=== PATIENT | female | born 1950 | race Caucasian/White ===

== ENCOUNTER 2017-08-16 21:35 | Observation (INO) | payer OTHER ==
[~2017-08-16] VITALS: Ht 167.6 cm; Wt 76.7 kg
[~2017-08-16 21:35] MED LIST: ACET-1311 PO; ASPI81TA28 PO; DIPH2CRE16 EXT; FERR1TAB23 PO; FLUT1INH INH; LEVO50TA6 PO; MAGNTAB4 PO; METO-157 PO; MORP1TAB12 PO; MORP60TA6 PO; OMEP20CA9 PO; OXYC1TAB3 PO; PROB1TAB16 PO; SDMC1 PO; SENN-61 PO; SENN8.6C PO; SIME1CAP PO; SIMV-150 PO; TPRSR/50 PO; TRMCR115 EXT; VANCOMYCIN IV; [UNRECOGNIZED DRUG - CODE] PO; [UNRECOGNIZED DRUG - SUPPLY] TOP
[2017-08-16 22:13] LABS: BASO % 0.4 %; BASO ABS # 0.05 K/uL (0-0.2); COMPLETE YES; EOS % 1.8 %; HEMATOCRIT 34.5 % (37-47); IG% 0.4 %; LYMPH % 16.1 %; LYMPH ABS # 2.02 K/uL (1.2-3.4); MEAN CELL VOLUME 87.8 fL (80-100); MEAN CORPUSCULAR HEMOGLOBIN 29.8 pg (25-34); MEAN CORPUSCULAR HGB CONC 33.9 g/dl (32-36); MEAN PLATELET VOLUME 9.5 fL (7.4-10.4); MONO % 7.7 %; NEUT % 73.6 %; PLATELET COUNT 333 K/uL (130-400); RED BLOOD COUNT 3.93 M/uL (4.2-5.4); WHITE BLOOD COUNT 12.53 K/uL (4.8-10.8)
[2017-08-16 22:38] LABS: ALT/SGPT 12 U/L (12-78); BLOOD UREA NITROGEN 3 mg/dl (7-18); CALCIUM 8.9 mg/dl (8.5-10.1); CARBON DIOXIDE 28 mmol/L (21-32); CHLORIDE 97 mmol/L (98-107); GLUCOSE 124 mg/dl (70-99); POTASSIUM 3.6 mmol/L (3.5-5.1); SODIUM 132 mmol/L (136-145)
--- NOTE | 2017-08-16 22:39 | DIAGNOSTIC IMAGING REPORT ---
CHEST ONE VIEW PORTABLE HISTORY: Atypical CHEST PAIN COMPARISON: Chest 08/22/2016. FINDINGS: The lungs are clear. Cardiac silhouette is normal in size. No pleural effusions. No pneumothorax. IMPRESSION: No acute process. Electronically signed by: Sundar Bowens M.D. 08/16/2017 10:37 PM Dictated Date/Time: 08/16/2017 10:36 PM
[2017-08-16] MEDS ORDERED: CLIN150C PO (22:40)
[2017-08-16] MEDS ORDERED: TPRSR/100 PO (22:40)
[2017-08-16] MEDS ORDERED: MORP1TAB13 PO (22:40)
[2017-08-16] MEDS ORDERED: METO10TA3 PO (22:40)
[2017-08-16] MEDS ORDERED: OXYC-609 PO (22:40)
[2017-08-16] MEDS ORDERED: DFL100 PO (22:40)
[2017-08-16] MEDS ORDERED: LEVO75TA5 PO (22:40)
[2017-08-16] MEDS ORDERED: CYM20 PO (22:40)
[2017-08-16] MEDS ORDERED: SENN-56 PO (22:43)
[2017-08-16 22:44] LABS: ALKALINE PHOSPHATASE 127 U/L (45-117); AST/SGOT 14 U/L (15-37); CKMB/CK RATIO 3.5 (0-3.0)
[2017-08-16] MEDS ORDERED: NITROGLYCERIN OINT 2% 1GM PACKET EXT ONE (23:15)
[2017-08-17] VITALS (8 sets, daily range): BP systolic 130–164; BP diastolic 76–107; PULSE 71–96; TEMP 36.4–37.1; O2SAT 92–96; Ht 167.6 cm; Wt 76.7 kg
[2017-08-17] MEDS ORDERED: MoRPHine SULFATE 2 MG/ML CARP IV PRN (01:30)
[2017-08-17] MEDS ORDERED: ONDANSETRON INJ 2 MG/ML 2 ML VIAL IV PRN (01:30)
[2017-08-17] MEDS ORDERED: NITROGLYCERIN 0.4 MG SL PER TAB CHARGE SL PRN (01:30)
[2017-08-17] MEDS ORDERED: POLYETHYLENE (MIRALAX) 17 GM PACK PO PRN (01:30)
[2017-08-17] MEDS ORDERED: MoRPHine SULFATE CR 60 MG TAB (MS CONTIN) PO ONE (01:32)
[2017-08-17] MEDS ORDERED: OXYC1CAP5 PO (01:41)
[2017-08-17] MEDS ORDERED: HOME MED ADMINISTRATION ONE (01:45)
[2017-08-17] MEDS ORDERED: METOCLOPRAMIDE HCL 10 MG TAB PO PRN (01:45)
[2017-08-17 01:53] LABS: PROTHROMBIN TIME (PATIENT) 10.6 SECONDS (9.0-12.0)
[2017-08-17] MEDS: NICOTINE 21 MG/24 HR TDSY TD SCH (02:30)
--- NOTE | 2017-08-17 02:46 | EMERGENCY ROOM VISIT NOTE ---
History Report prepared by [employer]: Chelly Gordon Under the Supervision of: Dr. Zhou Rivers M.D. First contact with patient: 21:54 Chief Complaint: CHEST PAIN Stated Complaint: cp Nursing Triage Summary: pt arrived als from home reported pt chest pain one time x five minutes radiating into left arm pt states it only lasted for five minutes then went away, "it was time to take my morphine 60mg so i took it" pt provided with 324 asa History of Present Illness The patient is a 66 year old female who presents to the Emergency Room with complaints of left sided chest pain. She was brought to the ED via EMS. She reports the pain started just prior to arrival and lasted for approximately 5 minutes, then resolved. She rates her discomfort as a 7/10 in severity and states it radiated into her left arm. She took her regular evening dose of Morphine 60 mg "because it was time" and was given 324 mg of Aspirin in the field. The patient admits to a history of hypertension and states she has not missed any recent medication doses. She was also found to be hypertensive and diaphoretic in the field. She has been on antibiotics recently for an abscess above her lip and notes she has been nauseous while taking the antibiotics. The patient denies LOC, headache, fevers, chills, visual changes, neck pain, breathing difficulties, vomiting, abdominal pain, back pain, melena, hematochezia, urinary symptoms, numbness, weakness, lymphadenopathy, rash, or other complaints. Source of History: patient Onset: [employer] Position: chest Symptom Intensity: 7/10 Timing: resolved Modifying Factors (Relieving): ibuprofen (Aspirin), narcotics (Morphine) Associated Symptoms: + diaphoresis, + nausea Review of Systems See HPI for pertinent positives and negatives. A total of ten systems were reviewed and were otherwise negative. Past Medical & Surgical Medical Problems: (1) Anemia (2) Anxiety (3) Avascular necrosis of bone of left hip (4) Chest pain (5) Chronic back pain (6) COPD (chronic obstructive pulmonary disease) (7) Depression (8) DJD (degenerative joint disease) (9) Fluid collection at surgical site (10) Hypertension (11) Hypothyroidism (12) Osteoporosis (13) Post-operative complication (14) SIADH (syndrome of inappropriate ADH production) Surgical Problems: (1) History of hysterectomy (2) History of total left hip arthroplasty (3) Post-operative state Family History Patient reports no known family medical history. Social History Smoking Status: Current Every Day Smoker Alcohol Use: occasionally Drug Use: none Marital Status: Housing Status: other Occupation Status: retired Current/Historical Medications Scheduled Clindamycin Hcl (Cleocin), 150 MG PO BID Duloxetine HCl (Duloxetine HCl), 20 MG PO DAILY Fluconazole (Fluconazole), 100 MG PO BID Levothyroxine Sodium (Levothyroxine Sodium), 75 MCG PO QAM Metoprolol Succinate (Metoprolol Succinate ER), 100 MG PO HS Morphine Sulfate (Morphine Sulfate Er), 60 MG PO TID Omeprazole (Prilosec), 20 MG PO QAM Simvastatin (Simvastatin), 10 MG PO HS Sodium Chloride (Sodium Chloride), 1 GM PO DAILY Scheduled PRN Fluticasone Furoate-Vilanterol (Breo Ellipta), 1 PUFF INH DAILY PRN for Shortness of Breath Metoclopramide HCl (Metoclopramide HCl), 10 MG PO ACHS PRN for nausea Oxycodone Hcl (Oxycodone Hcl), 1 CAP PO TID PRN for severe breakthrough pain Sennosides (Senna-Lax), 8.6 MG PO DAILY PRN for Constipation Allergies Coded Allergies: Bupropion (Verified Allergy, Unknown, 07/08/16) Latex1 -Allergic Contact Dermititis (Verified Allergy, Unknown, 07/08/16) Penicillins (Verified Allergy, Unknown, 07/08/16) Physical Exam Vital Signs Date Time Temp Pulse Resp B/P (MAP) Pulse Ox O2 Delivery O2 Flow Rate FiO2 08/16/17 22:04 85 08/16/17 22:01 93 Room Air 08/16/17 22:00 95 Room Air 08/16/17 22:00 93 Room Air 08/16/17 21:52 36.8 88 18 196/96 97 Room Air Physical Exam GENERAL: Awake, alert, well-appearing, in no distress HENT: Normocephalic, atraumatic. Oropharynx unremarkable. EYES: Normal conjunctiva. Sclera non-icteric. NECK: Supple. No nuchal rigidity. FROM. No JVD. RESPIRATORY: Clear to auscultation. CARDIAC: Regular rate, normal rhythm. Extremities warm and well perfused. Pulses equal. ABDOMEN: Soft, non-distended. No tenderness to palpation. No rebound or guarding. No masses. RECTAL: Deferred. MUSCULOSKELETAL: Chest examination reveals no tenderness. The back is symmetrical on inspection without obvious abnormality. There is no CVA tenderness to palpation. No joint edema. LOWER EXTREMITIES: Calves are equal size bilaterally and non-tender. No edema. No discoloration. NEURO: Normal sensorium. No sensory or motor deficits noted. SKIN: No rash or jaundice noted. Medical Decision & Procedures ER Provider Diagnostic Interpretation: Radiology results as stated below per my review and radiologist interpretation: CHEST ONE VIEW PORTABLE HISTORY: Atypical CHEST PAIN COMPARISON: Chest 08/22/2016. FINDINGS: The lungs are clear. Cardiac silhouette is normal in size. No pleural effusions. No pneumothorax. IMPRESSION: No acute process. Electronically signed by: Sundar Bowens M.D. 08/16/2017 10:37 PM Laboratory Results 08/16/17 21:59 Red Blood Count 3.93, Mean Corpuscular Volume 87.8, Mean Corpuscular Hemoglobin 29.8, Mean Corpuscular Hemoglobin Concent 33.9, Mean Platelet Volume 9.5, Neutrophils (%) (Auto) 73.6, Lymphocytes (%) (Auto) 16.1, Monocytes (%) (Auto) 7.7, Eosinophils (%) (Auto) 1.8, Basophils (%) (Auto) 0.4, Neutrophils # (Auto) 9.22, Lymphocytes # (Auto) 2.02, Monocytes # (Auto) 0.97, Eosinophils # (Auto) 0.22, Basophils # (Auto) 0.05 08/16/17 21:59 Test 08/16/17 21:59 08/16/17 22:00 White Blood Count 12.53 K/uL (4.8-10.8) Red Blood Count 3.93 M/uL (4.2-5.4) Hemoglobin 11.7 g/dL (12.0-16.0) Hematocrit 34.5 % (37-47) Mean Corpuscular Volume 87.8 fL (80-100) Mean Corpuscular Hemoglobin 29.8 pg (25-34) Mean Corpuscular Hemoglobin Concent 33.9 g/dl (32-36) Platelet Count 333 K/uL (130-400) Mean Platelet Volume 9.5 fL (7.4-10.4) Neutrophils (%) (Auto) 73.6 % Lymphocytes (%) (Auto) 16.1 % Monocytes (%) (Auto) 7.7 % Eosinophils (%) (Auto) 1.8 % Basophils (%) (Auto) 0.4 % Neutrophils # (Auto) 9.22 K/uL (1.4-6.5) Lymphocytes # (Auto) 2.02 K/uL (1.2-3.4) Monocytes # (Auto) 0.97 K/uL (0.11-0.59) Eosinophils # (Auto) 0.22 K/uL (0-0.5) Basophils # (Auto) 0.05 K/uL (0-0.2) RDW Standard Deviation 44.0 fL (36.4-46.3) RDW Coefficient of Variation 13.7 % (11.5-14.5) Immature Granulocyte % (Auto) 0.4 % Immature Granulocyte # (Auto) 0.05 K/uL (0.00-0.02) Anion Gap 7.0 mmol/L (3-11) Est Creatinine Clear Calc Drug Dose 64.4 ml/min Estimated GFR () 76.7 Estimated GFR (Non- 66.2 BUN/Creatinine Ratio 3.0 (10-20) Calcium Level 8.9 mg/dl (8.5-10.1) Total Bilirubin 0.2 mg/dl (0.2-1) Direct Bilirubin < 0.1 mg/dl (0-0.2) Aspartate Amino Transf (AST/SGOT) 14 U/L (15-37) Alanine Aminotransferase (ALT/SGPT) 12 U/L (12-78) Alkaline Phosphatase 127 U/L (45-117) Total Creatine Kinase 31 U/L (26-192) Creatine Kinase MB 1.1 ng/ml (0.5-3.6) Creatine Kinase MB Ratio 3.5 (0-3.0) Troponin I 0.018 ng/ml (0-0.045) Total Protein 7.5 gm/dl (6.4-8.2) Albumin 2.9 gm/dl (3.4-5.0) Lipase 101 U/L (73-393) Prothrombin Time 10.6 SECONDS (9.0-12.0) Prothromb Time International Ratio 1.0 (0.9-1.1) Laboratory results reviewed by me Medications Administered Medications (Trade) Dose Ordered Sig/Briana Route Start Time Stop Time Status Last Admin Dose Admin Nitroglycerin (Nitroglycerin 2% Oint) 0.5 inch NOW ONCE EXT 08/16/17 23:15 08/16/17 23:16 DC 08/16/17 23:44 0.5 INCH ED Course 2205: The patient was evaluated in room B5. A complete history and physical exam was performed. 2299: I reevaluated the patient. She is resting comfortably. I discussed my recommendation she remain in the hospital for further evaluation and management and she verbalized complete understanding and agreement. 5: Nitroglycerin 2% 0.5 inch EXT. 2323: I discussed the patients case with Nicholas Bertrand. The patient will be further evaluated. Medical Decision Triage Nursing notes reviewed. The patient's presentation and history were concerning for chest pain. Etiologies such as cardiac ischemia, aortic dissection, pulmonary embolism, pneumonia, pneumothorax, musculoskeletal, infections, gastrointestinal, as well as others were entertained. The patient was evaluated. She was currently pain-free. She had received aspirin prehospital. She had a slight leukocytosis on CBC. Her chemistry panel is unremarkable. Cardiac markers negative. Chest x-ray was unremarkable. The patient had Nitropaste applied. She was doing well on reassessment. Given her history she will need further evaluation and management in the hospital. The patient does note that she's been going to rehabilitation recently and states that with exertion and rehabilitation she has been getting shortness of breath and diaphoresis. This raises concerns for possible cardiac etiology and therefore warrants further management. Medication Reconcilliation Current Medication List: was personally reviewed by me Blood Pressure Screening Patient's blood pressure: Elevated blood pressure The patient's elevated blood pressure will be further addressed by the inpatient hospital medicine team. Consults Time Called: [phone] Consulting Physician: Nicholas Bertrand Returned Call: [phone] I discussed the patients case with Nicholas Bertrand. The patient will be further evaluated. Impression Primary Impression: Left sided chest pain Additional Impression: Hypertension Scribe Attestation The scribe's documentation has been prepared under my direction and personally reviewed by me in its entirety. I confirm that the note above accurately reflects all work, treatment, procedures, and medical decision making performed by me. Departure Information Dispostion Being Evaluated By Hospitalist Referrals Myrna Munguia M.D. (PCP) Patient Instructions [facility] Problem Qualifiers
--- NOTE | 2017-08-17 04:04 | History and Physical ---
History & Physical Date & Time of Service: Aug 17, 2017 at 01:42 Chief Complaint: Chest Pain Primary Care Physician: Myrna Munguia M.D. History of Present Illness Source: patient, clinic records, hospital records 66 yo F who reports 5 minutes of chest pain that occurred after dinner while she was sitting and watching TV. She reports that it was a 7/10 over her L anterior chest and radiated to her L arm. She has noted some nausea and sweating that was associated with the pain. She states that her BP was high this evening. She denies a history of chest pain. She was started on treatment last week for a facial abscess and is currently taking Cleocin for this. She was also started on Fluconazole for a rash under her breasts. She reports significant diaphoresis and appears diaphoretic during this examination. She otherwise denies any SOB, headaches, fevers, chills, vomiting, GI bleedings, numbness, weakness, rash or other complaints at this time. Risk factors for CAD include smoking, HTN, and age. Past Medical/Surgical History Medical Problems: (1) Anemia Status: Chronic (2) Anxiety Status: Chronic (3) Avascular necrosis of bone of left hip Status: Chronic (4) Chronic back pain Status: Chronic (5) COPD (chronic obstructive pulmonary disease) Status: Chronic (6) Depression Status: Chronic (7) DJD (degenerative joint disease) Status: Chronic (8) Fluid collection at surgical site Status: Chronic (9) Hypertension Status: Chronic (10) Hypothyroidism Status: Chronic (11) Osteoporosis Status: Chronic (12) Post-operative complication Status: Chronic (13) SIADH (syndrome of inappropriate ADH production) Status: Chronic Surgical Problems: (1) History of hysterectomy Status: Chronic (2) History of total left hip arthroplasty Status: Chronic Family History Patient reports no known family medical history. Social History Smoking Status: Current Every Day Smoker Smokeless Tobacco Use: No Alcohol Use: none Drug Use: none Marital Status: single Housing status: lives alone Occupational Status: retired Multi-Drug Resistant Organisms History of MDRO: No Allergies Coded Allergies: Bupropion (Verified Allergy, Unknown, 07/08/16) Latex1 -Allergic Contact Dermititis (Verified Allergy, Unknown, 07/08/16) Penicillins (Verified Allergy, Unknown, 07/08/16) Gabapentin (Verified Adverse Reaction, Unknown, unknown, 08/17/17) Latex (Verified Adverse Reaction, Unknown, unknown, 08/17/17) Sulfa Antibiotics (Verified Adverse Reaction, Unknown, unknown, 08/17/17) Uncoded Allergies: nicotine gum (Adverse Reaction, Unknown, unknown, 08/17/17) Home Medications Scheduled Clindamycin Hcl (Cleocin), 150 MG PO BID Duloxetine HCl (Duloxetine HCl), 20 MG PO DAILY Fluconazole (Fluconazole), 100 MG PO BID Levothyroxine Sodium (Levothyroxine Sodium), 75 MCG PO QAM Metoprolol Succinate (Metoprolol Succinate ER), 100 MG PO HS Morphine Sulfate (Morphine Sulfate Er), 60 MG PO TID Omeprazole (Prilosec), 20 MG PO QAM Simvastatin (Simvastatin), 10 MG PO HS Sodium Chloride (Sodium Chloride), 1 GM PO DAILY Scheduled PRN Fluticasone Furoate-Vilanterol (Breo Ellipta), 1 PUFF INH DAILY PRN for Shortness of Breath Metoclopramide HCl (Metoclopramide HCl), 10 MG PO ACHS PRN for nausea Oxycodone Hcl (Oxycodone Hcl), 1 CAP PO TID PRN for severe breakthrough pain Sennosides (Senna-Lax), 8.6 MG PO DAILY PRN for Constipation Review of Systems At least ten systems were reviewed and negative except as indicated in HPI. Physical Exam Vital Signs Date Time Temp Pulse Resp B/P (MAP) Pulse Ox O2 Delivery O2 Flow Rate FiO2 08/16/17 23:48 62 18 177/91 95 Room Air 08/16/17 22:04 85 08/16/17 22:01 93 Room Air 08/16/17 22:00 95 Room Air 08/16/17 22:00 93 Room Air 08/16/17 21:52 36.8 88 18 196/96 97 Room Air General Appearance: WD/WN, no apparent distress Head: normocephalic, atraumatic Eyes: normal inspection, PERRL, sclerae normal ENT: hearing grossly normal, pharynx normal Neck: supple, no JVD, trachea midline Respiratory/Chest: lungs clear, normal breath sounds, no respiratory distress, no accessory muscle use, + pertinent finding (TTP of anterior chest) Cardiovascular: regular rate, rhythm, no edema, no gallop, no JVD, no murmur, normal peripheral pulses Abdomen/GI: normal bowel sounds, non tender, soft Back: normal inspection Extremities/Musculoskelatal: normal inspection, no calf tenderness, no pedal edema, normal range of motion Neurologic/Psych: no motor/sensory deficits, alert, normal mood/affect, oriented x 3 Skin: normal color, warm/dry, no rash Diagnostics Laboratory Results Test 08/16/17 21:59 08/16/17 22:00 08/17/17 04:00 RDW Standard Deviation 44.0 fL (36.4-46.3) RDW Coefficient of Variation 13.7 % (11.5-14.5) White Blood Count 12.53 K/uL (4.8-10.8) Red Blood Count 3.93 M/uL (4.2-5.4) Hemoglobin 11.7 g/dL (12.0-16.0) Hematocrit 34.5 % (37-47) Mean Corpuscular Volume 87.8 fL (80-100) Mean Corpuscular Hemoglobin 29.8 pg (25-34) Mean Corpuscular Hemoglobin Concent 33.9 g/dl (32-36) Platelet Count 333 K/uL (130-400) Mean Platelet Volume 9.5 fL (7.4-10.4) Neutrophils (%) (Auto) 73.6 % Lymphocytes (%) (Auto) 16.1 % Monocytes (%) (Auto) 7.7 % Eosinophils (%) (Auto) 1.8 % Basophils (%) (Auto) 0.4 % Neutrophils # (Auto) 9.22 K/uL (1.4-6.5) Lymphocytes # (Auto) 2.02 K/uL (1.2-3.4) Monocytes # (Auto) 0.97 K/uL (0.11-0.59) Eosinophils # (Auto) 0.22 K/uL (0-0.5) Basophils # (Auto) 0.05 K/uL (0-0.2) Immature Granulocyte % (Auto) 0.4 % Immature Granulocyte # (Auto) 0.05 K/uL (0.00-0.02) Est Creatinine Clear Calc Drug Dose 64.4 ml/min Total Bilirubin 0.2 mg/dl (0.2-1) Direct Bilirubin < 0.1 mg/dl (0-0.2) Aspartate Amino Transf (AST/SGOT) 14 U/L (15-37) Alanine Aminotransferase (ALT/SGPT) 12 U/L (12-78) Alkaline Phosphatase 127 U/L (45-117) Total Protein 7.5 gm/dl (6.4-8.2) Albumin 2.9 gm/dl (3.4-5.0) Lipase 101 U/L (73-393) Prothrombin Time 10.6 SECONDS (9.0-12.0) Prothromb Time International Ratio 1.0 (0.9-1.1) Results Past 24 Hours Test 08/16/17 21:59 08/16/17 22:00 Range/Units White Blood Count 12.53 4.8-10.8 K/uL Red Blood Count 3.93 4.2-5.4 M/uL Hemoglobin 11.7 12.0-16.0 g/dL Hematocrit 34.5 37-47 % Mean Corpuscular Volume 87.8 80-100 fL Mean Corpuscular Hemoglobin 29.8 25-34 pg Mean Corpuscular Hemoglobin Concent 33.9 32-36 g/dl Platelet Count 333 130-400 K/uL Mean Platelet Volume 9.5 7.4-10.4 fL Neutrophils (%) (Auto) 73.6 % Lymphocytes (%) (Auto) 16.1 % Monocytes (%) (Auto) 7.7 % Eosinophils (%) (Auto) 1.8 % Basophils (%) (Auto) 0.4 % Neutrophils # (Auto) 9.22 1.4-6.5 K/uL Lymphocytes # (Auto) 2.02 1.2-3.4 K/uL Monocytes # (Auto) 0.97 0.11-0.59 K/uL Eosinophils # (Auto) 0.22 0-0.5 K/uL Basophils # (Auto) 0.05 0-0.2 K/uL RDW Standard Deviation 44.0 36.4-46.3 fL RDW Coefficient of Variation 13.7 11.5-14.5 % Immature Granulocyte % (Auto) 0.4 % Immature Granulocyte # (Auto) 0.05 0.00-0.02 K/uL Sodium Level 132 136-145 mmol/L Potassium Level 3.6 3.5-5.1 mmol/L Chloride Level 97 98-107 mmol/L Carbon Dioxide Level 28 21-32 mmol/L Anion Gap 7.0 3-11 mmol/L Blood Urea Nitrogen 3 7-18 mg/dl Creatinine 0.90 0.60-1.20 mg/dl Est Creatinine Clear Calc Drug Dose 64.4 ml/min Estimated GFR () 76.7 Estimated GFR (Non- 66.2 BUN/Creatinine Ratio 3.0 10-20 Random Glucose 124 70-99 mg/dl Calcium Level 8.9 8.5-10.1 mg/dl Total Bilirubin 0.2 0.2-1 mg/dl Direct Bilirubin < 0.1 0-0.2 mg/dl Aspartate Amino Transf (AST/SGOT) 14 15-37 U/L Alanine Aminotransferase (ALT/SGPT) 12 12-78 U/L Alkaline Phosphatase 127 45-117 U/L Total Creatine Kinase 31 26-192 U/L Creatine Kinase MB 1.1 0.5-3.6 ng/ml Creatine Kinase MB Ratio 3.5 0-3.0 Troponin I 0.018 0-0.045 ng/ml Total Protein 7.5 6.4-8.2 gm/dl Albumin 2.9 3.4-5.0 gm/dl Lipase 101 73-393 U/L Diagnostic Radiology CHEST ONE VIEW PORTABLE HISTORY: Atypical CHEST PAIN COMPARISON: Chest 08/22/2016. FINDINGS: The lungs are clear. Cardiac silhouette is normal in size. No pleural effusions. No pneumothorax. IMPRESSION: No acute process. Normal EKG Impression Assessment and Plan 66 yo F with RFs for CAD including active smoking and age presents with an episode of chest pain at home 1. Atypical chest pain-no h/o CAD. Trend serial cardiac enzymes. Given ASA 324 in the field. 2. Smoking-Nicotine patch 3. Facial abscess-cont Cleocin 4. Hypothyroidism-cont Synthroid DVT proph-Maribel 40 Full Code Dispo-telemetry DO Nicholas Ahumada [facility]ist VTE Prophylaxis VTE Risk Assessment Done? Y/N: Yes Risk Level: Moderate Given or contraindicated: Enoxaparin (Lovenox)SQ
[2017-08-17 04:20] LABS: HEMATOCRIT 34.5 % (37-47); MEAN CELL VOLUME 87.8 fL (80-100); MEAN CORPUSCULAR HEMOGLOBIN 29.5 pg (25-34); MEAN CORPUSCULAR HGB CONC 33.6 g/dl (32-36); PLATELET COUNT 341 K/uL (130-400); RED BLOOD COUNT 3.93 M/uL (4.2-5.4); WHITE BLOOD COUNT 13.28 K/uL (4.8-10.8)
[2017-08-17 04:34] LABS: BUN/CREATININE RATIO 3.6 (10-20); CALCIUM 8.7 mg/dl (8.5-10.1); CREATININE 0.81 mg/dl (0.60-1.20); MAGNESIUM 1.4 mg/dl (1.8-2.4); POTASSIUM 3.8 mmol/L (3.5-5.1)
[2017-08-17 04:41] LABS: CHOLESTEROL/HDL RATIO 3.1; CKMB/CK RATIO 2.1 (0-3.0)
[2017-08-17] MEDS ORDERED: PNEUMOCOCCAL ADMINISTRATION CHARGE ONE (05:30)
[2017-08-17] MEDS ORDERED: INFLUENZA ADMINISTRATION CHARGE ONE (05:30)
[2017-08-17] MEDS ORDERED: PNEUMOCOCCAL POLYSACCHARIDES 25 MCG/0.5 ML VIAL/SYR IM. ONE (05:30)
[2017-08-17] MEDS ORDERED: IV FLUIDS COMPLETED PRN (05:30)
[2017-08-17] MEDS ORDERED: INFLUENZA VACCINE HIGH DOSE 65+ 0.5 ML SYR IM. ONE (05:30)
[2017-08-17] MEDS: LEVOTHYROXINE 75 MCG TAB PO SCH (05:49)
[2017-08-17] MEDS: ACETAMINOPHEN 325 MG TAB PO PRN ×3 (07:09→23:38)
[2017-08-17] MEDS: MoRPHine SULFATE CR 60 MG TAB (MS CONTIN) PO SCH ×3 (08:16→21:28)
[2017-08-17] MEDS: SODIUM CHLORIDE 1 GM TAB PO SCH (08:16)
[2017-08-17] MEDS: PANTOprazole SOD 40 MG TAB PO SCH (08:16)
[2017-08-17] MEDS: FLUCONAZOLE 100 MG TAB PO SCH ×2 (08:16→21:28)
[2017-08-17] MEDS: CLINDAMYCIN HCL 150 MG CAP PO SCH ×2 (08:16→21:29)
[2017-08-17] MEDS: DULOXETINE HCL 20 MG CAP PO SCH (08:17)
[2017-08-17] MEDS: ENOXAPARIN 40 MG/0.4 ML SYR SC SCH (08:20)
[2017-08-17] MEDS ORDERED: BREO ELLIPTA INH PRN (09:00)
[2017-08-17] MEDS: MAGNESIUM SULFATE 1GM / D5W 1 GM in PREMIXED IN D5W 100 ML IV SCH ×4 (09:05→18:49)
[2017-08-17 11:28] LABS: CKMB/CK RATIO 2.1 (0-3.0); PHOSPHORUS 3.7 mg/dl (2.5-4.9)
--- NOTE | 2017-08-17 13:00 | Progress Note ---
Internal Med Progress Note Date of Service: Aug 17, 2017. Provider Documentation: SUBJECTIVE: The patient was seen and examined Admitted with typical Angina Denies any symptoms today OBJECTIVE: Vital Signs-as noted below Exam: General-NO distress at rest Eyes-normal ENT-normal Neck-supple Lungs-Clear to auscultate bilaterally Heart-Regular,no murmur appreciated Abdomen-Benign,no masses,bowel sound present Extremities-NO edema Neuro-AAOx3 Lab data as noted below. ASSESSMENT & PLAN: 66 yo F with RFs for CAD including active smoking and age presents with an episode of chest pain at home Atypical chest pain-no h/o CAD. Trend serial cardiac enzymes-Negative for any ACS . Given ASA 324 in the field. Denies any pain today Cardiology consulted Smoking-Nicotine patch Facial abscess-cont Cleocin No acute issue Hypothyroidism-cont Synthroid DVT proph-Maribel 40 Full Code Dispo-telemetry Vital Signs: Date Time Temp Pulse Resp B/P (MAP) Pulse Ox O2 Delivery O2 Flow Rate FiO2 08/17/17 12:00 Room Air 08/17/17 11:36 36.8 71 20 130/76 (94) 95 Room Air 08/17/17 08:00 Room Air 08/17/17 07:23 36.8 77 18 152/79 (103) 93 Room Air 08/17/17 04:00 Room Air 08/17/17 03:00 37.1 75 16 149/78 (101) 95 Room Air 08/17/17 00:30 36.9 96 18 164/107 93 Room Air 08/16/17 23:48 62 18 177/91 95 Room Air 08/16/17 22:04 85 08/16/17 22:01 93 Room Air 08/16/17 22:00 95 Room Air 08/16/17 22:00 93 Room Air 08/16/17 21:52 36.8 88 18 196/96 97 Room Air Lab Results: Results Past 24 Hours Test 08/16/17 21:59 08/16/17 22:00 08/17/17 04:00 08/17/17 10:14 Range/Units White Blood Count 12.53 13.28 4.8-10.8 K/uL Red Blood Count 3.93 3.93 4.2-5.4 M/uL Hemoglobin 11.7 11.6 12.0-16.0 g/dL Hematocrit 34.5 34.5 37-47 % Mean Corpuscular Volume 87.8 87.8 80-100 fL Mean Corpuscular Hemoglobin 29.8 29.5 25-34 pg Mean Corpuscular Hemoglobin Concent 33.9 33.6 32-36 g/dl Platelet Count 333 341 130-400 K/uL Mean Platelet Volume 9.5 10.0 7.4-10.4 fL Neutrophils (%) (Auto) 73.6 % Lymphocytes (%) (Auto) 16.1 % Monocytes (%) (Auto) 7.7 % Eosinophils (%) (Auto) 1.8 % Basophils (%) (Auto) 0.4 % Neutrophils # (Auto) 9.22 1.4-6.5 K/uL Lymphocytes # (Auto) 2.02 1.2-3.4 K/uL Monocytes # (Auto) 0.97 0.11-0.59 K/uL Eosinophils # (Auto) 0.22 0-0.5 K/uL Basophils # (Auto) 0.05 0-0.2 K/uL RDW Standard Deviation 44.0 43.7 36.4-46.3 fL RDW Coefficient of Variation 13.7 13.5 11.5-14.5 % Immature Granulocyte % (Auto) 0.4 % Immature Granulocyte # (Auto) 0.05 0.00-0.02 K/uL Sodium Level 132 134 136-145 mmol/L Potassium Level 3.6 3.8 3.5-5.1 mmol/L Chloride Level 97 98 98-107 mmol/L Carbon Dioxide Level 28 28 21-32 mmol/L Anion Gap 7.0 8.0 3-11 mmol/L Blood Urea Nitrogen 3 3 7-18 mg/dl Creatinine 0.90 0.81 0.60-1.20 mg/dl Est Creatinine Clear Calc Drug Dose 64.4 71.0 ml/min Estimated GFR () 76.7 87.1 Estimated GFR (Non- 66.2 75.2 BUN/Creatinine Ratio 3.0 3.6 10-20 Random Glucose 124 111 70-99 mg/dl Calcium Level 8.9 8.7 8.5-10.1 mg/dl Total Bilirubin 0.2 0.2-1 mg/dl Direct Bilirubin < 0.1 0-0.2 mg/dl Aspartate Amino Transf (AST/SGOT) 14 15-37 U/L Alanine Aminotransferase (ALT/SGPT) 12 12-78 U/L Alkaline Phosphatase 127 45-117 U/L Total Creatine Kinase 31 34 29 26-192 U/L Creatine Kinase MB 1.1 0.7 0.6 0.5-3.6 ng/ml Creatine Kinase MB Ratio 3.5 2.1 2.1 0-3.0 Troponin I 0.018 0.018 0.019 0-0.045 ng/ml Total Protein 7.5 6.4-8.2 gm/dl Albumin 2.9 3.4-5.0 gm/dl Lipase 101 73-393 U/L Prothrombin Time 10.6 9.0-12.0 SECONDS Prothromb Time International Ratio 1.0 0.9-1.1 Magnesium Level 1.4 1.8-2.4 mg/dl Triglycerides Level 114 0-150 mg/dl Cholesterol Level 116 0-200 mg/dl HDL Cholesterol 38 mg/dl LDL Cholesterol, Calculated 55 mg/dl VLDL Cholesterol, Calculated 23 mg/dl Cholesterol/HDL Ratio 3.1 Hepatitis C Antibody Screen NEG NEG Phosphorus Level 3.7 2.5-4.9 mg/dl
[2017-08-17] MEDS ORDERED: AMLODIPINE BESYLATE 5 MG TAB PO ONE (13:30)
[2017-08-17] MEDS ORDERED: PERFLUTREN LIPID MICROSPHERE (DEFINITY) IV ONE (15:09)
--- NOTE | 2017-08-17 15:40 | ECHOCARDIOGRAM REPORT ---
*NOTICE TO RECEIVING REPUBLICAN AGENCY This information is strictly Confidential and protected under [place] law. [place] law prohibits you from making any further disclosure of this information unless further disclosure is expressly permitted by the written consent of the person to whom it pertains or is authorized by law. A general authorization for the release of medical or other information is not sufficient for this purpose. Hospital accepts no responsibility if the information is made available to any other person, INCLUDING THE PATIENT. Interpretation Summary * Name: GAVIN TINSLEY Study Date: 08/17/2017 01:44 PM BP: 143/86 mmHg * Patient Location: [facility]\S\N282\S\1 HR: 79 * : 1950 (M/d/yyyy) Gender: Female Height: 66 in * Age: 66 yrs Ethnicity: [place] Weight: 171 lb * Ordering Physician: Mateusz Venegas * Referring Physician: Self, Referred * Performed By: Seema Grey RDCS * * Reason For Study: CHEST PAIN * BSA: 1.9 m2 * -- Conclusions -- * Normal LV chamber size with mild concentric LVH. * Normal LV systolic funciton, EF 60-65%. * No segmental left ventricular wall motion abnormalities are noted. * Grade II diastolic dysfunction. * No significant valvular pathology. * Small, loculated anterior pericardial effusion without hemodynamic significance. Procedure Details * A contrast injection of Definity was performed to improve assessment of LV function. * Contrast was injected into an intravenous site in the right arm. * One vial of Definity ultrasound contrast was diluted in normal saline to a total volume of 10 ml. A total of '2' ml of solution was administered during imaging. * Lot # [id number] of Definity utilized for procedure. * Expiration date AUG 25. * The attending nurse who injected the contrast agent was BUDDY GUTIERREZ RN. Left Ventricle * The left ventricle is normal in size. * There is mild concentric left ventricular hypertrophy. * Ejection Fraction = 60-65%. * Left ventricular systolic function is normal. * No segmental left ventricular wall motion abnormalities are noted. * The left ventricular wall motion is normal. Right Ventricle * The right ventricular cavity size is normal (basal dimension <4.2 cm in right ventricular apical 4-chamber view). * The right ventricular systolic function is normal as assessed by tricuspid annular plane systolic excursion (TAPSE) (normal >1.5 cm). Atria * The left atrial size is normal. * Right atrial size is normal. * No ASD detected; PFO is not assessed. Mitral Valve * The mitral valve is normal in structure and function. Tricuspid Valve * The tricuspid valve is normal in structure and function. Aortic Valve * The aortic valve is not well visualized. * No hemodynamically significant valvular aortic stenosis. * There is no significant aortic regurgitation. Pulmonic Valve * The pulmonary valve is not well seen, but the Doppler examination is normal without significant regurgitation or stenosis. Great Vessels * The aortic root is normal size. Pericardium/Pleural * Small pericardial effusion. * A loculated pericardial effusion is noted. Left Ventricular Diastolic Function * Diastolic dysfunction, Grade II (pseudonormalization pattern). MMode 2D Measurements and Calculations IVSd 1.3 cm IVSs 1.8 cm LVIDd 4.4 cm LVIDs 3.1 cm LVPWd 1.5 cm LVPWs 2.1 cm IVS/LVPW 0.83 FS 29.9 % EDV(Teich) 89.7 ml ESV(Teich) 38.4 ml EF(Teich) 57.2 % EDV(cubed) 87.7 ml ESV(cubed) 30.3 ml EF(cubed) 65.5 % % IVS thick 41.6 % % LVPW thick 35.2 % LV mass(C)d 244.5 grams LV mass(C)dI 130.6 grams/m\S\2 LV mass(C)s 259.5 grams LV mass(C)sI 138.7 grams/m\S\2 SV(Teich) 51.3 ml SI(Teich) 27.4 ml/m\S\2 SV(cubed) 57.5 ml SI(cubed) 30.7 ml/m\S\2 LVAd ap4 24.7 cm\S\2 LVLd ap4 8.0 cm EDV(MOD-sp4) 64.7 ml EDV(sp4-el) 65.0 ml LVAs ap4 14.0 cm\S\2 LVLs ap4 6.4 cm ESV(MOD-sp4) 25.3 ml ESV(sp4-el) 26.1 ml EF(MOD-sp4) 60.9 % EF(sp4-el) 59.9 % LVAd ap2 24.3 cm\S\2 LVLd ap2 8.0 cm EDV(MOD-sp2) 62.5 ml EDV(sp2-el) 62.6 ml LVAs ap2 14.9 cm\S\2 LVLs ap2 6.8 cm ESV(MOD-sp2) 29.1 ml ESV(sp2-el) 27.6 ml EF(MOD-sp2) 53.5 % EF(sp2-el) 55.9 % LVLd %diff 0.41 % EDV(MOD-bp) 63.8 ml LVLs %diff 6.0 % ESV(MOD-bp) 27.7 ml EF(MOD-bp) 56.7 % SV(MOD-sp4) 39.4 ml SI(MOD-sp4) 21.0 ml/m\S\2 SV(MOD-sp2) 33.4 ml SI(MOD-sp2) 17.9 ml/m\S\2 SV(MOD-bp) 36.2 ml SI(MOD-bp) 19.3 ml/m\S\2 SV(sp4-el) 38.9 ml SI(sp4-el) 20.8 ml/m\S\2 SV(sp2-el) 35.0 ml SI(sp2-el) 18.7 ml/m\S\2 Doppler Measurements and Calculations MV E max anthony 112.1 cm/sec MV A max anthony 99.0 cm/sec MV E/A 1.1 MV dec time 0.23 sec Ao V2 max 167.4 cm/sec Ao max PG 11.2 mmHg Ao max PG (full) -0.13 mmHg LV V1 max PG 11.3 mmHg LV V1 max 168.4 cm/sec TR max anthony 227.7 cm/sec
[2017-08-17] MEDS: SIMVASTATIN 10 MG TAB PO SCH (21:30)
[2017-08-17] MEDS: METOPROLOL SUCC 50MG EXT REL TAB PO SCH (21:30)
[2017-08-18] VITALS (10 sets, daily range): BP systolic 113–154; BP diastolic 70–87; PULSE 65–88; TEMP 36.5–37; O2SAT 92–95
[2017-08-18] MEDS: OXYCODONE HCL IR 5 MG TAB (IMMEDIATE RELEASE) PO PRN ×2 (01:47→09:46)
[2017-08-18] MEDS: ACETAMINOPHEN 325 MG TAB PO PRN (05:36)
[2017-08-18] MEDS: LEVOTHYROXINE 75 MCG TAB PO SCH (05:37)
[2017-08-18] MEDS: NICOTINE 21 MG/24 HR TDSY TD SCH ×2 (07:58→11:09)
[2017-08-18] MEDS: ENOXAPARIN 40 MG/0.4 ML SYR SC SCH (07:58)
[2017-08-18] MEDS: DULOXETINE HCL 20 MG CAP PO SCH (07:59)
[2017-08-18] MEDS: FLUCONAZOLE 100 MG TAB PO SCH ×2 (08:02→21:57)
[2017-08-18] MEDS: PANTOprazole SOD 40 MG TAB PO SCH (08:02)
[2017-08-18] MEDS: SODIUM CHLORIDE 1 GM TAB PO SCH (08:02)
[2017-08-18] MEDS: AMLODIPINE BESYLATE 5 MG TAB PO SCH (08:02)
[2017-08-18] MEDS: CLINDAMYCIN HCL 150 MG CAP PO SCH (08:03)
[2017-08-18] MEDS: MoRPHine SULFATE CR 60 MG TAB (MS CONTIN) PO SCH ×3 (08:05→22:05)
[2017-08-18] MEDS: SENNA 8.6 MG TAB PO PRN (11:08)
--- NOTE | 2017-08-18 12:52 | CARDIOLOGY CONSULTATION ---
DATE OF CONSULTATION: 08/18/2017 REFERRING PHYSICIAN: Nicholas garner. REASON FOR CONSULTATION: Chest pain. HISTORY OF PRESENT ILLNESS: This is a 66-year-old female who has no prior history of heart disease. Wednesday evening after finishing dinner, she was watching TV and had sudden onset of severe chest pain, radiating into her left arm. She was admitted to the telemetry unit and after admission, she has been chest pain free. Cardiac markers have been negative and her EKGs are within normal limits. It should be noted that she had a tooth abscess and was started on Cleocin and recently also started on fluconazole due to rash under her breasts. These medications may have caused some GI upset. The patient in the Emergency Department was noted to be markedly hypertensive, which has improved after the addition of medications. ALLERGIES: BUPROPION, LATEX, PENICILLIN, GABAPENTIN, AND SULFA ANTIBIOTICS. PAST MEDICAL HISTORY: She is treated for hypertension and hypothyroidism. She has a diagnosis of chronic SIADH and COPD. No history of diabetes, strokes or kidney disease. SOCIAL HISTORY: She is a current smoker. She is single and lives alone. FAMILY MEDICAL HISTORY: Noncontributory. REVIEW OF SYSTEMS: A 10-point review of systems is negative except for the history of chief complaint. PHYSICAL EXAMINATION: GENERAL: She is alert and oriented. VITAL SIGNS: Blood pressure is 150/80. Pulse is regular at 70. She is afebrile. HEENT: She is normocephalic. Pupils are equal and reactive to light. Extraocular muscles are intact bilaterally. NECK: The neck veins are flat. Carotids have good upstrokes bilaterally without bruits. Thyroid is nonpalpable. RESPIRATORY: Breath sounds equal bilaterally and clear to auscultation. CARDIOVASCULAR: Heart has a regular rhythm. Normal S1 and S2. No S3 or S4. No cardiac rubs or murmurs. GASTROINTESTINAL: Abdomen is soft and nontender without organomegaly. EXTREMITIES: Free of edema, digit clubbing, or cyanosis. NEUROLOGIC: Grossly intact. SKIN: Warm to touch. LYMPH NODES: Negative to palpation. IMPRESSION: 1. Atypical chest pain. 2. Hypertension. 3. Cigarette smoking. RECOMMENDATIONS: The patient's blood pressure is better controlled today. Her cardiac markers were negative and she has a normal EKG. I believe that she may be discharged home per the hospitalist service. Due to her history of cigarette smoking, I believe as an outpatient, we should plan for a stress test.
--- NOTE | 2017-08-18 14:26 | Progress Note ---
Internal Med Progress Note Date of Service: Aug 18, 2017. Provider Documentation: SUBJECTIVE: The patient was seen and examined Admitted with typical Angina Denies any symptoms today Does nit feel any good today Has cough Worried about having C Diff infection OBJECTIVE: Vital Signs-as noted below Exam: General-NO distress at rest Eyes-normal ENT-normal Neck-supple Lungs-Clear to auscultate bilaterally Heart-Regular,no murmur appreciated Abdomen-Benign,no masses,bowel sound present Extremities-NO edema Neuro-AAOx3 Lab data as noted below. ASSESSMENT & PLAN: 66 yo F with RFs for CAD including active smoking and age presents with an episode of chest pain at home Atypical chest pain-no h/o CAD. Trend serial cardiac enzymes-Negative for any ACS . Given ASA 324 in the field. Denies any pain today Cardiology consulted -appreciate input Stress test as an OP Smoking-Nicotine patch Advised to quit smoking Cough with yellowish sputum WCC borderline high Will start Doxycycline Stop Clindamycin Facial abscess-cont Cleocin No acute issue Hypothyroidism-cont Synthroid DVT proph-Lovenox 40 Full Code Dispo-telemetry Likely to discharge tomorrow Vital Signs: Date Time Temp Pulse Resp B/P (MAP) Pulse Ox O2 Delivery O2 Flow Rate FiO2 08/18/17 12:00 92 Room Air 08/18/17 11:40 36.5 71 20 154/86 (108) 95 Room Air 08/18/17 08:00 92 Room Air 08/18/17 07:52 36.8 65 20 150/86 (107) 92 08/18/17 04:00 Room Air 08/18/17 03:35 37.0 67 16 150/87 (108) 94 Room Air 08/18/17 00:22 36.6 88 20 152/76 (101) 94 Room Air 08/18/17 00:00 Room Air 08/17/17 20:00 92 Room Air 08/17/17 19:27 36.6 86 20 151/83 (105) 96 Room Air 08/17/17 16:00 92 Room Air
[2017-08-18] MEDS: DOXYCYCLINE HYCLATE 100 MG CAP PO SCH ×2 (17:43→21:57)
[2017-08-18] MEDS: METOPROLOL SUCC 50MG EXT REL TAB PO SCH (21:56)
[2017-08-18] MEDS: SIMVASTATIN 10 MG TAB PO SCH (21:58)
[2017-08-19] VITALS (8 sets, daily range): BP systolic 122–135; BP diastolic 78–80; PULSE 69–71; TEMP 36.6–36.9; O2SAT 92–95
[2017-08-19] MEDS: OXYCODONE HCL IR 5 MG TAB (IMMEDIATE RELEASE) PO PRN (03:27)
[2017-08-19] MEDS: LEVOTHYROXINE 75 MCG TAB PO SCH (05:59)
[2017-08-19] MEDS: ENOXAPARIN 40 MG/0.4 ML SYR SC SCH (07:36)
[2017-08-19] MEDS: SENNA 8.6 MG TAB PO PRN (07:36)
[2017-08-19] MEDS: PANTOprazole SOD 40 MG TAB PO SCH (07:36)
[2017-08-19] MEDS: DULOXETINE HCL 20 MG CAP PO SCH (07:37)
[2017-08-19] MEDS: AMLODIPINE BESYLATE 5 MG TAB PO SCH (07:37)
[2017-08-19] MEDS: SODIUM CHLORIDE 1 GM TAB PO SCH (07:37)
[2017-08-19] MEDS: FLUCONAZOLE 100 MG TAB PO SCH (07:38)
[2017-08-19] MEDS: NICOTINE 21 MG/24 HR TDSY TD SCH (07:38)
[2017-08-19] MEDS: MoRPHine SULFATE CR 60 MG TAB (MS CONTIN) PO SCH ×2 (07:39→13:44)
--- NOTE | 2017-08-19 13:14 | Progress Note ---
Internal Med Progress Note Date of Service: Aug 19, 2017. Provider Documentation: SUBJECTIVE: The patient was seen and examined Admitted with typical Angina Denies any symptoms today much better today Ambulating without any difficulty OBJECTIVE: Vital Signs-as noted below Exam: General-NO distress at rest Eyes-normal ENT-normal Neck-supple Lungs-Clear to auscultate bilaterally No wheezing and or crackles Heart-Regular,no murmur appreciated Abdomen-Benign,no masses,bowel sound present Extremities-NO edema Neuro-AAOx3 Lab data as noted below. ASSESSMENT & PLAN: 66 yo F with RFs for CAD including active smoking and age presents with an episode of chest pain at home Atypical chest pain-no h/o CAD. Trend serial cardiac enzymes-Negative for any ACS . Given ASA 324 in the field. Denies any pain today Cardiology consulted -appreciate input .no further tests needed Stress test can be arranged as an OP Smoking-Nicotine patch Advised to quit smoking Cough with yellowish sputum WCC borderline high Will start Doxycycline Stop Clindamycin Clinically a lot better Facial abscess-cont Cleocin No acute issue Hypothyroidism-cont Synthroid DVT proph-Lovenox 40 Full Code Dispo-telemetry Discharge today Vital Signs: Date Time Temp Pulse Resp B/P (MAP) Pulse Ox O2 Delivery O2 Flow Rate FiO2 08/19/17 12:00 95 Room Air 08/19/17 11:46 36.6 71 16 122/78 (93) 95 Room Air 08/19/17 08:00 95 Room Air 08/19/17 07:27 36.9 70 18 135/79 (97) 95 Room Air 08/19/17 05:06 36.7 69 18 135/80 (98) 95 Room Air 08/19/17 04:05 92 Room Air 08/19/17 00:05 92 Room Air 08/18/17 20:05 92 Room Air 08/18/17 19:33 37.0 77 18 113/70 (84) 94 Room Air 08/18/17 15:53 92 Room Air 08/18/17 15:22 36.7 79 18 131/71 (91) 92 Room Air
[2017-08-19] MEDS ORDERED: NRV5 PO (13:17)
[2017-08-19] MEDS ORDERED: NICO21DI4 TD (13:17)
[2017-08-19] MEDS ORDERED: LCTX PO (13:17)
[2017-08-19] MEDS ORDERED: DXY100 PO (13:17)
--- NOTE | 2017-08-19 13:19 | Discharge Instructions ---
Discharge Instructions Date of Service Aug 19, 2017. Admission Reason for Admission: Chest Pain Discharge Discharge Diagnosis / Problem: Chest pain -No ACS,Acute Bronchitis Discharge Goals Goal(s): Prevent Disease Progression Activity Recommendations Activity Limitations: resume your previous activity . Instructions / Follow-Up Instructions / Follow-Up Jen Munguia's office will call with appointment Current Hospital Diet Patient's current hospital diet: Regular Diet Discharge Diet Recommended Diet: Regular Diet, AHA Diet (Heart Healthy) Pending Studies Studies pending at discharge: no Laboratory Results Lipid Panel Test 08/17/17 04:00 Range/Units Triglycerides Level 114 0-150 mg/dl Cholesterol Level 116 0-200 mg/dl HDL Cholesterol 38 mg/dl Cholesterol/HDL Ratio 3.1 LDL Cholesterol, Calculated 55 mg/dl Medical Emergencies . Who to Call and When: Medical Emergencies: If at any time you feel your situation is an emergency, please call 911 immediately. . Non-Emergent Contact Non-Emergency issues call your: Primary Care Provider . Past History Medical & Surgical History: (1) Chest pain (2) COPD (chronic obstructive pulmonary disease) (3) Depression (4) Chronic back pain (5) SIADH (syndrome of inappropriate ADH production) (6) Hypothyroidism (7) Osteoporosis (8) Avascular necrosis of bone of left hip (9) Post-operative state (10) History of hysterectomy (11) History of total left hip arthroplasty . "Provider Documentation" section prepared by Agustin Juarez. . VTE Core Measure Inpt VTE Proph given/why not?: Enoxaparin (Lovenox)SQ
--- NOTE | 2017-08-20 09:41 | Discharge Summary ---
Discharge Summary Date of Service Aug 20, 2017. Discharge Summary Admission Date: Aug 16, 2017 at 23:26 Discharge Date: Aug 19, 2017 Discharge Disposition: Home Principal Diagnosis: Chest pain -No ACS,Acute Bronchitis Secondary Diagnoses/Problems: Please see H&P and Hospital Progress note Medication Reconciliation New Medications: Lactobacillus Acidophilus (Lactinex) Tab 2 TAB PO BID, #30 TAB Amlodipine Besylate (Amlodipine Besylate) 5 Mg Tab 5 MG PO QAM for 30 Days, #30 TAB Doxycycline Hyclate (Doxycycline Hyclate) 100 Mg Cap 100 MG PO BID for 6 Days, #12 CAP Nicotine (Nicoderm Cq) 21 Mg/24 Hr Dis 1 PATCH TD QAM for 30 Days, #30 Continued Medications: Duloxetine HCl (Duloxetine HCl) 20 Mg Cap 20 MG PO DAILY Fluconazole (Fluconazole) 100 Mg Tab 100 MG PO BID for 10 Days, #20 PRESCRIBED 08/11/2017, TAKE DIRECTED UNTIL GONE Fluticasone Furoate-Vilanterol (Breo Ellipta) 1 Inh Inh 1 PUFF INH DAILY PRN for Shortness of Breath Levothyroxine Sodium (Levothyroxine Sodium) 75 Mcg Tab 75 MCG PO QAM Metoclopramide HCl (Metoclopramide HCl) 10 Mg Tab 10 MG PO ACHS PRN for nausea Metoprolol Succinate (Metoprolol Succinate ER) 100 Mg Tabcr 100 MG PO HS Morphine Sulfate (Morphine Sulfate Er) 60 Mg Tab 60 MG PO TID Omeprazole (Prilosec) 20 Mg Cap 20 MG PO QAM Oxycodone Hcl (Oxycodone Hcl) 5 Mg Cap 1 CAP PO TID PRN for severe breakthrough pain for 30 Days, #90 CAP Sennosides (Senna-Lax) 8.6 Mg Tab 8.6 MG PO DAILY PRN for Constipation Simvastatin (Simvastatin) 10 Mg Tab 10 MG PO HS Sodium Chloride (Sodium Chloride) 1 Gm Tab 1 GM PO DAILY Discontinued Medications: Clindamycin Hcl (Cleocin) 150 Mg Cap 150 MG PO BID for 7 Days, #14 CAP PRESCRIBED 08/11/2017, TAKE THIS MEDICATION TWICE DAILY AFTER EATING DIRECTED UNTIL GONE Admission Information HPI (per Admitting provider): 66 yo F who reports 5 minutes of chest pain that occurred after dinner while she was sitting and watching TV. She reports that it was a 7/10 over her L anterior chest and radiated to her L arm. She has noted some nausea and sweating that was associated with the pain. She states that her BP was high this evening. She denies a history of chest pain. She was started on treatment last week for a facial abscess and is currently taking Cleocin for this. She was also started on Fluconazole for a rash under her breasts. She reports significant diaphoresis and appears diaphoretic during this examination. She otherwise denies any SOB, headaches, fevers, chills, vomiting, GI bleedings, numbness, weakness, rash or other complaints at this time. Risk factors for CAD include smoking, HTN, and age. Past Medical/Surgical History Medical Problems: (1) Anemia Status: Chronic (2) Anxiety Status: Chronic (3) Avascular necrosis of bone of left hip Status: Chronic (4) Chronic back pain Status: Chronic (5) COPD (chronic obstructive pulmonary disease) Status: Chronic (6) Depression Status: Chronic (7) DJD (degenerative joint disease) Status: Chronic (8) Fluid collection at surgical site Status: Chronic (9) Hypertension Status: Chronic (10) Hypothyroidism Status: Chronic (11) Osteoporosis Status: Chronic (12) Post-operative complication Status: Chronic (13) SIADH (syndrome of inappropriate ADH production) Status: Chronic Surgical Problems: (1) History of hysterectomy Status: Chronic (2) History of total left hip arthroplasty Status: Chronic Family History Patient reports no known family medical history. Social History Smoking Status: Current Every Day Smoker Smokeless Tobacco Use: No Alcohol Use: none Drug Use: none Marital Status: single Housing status: lives alone Occupational Status: retired Multi-Drug Resistant Organisms History of MDRO: No Allergies Coded Allergies: Bupropion (Verified Allergy, Unknown, 07/08/16) Latex1 -Allergic Contact Dermititis (Verified Allergy, Unknown, 07/08/16) Penicillins (Verified Allergy, Unknown, 07/08/16) Gabapentin (Verified Adverse Reaction, Unknown, unknown, 08/17/17) Latex (Verified Adverse Reaction, Unknown, unknown, 08/17/17) Sulfa Antibiotics (Verified Adverse Reaction, Unknown, unknown, 08/17/17) Uncoded Allergies: nicotine gum (Adverse Reaction, Unknown, unknown, 08/17/17) Home Medications Scheduled Clindamycin Hcl (Cleocin), 150 MG PO BID Duloxetine HCl (Duloxetine HCl), 20 MG PO DAILY Fluconazole (Fluconazole), 100 MG PO BID Levothyroxine Sodium (Levothyroxine Sodium), 75 MCG PO QAM Metoprolol Succinate (Metoprolol Succinate ER), 100 MG PO HS Morphine Sulfate (Morphine Sulfate Er), 60 MG PO TID Omeprazole (Prilosec), 20 MG PO QAM Simvastatin (Simvastatin), 10 MG PO HS Sodium Chloride (Sodium Chloride), 1 GM PO DAILY Scheduled PRN Fluticasone Furoate-Vilanterol (Breo Ellipta), 1 PUFF INH DAILY PRN for Shortness of Breath Metoclopramide HCl (Metoclopramide HCl), 10 MG PO ACHS PRN for nausea Oxycodone Hcl (Oxycodone Hcl), 1 CAP PO TID PRN for severe breakthrough pain Sennosides (Senna-Lax), 8.6 MG PO DAILY PRN for Constipation Review of Systems At least ten systems were reviewed and negative except as indicated in HPI. Physical Exam Vital Signs Date Time Temp Pulse Resp B/P (MAP) Pulse Ox O2 Delivery O2 Flow Rate FiO2 08/16/17 23:48 62 18 177/91 95 Room Air 08/16/17 22:04 85 08/16/17 22:01 93 Room Air 08/16/17 22:00 95 Room Air 08/16/17 22:00 93 Room Air 08/16/17 21:52 36.8 88 18 196/96 97 Room Air General Appearance: WD/WN, no apparent distress Head: normocephalic, atraumatic Eyes: normal inspection, PERRL, sclerae normal ENT: hearing grossly normal, pharynx normal Neck: supple, no JVD, trachea midline Respiratory/Chest: lungs clear, normal breath sounds, no respiratory distress, no accessory muscle use, + pertinent finding (TTP of anterior chest) Cardiovascular: regular rate, rhythm, no edema, no gallop, no JVD, no murmur, normal peripheral pulses Abdomen/GI: normal bowel sounds, non tender, soft Back: normal inspection Extremities/Musculoskelatal: normal inspection, no calf tenderness, no pedal edema, normal range of motion Neurologic/Psych: no motor/sensory deficits, alert, normal mood/affect, oriented x 3 Skin: normal color, warm/dry, no rash Diagnostics Laboratory Results Test 08/16/17 21:59 08/16/17 22:00 08/17/17 04:00 RDW Standard Deviation 44.0 fL (36.4-46.3) RDW Coefficient of Variation 13.7 % (11.5-14.5) White Blood Count 12.53 K/uL (4.8-10.8) Red Blood Count 3.93 M/uL (4.2-5.4) Hemoglobin 11.7 g/dL (12.0-16.0) Hematocrit 34.5 % (37-47) Mean Corpuscular Volume 87.8 fL (80-100) Mean Corpuscular Hemoglobin 29.8 pg (25-34) Mean Corpuscular Hemoglobin Concent 33.9 g/dl (32-36) Platelet Count 333 K/uL (130-400) Mean Platelet Volume 9.5 fL (7.4-10.4) Neutrophils (%) (Auto) 73.6 % Lymphocytes (%) (Auto) 16.1 % Monocytes (%) (Auto) 7.7 % Eosinophils (%) (Auto) 1.8 % Basophils (%) (Auto) 0.4 % Neutrophils # (Auto) 9.22 K/uL (1.4-6.5) Lymphocytes # (Auto) 2.02 K/uL (1.2-3.4) Monocytes # (Auto) 0.97 K/uL (0.11-0.59) Eosinophils # (Auto) 0.22 K/uL (0-0.5) Basophils # (Auto) 0.05 K/uL (0-0.2) Immature Granulocyte % (Auto) 0.4 % Immature Granulocyte # (Auto) 0.05 K/uL (0.00-0.02) Est Creatinine Clear Calc Drug Dose 64.4 ml/min Total Bilirubin 0.2 mg/dl (0.2-1) Direct Bilirubin < 0.1 mg/dl (0-0.2) Aspartate Amino Transf (AST/SGOT) 14 U/L (15-37) Alanine Aminotransferase (ALT/SGPT) 12 U/L (12-78) Alkaline Phosphatase 127 U/L (45-117) Total Protein 7.5 gm/dl (6.4-8.2) Albumin 2.9 gm/dl (3.4-5.0) Lipase 101 U/L (73-393) Prothrombin Time 10.6 SECONDS (9.0-12.0) Prothromb Time International Ratio 1.0 (0.9-1.1) Results Past 24 Hours Test 08/16/17 21:59 08/16/17 22:00 Range/Units White Blood Count 12.53 4.8-10.8 K/uL Red Blood Count 3.93 4.2-5.4 M/uL Hemoglobin 11.7 12.0-16.0 g/dL Hematocrit 34.5 37-47 % Mean Corpuscular Volume 87.8 80-100 fL Mean Corpuscular Hemoglobin 29.8 25-34 pg Mean Corpuscular Hemoglobin Concent 33.9 32-36 g/dl Platelet Count 333 130-400 K/uL Mean Platelet Volume 9.5 7.4-10.4 fL Neutrophils (%) (Auto) 73.6 % Lymphocytes (%) (Auto) 16.1 % Monocytes (%) (Auto) 7.7 % Eosinophils (%) (Auto) 1.8 % Basophils (%) (Auto) 0.4 % Neutrophils # (Auto) 9.22 1.4-6.5 K/uL Lymphocytes # (Auto) 2.02 1.2-3.4 K/uL Monocytes # (Auto) 0.97 0.11-0.59 K/uL Eosinophils # (Auto) 0.22 0-0.5 K/uL Basophils # (Auto) 0.05 0-0.2 K/uL RDW Standard Deviation 44.0 36.4-46.3 fL RDW Coefficient of Variation 13.7 11.5-14.5 % Immature Granulocyte % (Auto) 0.4 % Immature Granulocyte # (Auto) 0.05 0.00-0.02 K/uL Sodium Level 132 136-145 mmol/L Potassium Level 3.6 3.5-5.1 mmol/L Chloride Level 97 98-107 mmol/L Carbon Dioxide Level 28 21-32 mmol/L Anion Gap 7.0 3-11 mmol/L Blood Urea Nitrogen 3 7-18 mg/dl Creatinine 0.90 0.60-1.20 mg/dl Est Creatinine Clear Calc Drug Dose 64.4 ml/min Estimated GFR () 76.7 Estimated GFR (Non- 66.2 BUN/Creatinine Ratio 3.0 10-20 Random Glucose 124 70-99 mg/dl Calcium Level 8.9 8.5-10.1 mg/dl Total Bilirubin 0.2 0.2-1 mg/dl Direct Bilirubin < 0.1 0-0.2 mg/dl Aspartate Amino Transf (AST/SGOT) 14 15-37 U/L Alanine Aminotransferase (ALT/SGPT) 12 12-78 U/L Alkaline Phosphatase 127 45-117 U/L Total Creatine Kinase 31 26-192 U/L Creatine Kinase MB 1.1 0.5-3.6 ng/ml Creatine Kinase MB Ratio 3.5 0-3.0 Troponin I 0.018 0-0.045 ng/ml Total Protein 7.5 6.4-8.2 gm/dl Albumin 2.9 3.4-5.0 gm/dl Lipase 101 73-393 U/L Diagnostic Radiology CHEST ONE VIEW PORTABLE HISTORY: Atypical CHEST PAIN COMPARISON: Chest 08/22/2016. FINDINGS: The lungs are clear. Cardiac silhouette is normal in size. No pleural effusions. No pneumothorax. IMPRESSION: No acute process. Normal EKG Impression Assessment and Plan 66 yo F with RFs for CAD including active smoking and age presents with an episode of chest pain at home 1. Atypical chest pain-no h/o CAD. Trend serial cardiac enzymes. Given ASA 324 in the field. 2. Smoking-Nicotine patch 3. Facial abscess-cont Cleocin 4. Hypothyroidism-cont Synthroid DVT proph-Maribel 40 Full Code Dispo-telemetry Sondra Trevizo DO [facility] Hospitalist VTE Prophylaxis VTE Risk Assessment Done? Y/N: Yes Risk Level: Moderate Given or contraindicated: Enoxaparin (Lovenox)SQ <Electronically signed by Sondra Trevizo DO> Signed: 08/17/17 6534 Physical Exam (per Admitting): General Appearance: WD/WN, no apparent distress Head: normocephalic, atraumatic Eyes: normal inspection, PERRL, sclerae normal ENT: hearing grossly normal, pharynx normal Neck: supple, no JVD, trachea midline Respiratory/Chest: lungs clear, normal breath sounds, no respiratory distress, no accessory muscle use, + pertinent finding (TTP of anterior chest) Cardiovascular: regular rate, rhythm, no edema, no gallop, no JVD, no murmur , normal peripheral pulses Abdomen/GI: normal bowel sounds, non tender, soft Back: normal inspection Extremities/Musculoskelatal: normal inspection, no calf tenderness, no pedal edema, normal range of motion Neurologic/Psych: no motor/sensory deficits, alert, normal mood/affect, oriented x 3 Skin: normal color, warm/dry, no rash Hospital Course 66 yo F with RFs for CAD including active smoking and age presents with an episode of chest pain at home Atypical chest pain-no h/o CAD. Trend serial cardiac enzymes-Negative for any ACS . Given ASA 324 in the field. Denies any pain today Cardiology consulted -appreciate input .no further tests needed Stress test can be arranged as an OP Smoking-Nicotine patch Advised to quit smoking Cough with yellowish sputum WCC borderline high Will start Doxycycline Stop Clindamycin Clinically a lot better Facial abscess-cont Cleocin No acute issue Hypothyroidism-cont Synthroid DVT proph-Lovenox 40 Full Code Dispo-telemetry Discharge today Total time spent on discharge = 35 minutes This includes examination of the patient, discharge planning, medication reconciliation, and communication with other providers. Discharge Instructions Date of Service Aug 19, 2017. Admission Reason for Admission: Chest Pain Discharge Discharge Diagnosis / Problem: Chest pain -No ACS,Acute Bronchitis Discharge Goals Goal(s): Prevent Disease Progression Activity Recommendations Activity Limitations: resume your previous activity . Instructions / Follow-Up Instructions / Follow-Up Jen Munguia's office will call with appointment Current Hospital Diet Patient's current hospital diet: Regular Diet Discharge Diet Recommended Diet: Regular Diet, AHA Diet (Heart Healthy) Pending Studies Studies pending at discharge: no Laboratory Results Lipid Panel Test 08/17/17 04:00 Range/Units Triglycerides Level 114 0-150 mg/dl Cholesterol Level 116 0-200 mg/dl HDL Cholesterol 38 mg/dl Cholesterol/HDL Ratio 3.1 LDL Cholesterol, Calculated 55 mg/dl Medical Emergencies . Who to Call and When: Medical Emergencies: If at any time you feel your situation is an emergency, please call 911 immediately. . Non-Emergent Contact Non-Emergency issues call your: Primary Care Provider . Past History Medical & Surgical History: (1) Chest pain (2) COPD (chronic obstructive pulmonary disease) (3) Depression (4) Chronic back pain (5) SIADH (syndrome of inappropriate ADH production) (6) Hypothyroidism (7) Osteoporosis (8) Avascular necrosis of bone of left hip (9) Post-operative state (10) History of hysterectomy (11) History of total left hip arthroplasty . "Provider Documentation" section prepared by Agustin Juarez. . VTE Core Measure Inpt VTE Proph given/why not?: Enoxaparin (Lovenox)SQ <Electronically signed by Agustin Juarez M.D.> Signed: 08/19/17 4028 Additional Copies To Myrna Munguia M.D.
== END 2017-08-19 14:15 | disposition home or self-care (01) ==
LOC: EDBD 21:35 → C.EDB 21:37 → C.MED 23:26 → ENRESERV 23:38 → C.MED 08-17 16:56
PROVIDERS: ADMIT Hospitalist; ATTEND Internal Medicine
DX: R07.9 Chest pain, unspecified (principal); J20.9 Acute bronchitis, unspecified; F41.9 Anxiety disorder, unspecified; F32.9 Major depressive disorder, single episode, unspecified; E22.2 Syndrome of inappropriate secretion of antidiuretic hormone; I10 Essential (primary) hypertension; E03.9 Hypothyroidism, unspecified; M19.90 Unspecified osteoarthritis, unspecified site; Z91.040 Latex allergy status; Z96.642 Presence of left artificial hip joint; Z90.710 Acquired absence of both cervix and uterus; Z88.0 Allergy status to penicillin; Z88.2 Allergy status to sulfonamides; F17.200 Nicotine dependence, unspecified, uncomplicated; Z79.899 Other long term (current) drug therapy

== ENCOUNTER → 2018-06-30 | Outpatient (CLI) | payer OTHER ==
[~2018-06-30] MED LIST changes: -ACET-1311 PO; -ASPI81TA28 PO; +CYM20 PO; +DFL100 PO; -DIPH2CRE16 EXT; +DXY100 PO; -FERR1TAB23 PO; -LEVO50TA6 PO; +LEVO75TA5 PO; -MAGNTAB4 PO; -METO-157 PO; +METO10TA3 PO; -MORP1TAB12 PO; +MORP1TAB13 PO; -MORP60TA6 PO; +NICO21DI4 TD; +NRV5 PO; +OXYC1CAP5 PO; -OXYC1TAB3 PO; -PROB1TAB16 PO; +SENN-56 PO; -SENN-61 PO; -SENN8.6C PO; -SIME1CAP PO; +TPRSR/100 PO; -TPRSR/50 PO; -TRMCR115 EXT; -VANCOMYCIN IV; -[UNRECOGNIZED DRUG - CODE] PO; -[UNRECOGNIZED DRUG - SUPPLY] TOP
--- NOTE | 2018-06-30 14:35 | DIAGNOSTIC IMAGING REPORT ---
BONE SCAN 3 PHASE LIMITED CLINICAL HISTORY: 67 years-old Female presenting with LEFT HIP, HIP PAIN, PARKER. TECHNIQUE: Following the IV administration of 26.3 mCi of technetium 99m MDP, three-phase bone scan of the hips was performed. Anterior and posterior flow images as well as anterior and posterior blood pool phase images were acquired. Bone phase imaging of hips was performed at three hours in multiple obliquities. COMPARISON: Plain radiographs of the left hips from 09/10/2016. FINDINGS: On initial flow imaging, symmetric radiotracer distribution in the vasculature. No early hyperemia of soft tissues. On subsequent blood pool phase imaging, photopenic defects in the region of the left femoral head consistent with known total left hip arthroplasty. Excretion of radiotracer noted in the urinary bladder with persistent radiotracer in the vasculature and early uptake in the soft tissues. Trace asymmetric radiotracer uptake may be resident in the left acetabulum subjacent to the acetabular component. On bone phase imaging, trace asymmetric radiotracer uptake in the left acetabulum subjacent to the acetabular prosthetic component. The degree of uptake is not unexpected in the postsurgical setting. A similar degree of mild radiotracer uptake is noted surrounding the femoral stem component. IMPRESSION: Expected mild asymmetric radiotracer surrounding the total left hip arthroplasty. This is within the expected range of postsurgical change. No convincing evidence of loosening or infection. Electronically signed by: Tito Patel M.D. 06/30/2018 2:34 PM Dictated Date/Time: 06/30/2018 2:30 PM
== END | disposition home or self-care (01) ==
LOC: C.NUCL 10:03
DX: M25.552 Pain in left hip (principal)

== ENCOUNTER 2019-09-08 09:55 | Inpatient (IN) ==
--- OUTSIDE RECORDS SUMMARY | 2019-09-08 10:00 | External Medical Summary | Continuity of Care Document ---
:1950 Author Name Lidia Georges, Provider Address Unavailable Unavailable , Care Team Providers Name Role Phone Estelle Echevarria III, M.D.. PShaka Unavailable [email or web address] Unavailable Unavailable Unavailable Unavailable Unavailable Assessments Assessed Problems:Idiopathic polyneuropathy Problems Tremor (781.0) (R25.1) Major depressive disorder, recurrent (296.30) (F33.9) Arthropathy (716.90) (M12.9) Gastroesophageal reflux disease (530.81) (K21.9) Hyperlipidemia (272.4) (E78.5) Hypothyroidism (244.9) (E03.9) Hypertension (401.9) (I10) Other osteoporosis without current pathological fracture (73 3.09) (M81.8) Low back pain (724.2) (M54.5) COPD (chronic obstructive pulmonary disease) (496) (J44.9) Restless legs syndrome (333.94) (G25.81) Hypomagnesemia (275.2) (E83.42) Insomnia (780.52) (G47.00) Metabolic encephalopathy (348.31) (G93.41) Cognitive disorder (294.9) (F09) 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 Refills: 0 Mag64 535 (64 Mg) MG TBCR; TAKE 1 TABLET 3 times daily Start: 19-Jul-2015 Refills: 0 Metoprolol Tartrate 50 MG Oral Tablet; TAKE 1 TABLET TWICE D AILY. Refills: 0 traMADol HCl - 50 MG Oral Tablet; TAKE 1 TABLET Every 6 hour s PRN Refills: 0 Sodium Chloride 1 GM Oral Tablet; TAKE 1 TABLET 3 times jojo y Refills: 0 MiraLax Oral Packet Refills: 0 Nystop 246299 UNIT/GM External Powder Refills: 0 Cholestyramine 4 GM Oral Packet Refills: 0 Vitamin B-12 TABS Refills: 0 Zanaflex 4 MG Oral Tablet; TAKE 1 TABLET TWICE DAILY. Refills: 0 Vancocin HCl CAPS Refills: 0 Morphine Sulfate ER 30 MG Oral Tablet Ex tended Release; TAKE 2 TABLET Twice daily Refills: 0 Vitamin C TABS Refills: 0 Vitamin B Complex Oral Tablet Refills: 0 Simvastatin 10 MG Oral Tablet; TAKE 1 TABLET DAILY. Refills: 0 Omeprazole 20 MG Oral Capsule Delayed Release; TAKE 1 CAPSUL E DAILY. Refills: 0 Glucosamine-Chondroitin Oral Tablet Refills: 0 Ecotrin Low Strength TBEC; TAKE 1 TABLET DAILY. Refills: 0 Acetaminophen ER 650 MG Oral Tablet Extended Release; TAKE T ABLET PRN Refills: 0 Symbicort 80-4.5 MCG/ACT Inhalation Aerosol; Inhale 2 puffs twice daily. Refills: 0 Furosemide 40 MG Oral Tablet; TAKE 1 TABLET TWICE DAILY. Start: 19-Jul-2015 Refills: 0 Levothyroxine Sodium 88 MCG Oral Tablet; TAKE 1 TABLET DAILY . Refills: 0 Lisinopril 20 MG Oral Tablet; TAKE 1 TABLET TWICE DAILY. Refills: 0 Aricept 10 MG Oral Tablet; TAKE 1 TABLET Bedtime Refills: 0 Namenda 5 MG Oral Tablet; TAKE 1 TABLET EVERY MORNING Refills: 0 Ambien 5 MG Oral Tablet; TAKE 1 TABLET AT BEDTIME NEEDED FOR INSOMNIA. Refills: 0 DULoxetine HCl - 60 MG Oral Capsule Lucy yed Release Particles; TAKE 1 CAPSULE DAILY. Quantity: 90 Refills: 1 Procedures Procedures not documented Immunizations Immunizations not documented Plan of Treatment Planned Observations Planned Goals not documented Results No Known Results Results not documented Encounters Appointment; Jacob Echevarria III, M.D. 03-Oct-2018 15:30 Encounter Diagnosis: Problem not documented
[2019-09-08] MEDS ORDERED: MoRPHine SULFATE 4 MG/ML 1 ML CARP\\VIAL IV STA ×2 (10:45→15:26)
[2019-09-08] MEDS: SODIUM CHLORIDE 0.9% 500 ML IV SCH ×2 (11:14→17:24)
[2019-09-08 11:17] LABS: iSTAT Blood Urea Nitrogen < 3 mg/dl (7-18); iSTAT Carbon Dioxide 29 mEq/l (24-31); iSTAT Chloride 97 mEq/L (101-112); iSTAT Creatinine 0.8 mg/dl (0.6-1.3); iSTAT Glucose 124 mg/dl (70-99); iSTAT Hematocrit 31 % (37-47); iSTAT Hemoglobin 10.5 g/dl (12.0-16.0); iSTAT Ionized Calcium 1.16 mmol/l (1.12-1.32); iSTAT Potassium 3.8 mEq/L (3.3-5.0); iSTAT Sodium 135 mEq/L (135-144)
--- NOTE | 2019-09-08 11:33 | CT Scan Report ---
CT head/brain wo con CT DOSE: 537.48 mGy.cm HISTORY: Trauma. Pain. Mental status change. fall, chi TECHNIQUE: Multiaxial CT images of the head were performed without the use of intravenous contrast. A dose lowering technique was utilized adhering to the principles of ALARA. Comparison: 05/12/2016 Findings: The paranasal sinuses and mastoid air cells are clear. The calvarium and skull base are int act. The ventricles and sulci are within normal limits. There is no mass, hematoma, midline shift, or acute infarct. Impression: No acute intracranial abnormality. The above report was generated using voice recognition software. It may contain grammatical, syntax or spelling errors. Electronically signed by: Des Spence M.D. 09/08/2019 11:31 AM
--- NOTE | 2019-09-08 12:15 | XRay Report ---
LEFT ELBOW 3 VIEWS HISTORY: trauma COMPARISON: None. FINDINGS: Suboptimal evaluation of the left elbow due to patient positioning. However, no definite fr acture or dislocation. No joint effusion. Soft tissues are unremarkable. No radiopaque foreign bodies . IMPRESSION: No fracture or dislocation within the left elbow. Electronically signed by: Sundar Bowens M.D. 09/08/2019 12:14 PM
--- NOTE | 2019-09-08 12:17 | XRay Report ---
XR chest 1V portable CLINICAL HISTORY: trauma CHEST AND SHOULDER PAIN COMPARISON STUDY: 08/16/2017 FINDINGS: The heart is the upper limits of normal in size. There is aortic tortuosity. The mediastina l contours appear normal given the AP supine technique. No pneumothorax is visualized on the supine s tudy. There is no lobar consolidation. There are no pleural effusions. There are are linear opacities the right medial lung base likely representing subsegmental atelectatic change.[ IMPRESSION: No active disease in the chest. Electronically signed by: Jc Beltre M.D. 09/08/2019 12:16 PM
--- NOTE | 2019-09-08 12:19 | XRay Report ---
XR pelvis 1-2V routine CLINICAL HISTORY: trauma. Fall. Pelvic pain. COMPARISON STUDY: Pelvis 07/30/2016. FINDINGS: There is a left total hip arthroplasty. The hardware is intact. No acute fracture or disloc ation within the pelvis or hips. Mild osteoarthritis within the right hip. IMPRESSION: No acute fracture or dislocation within the pelvis or hips. Electronically signed by: Sundar Bowens M.D. 09/08/2019 12:18 PM
--- NOTE | 2019-09-08 13:17 | XRay Report ---
XR shoulder LT min 2V routine HISTORY: 69 years-old Female trauma acute left shoulder and upper arm pain status post trauma COMPARISON: Chest radiograph 08/16/2017 TECHNIQUE: 2 views of the left shoulder FINDINGS: There is an acute comminuted fracture of the proximal left humerus involving the surgical neck and pr oximal diaphysis with fracture fragments displaced laterally up to 7 mm. Moderate adjacent soft tissu e swelling. Demineralized appearance of the bones. Moderate glenohumeral and AC joint osteoarthritis. IMPRESSION: Acute comminuted and mildly displaced proximal humeral fracture with moderate soft tissue swelling. The above report was generated using voice recognition software. It may contain grammatical, syntax o r spelling errors. Electronically signed by: Dennys Kwon M.D. 09/08/2019 1:15 PM
[2019-09-08] MEDS ORDERED: ACETAMINOPHEN 1,000 MG/100 ML VIAL IV STA (15:26)
--- NOTE | 2019-09-08 16:32 | History & Physical Report ---
Date of Service September 08, 2019 Assessment & Plan (1) Fracture of proximal humerus: (2) Fall: Pt is 69 y/o F with PMH HTN, HLD, hypothyroidism, COPD, chronic anemia, anxiety, chronic back pain on chronic narcotics presented with c/o fall. Pt reports uses cane or walker to assist in ambulation at baseline. States today was walking in house when she thinks she tripped and fell onto left side. Denies LOC. Denies dizziness, CP, SOB prior to fall. C/O pain to left shoulder and left elbow. In ER vitals stable. CT HEAD:No acute intracranial abnormality. LEFT SHOULDER XRAY: Acute comminuted and mildly displaced proximal humeral fracture with moderate soft tissue swelling. PELVIS XRAY: No acute fracture or dislocation within the pelvis or hips. LEFT ELBOW XRAY: No fracture or dislocation within the left elbow. -Obtain CBC, BMP -In ER pt given total 8mg morphine, IV Tylenol -Pt sleepy after IV morphine -Will hold pt's chronic oral morphine for now until is more alert -Continue chronic oxycodone prn pain -Sling in place to left arm -Ortho consult (3) Ambulatory dysfunction: Pt with ambulatory dysfunction at baseline, requiring use of cane or walker With current Left humerus fracture and arm in sling was unable to ambulate with PT in ER -PT/OT eval -Pt may need placement (4) Chronic back pain: Chronic pain meds prescribed by PCP - Dr Munguia. Confirmed with pt's pharmacy - [facility] in [place]. (was unable to locate pt in PDMP as pharmacy reports pt is listed as Yajaira Cota in PDMP) -Will hold pt's chronic oral morphine for now until is more alert -Continue chronic oxycodone prn pain (5) Hypertension: -Continue lisinopril, metoprolol (6) Hypothyroidism: -Continue levothyroxine (7) Anemia: Chronic anemia POC Hgb: 10.5 -Monitor CBC -Continue iron supplement, Vitamin B12 (8) Anxiety: -Continue duloxetine DVT Prophylaxis -SCDs Full Code as per discussion with pt Follows with Dr Munguia for routine care Pt was seen and care coordinated with Dr Bella. See addendum History of Present Illness Chief Complaint: Fall Primary Care Provider: Myrna Munguia Pt is 69 y/o F with PMH HTN, HLD, hypothyroidism, COPD, chronic anemia, anxiety, chronic back pain on chronic narcotics presented to ER with c/o fall. Pt reports uses cane or walker to assist in ambulation. States today was walking in house when she thinks she tripped and fell onto left side. Denies LOC. Denies dizziness, CP, SOB prior to fall. C/O pain to left shoulder and left elbow. Reports also with some pain to left hip. Denies any other known injury or acute pain. Pt on chronic morphine 60mg TID and oxycodone 5mg TID prn breakthrough pain for chronic back pain. Reports her back pain feels at baseline currently. Denies IRVIN, neck pain, other back pain, RUE pain, other lower extremity pain, extremity paresthesias, abdominal pain. Denies fever/chills, diaphoresis, N/V/D /C, IRVIN, dizziness, syncope, vision changes, CP, SOB, orthopnea, palpitations, cough, sore throat, choking, otalgia, rhinorrhea, abdominal pain, paresthesias, rashes, urinary symptoms. Allergies Allergy/AdvReac Type Severity Reaction Status Date / Time bupropion Allergy Unknown Verified 09/08/19 11:45 Penicillins Allergy Unknown Verified 09/08/19 11:45 gabapentin AdvReac Unknown unknown Verified 09/08/19 11:45 latex AdvReac Unknown unknown Verified 09/08/19 11:45 Sulfa (Sulfonamide AdvReac Unknown unknown Verified 09/08/19 11:45 Antibiotics) nicotine gum AdvReac Unknown unknown Uncoded 09/08/19 11:45 Home Medications Home Medications Medication Instructions Recorded Confirmed Type cyanocobalamin (vitamin B-12) 1,000 mcg PO DAILY 09/08/19 09/08/19 History [Vitamin B-12] duloxetine 30 mg PO DAILY 09/08/19 09/08/19 History ferrous sulfate 325 mg PO QDL 09/08/19 09/08/19 History gabapentin 100 mg PO HS 09/08/19 09/08/19 History levothyroxine 88 mcg PO DAILYBB 09/08/19 09/08/19 History lisinopril 2.5 mg PO DAILY 09/08/19 09/08/19 History melatonin 5 mg PO HS 09/08/19 09/08/19 History metoprolol succinate 100 mg PO HS 09/08/19 09/08/19 History morphine 60 mg PO TID 09/08/19 09/08/19 History omeprazole 20 mg PO QAM 09/08/19 09/08/19 History oxycodone 5 mg PO TID PRN 09/08/19 09/08/19 History sennosides 8.6 mg PO BID PRN 09/08/19 09/08/19 History simvastatin 10 mg PO HS 09/08/19 09/08/19 History zolpidem [Ambien] 10 mg PO HS 09/08/19 09/08/19 History Past Med/Surg History Medical History COPD (chronic obstructive pulmonary disease) (Chronic) Depression (Chronic) Chronic back pain (Chronic) Hypertension (Chronic) DJD (degenerative joint disease) (Chronic) SIADH (syndrome of inappropriate ADH production) (Chronic) Hypothyroidism (Chronic) Osteoporosis (Chronic) Anemia (Chronic) Anxiety (Chronic) Avascular necrosis of bone of left hip (Chronic) Fluid collection at surgical site (Chronic) Post-operative complication (Chronic) Surgical History History of hysterectomy (Chronic) History of total left hip arthroplasty (Chronic) Family History Other Family history non-contributory Social History Preferred Language: [place]er Communication Ability: Effective Beliefs That Will Affect Care: None Current Living Situation: Alone Current Living Situation Comment: IN AN APARTMENT Other Information That Helps Us Care for You: No Feels Safe at Home: Yes Safety Concerns: Feels Safe At This Time Smoking Status: Current every day smoker Hx Alcohol Use: No Hx Substance Use: No Review of Systems Review of Systems: All systems reviewed & are unremarkable except as noted in HPI & below Physical Exam Physical Exam: General: no acute distress, WDWN Head: normocephalic, atraumatic Eyes: PERRL, EOM's intact, conjunctiva non-injected, anicteric ENT: normal inspection external ears, nose, mucous membranes moist Neck: supple, trachea midline, non-tender, ROM intact Lungs: clear, no respiratory distress, no wheezing/rhonchi/rales CV: RRR, no murmur, no pretibial edema Abd: normal BS, soft, non-tender Ext: LUE: +shoulder and proximal upper arm with edema and ecchymosis and tenderness to palpation, elbow with tenderness to palpation without significant edema, L wrist/hand/fingers with normal appearance, non-tender, pt able to wiggle fingers. RUE with normal appearance, ROM shoulder, elbow, wrist, fingers intact. Left hip with tenderness to palpation, pt able to flex hip. Knees without significant edema, no ecchymosis, non-tender to palpation, able to flex and extend knees. Ankles/feet bilaterally non-tender. Bilateral Upper and lower Distal pulses intact, brisk capillary refill, sensation to light touch intact. Neuro: Pt currently sleepy after receiving IV narcotics, but awakens to voice and answers questions appropriately, oriented x 3, no focal deficits noted, normal affect Skin: warm, dry Results & Data Vital Signs (Past 12 Hours) Vital Signs Temp Pulse Pulse Resp BP BP Pulse Ox 09/08/19 16:00 13 122/70 95 09/08/19 15:34 16 123/67 92 09/08/19 14:00 68 16 130/66 92 09/08/19 12:49 70 18 125/67 94 09/08/19 11:14 68 17 128/72 94 09/08/19 10:06 36.5 C 73 20 144/[address] HEAD: Impression: No acute intracranial abnormality. CXR: IMPRESSION: No active disease in the chest. LEFT SHOULDER XRAY: IMPRESSION: Acute comminuted and mildly displaced proximal humeral fracture with moderate soft tissue swelling. PELVIS XRAY: IMPRESSION: No acute fracture or dislocation within the pelvis or hips. LEFT ELBOW XRAY: IMPRESSION: No fracture or dislocation within the left elbow. 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 -left arm in sling -pain medications without excessive narcotics to avoid sedation -concerns also for AMBULATORY DYSFUNCTION -PT/OT evaluations -orthopedic consult in regards to any further interventions needed for the left upper extremity Acute comminuted and mildly displaced proximal humeral fracture agree with other assessment and plan of health issues as described by physician assistant operator including ANEMIA, HYPERTENSION, history of ANXIETY On physical Exam general: patient able to speak in full sentences and cooperate on physical exam. from time to time she would close her eyes as if she would fall asleep but easily arousable to voice Extremities: patient's left arm in a sling, no edema Heart: regular rate Abdomen: soft, nontender, positive bowel sounds My colleague Dr. Miriam Hernadez will be following the patient starting on 09/09/19 (1) Fracture of proximal humerus Encounter type: initial encounter Fracture alignment: displaced Fracture morphology: other fracture Fracture type: closed Laterality: left Qualified Code(s): S42.292A - Other displaced fracture of upper end of left humerus, initial encounter for closed fracture (2) Fall Encounter type: initial encounter Qualified Code(s): W19.XXXA - Unspecified fall, initial encounter
[2019-09-08] MEDS ORDERED: ZOLPIDEM TARTRATE 10 MG TAB PO PRN (17:23)
[2019-09-08] MEDS ORDERED: SENNA 8.6 MG TAB PO PRN (17:23)
[2019-09-08] MEDS ORDERED: POLYETHYLENE (MIRALAX) 17 GM PACK PO PRN (17:23)
[2019-09-08] MEDS ORDERED: ONDANSETRON INJ 2 MG/ML 2 ML VIAL IV PRN (17:23)
[2019-09-08 18:11] LABS: Basophils # (auto) 0.03 K/uL (0-0.2); Basophils % (auto) 0.2 %; Eosinophils # (auto) 0.18 K/uL (0-0.5); Hematocrit (blood only) 30.6 % (37-47); Hemoglobin 9.7 g/dL (12.0-16.0); Immature Granulocytes # (auto) 0.06 K/uL (0.00-0.02); Immature Granulocytes % (auto) 0.3 %; Lymphocytes % (auto) 8.1 %; Mean Corpuscular Hgb Conc 31.7 g/dL (32-36); Mean Corpuscular Volume 85.2 fL (80-100); Mean Platelet Volume 10.4 fL (7.4-10.4); Monocytes # (auto) 1.19 K/uL (0.11-0.59); Monocytes % (auto) 6.9 %; Neutrophils # (auto) 14.32 K/uL (1.4-6.5); Neutrophils % (auto) 83.5 %; Platelet Count 350 K/uL (130-400); RDW Coefficient of Variation 15.1 % (11.5-14.5); RDW Standard Deviation 47.4 fL (36.4-46.3); Red Blood Count 3.59 M/uL (4.2-5.4); White Blood Count 17.18 K/uL (4.8-10.8)
[2019-09-08 18:37] LABS: Albumin Level 2.7 gm/dl (3.4-5.0); BUN Creatinine Ratio 4.8 (10-20); Calcium 8.3 mg/dl (8.5-10.1); Creatinine Clr Calc Pharmacy 60.9 ml/min; Est GFR (African American) 81.6; Est GFR (Non-African American) 70.4; Potassium 3.7 mmol/L (3.5-5.1)
[2019-09-08 18:39] LABS: Albumin Globulin Ratio 0.7 (0.9-2); Bilirubin,Total 0.5 mg/dl (0.2-1); Globulin 3.7 gm/dl (2.5-4.0); Total Protein 6.4 gm/dl (6.4-8.2)
[2019-09-08] MEDS ORDERED: PNEUMOCOCCAL POLYSACCHARIDES 25 MCG/0.5 ML VIAL/SYR IM ONE (19:45)
[2019-09-08] MEDS ORDERED: INFLUENZA VACCINE HIGH DOSE 65+ 0.5 ML SYR IM ONE (19:45)
[2019-09-08] MEDS ORDERED: PNEUMOCOCCAL ADMINISTRATION CHARGE ONE (19:45)
[2019-09-08] MEDS ORDERED: INFLUENZA ADMINISTRATION CHARGE ONE (19:45)
[2019-09-08] MEDS ORDERED: Nursing to Pharmacy Communication ONE (21:15)
[2019-09-08] MEDS: GABAPENTIN 100 MG CAP PO SCH (21:15)
[2019-09-08] MEDS: METOPROLOL SUCC 50MG EXT REL TAB PO SCH (21:18)
[2019-09-08] MEDS: OXYCODONE HCL IR 5 MG TAB (IMMEDIATE RELEASE) PO PRN (21:20)
[2019-09-08] MEDS: SIMVASTATIN 10 MG TAB PO SCH (21:22)
[2019-09-09] MEDS: ACETAMINOPHEN 325 MG TAB PO PRN ×2 (01:11→21:05)
[2019-09-09] MEDS: LEVOTHYROXINE SODIUM 88 MCG TABLET PO SCH (05:27)
[2019-09-09] MEDS: NICOTINE 21 MG/24 HR TDSY TD SCH (05:28)
[2019-09-09] MEDS: OXYCODONE HCL IR 5 MG TAB (IMMEDIATE RELEASE) PO PRN ×2 (05:30→19:33)
[2019-09-09 06:24] LABS: BUN Creatinine Ratio 6.7 (10-20); Calcium 8.5 mg/dl (8.5-10.1); Creatinine Clr Calc Pharmacy 59.7 ml/min; Est GFR (African American) 78.2; Est GFR (Non-African American) 67.5; Potassium 3.6 mmol/L (3.5-5.1)
[2019-09-09 06:44] LABS: Hematocrit (blood only) 29.4 % (37-47); Hemoglobin 9.4 g/dL (12.0-16.0); Mean Corpuscular Hemoglobin 27.3 pg (25-34); Mean Corpuscular Volume 85.5 fL (80-100); Mean Platelet Volume 9.7 fL (7.4-10.4); Platelet Count 314 K/uL (130-400); RDW Coefficient of Variation 15.3 % (11.5-14.5); RDW Standard Deviation 48.1 fL (36.4-46.3); Red Blood Count 3.44 M/uL (4.2-5.4); White Blood Count 7.06 K/uL (4.8-10.8)
[2019-09-09] MEDS: LISINOPRIL 2.5 MG TAB PO SCH (09:07)
[2019-09-09] MEDS: CYANOCOBALAMIN 500 MCG TABLET (VITAMIN B-12) PO SCH (09:08)
[2019-09-09] MEDS: DULOXETINE HCL 30 MG CAP PO SCH (09:08)
[2019-09-09] MEDS: PANTOprazole 40 MG TAB PO SCH (09:08)
--- NOTE | 2019-09-09 11:29 | Consultation Report ---
DATE OF CONSULTATION: 09/09/2019 ORTHOPEDIC SURGERY CONSULTATION Special attention to left proximal humerus fracture. HISTORY OF PRESENT ILLNESS: This is a 69-year-old female known to our practice who sustained a fall onto her left side. She fell on her left shoulder with complaints of immediate pain in the left shoulder. Injury occurred she states on ; however, she was admitted to the hospital yesterday. The patient does admit to some baseline confusion. PAST MEDICAL HISTORY: Includes: 1. Chronic low back pain. 2. Ambulatory dysfunction. 3. Hypertension. 4. Hypothyroidism. 5. Anemia. 6. Anxiety. MEDICATIONS: Multiple and include morphine 60 mg t.i.d. and oxycodone 5 mg t.i.d., gabapentin 100 mg p.o. at bedtime. RADIOGRAPHIC EVALUATION: Three views of the left shoulder does show a proximal humerus fracture. She has acceptable alignment. She has mild amount of comminution on the lateral aspect. Fracture is extraarticular in nature and does not show significant malangulation. LEFT ARM EXAMINATION: She has tenderness and ecchymosis over the proximal humerus. She is currently in a sling and does appear to be comfortable, but does have discomfort when the arm is moved. Radial, ulnar and median nerves are grossly intact to function. She has minimal swelling in the hand. Elbow is nontender. ASSESSMENT: Left proximal humerus fracture, extraarticular, minimally displaced. PLAN: Discussed findings and treatment with her, so this could likely heal without operative intervention. Recommendations are sling or shoulder immobilizer. I feel shoulder immobilizer will likely hold her in a better position and decrease discomfort. We will attempt to order a shoulder immobilizer if possible. She may followup upon discharge with Orthopedics at [facility] in 7-10 days after discharge.
[2019-09-09] MEDS: FERROUS SULFATE 325 MG TAB PO SCH (12:59)
--- NOTE | 2019-09-09 15:10 | Hospitalist Progress Note ---
Date of Service September 09, 2019 Assessment & Plan (1) Fracture of proximal humerus: (2) Fall: 69 y/o F with PMH HTN, HLD, hypothyroidism, COPD, chronic anemia, anxiety, chronic back pain on chronic narcotics presented with fall and found to have left comminuted, mildly displaced proximal humeral fracture Pain in shoulder well controlled Reports chronic back pain for which she reports she takes morphine 60mg three times a day. She will like to have the morphine started. I reviewed PDMP which showed last fill of morphine was in 02/2017. I explained to the patient that I will not be able to prescribe that since records on PDMP show its been a long time till last fill. I also showed her the PDMP records on computer. She stated that she will ask someone to bring her home bottle so she can show us. For now, will continue oxycodone prn for her shoulder pain. I informed the RN about this I also spoke with patient about the need for rehab. She was reluctant about this due to her experiences in the past. I explained that with her fracture and ambulatory dysfunction now, she will not be able to do much for herself at home especially since she lives alone. She finally agreed to rehab. Will follow up this with assistant case manager Will follow up ortho outpatient Continue shoulder sling till then (3) Ambulatory dysfunction: (4) Chronic back pain: According to Admitting Provider, Chronic pain meds prescribed by PCP - Dr Munguia. H/P also reported that this was confirmed with pt's pharmacy - [facility] in [place]. (was unable to locate pt in PDMP as pharmacy reports pt is listed as Yajaira Cota in PDMP) However, my evaluation and discussion with RN show patient's pain is currently controlled with oxycodone prn Also from initial evaluation yesterday that showed patient was drowsy after getting morphine in ED and her fall, will not prescribe additional pain med for now (5) Hypertension: Stable Continue lisinopril, metoprolol (6) Hypothyroidism: Continue levothyroxine (7) Anemia: Chronic anemia Hb stable in 9s since yesterday Continue iron supplement, Vitamin B12 (8) Anxiety: Continue duloxetine DVT Prophylaxis heparin sc Full Code as per discussion with pt Follows with Dr Munguia for routine care Subjective Patient seen and examined. Reports shoulder pain is controlled for now Has no other complaints except for chronic back pain Review of Systems Review of Systems: All systems reviewed and unremarkable except for mentioned above. Physical Exam Constitutional: well developed; no acute distress Eyes: PERRL, EOMI, pale conjunctiva ENMT: external ear and nose normal, oropharynx normal Neck: trachea midline, no thyromegaly Respiratory: normal respiratory effort, lungs clear to auscultation Cardiovascular: RRR, no murmur, no edema Gastrointestinal (Abdomen): normal bowel sounds, soft, nontender, no hepatosplenomegaly Musculoskeletal: Left shoulder in sling Neurologic: PERRL, EOMI, accommodation nl, no face palsy, no dysarthria Psychiatric: A+Ox3, euthymic affect Results & Data Vital Signs (Past 12 Hours) Vital Signs Temp Pulse Resp BP Pulse Ox 09/09/19 07:13 37.1 C 57 L 18 134/69 94 Laboratory Results Short CBC 09/08/19 09/09/19 Range/Units 11:00 05:26 WBC 17.18 H 7.06 D (4.8-10.8) K/uL Hgb 9.7 L 9.4 L (12.0-16.0) g/dL Hct 30.6 L 29.4 L (37-47) % Plt Count 350 314 (130-400) K/uL BMP 09/08/19 09/09/19 18:06 05:26 Sodium 135 L 140 Potassium 3.7 3.6 Chloride 102 106 Carbon Dioxide 29 28 BUN 4 L 6 L Creatinine 0.84 0.87 Glucose 124 H 115 H Calcium 8.3 L 8.5 Liver Function 09/08/19 Range/Units 18:06 Total Bilirubin 0.5 (0.2-1) mg/dl AST 9 L (15-37) U/L ALT 9 L (12-78) U/L Alkaline Phosphatase 112 (45-117) U/L Albumin 2.7 L (3.4-5.0) gm/dl (1) Fracture of proximal humerus Encounter type: initial encounter Fracture alignment: displaced Fracture morphology: other fracture Fracture type: closed Laterality: left Qualified Code(s): S42.292A - Other displaced fracture of upper end of left humerus, initial encounter for closed fracture (2) Fall Encounter type: initial encounter Qualified Code(s): W19.XXXA - Unspecified fall, initial encounter
[2019-09-09] MEDS: GABAPENTIN 100 MG CAP PO SCH (20:56)
[2019-09-09] MEDS: METOPROLOL SUCC 50MG EXT REL TAB PO SCH (20:57)
[2019-09-09] MEDS: SIMVASTATIN 10 MG TAB PO SCH (20:57)
[2019-09-09] MEDS: HEPARIN SOD 5,000 UNIT/0.5 ML VIAL SQ SCH (20:59)
[2019-09-09] MEDS ORDERED: MoRPHine SULFATE 4 MG/ML 1 ML CARP\\VIAL IV STA (23:23)
[2019-09-10] MEDS ORDERED: MoRPHine SULFATE 4 MG/ML 1 ML CARP\\VIAL IV STA (01:21)
[2019-09-10] MEDS ORDERED: MoRPHine SULFATE 4 MG/ML 1 ML CARP\\VIAL ONE (01:32)
[2019-09-10] MEDS: HEPARIN SOD 5,000 UNIT/0.5 ML VIAL SQ SCH ×3 (05:51→21:24)
[2019-09-10] MEDS: LEVOTHYROXINE SODIUM 88 MCG TABLET PO SCH (05:51)
[2019-09-10] MEDS: OXYCODONE HCL IR 5 MG TAB (IMMEDIATE RELEASE) PO PRN ×3 (05:54→20:26)
[2019-09-10] MEDS: PANTOprazole 40 MG TAB PO SCH (09:19)
[2019-09-10] MEDS: LISINOPRIL 2.5 MG TAB PO SCH (09:19)
[2019-09-10] MEDS: NICOTINE 21 MG/24 HR TDSY TD SCH (09:20)
[2019-09-10] MEDS: CYANOCOBALAMIN 500 MCG TABLET (VITAMIN B-12) PO SCH (09:20)
[2019-09-10] MEDS: DULOXETINE HCL 30 MG CAP PO SCH (09:20)
[2019-09-10] MEDS: FERROUS SULFATE 325 MG TAB PO SCH (12:34)
--- NOTE | 2019-09-10 15:40 | Hospitalist Progress Note ---
Date of Service September 10, 2019 Assessment & Plan (1) Fracture of proximal humerus: (2) Fall: 69 y/o F with PMH HTN, HLD, hypothyroidism, COPD, chronic anemia, anxiety, chronic back pain on chronic narcotics presented with fall and found to have left comminuted, mildly displaced proximal humeral fracture Pain in shoulder poorly controlled Optimize pain control. Acetaminophen scheduled.Increased oxycodone to 5mg q6h prn. Will continue to reassess. She had reported she takes morphine 60mg three times a day. My review of PDMP on 09/09/19 which showed last fill of morphine was in 02/2017. Will only continue pain management for current fracture for now. Plan for placement in rehab tomorrow Will follow up ortho outpatient Continue shoulder sling till then (3) Ambulatory dysfunction: (4) Chronic back pain: According to Admitting Provider, Chronic pain meds prescribed by PCP - Dr Munguia. H/P also reported that this was confirmed with pt's pharmacy - [facility] in [place]. (was unable to locate pt in PDMP as pharmacy reports pt is listed as Yajaira Cota in PDMP) However, from my plan in (1) above, as well as from initial evaluation by Admitting provider that reported patient was drowsy after getting morphine in ED and her fall, will not prescribe additional pain med for now (5) Hypertension: BP poorly controlled this morning, likely from pain Had been well controlled yesterday Optimize pain management as above Continue lisinopril, metoprolol (6) Hypothyroidism: Continue levothyroxine (7) Anemia: Chronic anemia Continue iron supplement, Vitamin B12 (8) Anxiety: Continue duloxetine DVT Prophylaxis heparin sc Full Code as per discussion with pt Follows with Dr Munguia for routine care Subjective Patient seen and evaluated She reports her left shoulder pain is poorly controlled Rates it moderate in intensity. Reports chronic back pain is stable Denied any fevers,chills, nausea, vomiting. Review of Systems Review of Systems: All systems reviewed and unremarkable except for mentioned above. Physical Exam Constitutional: well developed; no acute distress Eyes: PERRL and EOM intact bilaterally Pale conjunctiva ENMT: external ear and nose normal, oropharynx normal Neck: normal visual inspection Respiratory: normal respiratory effort, lungs clear to auscultation Cardiovascular: RRR, no murmur, no edema Gastrointestinal (Abdomen): normal bowel sounds, soft, nontender, no hepatosplenomegaly Musculoskeletal: Left shoulder in sling Neurologic: PERRL, EOMI, accommodation nl, no face palsy, no dysarthria Psychiatric: A+Ox3, euthymic affect Results & Data Vital Signs (Past 12 Hours) Vital Signs Temp Pulse Resp BP Pulse Ox 09/10/19 10:14 98 09/10/19 07:21 36.7 C 69 18 162/78 H 95 (1) Fracture of proximal humerus Encounter type: initial encounter Fracture alignment: displaced Fracture morphology: other fracture Fracture type: closed Laterality: left Qualified Code(s): S42.292A - Other displaced fracture of upper end of left humerus, initial encounter for closed fracture (2) Fall Encounter type: initial encounter Qualified Code(s): W19.XXXA - Unspecified fall, initial encounter
--- NOTE | 2019-09-10 16:27 | Emergency Department Note ---
Entered by Cayden Rose acting as a scribe for Kari Mckinnon DO History of Present Illness General Chief complaint: Fall Time Seen by Provider: 09/08/19 10:28 Source: patient History of Present Illness Provider complaint: Fall Onset (ago): hour(s) (Earlier this morning) Location: upper extremity and left Pain Consistency: + constant and + other (Episodic) Maximum Pain Intensity: 10 Current Pain Intensity: 10 Exacerbated By: + movement Associated symptoms: + denies other symptoms (LOC) and + other (Hip pain ); no headaches The patient is a 69 year old female who presents to the Emergency Room with complaints of constant left shoulder pain that started this morning after a fall. The patient states she did not sleep well last night and when she got up this morning she was very tired which she believes is why she fell. The patient reports that she landed on her left shoulder and believes it is broken. The patient rates the pain as a 10/10 and notes it is worse with movement. The patient adds that the pain tracks to her collar bone but not into her ribs or chest. The patient also endorses some left hip pain but notes she has a history of two replacements and feels this pain is unchanged. The patient admits to slightly hitting her head but denies any LOC or being on blood thinners. The patient mentioned that she was able to get herself up and call for EMS. Home Medications Home Medications Medication Instructions Recorded Confirmed Type cyanocobalamin (vitamin B-12) 1,000 mcg PO DAILY 09/08/19 09/08/19 History [Vitamin B-12] duloxetine 30 mg PO DAILY 09/08/19 09/08/19 History ferrous sulfate 325 mg PO QDL 09/08/19 09/08/19 History gabapentin 100 mg PO HS 09/08/19 09/08/19 History levothyroxine 88 mcg PO DAILYBB 09/08/19 09/08/19 History lisinopril 2.5 mg PO DAILY 09/08/19 09/08/19 History melatonin 5 mg PO HS 09/08/19 09/08/19 History metoprolol succinate 100 mg PO HS 09/08/19 09/08/19 History morphine 60 mg PO TID 09/08/19 09/08/19 History omeprazole 20 mg PO QAM 09/08/19 09/08/19 History oxycodone 5 mg PO TID PRN 09/08/19 09/08/19 History sennosides 8.6 mg PO BID PRN 09/08/19 09/08/19 History simvastatin 10 mg PO HS 09/08/19 09/08/19 History zolpidem [Ambien] 10 mg PO HS 09/08/19 09/08/19 History Allergies Allergy/AdvReac Type Severity Reaction Status Date / Time bupropion Allergy Unknown Unknown Verified 09/08/19 21:22 Penicillins Allergy Unknown Unknown Verified 09/08/19 21:22 latex AdvReac Unknown unknown Verified 09/08/19 11:45 Sulfa (Sulfonamide AdvReac Unknown unknown Verified 09/08/19 11:45 Antibiotics) nicotine gum AdvReac Unknown unknown Uncoded 09/08/19 11:45 Past Med/Surg History Medical History COPD (chronic obstructive pulmonary disease) (Chronic) Depression (Chronic) Chronic back pain (Chronic) Hypertension (Chronic) DJD (degenerative joint disease) (Chronic) SIADH (syndrome of inappropriate ADH production) (Chronic) Hypothyroidism (Chronic) Osteoporosis (Chronic) Anemia (Chronic) Anxiety (Chronic) Avascular necrosis of bone of left hip (Chronic) Fluid collection at surgical site (Chronic) Post-operative complication (Chronic) Surgical History History of hysterectomy (Chronic) History of total left hip arthroplasty (Chronic) Family History Other Family history non-contributory Social History Preferred Language: Cypriot Communication Ability: Effective 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 and A total of 10 systems reviewed and were otherwise negative Physical Exam Vital Signs Vital Signs - 24 hr 09/09/19 23:05 09/10/19 07:21 09/10/19 10:14 Temperature 37.6 C H 36.7 C Temperature Source Oral Oral Pulse Rate - Sitting 68 Pulse Rate [Left] 62 69 Respiratory Rate 16 18 Blood Pressure - Sitting 148/84 H Blood Pressure [Right Arm] 134/79 162/78 H Blood Pressure Mean [Right Arm] 97 106 Blood Pressure Position [Right Arm] Lying Lying Pulse Oximetry 96 95 98 Oxygen Delivery Method Room Air Room Air GENERAL: alert, well appearing, well nourished, no distress, non-toxic HEAD: normal cephalic, atraumatic, no david sign, no raccoon eyes EYE EXAM: normal conjunctiva, PERRL and EOM's grossly intact OROPHARYNX: no exudate, no erythema, lips, buccal mucosa, and tongue normal and mucous membranes are moist EARS: TMs clear b/l without hemotympanum, no edema along the canals NECK: supple, no nuchal rigidity, no adenopathy, non-tender CHEST: stable to compression anteriorly and posteriorly LUNGS: clear to auscultation. Normal chest wall mechanics, no w/r/r HEART: no murmurs, S1 normal and S2 normal ABDOMEN: abdomen soft, non-tender, normo-active bowel sounds, no masses, no rebound or guarding. PELVIS: stable to compression anteriorly and posteriorly BACK: Back is symmetrical on inspection and there is no deformity, no midline tenderness, no CVA tenderness. UPPER EXTREMITIES: full active and passive range of motion of all joints without tenderness to palpation with exception of the left shoulder. Obvious edema and early ecchymosis noted over the left proximal humerus and shoulder. Decreased ROM secondary to pain. No other distal deformity or bony tenderness. Normal distal pulses and sensation bilaterally. LOWER EXTREMITIES: full active and passive range of motion of all joints without tenderness to palpation with exception of the left pelvis. Mild tenderness over the left lateral pelvis with palpation. NEURO EXAM: Normal sensorium, cranial nerves II-XII grossly intact, normal speech, no gross weakness of arms, no gross weakness of legs. GCS: 15. Course 1040: Past medical records reviewed. The patient was evaluated in room B08, and a complete history and physical examination were performed. 1343: I reevaluated the patient and updated her on results. The case therapist is going to offer rehab or investigate possibility of additional home aides. 1445: Per the PT/OT, the patient is a high risk of subsequent injury or fall. 1525: The case therapist spoke to the patient and she is agreeable to stay in the hospital. 1528: I spoke to Lori Peterson PAC under Dr. Shayne Murphy about the patient's case. They will be accepting the patient for further evaluation. Consultations Consultation #1: I spoke to Lori Peterson PAC under Dr. Shayne Murphy about the patient's case. They will be accepting the patient for further evaluation. Time: 15:28 Administered Medications Cyanocobalamin (Vitamin B-12) 1,000 mcg PO DAILY PARISA Stop: 10/09/19 08:59 Last Admin: 09/10/19 09:20 Dose: 1,000 mcg Documented by: [id number] Admin: 09/09/19 09:08 Dose: 1,000 mcg Documented by: [id number] Duloxetine HCl (Cymbalta) 30 mg PO DAILY PARISA Stop: 10/09/19 08:59 Last Admin: 09/10/19 09:20 Dose: 30 mg Documented by: [id number] Admin: 09/09/19 09:08 Dose: 30 mg Documented by: [id number] Ferrous Sulfate (Feosol) 325 mg PO QDL PARISA Stop: 10/09/19 11:29 Last Admin: 09/10/19 12:34 Dose: 325 mg Documented by: [id number] Admin: 09/09/19 12:59 Dose: 325 mg Documented by: [id number] Gabapentin (Neurontin) 100 mg PO HS PARISA Stop: 10/08/19 20:59 Last Admin: 09/09/19 20:56 Dose: Not Given Documented by: [id number] Admin: 09/08/19 21:15 Dose: Not Given Documented by: [id number] Heparin Sodium (Porcine) (Heparin Sodium (Porcine)) 5,000 units SQ Q8 PARISA Stop: 10/09/19 21:59 Last Admin: 09/10/19 14:19 Dose: 5,000 units Documented by: [id number] Cosigned by: [id number] Admin: 09/10/19 05:51 Dose: 5,000 units Documented by: [id number] Cosigned by: [id number] Admin: 09/09/19 20:59 Dose: 5,000 units Documented by: [id number] Cosigned by: [id number] [facility]: 10/09/19 06:29 Last Admin: 09/10/19 05:51 Dose: 88 mcg Documented by: [id number] Admin: 09/09/19 05:27 Dose: 88 mcg Documented by: [id number] Lisinopril (Zestril) 2.5 mg PO DAILY [facility] Stop: 10/09/19 08:59 Last Admin: 09/10/19 09:19 Dose: 2.5 mg Documented by: [id number] Admin: 09/09/19 09:07 Dose: 2.5 mg Documented by: [id number] Metoprolol Succinate (Toprol Xl) 100 mg PO [facility] Stop: 10/08/19 20:59 Last Admin: 09/09/19 20:57 Dose: 100 mg Documented by: [id number] Admin: 09/08/19 21:18 Dose: 100 mg Documented by: [id number] Miscellaneous (Remove Nicoderm Patch) 1 ea N/A [facility] Stop: 10/09/19 20:59 Last Admin: 09/09/19 20:56 Dose: Not Given Documented by: [id number] Nicotine (Nicoderm Cq) 21 mg TD DAILY [facility] Stop: 10/09/19 03:24 Last Admin: 09/10/19 09:20 Dose: Not Given Documented by: [id number] Admin: 09/09/19 05:28 Dose: Not Given Documented by: [id number] Oxycodone HCl (Roxicodone Immediate Rel) 5 mg PO Q6H PRN PRN Reason: Pain Stop: 09/22/19 17:22 Last Admin: 09/10/19 14:22 Dose: 5 mg Documented by: [id number] Pantoprazole Sodium (Protonix) 40 mg PO [facility] Stop: 10/09/19 08:59 Last Admin: 09/10/19 09:19 Dose: 40 mg Documented by: [id number] Admin: 09/09/19 09:08 Dose: 40 mg Documented by: [id number] Simvastatin (Zocor) 10 mg PO [facility] Stop: 10/08/19 20:59 Last Admin: 09/09/19 20:57 Dose: 10 mg Documented by: [id number] Admin: 09/08/19 21:22 Dose: 10 mg Documented by: [id number] Discontinued Medications Acetaminophen (Tylenol) 650 mg PO Q4H PRN PRN Reason: pain/fever Stop: 10/08/19 17:22 Last Admin: 09/09/19 21:05 Dose: 650 mg Documented by: [id number] Admin: 09/09/19 01:11 Dose: 650 mg Documented by: [id number] Sodium Chloride (Nss) 500 mls @ 125 mls/hr IV .Q4H [facility] Stop: 10/08/19 10:44 Last Admin: 09/08/19 17:24 Dose: Not Given Documented by: [id number] Infusion: 09/08/19 15:34 Dose: 0 mls/hr Documented by: [id number] Admin: 09/08/19 11:14 Dose: 125 mls/hr Documented by: [id number] Acetaminophen (Ofirmev) 1,000 mg in 100 mls @ 400 mls/hr IV NOW STA Stop: 09/08/19 15:40 Last Infusion: 09/08/19 15:57 Dose: 0 mls/hr Documented by: [id number] Admin: 09/08/19 15:33 Dose: 400 mls/hr Documented by: [id number] Influenza Virus Vaccine (Fluzone High-Dose Pf) 0.5 ml IM .ONCE ONE Stop: 09/08/19 19:46 Last Admin: 09/10/19 09:27 Dose: Not Given Documented by: [id number] Morphine Sulfate (Morphine Sulfate) 4 mg IV NOW STA Stop: 09/08/19 10:46 Last Admin: 09/08/19 11:14 Dose: 4 mg Documented by: [id number] Morphine Sulfate (Morphine Sulfate) 4 mg IV NOW STA Stop: 09/08/19 15:27 Last Admin: 09/08/19 15:34 Dose: 4 mg Documented by: [id number] Morphine Sulfate (Morphine Sulfate) 3 mg IV NOW STA Stop: 09/09/19 23:24 Last Admin: 09/09/19 23:35 Dose: 3 mg Documented by: [id number] Morphine Sulfate (Morphine Sulfate) 3 mg IV NOW STA Stop: 09/10/19 01:22 EST Last Admin: 09/10/19 01:35 EST Dose: Not Given Documented by: [id number] Morphine Sulfate (Morphine Sulfate) Confirm Administered Dose 4 mg .ROUTE .STK- MED ONE Stop: 09/10/19 01:33 EST Last Admin: 09/10/19 01:34 EST Dose: 3 mg Documented by: [id number] Oxycodone HCl (Roxicodone Immediate Rel) 5 mg PO TID PRN PRN Reason: Pain Stop: 09/22/19 17:22 Last Admin: 09/10/19 05:54 Dose: 5 mg Documented by: [id number] Admin: 09/09/19 19:33 Dose: 5 mg Documented by: [id number] Admin: 09/09/19 05:30 Dose: 5 mg Documented by: [id number] Admin: 09/08/19 21:20 Dose: 5 mg Documented by: [id number] Pneumococcal Polyvalent Vaccine (Pneumovax-23) 25 mcg IM .ONCE ONE Stop: 09/08/19 19:46 Last Admin: 09/10/19 09:28 Dose: Not Given Documented by: [id number] Medical Decision Making Differential Diagnosis Differential diagnoses include major intracranial, cervical, spinal, thoracic, abdominal, pelvic and neurologic injury. Fracture, contusion, sprain, strain, laceration, abrasions included as well. Medical Records Attestation: I reviewed the patient's medical records. Home Medications Current Medication List: was personally reviewed by me Laboratory Data Attestation: I reviewed the patient's lab results. Result diagrams: 09/09/19 05:26 09/09/19 05:26 Lab Results 09/08/19 09/08/19 09/08/19 Range/Units 11:00 11:03 15:46 WBC 17.18 H (4.8-10.8) K/uL RBC 3.59 L (4.2-5.4) M/uL Hgb 9.7 L (12.0-16.0) g/dL POC Hgb 10.5 L (12.0-16.0) g/dl Hct 30.6 L (37-47) % POC Hct 31 L (37-47) % MCV 85.2 (80-100) fL MCH 27.0 (25-34) pg MCHC 31.7 L (32-36) g/dL RDW Std Deviation 47.4 H (36.4-46.3) fL RDW Coeff of Main 15.1 H (11.5-14.5) % Plt Count 350 (130-400) K/uL MPV 10.4 (7.4-10.4) fL Immature Gran % (Auto) 0.3 % Neut % (Auto) 83.5 % Lymph % (Auto) 8.1 % [place] % (Auto) 6.9 % Eos % (Auto) 1.0 % Baso % (Auto) 0.2 % Immature Gran # (Auto) 0.06 H (0.00-0.02) K/uL Neut # (Auto) 14.32 H (1.4-6.5) K/uL Lymph # (Auto) 1.40 (1.2-3.4) K/uL [place] # (Auto) 1.19 H (0.11-0.59) K/uL Eos # (Auto) 0.18 (0-0.5) K/uL Baso # (Auto) 0.03 (0-0.2) K/uL POC Sodium 135 (135-144) mEq/L Sodium (136-145) mmol/L POC Potassium 3.8 (3.3-5.0) mEq/L Potassium (3.5-5.1) mmol/L POC Chloride 97 L (101-112) mEq/L Chloride (98-107) mmol/L Carbon Dioxide (21-32) mmol/L POC Total CO2 29 (24-31) mEq/l Anion Gap (3-11) POC Anion Gap 14.0 L (16-25) mmol/L POC BUN < 3 L (7-18) mg/dl BUN (7-18) mg/dl Creatinine (0.6-1.2) mg/dl POC Creatinine 0.8 (0.6-1.3) mg/dl Est Cr Clr Drug Dosing ml/min Est GFR ( Amer) Est GFR (Non-Af Amer) BUN/Creatinine Ratio (10-20) Glucose (70-99) mg/dl POC Glucose (other) 124 H (70-99) mg/dl Calcium (8.5-10.1) mg/dl POC Ioniz Calcium Nataly 1.16 (1.12-1.32) mmol/l Total Bilirubin (0.2-1) mg/dl AST (15-37) U/L ALT (12-78) U/L Alkaline Phosphatase (45-117) U/L Total Protein (6.4-8.2) gm/dl Albumin (3.4-5.0) gm/dl Globulin (2.5-4.0) gm/dl Albumin/Globulin Ratio (0.9-2) Hepatitis C Ab Screen Neg (Neg) 09/08/19 09/09/19 09/09/19 Range/Units 18:06 05:26 05:26 WBC 7.06 D (4.8-10.8) K/uL RBC 3.44 L (4.2-5.4) M/uL Hgb 9.4 L (12.0-16.0) g/dL POC Hgb (12.0-16.0) g/dl Hct 29.4 L (37-47) % POC Hct (37-47) % MCV 85.5 (80-100) fL MCH 27.3 (25-34) pg MCHC 32.0 (32-36) g/dL RDW Std Deviation 48.1 H (36.4-46.3) fL RDW Coeff of Main 15.3 H (11.5-14.5) % Plt Count 314 (130-400) K/uL MPV 9.7 (7.4-10.4) fL Immature Gran % (Auto) % Neut % (Auto) % Lymph % (Auto) % [place] % (Auto) % Eos % (Auto) % Baso % (Auto) % Immature Gran # (Auto) (0.00-0.02) K/uL Neut # (Auto) (1.4-6.5) K/uL Lymph # (Auto) (1.2-3.4) K/uL [place] # (Auto) (0.11-0.59) K/uL Eos # (Auto) (0-0.5) K/uL Baso # (Auto) (0-0.2) K/uL POC Sodium (135-144) mEq/L Sodium 135 L 140 (136-145) mmol/L POC Potassium (3.3-5.0) mEq/L Potassium 3.7 3.6 (3.5-5.1) mmol/L POC Chloride (101-112) mEq/L Chloride 102 106 (98-107) mmol/L Carbon Dioxide 29 28 (21-32) mmol/L POC Total CO2 (24-31) mEq/l Anion Gap 4.0 6.0 (3-11) POC Anion Gap (16-25) mmol/L POC BUN (7-18) mg/dl BUN 4 L 6 L (7-18) mg/dl Creatinine 0.84 0.87 (0.6-1.2) mg/dl POC Creatinine (0.6-1.3) mg/dl Est Cr Clr Drug Dosing 60.9 59.7 ml/min Est GFR ( Amer) 81.6 78.2 Est GFR (Non-Af Amer) 70.4 67.5 BUN/Creatinine Ratio 4.8 L 6.7 L (10-20) Glucose 124 H 115 H (70-99) mg/dl POC Glucose (other) (70-99) mg/dl Calcium 8.3 L 8.5 (8.5-10.1) mg/dl POC Ioniz Calcium Nataly (1.12-1.32) mmol/l Total Bilirubin 0.5 (0.2-1) mg/dl AST 9 L (15-37) U/L ALT 9 L (12-78) U/L Alkaline Phosphatase 112 (45-117) U/L Total Protein 6.4 (6.4-8.2) gm/dl Albumin 2.7 L (3.4-5.0) gm/dl Globulin 3.7 (2.5-4.0) gm/dl Albumin/Globulin Ratio 0.7 L (0.9-2) Hepatitis C Ab Screen (Neg) 09/09/19 Range/Units 05:26 WBC (4.8-10.8) K/uL RBC (4.2-5.4) M/uL Hgb (12.0-16.0) g/dL POC Hgb (12.0-16.0) g/dl Hct (37-47) % POC Hct (37-47) % MCV (80-100) fL MCH (25-34) pg MCHC (32-36) g/dL RDW Std Deviation (36.4-46.3) fL RDW Coeff of Main (11.5-14.5) % Plt Count (130-400) K/uL MPV (7.4-10.4) fL Immature Gran % (Auto) % Neut % (Auto) % Lymph % (Auto) % [place] % (Auto) % Eos % (Auto) % Baso % (Auto) % Immature Gran # (Auto) (0.00-0.02) K/uL Neut # (Auto) (1.4-6.5) K/uL Lymph # (Auto) (1.2-3.4) K/uL [place] # (Auto) (0.11-0.59) K/uL Eos # (Auto) (0-0.5) K/uL Baso # (Auto) (0-0.2) K/uL POC Sodium (135-144) mEq/L Sodium (136-145) mmol/L POC Potassium (3.3-5.0) mEq/L Potassium (3.5-5.1) mmol/L POC Chloride (101-112) mEq/L Chloride (98-107) mmol/L Carbon Dioxide (21-32) mmol/L POC Total CO2 (24-31) mEq/l Anion Gap (3-11) POC Anion Gap (16-25) mmol/L POC BUN (7-18) mg/dl BUN (7-18) mg/dl Creatinine (0.6-1.2) mg/dl POC Creatinine (0.6-1.3) mg/dl Est Cr Clr Drug Dosing ml/min Est GFR ( Amer) Est GFR (Non-Af Amer) BUN/Creatinine Ratio (10-20) Glucose (70-99) mg/dl POC Glucose (other) (70-99) mg/dl Calcium (8.5-10.1) mg/dl POC Ioniz Calcium Nataly (1.12-1.32) mmol/l Total Bilirubin (0.2-1) mg/dl AST (15-37) U/L ALT (12-78) U/L Alkaline Phosphatase (45-117) U/L Total Protein (6.4-8.2) gm/dl Albumin (3.4-5.0) gm/dl Globulin (2.5-4.0) gm/dl Albumin/Globulin Ratio (0.9-2) Hepatitis C Ab Screen Neg (Neg) Imaging Data Radiologist's Impression: Radiology results as stated below per my review and the radiologist's interpretation: XR chest 1V portable CLINICAL HISTORY: trauma CHEST AND SHOULDER PAIN COMPARISON STUDY: 08/16/2017 FINDINGS: The heart is the upper limits of normal in size. There is aortic tortuosity. The mediastinal contours appear normal given the AP supine technique. No pneumothorax is visualized on the supine study. There is no lobar consolidation. There are no pleural effusions. There are are linear opacities the right medial lung base likely representing subsegmental atelectatic change.[ IMPRESSION: No active disease in the chest. Electronically signed by: Jc Beltre M.D. 09/08/2019 12:16 PM XR shoulder LT min 2V routine HISTORY: 69 years-old Female trauma acute left shoulder and upper arm pain status post trauma COMPARISON: Chest radiograph 08/16/2017 TECHNIQUE: 2 views of the left shoulder FINDINGS: There is an acute comminuted fracture of the proximal left humerus involving the surgical neck and proximal diaphysis with fracture fragments displaced later ally up to 7 mm. Moderate adjacent soft tissue swelling. Demineralized appearance of the bones. Moderate glenohumeral and AC joint osteoarthritis. IMPRESSION: Acute comminuted and mildly displaced proximal humeral fracture with moderate soft tissue swelling. The above report was generated using voice recognition software. It may contain grammatical, syntax or spelling errors. Electronically signed by: Dennys Kwon M.D. 09/08/2019 1:15 PM LEFT ELBOW 3 VIEWS HISTORY: trauma COMPARISON: None. FINDINGS: Suboptimal evaluation of the left elbow due to patient positioning. However, no definite fracture or dislocation. No joint effusion. Soft tissues are unremarkable. No radiopaque foreign bodies. IMPRESSION: No fracture or dislocation within the left elbow. Electronically signed by: Sundar Bowens M.D. 09/08/2019 12:14 PM XR pelvis 1-2V routine CLINICAL HISTORY: trauma. Fall. Pelvic pain. COMPARISON STUDY: Pelvis 07/30/2016. FINDINGS: There is a left total hip arthroplasty. The hardware is intact. No acute fracture or dislocation within the pelvis or hips. Mild osteoarthritis within the right hip. IMPRESSION: No acute fracture or dislocation within the pelvis or hips. Electronically signed by: Sundar Bowens M.D. 09/08/2019 12:[address] head/brain wo con CT DOSE: 537.48 mGy.cm HISTORY: Trauma. Pain. Mental status change. fall, chi TECHNIQUE: Multiaxial CT images of the head were performed without the use of intravenous contrast. A dose lowering technique was utilized adhering to the principles of ALARA. Comparison: 05/12/2016 Findings: The paranasal sinuses and mastoid air cells are clear. The calvarium and skull base are intact. The ventricles and sulci are within normal limits. There is no mass, hematoma, midline shift, or acute infarct. Impression: No acute intracranial abnormality. The above report was generated using voice recognition software. It may contain grammatical, syntax or spelling errors. Electronically signed by: Des Spence M.D. 09/08/2019 11:31 AM ECG Data Attestation: I personally reviewed and interpreted this ECG as follows: Indication: other (Trauma) Rate (beats per minute): 67 Rhythm: normal sinus ECG Catal[place]: Normal ECG Findings: Other (Low voltage QRS, Diffuse T wave flattening, Normal intervals) Blood Pressure Blood Pressure Findings: Elevated blood pressure Blood Pressure Disposition: elevated BP felt to be situational MDM Narrative Pt here with proximal humerus fx after a fall. I suspect mechanical fall, not a syncopal event. No other evidence of injury and I have a low suspicion for occult trauma. Given pt lives along and is already using an ambulatory assist device, concern for a safe discharge plan. I asked case consultant to evaluate the patient and discuss options. Pt had PT/OT eval in the ER. ADditional d iscussion with case consultant and pt in agreement with plan for inpatient rehab. Pt given multiple doses of IV pain meds, VS stable. Pt will need close outpt orthopedic follow-up. Impression & Plan Fracture of proximal humerus, Fall, Ambulatory dysfunction Discharge Plan Visit Data *Final* Discharge Date/Time: 09/08/19 16:57 Chief Complaint: Fall ED Provider: Kari Mckinnon Discharge Problem: Fracture of proximal humerus, Fall, Ambulatory dysfunction Patient Disposition: Admitted As Inpatient Discharge Instructions Interventions: ED Discharge Assessment Last Done: 09/08/19 16:57 Discharge Problem: Fracture of proximal humerus Qualifiers: Encounter type: initial encounter Fracture type: closed Fracture morphology: other fracture Fracture alignment: displaced Laterality: left Qualified Code(s): S42.292A - Other displaced fracture of upper end of left humerus, initial encounter for closed fracture Fall Qualifiers: Encounter type: initial encounter Qualified Code(s): W19.XXXA - Unspecified fall, initial encounter The scribe's documentation has been prepared under my direction and personally reviewed by me in its entirety. I confirm that the note above accurately reflects all work, treatment, procedures, and medical decision making performed by me.
[2019-09-10] MEDS: ACETAMINOPHEN 325 MG TAB PO SCH ×2 (16:43→21:23)
--- NOTE | 2019-09-10 18:26 | XRay Report ---
LEFT SHOULDER 2 VIEWS CLINICAL HISTORY: Left shoulder fracture. FINDINGS: 2 views of the left shoulder are compared to study dated 09/08/2019. The skeletal structures are osteopenic. Again seen is a comminuted fracture of the left humeral neck with numerous distracte d fragments. There is increasing angulation of the largest fragments as compared to previous. Overlyi ng soft tissue edema is noted. The glenohumeral articulation is maintained. Productive degenerative c hange is seen at the acromioclavicular joint. The visualized left lung parenchyma appears clear. IMPRESSION: Again seen is a comminuted fracture of the left humeral neck with numerous distracted fra gments. There is increasing angulation of the largest fragments as compared to previous. Electronically signed by: Zack Alexander M.D. 09/10/2019 6:25 PM
[2019-09-10] MEDS: GABAPENTIN 100 MG CAP PO SCH (20:26)
[2019-09-10] MEDS: SIMVASTATIN 10 MG TAB PO SCH (20:26)
[2019-09-10] MEDS: METOPROLOL SUCC 50MG EXT REL TAB PO SCH (20:26)
[2019-09-10] MEDS: SODIUM CHLORIDE 0.9% 1000ML 1,000 ML IV SCH (23:42)
[2019-09-11] MEDS: OXYCODONE HCL IR 5 MG TAB (IMMEDIATE RELEASE) PO PRN ×2 (02:26→08:31)
[2019-09-11] MEDS: ACETAMINOPHEN 325 MG TAB PO SCH ×4 (03:29→21:38)
[2019-09-11] MEDS: HEPARIN SOD 5,000 UNIT/0.5 ML VIAL SQ SCH ×3 (05:40→21:38)
[2019-09-11] MEDS: LEVOTHYROXINE SODIUM 88 MCG TABLET PO SCH (05:41)
[2019-09-11] MEDS: LISINOPRIL 2.5 MG TAB PO SCH (08:26)
[2019-09-11] MEDS: DULOXETINE HCL 30 MG CAP PO SCH (08:26)
[2019-09-11] MEDS: PANTOprazole 40 MG TAB PO SCH (08:26)
[2019-09-11] MEDS ORDERED: MoRPHine SULFATE CR 60 MG TABCR PO STA (10:12)
--- NOTE | 2019-09-11 10:31 | Hospitalist Progress Note ---
Date of Service September 11, 2019 Assessment & Plan (1) Fracture of proximal humerus: (2) Fall: 69 y/o F with PMH HTN, HLD, hypothyroidism, COPD, chronic anemia, anxiety, chronic back pain on chronic narcotics presented with fall and found to have left comminuted, mildly displaced proximal humeral fracture Yesterday patient reported she felt a click and more discomfort with the shoulder. Repeat Shoulder xray showed increasing angulation of the largest fragment as compared to previous xray on admission. She had reported she takes morphine 60mg three times a day. My review of PDMP for Nessa Cota on 09/09/19 which showed last fill of morphine was in 02/2017. I called her Pharmacist at [facility] today. She confirmed that patient takes Morphine ER 60mg TID and has Oxycodone 5mg bid prn for breakthrough pain. When I inquired about my PDMP review, she reported that the scripts were filled as Beata Yajaira. Yajaira is patient's other name. I reviewed PDMP for Yajaira Cota wtih same birthdate. It does show patient had been on the doses and has been getting scripts since 09/2018. Patient reported her pharmacy changed about 2 years ago about the same time. Today, patient seems to be in early withdrawal (COWS 9) Will resume patient's home opioid regimen and monitor pain management over the next few hours. Will also monitor for overdose. Will follow up ortho reevaluation of new Xray finding Plan for placement in rehab later this evening if pain and withdrawal becomes controlled and if no ortho intervention Continue shoulder sling till then (3) Ambulatory dysfunction: (4) Chronic back pain: Pain management as described in (1) above (5) Hypertension: BP poorly controlled this morning, likely from pain Optimize pain management as above Continue lisinopril, metoprolol (6) Hypothyroidism: Continue levothyroxine (7) Anemia: Chronic anemia Continue iron supplement, Vitamin B12 (8) Anxiety: Continue duloxetine DVT Prophylaxis heparin sc Full Code as per discussion with pt Follows with Dr Munguia for routine care Subjective Patient seen and examined. Patient seems restless. She reported her pain is not currently controlled Reported about 3 loose stool yesterday. None today. Denied any fevers or an orexia Denied sweating, chills, abdominal cramps Denied dysuria, frequency, urgency Review of Systems Review of Systems: All systems reviewed and unremarkable except for mentioned above. Physical Exam Constitutional: well developed Restless but able to sit still Eyes: EOM intact bilaterally Pupil is equal and reactive to light, ENMT: external ear and nose normal, oropharynx normal Neck: trachea midline, no thyromegaly Respiratory: normal respiratory effort, lungs clear to auscultation Cardiovascular: RRR, no murmur, no edema Gastrointestinal (Abdomen): normal bowel sounds, soft, nontender, no hepatosp lenomegaly Musculoskeletal: Left UE in sling Skin: no rashes, warm and dry Not diaphoretic Smooth skin/no piloerection Neurologic: PERRL, EOMI, accommodation nl, no face palsy, no dysarthria Psychiatric: Orientation: alert and oriented x 3 Affect: + anxious affect Mood: + anxious mood Judgement: good judgement Results & Data Vital Signs (Past 12 Hours) Vital Signs Temp Pulse Resp BP Pulse Ox 09/11/19 07:07 36.7 C 81 16 168/79 H 94 09/11/19 04:43 36.8 C 79 18 166/80 H 96 09/10/19 23:37 165/76 H 09/10/19 23:00 37.1 C 79 18 164/80 H 96 Diagnostic Findings Shoulder Xray yesterday Again seen is a comminuted fracture of the left humeral neck with numerous distracted fragments. There is increasing angulation of the largest fragments as compared to previous. (1) Fracture of proximal humerus Encounter type: initial encounter Fracture alignment: displaced Fracture morphology: other fracture Fracture type: closed Laterality: left Qualified Code(s): S42.292A - Other displaced fracture of upper end of left humerus, i nitial encounter for closed fracture (2) Fall Encounter type: initial encounter Qualified Code(s): W19.XXXA - Unspecified fall, initial encounter
[2019-09-11] MEDS: CYANOCOBALAMIN 500 MCG TABLET (VITAMIN B-12) PO SCH (13:02)
[2019-09-11] MEDS: FERROUS SULFATE 325 MG TAB PO SCH (13:03)
[2019-09-11] MEDS: POLYETHYLENE (MIRALAX) 17 GM PACK PO SCH (13:03)
[2019-09-11] MEDS: NICOTINE 21 MG/24 HR TDSY TD SCH (13:03)
[2019-09-11] MEDS: SODIUM CHLORIDE 0.9% 1000ML 1,000 ML IV SCH (13:11)
[2019-09-11] MEDS: GABAPENTIN 100 MG CAP PO SCH (20:28)
[2019-09-11] MEDS: MoRPHine SULFATE CR 60 MG TABCR PO SCH (20:42)
[2019-09-11] MEDS: SIMVASTATIN 10 MG TAB PO SCH (20:42)
[2019-09-11] MEDS: METOPROLOL SUCC 50MG EXT REL TAB PO SCH (20:42)
[2019-09-12] MEDS: ACETAMINOPHEN 325 MG TAB PO SCH ×4 (03:54→21:59)
[2019-09-12] MEDS: LEVOTHYROXINE SODIUM 88 MCG TABLET PO SCH (06:07)
[2019-09-12] MEDS: HEPARIN SOD 5,000 UNIT/0.5 ML VIAL SQ SCH ×3 (06:07→21:59)
[2019-09-12] MEDS: CYANOCOBALAMIN 500 MCG TABLET (VITAMIN B-12) PO SCH (08:44)
[2019-09-12] MEDS: MoRPHine SULFATE CR 60 MG TABCR PO SCH ×3 (08:44→20:31)
[2019-09-12] MEDS: DULOXETINE HCL 30 MG CAP PO SCH (08:45)
[2019-09-12] MEDS: PANTOprazole 40 MG TAB PO SCH (08:45)
[2019-09-12] MEDS: LISINOPRIL 2.5 MG TAB PO SCH (08:45)
[2019-09-12] MEDS: NICOTINE 21 MG/24 HR TDSY TD SCH (08:46)
[2019-09-12] MEDS: POLYETHYLENE (MIRALAX) 17 GM PACK PO SCH (08:46)
[2019-09-12] MEDS: FERROUS SULFATE 325 MG TAB PO SCH (13:13)
--- NOTE | 2019-09-12 18:37 | Hospitalist Progress Note ---
Date of Service September 12, 2019 Assessment & Plan (1) Fracture of proximal humerus: (2) Fall: 69 y/o F with PMH HTN, HLD, hypothyroidism, COPD, chronic anemia, anxiety, chronic back pain on chronic narcotics presented with on admission with fall L shoulder on admission showed acute comminuted and mildly displaced proximal humeral fracture with moderate soft tissue swelling. Repeat Shoulder xray showed increasing angulation of the largest fragment as compared to previous xray on admission. Ortho on board recommended non surgical management since the fracture can heal without operative intervention. Recommended sling or shoulder immobilizer. Had shoulder immobilizer on today and does not feel comfortable Continue pain control with morphine 60mg three times a day. My colleague called Pharmacist at [facility] and confirmed that patient takes Morphine ER 60mg TID and has Oxycodone 5mg bid prn for breakthrough pain. PDMP reviewed by Dr. Hernadez, Pt used Y[facility]air[facility] Cota (her other name) to fill her prescription. She has been prescribed narcotic since 09/2018. Follow up with ortho in 7 to 10 days for reeval Waiting for placement to rehab (3) Ambulatory dysfunction: S/P fall that led to Left humerus fracture Continue PT/OT Fall precaution waiting for rehab (4) Chronic back pain: Continue Pain management (5) Hypertension: BP stable Continue lisinopril, metoprolol (6) Hypothyroidism: Continue levothyroxine (7) Anemia: Chronic anemia Continue iron supplement, Vitamin B12 (8) Anxiety: Continue duloxetine DVT Prophylaxis On heparin sc CODE STATUS Full Code Disposition Waiting for placement to rehab Subjective Pt was seen and examined. Sitting in chair with no distress Pt said that she cannot tolerate the shoulder immobilizer because it causes more pain She said that the sling that she had was better Denies any chest pain, palpitation, dizziness and SOB Physical Exam Physical Exam: General- No acute distress Head- atraumatic Eyes- PERRL, EOMI, ENT- oropharynx clear Neck- supple, no JVD Lungs- clear to auscultation Heart- regular rhythm; no murmur Abdomen- normal bowel sounds, soft, nontender Extremities- no calf tenderness, LUE tenderness with shoulder immobilizer Neuro- alert, oriented x 3; PERRL, EOMI; no facial palsy; no dysarthria Skin- warm & dry Results & Data Vital Signs (Past 12 Hours) Vital Signs Temp Pulse Resp BP Pulse Ox 09/12/19 15:16 36.8 C 66 18 128/78 98 09/12/19 10:55 37 C 66 16 131/72 96 09/12/19 07:17 36.6 C 66 17 137/71 94 (1) Fracture of proximal humerus Encounter type: initial encounter Fracture alignment: displaced Fracture morphology: other fracture Fracture type: closed Laterality: left Qualified Code(s): S42.292A - Other displaced fracture of upper end of left humerus, initial encounter for closed fracture (2) Fall Encounter type: initial encounter Qualified Code(s): W19.XXXA - Unspecified fall, initial encounter
[2019-09-12] MEDS: GABAPENTIN 100 MG CAP PO SCH (20:29)
[2019-09-12] MEDS: METOPROLOL SUCC 50MG EXT REL TAB PO SCH (20:32)
[2019-09-12] MEDS: SIMVASTATIN 10 MG TAB PO SCH (20:33)
[2019-09-13] MEDS: ACETAMINOPHEN 325 MG TAB PO SCH ×4 (03:36→21:12)
[2019-09-13] MEDS: LEVOTHYROXINE SODIUM 88 MCG TABLET PO SCH (05:57)
[2019-09-13] MEDS: HEPARIN SOD 5,000 UNIT/0.5 ML VIAL SQ SCH ×3 (05:58→21:11)
[2019-09-13] MEDS: CYANOCOBALAMIN 500 MCG TABLET (VITAMIN B-12) PO SCH (08:47)
[2019-09-13] MEDS: PANTOprazole 40 MG TAB PO SCH (08:47)
[2019-09-13] MEDS: LISINOPRIL 2.5 MG TAB PO SCH (08:47)
[2019-09-13] MEDS: DULOXETINE HCL 30 MG CAP PO SCH (08:48)
[2019-09-13] MEDS: GABAPENTIN 100 MG CAP PO SCH (08:48)
[2019-09-13] MEDS: POLYETHYLENE (MIRALAX) 17 GM PACK PO SCH (08:53)
[2019-09-13] MEDS: NICOTINE 21 MG/24 HR TDSY TD SCH (08:53)
[2019-09-13] MEDS: MoRPHine SULFATE CR 60 MG TABCR PO SCH ×3 (08:53→21:18)
[2019-09-13] MEDS: FERROUS SULFATE 325 MG TAB PO SCH (10:50)
--- NOTE | 2019-09-13 19:32 | Hospitalist Progress Note ---
Date of Service September 13, 2019 Assessment & Plan (1) Fracture of proximal humerus: (2) Fall: 69 y/o F with PMH HTN, HLD, hypothyroidism, COPD, chronic anemia, anxiety, chronic back pain on chronic narcotics presented with on admission with fall L shoulder on admission showed acute comminuted and mildly displaced proximal humeral fracture with moderate soft tissue swelling. Repeat Shoulder xray showed increasing angulation of the largest fragment as compared to previous xray on admission. Ortho on board recommended non surgical management since the fracture can heal without operative intervention. Recommended sling or shoulder immobilizer. Had shoulder immobilizer on today and does not feel comfortable Continue pain control with morphine 60mg three times a day. My colleague called Pharmacist at [facility] and confirmed that patient takes Morphine ER 60mg TID and has Oxycodone 5mg bid prn for breakthrough pain. PDMP reviewed by Dr. Hernadez, Pt used Yajaira Cota (her other name) to fill her prescription. She has been prescribed narcotic since 09/2018. Follow up with ortho in 7 to 10 days for reeval Waiting for placement to rehab (3) Ambulatory dysfunction: S/P fall that led to Left humerus fracture Continue PT/OT Fall precaution waiting for rehab (4) Chronic back pain: Continue Pain management (5) Hypertension: BP stable Continue lisinopril, metoprolol (6) Hypothyroidism: Continue levothyroxine (7) Anemia: Chronic anemia Continue iron supplement, Vitamin B12 (8) Anxiety: Continue duloxetine DVT Prophylaxis On heparin sc CODE STATUS Full Code Disposition Waiting for placement to rehab Subjective Pt was seen and examined Lying in bed with no distress She said that her pain is much improve since changing the sling Denies any chest pain, palpitation, dizziness and SOB Physical Exam Physical Exam: General- No acute distress Head- atraumatic Eyes- PERRL, EOMI, ENT- oropharynx clear Neck- supple, no JVD Lungs- clear to auscultation Heart- regular rhythm; no murmur Abdomen- normal bowel sounds, soft, nontender Extremities- no calf tenderness, LUE tenderness with shoulder immobilizer Neuro- alert, oriented x 3; PERRL, EOMI; no facial palsy; no dysarthria Skin- warm & dry Results & Data Vital Signs (Past 12 Hours) Vital Signs Temp Pulse Resp BP Pulse Ox 09/13/19 15:27 36.7 C 71 17 127/72 98 (1) Fracture of proximal humerus Encounter type: initial encounter Fracture alignment: displaced Fracture morphology: other fracture Fracture type: closed Laterality: left Qualified Code(s): S42.292A - Other displaced fracture of upper end of left humerus, initial encounter for closed fracture (2) Fall Encounter type: initial encounter Qualified Code(s): W19.XXXA - Unspecified fall, initial encounter
[2019-09-13] MEDS: METOPROLOL SUCC 50MG EXT REL TAB PO SCH (21:12)
[2019-09-13] MEDS: SIMVASTATIN 10 MG TAB PO SCH (21:12)
[2019-09-14] MEDS: ACETAMINOPHEN 325 MG TAB PO SCH ×4 (04:22→21:07)
[2019-09-14] MEDS: LEVOTHYROXINE SODIUM 88 MCG TABLET PO SCH (05:53)
[2019-09-14] MEDS: HEPARIN SOD 5,000 UNIT/0.5 ML VIAL SQ SCH ×3 (05:53→21:07)
[2019-09-14] MEDS: PANTOprazole 40 MG TAB PO SCH (09:10)
[2019-09-14] MEDS: DULOXETINE HCL 30 MG CAP PO SCH (09:10)
[2019-09-14] MEDS: NICOTINE 21 MG/24 HR TDSY TD SCH ×2 (09:10→09:14)
[2019-09-14] MEDS: CYANOCOBALAMIN 500 MCG TABLET (VITAMIN B-12) PO SCH (09:10)
[2019-09-14] MEDS: MoRPHine SULFATE CR 60 MG TABCR PO SCH ×3 (09:10→21:07)
[2019-09-14] MEDS: LISINOPRIL 2.5 MG TAB PO SCH (09:10)
[2019-09-14] MEDS: POLYETHYLENE (MIRALAX) 17 GM PACK PO SCH ×2 (09:11→09:14)
[2019-09-14] MEDS: FERROUS SULFATE 325 MG TAB PO SCH (13:35)
[2019-09-14] MEDS: OXYCODONE HCL IR 5 MG TAB (IMMEDIATE RELEASE) PO PRN ×2 (15:25→23:42)
--- NOTE | 2019-09-14 18:57 | Hospitalist Progress Note ---
Date of Service September 14, 2019 Assessment & Plan (1) Fracture of proximal humerus: (2) Fall: 69 y/o F with PMH HTN, HLD, hypothyroidism, COPD, chronic anemia, anxiety, chronic back pain on chronic narcotics presented with on admission with fall L shoulder on admission showed acute comminuted and mildly displaced proximal humeral fracture with moderate soft tissue swelling. Repeat Shoulder xray showed increasing angulation of the largest fragment as compared to previous xray on admission. Ortho on board recommended non surgical management since the fracture can heal without operative intervention. Recommended sling or shoulder immobilizer. Had shoulder immobilizer on today and does not feel comfortable Continue pain control with morphine 60mg three times a day. My colleague called Pharmacist at [facility] and confirmed that patient takes Morphine ER 60mg TID and has Oxycodone 5mg bid prn for breakthrough pain. PDMP reviewed by Dr. Hernadez, Pt used Yajaira Cota (her other name) to fill her prescription. She has been prescribed narcotic since 09/2018. Follow up with ortho in 7 to 10 days for reeval Waiting for placement to rehab (3) Ambulatory dysfunction: S/P fall that led to Left humerus fracture Continue PT/OT Fall precaution waiting for rehab (4) Chronic back pain: Continue Pain management (5) Hypertension: BP stable Continue lisinopril, metoprolol (6) Hypothyroidism: Continue levothyroxine (7) Anemia: Chronic anemia Continue iron supplement, Vitamin B12 (8) Anxiety: Continue duloxetine DVT Prophylaxis On heparin sc CODE STATUS Full Code Disposition Waiting for placement to rehab Subjective Pt was seen and examined Sitting in chair with no distress watching TV Pain well controlled Called for peer to peer review Dr. Chris for the insurance will call me at 11 AM for the peer to peer review tomorrow Denies any chest pain, palpitation, dizziness and SOB Physical Exam Physical Exam: General- No acute distress Head- atraumatic Eyes- PERRL, EOMI, ENT- oropharynx clear Neck- supple, no JVD Lungs- clear to auscultation Heart- regular rhythm; no murmur Abdomen- normal bowel sounds, soft, nontender Extremities- no calf tenderness, LUE tenderness with shoulder immobilizer Neuro- alert, oriented x 3; PERRL, EOMI; no facial palsy; no dysarthria Skin- warm & dry Results & Data Vital Signs (Past 12 Hours) Vital Signs Temp Pulse Resp BP Pulse Ox 09/14/19 14:57 36.6 C 66 17 127/76 99 09/14/19 07:10 36.8 C 66 16 149/69 H 94 (1) Fracture of proximal humerus Encounter type: initial encounter Fracture alignment: displaced Fracture morphology: other fracture Fracture type: closed Laterality: left Qualified Code(s): S42.292A - Other displaced fracture of upper end of left humerus, initial encounter for closed fracture (2) Fall Encounter type: initial encounter Qualified Code(s): W19.XXXA - Unspecified fall, initial encounter
[2019-09-14] MEDS: SIMVASTATIN 10 MG TAB PO SCH (21:07)
[2019-09-14] MEDS: METOPROLOL SUCC 50MG EXT REL TAB PO SCH (21:07)
[2019-09-14] MEDS: GABAPENTIN 100 MG CAP PO SCH (21:07)
[2019-09-15] MEDS: ACETAMINOPHEN 325 MG TAB PO SCH ×4 (03:49→21:38)
[2019-09-15] MEDS: HEPARIN SOD 5,000 UNIT/0.5 ML VIAL SQ SCH ×3 (05:52→22:00)
[2019-09-15] MEDS: LEVOTHYROXINE SODIUM 88 MCG TABLET PO SCH (05:53)
[2019-09-15] MEDS: MoRPHine SULFATE CR 60 MG TABCR PO SCH ×3 (08:51→20:20)
[2019-09-15] MEDS: PANTOprazole 40 MG TAB PO SCH (08:52)
[2019-09-15] MEDS: POLYETHYLENE (MIRALAX) 17 GM PACK PO SCH (08:52)
[2019-09-15] MEDS: NICOTINE 21 MG/24 HR TDSY TD SCH (08:53)
[2019-09-15] MEDS: LISINOPRIL 2.5 MG TAB PO SCH (08:53)
[2019-09-15] MEDS: DULOXETINE HCL 30 MG CAP PO SCH (08:53)
[2019-09-15] MEDS: CYANOCOBALAMIN 500 MCG TABLET (VITAMIN B-12) PO SCH (08:53)
[2019-09-15] MEDS: FERROUS SULFATE 325 MG TAB PO SCH (10:34)
--- NOTE | 2019-09-15 20:14 | Hospitalist Progress Note ---
Date of Service September 15, 2019 Assessment & Plan (1) Fracture of proximal humerus: (2) Fall: 69 y/o F with PMH HTN, HLD, hypothyroidism, COPD, chronic anemia, anxiety, chronic back pain on chronic narcotics presented with on admission with fall L shoulder on admission showed acute comminuted and mildly displaced proximal humeral fracture with moderate soft tissue swelling. Repeat Shoulder xray showed increasing angulation of the largest fragment as compared to previous xray on admission. Ortho on board recommended non surgical management since the fracture can heal without operative intervention. Recommended sling or shoulder immobilizer. Had shoulder immobilizer on today and does not feel comfortable Continue pain control with morphine 60mg three times a day. My colleague called Pharmacist at [facility] and confirmed that patient takes Morphine ER 60mg TID and has Oxycodone 5mg bid prn for breakthrough pain. PDMP reviewed by Dr. Hernadez, Pt used Yajaira Cota (her other name) to fill her prescription. She has been prescribed narcotic since 09/2018. Follow up with ortho in 7 days for reeval Peer to peer reviewed done and pt does not meet criteria for inpatient rehab Approved for SNF, case management notified Waiting for placement to SNF (3) Ambulatory dysfunction: S/P fall that led to Left humerus fracture Continue PT/OT Fall precaution waiting for rehab (4) Chronic back pain: Continue Pain management (5) Hypertension: BP stable Continue lisinopril, metoprolol (6) Hypothyroidism: Continue levothyroxine (7) Anemia: Chronic anemia Continue iron supplement, Vitamin B12 (8) Anxiety: Continue duloxetine DVT Prophylaxis On heparin sc CODE STATUS Full Code Disposition Waiting for placement to SNF Subjective Pt was seen and examined Sitting in chair with no distress Peer to peer reviewed done today with Dr. 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 denies any chest pain, palpitation and SOB Physical Exam Physical Exam: General- No acute distress Head- atraumatic Eyes- PERRL, EOMI, ENT- oropharynx clear Neck- supple, no JVD Lungs- clear to auscultation Heart- regular rhythm; no murmur Abdomen- normal bowel sounds, soft, nontender Extremities- no calf tenderness, LUE tenderness with shoulder immobilizer Neuro- alert, oriented x 3; PERRL, EOMI; no facial palsy; no dysarthria Skin- warm & dry Results & Data Vital Signs (Past 12 Hours) Vital Signs Temp Pulse Resp BP Pulse Ox 09/15/19 14:56 36.6 C 65 12 134/68 95 (1) Fracture of proximal humerus Encounter type: initial encounter Fracture alignment: displaced Fracture morphology: other fracture Fracture type: closed Laterality: left Qualified Code(s): S42.292A - Other displaced fracture of upper end of left humerus, initial encounter for closed fracture (2) Fall Encounter type: initial encounter Qualified Code(s): W19.XXXA - Unspecified fall, initial encounter
[2019-09-15] MEDS: SIMVASTATIN 10 MG TAB PO SCH (20:20)
[2019-09-15] MEDS: METOPROLOL SUCC 50MG EXT REL TAB PO SCH (20:20)
[2019-09-16] MEDS: ACETAMINOPHEN 325 MG TAB PO SCH ×4 (03:34→21:49)
[2019-09-16] MEDS: LEVOTHYROXINE SODIUM 88 MCG TABLET PO SCH (05:55)
[2019-09-16] MEDS: HEPARIN SOD 5,000 UNIT/0.5 ML VIAL SQ SCH ×3 (05:56→21:50)
[2019-09-16] MEDS: CYANOCOBALAMIN 500 MCG TABLET (VITAMIN B-12) PO SCH (09:51)
[2019-09-16] MEDS: MoRPHine SULFATE CR 60 MG TABCR PO SCH ×3 (09:51→20:34)
[2019-09-16] MEDS: NICOTINE 21 MG/24 HR TDSY TD SCH (09:51)
[2019-09-16] MEDS: DULOXETINE HCL 30 MG CAP PO SCH (09:51)
[2019-09-16] MEDS: POLYETHYLENE (MIRALAX) 17 GM PACK PO SCH (09:51)
[2019-09-16] MEDS: LISINOPRIL 2.5 MG TAB PO SCH (09:52)
[2019-09-16] MEDS: PANTOprazole 40 MG TAB PO SCH (10:06)
[2019-09-16] MEDS: FERROUS SULFATE 325 MG TAB PO SCH (12:18)
--- NOTE | 2019-09-16 19:11 | Hospitalist Progress Note ---
Date of Service September 16, 2019 Assessment & Plan (1) Fracture of proximal humerus: (2) Fall: 69 y/o F with PMH HTN, HLD, hypothyroidism, COPD, chronic anemia, anxiety, chronic back pain on chronic narcotics presented with on admission with fall L shoulder on admission showed acute comminuted and mildly displaced proximal humeral fracture with moderate soft tissue swelling. Repeat Shoulder xray showed increasing angulation of the largest fragment as compared to previous xray on admission. Ortho on board recommended non surgical management since the fracture can heal without operative intervention. Recommended sling or shoulder immobilizer. Had shoulder immobilizer on today and does not feel comfortable Continue pain control with morphine 60mg three times a day. My colleague called Pharmacist at [facility] and confirmed that patient takes Morphine ER 60mg TID and has Oxycodone 5mg bid prn for breakthrough pain. PDMP reviewed by Dr. Hernadez, Pt used Yajaiar Cota (her other name) to fill her prescription. She has been prescribed narcotic since 09/2018. Follow up with ortho in 7 days for reeval Peer to peer reviewed done and pt does not meet criteria for inpatient rehab Approved for SNF, case management notified Waiting for placement to SNF (3) Ambulatory dysfunction: S/P fall that led to Left humerus fracture Continue PT/OT Fall precaution waiting for rehab (4) Chronic back pain: Continue Pain management (5) Hypertension: BP stable Continue lisinopril, metoprolol (6) Hypothyroidism: Continue levothyroxine (7) Anemia: Chronic anemia Continue iron supplement, Vitamin B12 (8) Anxiety: Continue duloxetine DVT Prophylaxis On heparin sc CODE STATUS Full Code Disposition Waiting for placement to SNF Subjective Pt was seen and examined Sitting in chair watching TV Denies any new complaints Physical Exam Physical Exam: General- No acute distress Head- atraumatic Eyes- PERRL, EOMI, ENT- oropharynx clear Neck- supple, no JVD Lungs- clear to auscultation Heart- regular rhythm; no murmur Abdomen- normal bowel sounds, soft, nontender Extremities- no calf tenderness, LUE tenderness with shoulder immobilizer Neuro- alert, oriented x 3; PERRL, EOMI; no facial palsy; no dysarthria Skin- warm & dry Results & Data Vital Signs (Past 12 Hours) Vital Signs Temp Pulse Resp BP Pulse Ox 09/16/19 15:09 36.9 C 58 L 16 120/63 94 09/16/19 07:22 36.8 C 58 L 16 118/66 94 (1) Fracture of proximal humerus Encounter type: initial encounter Fracture alignment: displaced Fracture morphology: other fracture Fracture type: closed Laterality: left Qualified Code(s): S42.292A - Other displaced fracture of upper end of left humerus, initial encounter for closed fracture (2) Fall Encounter type: initial encounter Qualified Code(s): W19.XXXA - Unspecified fall, initial encounter
[2019-09-16] MEDS: METOPROLOL SUCC 50MG EXT REL TAB PO SCH (20:35)
[2019-09-16] MEDS: SIMVASTATIN 10 MG TAB PO SCH (20:37)
[2019-09-17] MEDS: ACETAMINOPHEN 325 MG TAB PO SCH ×4 (04:19→20:58)
[2019-09-17] MEDS: LEVOTHYROXINE SODIUM 88 MCG TABLET PO SCH (04:57)
[2019-09-17] MEDS: OXYCODONE HCL IR 5 MG TAB (IMMEDIATE RELEASE) PO PRN ×2 (04:57→12:39)
[2019-09-17] MEDS: HEPARIN SOD 5,000 UNIT/0.5 ML VIAL SQ SCH (05:02)
[2019-09-17] MEDS: POLYETHYLENE (MIRALAX) 17 GM PACK PO SCH (08:55)
[2019-09-17] MEDS: MoRPHine SULFATE CR 60 MG TABCR PO SCH ×3 (09:02→21:07)
[2019-09-17] MEDS: LISINOPRIL 2.5 MG TAB PO SCH (09:02)
[2019-09-17] MEDS: CYANOCOBALAMIN 500 MCG TABLET (VITAMIN B-12) PO SCH (09:02)
[2019-09-17] MEDS: DULOXETINE HCL 30 MG CAP PO SCH (09:03)
[2019-09-17] MEDS: NICOTINE 21 MG/24 HR TDSY TD SCH (09:03)
[2019-09-17] MEDS: PANTOprazole 40 MG TAB PO SCH (09:03)
[2019-09-17] MEDS: FERROUS SULFATE 325 MG TAB PO SCH (12:40)
--- NOTE | 2019-09-17 18:29 | Hospitalist Progress Note ---
Date of Service September 17, 2019 Assessment & Plan (1) Fracture of proximal humerus: (2) Fall: 69 y/o F with PMH HTN, HLD, hypothyroidism, COPD, chronic anemia, anxiety, chronic back pain on chronic narcotics presented with on admission with fall L shoulder on admission showed acute comminuted and mildly displaced proximal humeral fracture with moderate soft tissue swelling. Repeat Shoulder xray showed increasing angulation of the largest fragment as compared to previous xray on admission. Ortho on board recommended non surgical management since the fracture can heal without operative intervention. Recommended sling or shoulder immobilizer. Had shoulder immobilizer on today and does not feel comfortable Continue pain control with morphine 60mg three times a day. My colleague called Pharmacist at [facility] and confirmed that patient takes Morphine ER 60mg TID and has Oxycodone 5mg bid prn for breakthrough pain. PDMP reviewed by Dr. Hernadez, Pt used Yajaira Cota (her other name) to fill her prescription. She has been prescribed narcotic since 09/2018. Follow up with ortho in 7 days for reeval Peer to peer reviewed done and pt does not meet criteria for inpatient rehab Approved for SNF, case management notified Waiting for placement to SNF (3) Ambulatory dysfunction: S/P fall that led to Left humerus fracture Continue PT/OT Fall precaution waiting for rehab (4) Chronic back pain: Continue Pain management (5) Hypertension: BP stable Continue lisinopril, metoprolol (6) Hypothyroidism: Continue levothyroxine (7) Anemia: Chronic anemia Continue iron supplement, Vitamin B12 (8) Anxiety: Continue duloxetine DVT Prophylaxis on Lovenox subq CODE STATUS Full Code Disposition Waiting for placement to SNF Subjective Pt was seen and examined Sitting in chair with no distress Denies any new complaints Physical Exam Physical Exam: General- No acute distress Head- atraumatic Eyes- PERRL, EOMI, ENT- oropharynx clear Neck- supple, no JVD Lungs- clear to auscultation Heart- regular rhythm; no murmur Abdomen- normal bowel sounds, soft, nontender Extremities- no calf tenderness, LUE tenderness with shoulder immobilizer Neuro- alert, oriented x 3; PERRL, EOMI; no facial palsy; no dysarthria Skin- warm & dry Results & Data Vital Signs (Past 12 Hours) Vital Signs Temp Pulse Resp BP Pulse Ox 09/17/19 15:07 36.5 C 64 18 118/69 95 09/17/19 07:12 36.9 C 71 16 116/64 93 (1) Fracture of proximal humerus Encounter type: initial encounter Fracture alignment: displaced Fracture morphology: other fracture Fracture type: closed Laterality: left Qualified Code(s): S42.292A - Other displaced fracture of upper end of left humerus, initial encounter for closed fracture (2) Fall Encounter type: initial encounter Qualified Code(s): W19.XXXA - Unspecified fall, initial encounter
[2019-09-17] MEDS: ENOXAPARIN INJ 40 MG/0.4 ML SYR SQ SCH (20:57)
[2019-09-17] MEDS: SIMVASTATIN 10 MG TAB PO SCH (20:58)
[2019-09-17] MEDS: METOPROLOL SUCC 50MG EXT REL TAB PO SCH (21:10)
[2019-09-18] MEDS: ACETAMINOPHEN 325 MG TAB PO SCH ×4 (03:02→21:11)
[2019-09-18] MEDS: LEVOTHYROXINE SODIUM 88 MCG TABLET PO SCH (05:28)
[2019-09-18] MEDS: LISINOPRIL 2.5 MG TAB PO SCH (08:36)
[2019-09-18] MEDS: MoRPHine SULFATE CR 60 MG TABCR PO SCH ×3 (08:36→21:20)
[2019-09-18] MEDS: PANTOprazole 40 MG TAB PO SCH (08:37)
[2019-09-18] MEDS: DULOXETINE HCL 30 MG CAP PO SCH (08:37)
[2019-09-18] MEDS: CYANOCOBALAMIN 500 MCG TABLET (VITAMIN B-12) PO SCH (08:37)
[2019-09-18] MEDS: POLYETHYLENE (MIRALAX) 17 GM PACK PO SCH (08:38)
[2019-09-18] MEDS: NICOTINE 21 MG/24 HR TDSY TD SCH (08:38)
[2019-09-18] MEDS: FERROUS SULFATE 325 MG TAB PO SCH (12:31)
--- NOTE | 2019-09-18 18:40 | Hospitalist Progress Note ---
Date of Service September 18, 2019 Assessment & Plan (1) Fracture of proximal humerus: (2) Fall: 69 y/o F with PMH HTN, HLD, hypothyroidism, COPD, chronic anemia, anxiety, chronic back pain on chronic narcotics presented with on admission with fall L shoulder on admission showed acute comminuted and mildly displaced proximal humeral fracture with moderate soft tissue swelling. Repeat Shoulder xray showed increasing angulation of the largest fragment as compared to previous xray on admission. Ortho on board recommended non surgical management since the fracture can heal without operative intervention. Recommended sling or shoulder immobilizer. Had shoulder immobilizer on today and does not feel comfortable Continue pain control with morphine 60mg three times a day. My colleague called Pharmacist at [facility] and confirmed that patient takes Morphine ER 60mg TID and has Oxycodone 5mg bid prn for breakthrough pain. PDMP reviewed by Dr. Hernadez, Pt used [facility] (her other name) to fill her prescription. She has been prescribed narcotic since 09/2018. Follow up with ortho in 7 days for reeval Peer to peer reviewed done and pt does not meet criteria for inpatient rehab Approved for SNF, case management notified Waiting for placement to SNF (3) Ambulatory dysfunction: S/P fall that led to Left humerus fracture Continue PT/OT Fall precaution waiting for rehab (4) Chronic back pain: Continue Pain management (5) Hypertension: BP stable Continue lisinopril, metoprolol (6) Hypothyroidism: Continue levothyroxine (7) Anemia: Chronic anemia Continue iron supplement, Vitamin B12 (8) Anxiety: Continue duloxetine DVT Prophylaxis on Lovenox subq CODE STATUS Full Code Disposition Waiting for placement to SNF Subjective Pt was seen and examined Lying in bed with no distress Denies any new symptoms Waiting for placement to SNF Physical Exam Physical Exam: General- No acute distress Head- atraumatic Eyes- PERRL, EOMI, ENT- oropharynx clear Neck- supple, no JVD Lungs- clear to auscultation Heart- regular rhythm; no murmur Abdomen- normal bowel sounds, soft, nontender Extremities- no calf tenderness, LUE tenderness with shoulder immobilizer Neuro- alert, oriented x 3; PERRL, EOMI; no facial palsy; no dysarthria Skin- warm & dry Results & Data Vital Signs (Past 12 Hours) Vital Signs Temp Pulse Pulse Resp BP Pulse Ox 09/18/19 15:01 36.7 C 73 18 159/69 H 100 09/18/19 07:32 36.2 C L 64 12 122/64 95 (1) Fracture of proximal humerus Encounter type: initial encounter Fracture alignment: displaced Fracture morphology: other fracture Fracture type: closed Laterality: left Qualified Code(s): S42.292A - Other displaced fracture of upper end of left humerus, initial encounter for closed fracture (2) Fall Encounter type: initial encounter Qualified Code(s): W19.XXXA - Unspecified fall, initial encounter
[2019-09-18] MEDS: ENOXAPARIN INJ 40 MG/0.4 ML SYR SQ SCH (21:10)
[2019-09-18] MEDS: METOPROLOL SUCC 50MG EXT REL TAB PO SCH (21:11)
[2019-09-18] MEDS: SIMVASTATIN 10 MG TAB PO SCH (21:11)
[2019-09-19] MEDS: ACETAMINOPHEN 325 MG TAB PO SCH ×4 (05:22→21:41)
[2019-09-19] MEDS: LEVOTHYROXINE SODIUM 88 MCG TABLET PO SCH (05:22)
[2019-09-19] MEDS: CYANOCOBALAMIN 500 MCG TABLET (VITAMIN B-12) PO SCH (08:43)
[2019-09-19] MEDS: LISINOPRIL 2.5 MG TAB PO SCH (08:43)
[2019-09-19] MEDS: NICOTINE 21 MG/24 HR TDSY TD SCH (08:44)
[2019-09-19] MEDS: MoRPHine SULFATE CR 60 MG TABCR PO SCH ×3 (08:44→21:41)
[2019-09-19] MEDS: DULOXETINE HCL 30 MG CAP PO SCH (08:44)
[2019-09-19] MEDS: POLYETHYLENE (MIRALAX) 17 GM PACK PO SCH (08:44)
[2019-09-19] MEDS: PANTOprazole 40 MG TAB PO SCH (08:44)
[2019-09-19] MEDS: FERROUS SULFATE 325 MG TAB PO SCH (12:28)
--- NOTE | 2019-09-19 18:27 | Hospitalist Progress Note ---
Date of Service September 19, 2019 Assessment & Plan (1) Fracture of proximal humerus: (2) Fall: 69 y/o F with PMH HTN, HLD, hypothyroidism, COPD, chronic anemia, anxiety, chronic back pain on chronic narcotics presented with on admission with fall L shoulder on admission showed acute comminuted and mildly displaced proximal humeral fracture with moderate soft tissue swelling. Repeat Shoulder xray showed increasing angulation of the largest fragment as compared to previous xray on admission. Ortho on board recommended non surgical management since the fracture can heal without operative intervention. Recommended sling or shoulder immobilizer. Had shoulder immobilizer on today and does not feel comfortable Continue pain control with morphine 60mg three times a day. My colleague called Pharmacist at [facility] and confirmed that patient takes Morphine ER 60mg TID and has Oxycodone 5mg bid prn for breakthrough pain. PDMP reviewed by Dr. Hernadez, Pt used [facility] (her other name) to fill her prescription. She has been prescribed narcotic since 09/2018. Follow up with ortho in 7 days for reeval Peer to peer reviewed done and pt does not meet criteria for inpatient rehab Approved for SNF, case management notified Waiting for placement to SNF (3) Ambulatory dysfunction: S/P fall that led to Left humerus fracture Continue PT/OT Fall precaution waiting for rehab (4) Chronic back pain: Continue Pain management (5) Hypertension: BP stable Continue lisinopril, metoprolol (6) Hypothyroidism: Continue levothyroxine (7) Anemia: Chronic anemia Continue iron supplement, Vitamin B12 (8) Anxiety: Continue duloxetine DVT Prophylaxis on Lovenox subq CODE STATUS Full Code Disposition Waiting for placement to SNF Subjective Pt was seen and examined Sitting in chair with no distress watching TV Pt said that she feels fine She is waiting for placement Physical Exam Physical Exam: General- No acute distress Head- atraumatic Eyes- PERRL, EOMI, ENT- oropharynx clear Neck- supple, no JVD Lungs- clear to auscultation Heart- regular rhythm; no murmur Abdomen- normal bowel sounds, soft, nontender Extremities- no calf tenderness, LUE tenderness with shoulder immobilizer Neuro- alert, oriented x 3; PERRL, EOMI; no facial palsy; no dysarthria Skin- warm & dry Results & Data Vital Signs (Past 12 Hours) Vital Signs Temp Pulse Resp BP Pulse Ox 09/19/19 15:10 36.9 C 62 16 134/68 95 09/19/19 11:25 37 C 65 18 150/80 H 97 09/19/19 08:15 36.9 C 64 18 130/70 97 (1) Fracture of proximal humerus Encounter type: initial encounter Fracture alignment: displaced Fracture morphology: other fracture Fracture type: closed Laterality: left Qualified Code(s): S42.292A - Other displaced fracture of upper end of left humerus, initial encounter for closed fracture (2) Fall Encounter type: initial encounter Qualified Code(s): W19.XXXA - Unspecified fall, initial encounter
[2019-09-19] MEDS: SIMVASTATIN 10 MG TAB PO SCH (21:41)
[2019-09-19] MEDS: METOPROLOL SUCC 50MG EXT REL TAB PO SCH (21:41)
[2019-09-19] MEDS: ENOXAPARIN INJ 40 MG/0.4 ML SYR SQ SCH (21:42)
[2019-09-20] MEDS: OXYCODONE HCL IR 5 MG TAB (IMMEDIATE RELEASE) PO PRN (00:28)
[2019-09-20] MEDS: ACETAMINOPHEN 325 MG TAB PO SCH ×4 (03:15→21:25)
[2019-09-20] MEDS: LEVOTHYROXINE SODIUM 88 MCG TABLET PO SCH (04:16)
[2019-09-20] MEDS: CYANOCOBALAMIN 500 MCG TABLET (VITAMIN B-12) PO SCH (08:45)
[2019-09-20] MEDS: POLYETHYLENE (MIRALAX) 17 GM PACK PO SCH (08:45)
[2019-09-20] MEDS: DULOXETINE HCL 30 MG CAP PO SCH (08:45)
[2019-09-20] MEDS: PANTOprazole 40 MG TAB PO SCH (08:45)
[2019-09-20] MEDS: MoRPHine SULFATE CR 60 MG TABCR PO SCH ×3 (08:45→20:45)
[2019-09-20] MEDS: LISINOPRIL 2.5 MG TAB PO SCH (08:45)
[2019-09-20] MEDS: NICOTINE 21 MG/24 HR TDSY TD SCH (08:45)
[2019-09-20] MEDS: FERROUS SULFATE 325 MG TAB PO SCH (10:56)
--- NOTE | 2019-09-20 15:12 | Hospitalist Progress Note ---
Date of Service September 20, 2019 Assessment & Plan (1) Fracture of proximal humerus: Secondary to fall Patient reports she has baseline ambulatory dysfunction for chronic left hip pain, Uses a walker, Lost her balance and landed on her left side, leading to proximal humerus fracture (2) Fall: Status post mechanical fall l L shoulder on admission showed acute comminuted and mildly displaced proximal humeral fracture with moderate soft tissue swelling. Repeat Shoulder xray showed increasing angulation of the largest fragment as compared to previous xray on admission. Ortho on board recommended non surgical management since the fracture can heal without operative intervention. Recommended sling with shoulder immobilizer. Patient is currently comfortable with current shoulder in immobilizer Continue pain control with morphine 60mg three times a day. Follow up with ortho in 7 days for re eval CHRONIC NARCOTIC MEDICATION USE My colleague called Pharmacist at [facility] and confirmed that patient takes Morphine ER 60mg TID and has Oxycodone 5mg bid prn for breakthrough pain. PDMP reviewed by Dr. Hernadez, Pt used [facility] (her other name) to fill her prescription. She has been prescribed narcotic since 09/2018. (3) Ambulatory dysfunction: S/P fall that led to Left humerus fracture Appreciate input from PT OT Patient is denied skilled rehab By her insurance called for [id number] to [facility] phone number #[phone] aquaculture program director for [facility] does not have any time slot available today for [id number] Scheduled for a 3 PM tomorrow for [id number] review with Dr. Lynch This management updated Patient is declined to skilled rehab, Plan for patient is to return home with home health, and extra caregiver hours through [facility] (4) Chronic back pain: Continue outpatient meds (5) Hypertension: BP stable Continue lisinopril, metoprolol (6) Hypothyroidism: Continue levothyroxine (7) Anemia: Chronic anemia Continue iron supplement, Vitamin B12 (8) Anxiety: Continue duloxetine DVT Prophylaxis on Lovenox subq CODE STATUS Full Code Disposition To be determined, Will do peer to peer review tomorrow, to re address patient's insurance declined to skilled rehab Subjective Patient seen at bedside, comfortable with current left shoulder immobilizer with left arm sling Does not have any other complaint of shortness of breath, fever chills or cough No lower extremity swelling, no abdominal pain, no nausea vomiting, appetite fair Review of Systems Review of Systems: All systems reviewed & are unremarkable except as noted in HPI & below Physical Exam Constitutional: WD/WN, vitals as above no acute distress Eyes: PERRL, conjunctivae normal, anicteric sclerae ENMT: external ear and nose normal, oropharynx normal Neck: trachea midline, no thyromegaly Respiratory: normal respiratory effort, lungs clear to auscultation Cardiovascular: RRR, no murmur, no edema Gastrointestinal (Abdomen): normal bowel sounds, soft, nontender, no hepatosplenomegaly Musculoskeletal: Extremities: + limited ROM of extremities (Left arm fracture, on immobilizer/sling) Skin: no rashes, warm and dry Neurologic: PERRL, EOMI, accommodation nl, no face palsy, no dysarthria Psychiatric: A+Ox3, euthymic affect Results & Data Vital Signs (Past 12 Hours) Vital Signs Temp Pulse Resp BP Pulse Ox 09/20/19 07:51 36.5 C 57 L 14 110/64 95 (1) Fracture of proximal humerus Encounter type: initial encounter Fracture alignment: displaced Fracture morphology: other fracture Fracture type: closed Laterality: left Qualified Code(s): S42.292A - Other displaced fracture of upper end of left humerus, initial encounter for closed fracture (2) Fall Encounter type: initial encounter Qualified Code(s): W19.XXXA - Unspecified fall, initial encounter
[2019-09-20] MEDS: ENOXAPARIN INJ 40 MG/0.4 ML SYR SQ SCH (20:34)
[2019-09-20] MEDS: SIMVASTATIN 10 MG TAB PO SCH (20:35)
[2019-09-20] MEDS: METOPROLOL SUCC 50MG EXT REL TAB PO SCH (20:39)
[2019-09-21] MEDS: ACETAMINOPHEN 325 MG TAB PO SCH ×4 (03:31→21:25)
[2019-09-21] MEDS: OXYCODONE HCL IR 5 MG TAB (IMMEDIATE RELEASE) PO PRN (03:31)
[2019-09-21] MEDS: LEVOTHYROXINE SODIUM 88 MCG TABLET PO SCH (05:44)
[2019-09-21] MEDS: DULOXETINE HCL 30 MG CAP PO SCH (09:01)
[2019-09-21] MEDS: MoRPHine SULFATE CR 60 MG TABCR PO SCH ×3 (09:01→21:26)
[2019-09-21] MEDS: NICOTINE 21 MG/24 HR TDSY TD SCH (09:02)
[2019-09-21] MEDS: CYANOCOBALAMIN 500 MCG TABLET (VITAMIN B-12) PO SCH (09:03)
[2019-09-21] MEDS: PANTOprazole 40 MG TAB PO SCH (09:03)
[2019-09-21] MEDS: LISINOPRIL 2.5 MG TAB PO SCH (09:05)
[2019-09-21] MEDS: POLYETHYLENE (MIRALAX) 17 GM PACK PO SCH ×2 (09:10→21:37)
[2019-09-21] MEDS: FERROUS SULFATE 325 MG TAB PO SCH (12:38)
--- NOTE | 2019-09-21 15:21 | Hospitalist Progress Note ---
Date of Service September 21, 2019 Subjective Had [id number] review with [employer] regarding authorization for skilled rehab Discussed the case with medical lab scientist Dr. Lynch After discussing patient's increased risk for fall, (baseline ambulatory dysfunction, chronic narcotic use , ) unable to use left arm for next 6 weeks- patient will benefit with short-term skilled rehab, while getting close follow- up with orthopedics for comminuted nondisplaced fracture of left proximal humerus. Patient is approved for skilled rehab Case management updated Plan to discharge to skilled rehab tomorrow as insurance authorization and accepting rehab facility available Carol Gallagher MD Results & Data Vital Signs (Past 12 Hours) Vital Signs Temp Pulse Resp BP Pulse Ox 09/21/19 15:15 36.6 C 97 H 16 149/81 H 95 09/21/19 07:33 36.8 C 62 16 119/62 92 :
--- NOTE | 2019-09-21 15:22 | Hospitalist Progress Note ---
Date of Service September 21, 2019 Assessment & Plan (1) Fracture of proximal humerus: Secondary to fall Patient reports she has baseline ambulatory dysfunction for chronic left hip pain, Uses a walker, Lost her balance and landed on her left side, leading to proximal humerus fracture appreciate input from Ortho conservative management with left shoulder immobilizer high fall risk referral made to rehab (2) Fall: Status post mechanical fall l L shoulder on admission showed acute comminuted and mildly displaced proximal humeral fracture with moderate soft tissue swelling. Repeat Shoulder xray showed increasing angulation of the largest fragment as compared to previous xray on admission. Ortho on board recommended non surgical management since the fracture can heal without operative intervention. Recommended sling with shoulder immobilizer. Patient is currently comfortable with current shoulder in immobilizer Continue pain control with morphine 60mg three times a day. Follow up with ortho in 7 days for re eval CHRONIC NARCOTIC MEDICATION USE My colleague called Pharmacist at [facility] and confirmed that patient takes Morphine ER 60mg TID and has Oxycodone 5mg bid prn for breakthrough pain. PDMP reviewed by Dr. Hernadez, Pt used [facility] (her other name) to fill her prescription. She has been prescribed narcotic since 09/2018. (3) Ambulatory dysfunction: S/P fall that led to Left humerus fracture Appreciate input from PT OT Had [id number] review with [employer] regarding authorization for skilled rehab Discussed the case with medical payment poster Dr. Lynch After discussing patient's increased risk for fall, (baseline ambulatory dysfunction, chronic narcotic use , ) unable to use left arm for next 6 weeks- patient will benefit with short-term skilled rehab, while getting close follow- up with orthopedics for comminuted nondisplaced fracture of left proximal humerus. Patient is approved for skilled rehab Case management updated Plan to discharge to skilled rehab tomorrow (4) Chronic back pain: Continue outpatient meds (5) Hypertension: BP stable Continue lisinopril, metoprolol (6) Hypothyroidism: Continue levothyroxine (7) Anemia: Chronic anemia Continue iron supplement, Vitamin B12 (8) Anxiety: Continue duloxetine DVT Prophylaxis on Lovenox subq CODE STATUS Full Code Disposition pt is accepted for skilled rehab /got insurance auth stable to be transferred to SNF tomorrow Subjective pt sitting on chair feels better , on left shoulder immobilizer no complain of cough , no fever or chills no chest pain no abdominal pain , no nausea or vomiting Physical Exam Constitutional: WD/WN, vitals as above no acute distress Eyes: PERRL, conjunctivae normal, anicteric sclerae ENMT: external ear and nose normal, oropharynx normal Neck: trachea midline, no thyromegaly Respiratory: normal respiratory effort, lungs clear to auscultation Cardiovascular: RRR, no murmur, no edema Gastrointestinal (Abdomen): normal bowel sounds, soft, nontender, no hepatosplenomegaly Musculoskeletal: Extremities: + limited ROM of extremities (Left arm fracture, on immobilizer/sling) Skin: no rashes, warm and dry Neurologic: PERRL, EOMI, accommodation nl, no face palsy, no dysarthria Psychiatric: A+Ox3, euthymic affect Results & Data Vital Signs (Past 12 Hours) Vital Signs Temp Pulse Resp BP Pulse Ox 09/21/19 15:15 36.6 C 97 H 16 149/81 H 95 09/21/19 07:33 36.8 C 62 16 119/62 92 (1) Fracture of proximal humerus Encounter type: initial encounter Fracture alignment: displaced Fracture morphology: other fracture Fracture type: closed Laterality: left Qualified Code(s): S42.292A - Other displaced fracture of upper end of left humerus, initial encounter for closed fracture (2) Fall Encounter type: initial encounter Qualified Code(s): W19.XXXA - Unspecified fall, initial encounter
[2019-09-21] MEDS: SIMVASTATIN 10 MG TAB PO SCH (21:25)
[2019-09-21] MEDS: ENOXAPARIN INJ 40 MG/0.4 ML SYR SQ SCH (21:26)
[2019-09-21] MEDS: METOPROLOL SUCC 50MG EXT REL TAB PO SCH (21:30)
[2019-09-22] MEDS: LEVOTHYROXINE SODIUM 88 MCG TABLET PO SCH (04:59)
[2019-09-22] MEDS: ACETAMINOPHEN 325 MG TAB PO SCH (04:59)
[2019-09-22] MEDS: OXYCODONE HCL IR 5 MG TAB (IMMEDIATE RELEASE) PO PRN (05:02)
[2019-09-22] MEDS: CYANOCOBALAMIN 500 MCG TABLET (VITAMIN B-12) PO SCH (08:30)
[2019-09-22] MEDS: DULOXETINE HCL 30 MG CAP PO SCH (08:30)
[2019-09-22] MEDS: MoRPHine SULFATE CR 60 MG TABCR PO SCH (08:30)
[2019-09-22] MEDS: POLYETHYLENE (MIRALAX) 17 GM PACK PO SCH (08:30)
[2019-09-22] MEDS: NICOTINE 21 MG/24 HR TDSY TD SCH (08:30)
[2019-09-22] MEDS: PANTOprazole 40 MG TAB PO SCH (08:30)
[2019-09-22] MEDS: LISINOPRIL 2.5 MG TAB PO SCH (08:31)
--- NOTE | 2019-09-22 09:21 | Discharge Summary ---
Date of Service September 22, 2019 Admission HPI Per Admitting Provider Pt is 69 y/o F with PMH HTN, HLD, hypothyroidism, COPD, chronic anemia, anxiety, chronic back pain on chronic narcotics presented to ER with c/o fall. Pt reports uses cane or walker to assist in ambulation. States today was walking in house when she thinks she tripped and fell onto left side. Denies LOC. Denies dizziness, CP, SOB prior to fall. C/O pain to left shoulder and left elbow. Reports also with some pain to left hip. Denies any other known injury or acute pain. Pt on chronic morphine 60mg TID and oxycodone 5mg TID prn breakthrough pain for chronic back pain. Reports her back pain feels at baseline currently. Denies IRVIN, neck pain, other back pain, RUE pain, other lower extremity pain, extremity paresthesias, abdominal pain. Denies fever/chills, diaphoresis, N/V/D/C, IRVIN, dizziness, syncope, vision changes, CP, SOB, orthopnea, palpitations, cough, sore throat, choking, otalgia, rhinorrhea, abdominal pain, paresthesias, rashes, urinary symptoms. Principal Diagnosis FALL /LEFT PROXIMAL HUMERUS FRACTURE Discharge Data Allergies Allergy/AdvReac Type Severity Reaction Status Date / Time bupropion Allergy Unknown Unknown Verified 09/08/19 21:22 Penicillins Allergy Unknown Unknown Verified 09/08/19 21:22 gabapentin [From Neurontin] AdvReac Unknown Nausea Verified 09/14/19 21:32 latex AdvReac Unknown unknown Verified 09/08/19 11:45 Sulfa (Sulfonamide AdvReac Unknown unknown Verified 09/08/19 11:45 Antibiotics) nicotine gum AdvReac Unknown unknown Uncoded 09/08/19 11:45 Consultations 09/08/19 15:30 ED Decision to Admit Stat 09/08/19 17:23 Consult Case Management - Discharge Planning Routine Consult Orthopedic Surgery Routine Ordered Studies 09/08/19 10:46 CT head/brain wo con Stat Hospital Course (1) Fracture of proximal humerus: Secondary to fall Patient reports she has baseline ambulatory dysfunction for chronic left hip latisha n, Uses a walker, Lost her balance and landed on her left side, leading to proximal humerus fracture appreciate input from Ortho conservative management with left shoulder immobilizer high fall risk referral made to rehab ,accepted at [facility] stable to be transferred to rehab today (2) Fall: Status post mechanical fall l L shoulder on admission showed acute comminuted and mildly displaced proximal humeral fracture with moderate soft tissue swelling. Repeat Shoulder xray showed increasing angulation of the largest fragment as compared to previous xray on admission. Ortho on board recommended non surgical management since the fracture can heal without operative intervention. Recommended sling with shoulder immobilizer. Patient is currently comfortable with current shoulder in immobilizer Continue pain control with morphine 60mg three times a day. Follow up with ortho in 7 days for re eval (3) Ambulatory dysfunction: S/P fall that led to Left humerus fracture Appreciate input from PT OT Had [id number] review with [employer] regarding authorization for skilled rehab Discussed the case with medical record clerk Dr. Lynch After discussing patient's increased risk for fall, (baseline ambulatory dysfunction, chronic narcotic use , ) unable to use left arm for next 6 weeks- patient will benefit with short-term skilled rehab, while getting close follow- up with orthopedics for comminuted nondisplaced fracture of left proximal humerus. Patient is approved for skilled rehab Case management updated Pt is to discharge to skilled rehab today (4) Chronic back pain: Continue outpatient meds (5) Hypertension: BP stable Continue lisinopril, metoprolol (6) Hypothyroidism: Continue levothyroxine (7) Anemia: Chronic anemia Continue iron supplement, Vitamin B12 (8) Anxiety: Continue duloxetine DVT Prophylaxis on Lovenox subq CODE STATUS Full Code Disposition pt is accepted for skilled rehab stable to be transferred to SNF today Total Time Total Time Spent Total Time Spent (In Minutes): approx 35 mins Total Time Includes: Examination of the Patient, Discharge Planning and Medication Reconciliation Discharge Plan Discharge Items Patient Disposition: Transfer Residential Fac Reason For Visit: LEFT HUMERUS FRACTURE Discharge Diagnosis: FALL /LEFT PROXIMAL HUMERUS FRACTURE Activity: Per Instructions section Weightbearing: Left non-weightbearing Weightbearing Comment: left upper arm , keep in shoulder stabilizer /immobilizer Non-emergency contact: Primary Care Provider Call non-emergency contact if: you have any medication questions Follow-up/Referrals: Myrna Munguia [Primary Care Provider] - Kang Brown MD [Physician] - (FOLLOW UP IN 1 WEEK ) Diet: Heart Healthy Addtl Attending Provider Instructions: ORTHOPEDICS FOLLOW UP WITH DR BROWN IN 1 WEEK Keep left shoulder immobilizer, left arm on sling -for 6 weeks or as per instruction by orthopedics Hospital follow-up with family physician Dr. Munguia after being discharged from rehab Pending Studies at Discharge: No Stand-Alone Forms: My [facility] Skilled Items Patient informed of condition?: Yes DNR: No Discharge Level of Care: Skilled Communicable Disease: No Discharge Prognosis: Stable Lines: None Urinary Catheter: No Medications and DC Order Prescriptions: Continued sennosides 8.6 mg Tablet 8.6 mg PO BID PRN (Reason: Constipation) RF: 0 metoprolol succinate 100 mg tablet extended release 24 hr 100 mg PO HS RF: 0 simvastatin 10 mg tablet 10 mg PO HS RF: 0 levothyroxine 88 mcg tablet 88 mcg PO DAILYBB RF: 0 omeprazole 20 mg capsule,delayed release(DR/EC) 20 mg PO QAM RF: 0 gabapentin 100 mg Capsule 100 mg PO HS RF: 0 lisinopril 2.5 mg Tablet 2.5 mg PO DAILY RF: 0 duloxetine 30 mg capsule,delayed release(DR/EC) 30 mg PO DAILY RF: 0 cyanocobalamin (vitamin B-12) [Vitamin B-12] 1,000 mcg Tablet 1,000 mcg PO DAILY RF: 0 ferrous sulfate 325 mg (65 mg iron) Tablet 325 mg PO QDL RF: 0 melatonin 5 mg Tablet 5 mg PO HS RF: 0 morphine 60 mg tablet extended release 60 mg PO TID Qty: 9 RF: 0 zolpidem [Ambien] 10 mg tablet 10 mg PO HS Qty: 10 RF: 0 oxycodone 5 mg tablet 5 mg PO TID PRN (Reason: Pain) Qty: 10 RF: 0 Discontinued zolpidem [Ambien] 10 mg tablet 10 mg PO HS RF: 0 oxycodone 5 mg tablet 5 mg PO TID PRN (Reason: Pain) RF: 0 Discharge Orders: Discharge Order (Routine); Ordered 09/22/19 Ordered By: Carol Gallagher Admission Data Admit Date/Time: 09/10/19 15:30 Attending Provider: Carol Gallagher Admit Provider: Ric Bella Primary Care Provider: Myrna Munguia Other Providers: [facility] ; Kang Brown Ric Bella. ; Miriam Hernadez I. ; Shira Ferguson Other Interventions: Discharge Summary Assessment (RN) Last Done: 09/22/19 09:08 DC Date/Time DO NOT enter until pt leaves facility: 09/22/19 10:20
== END 2019-09-22 10:20 | DRG 563 ==
LOC: ED 09:55 → 3N 09:55 → SUATTDRO 16:24 → 3N 16:57 → SUATTDRO 09-10 15:30

== ENCOUNTER 2020-12-16 16:34 | Inpatient (IN) ==
[2020-12-16] MEDS ORDERED: MAGNESIUM SULFATE / D5W 1 GM/100 ML BAG IV SCH (16:45)
[2020-12-16] MEDS ORDERED: ONDANSETRON INJ 2 MG/ML 2 ML VIAL IV STA ×2 (16:46→21:10)
[2020-12-16 17:03] LABS: Basophils # (auto) 0.01 K/uL (0-0.2); Basophils % (auto) 0.1 %; Hematocrit (blood only) 30.7 % (37-47); Hemoglobin 10.2 g/dL (12.0-16.0); Immature Granulocytes # (auto) 0.05 K/uL (0.00-0.02); Immature Granulocytes % (auto) 0.3 %; Lymphocytes # (auto) 0.48 K/uL (1.2-3.4); Lymphocytes % (auto) 2.8 %; Mean Corpuscular Hemoglobin 27.2 pg (25-34); Mean Corpuscular Hgb Conc 33.2 g/dL (32-36); Mean Corpuscular Volume 81.9 fL (80-100); Monocytes # (auto) 1.55 K/uL (0.11-0.59); Monocytes % (auto) 9.1 %; Neutrophils # (auto) 14.99 K/uL (1.4-6.5); Neutrophils % (auto) 87.7 %; Platelet Count 208 K/uL (130-400); RDW Coefficient of Variation 14.4 % (11.5-14.5); RDW Standard Deviation 43.5 fL (36.4-46.3); Red Blood Count 3.75 M/uL (4.2-5.4); White Blood Count 17.08 K/uL (4.8-10.8)
[2020-12-16] MEDS ORDERED: SODIUM CHLORIDE 0.9% 1000ML 500 ML IV ONE (17:04)
--- NOTE | 2020-12-16 17:04 | Emergency Department Note ---
Impression & Plan Nausea & vomiting, Hypokalemia, Weakness, Hyponatremia, Acute UTI, COVID-19 ED Provider Note Provider: Berlin Barakat MD DATE OF SERVICE: 12/16/2020 CHIEF COMPLAINT: Nausea, vomiting, abdominal pain HISTORY OF PRESENT ILLNESS: Patient is a 70-year-old female history of COPD, back pain, hypertension presenting here today from home via ambulance due to approximately 3 to 4 days per her report of lower abdominal pain with nausea and vomiting. Patient states initially started with some urinary symptoms and frequency however this seems to improve. Denies fever, chills, URI symptoms. Patient states she does not have any chest pain or shortness of breath. Denies any palpitations or dizziness/fainting. Patient states she feels a bit weak lives by herself in her apartment. States she has been drinking some liquids but not eating much. Denies any diarrhea. Denies a history of similar. Denies sick contact to her knowledge. EMS gave her some Zofran which has helped her nausea to some degree. Still with some lower abdominal discomfort without other radiation of pain. REVIEW OF SYSTEMS: A total of 10 review of systems was obtained and negative except as stated above in the HPI. PAST MEDICAL HISTORY: As noted above MEDICATIONS: Reviewed home medication list SOCIAL HISTORY: Lives at home alone in apartment PHYSICAL EXAM: GENERAL: alert and oriented in no acute distress on stretcher Head: normocephalic and atraumatic EYES: No injection, discharge or icterus. NECK: Trachea midline. ENT: Mucous membranes pink and moist. LUNGS: Airway patent. No retractions. Breath sounds clear with good air entry bilaterally. HEART: Irregular tachycardic rate and rhythm. No chest wall tenderness ABDOMEN: Soft with some suprapubic and lower abdominal tenderness. Not peritoneal. No guarding. SKIN: Acyanotic, warm, dry, without rashes EXTREMITIES: Without swelling, tenderness or deformity NEUROLOGICAL: No focal deficits. No aphasia. No facial droop or slurred speech. EK bpm appears to be a atrial fibrillation with several episodes of PVC versus sinus tach with frequent PACs and PVCs. No acute ST segment elevation or depression noted. There is some motion artifact in the EKG. QRS within normal limits. CONTINUOUS CARDIAC MONITORING: was ordered and showed a heart rate of 110s-130s bpm in atrial fibrillation w/ RVR versus sinus tach with PACs and PVCs to 70 bpm sinus rhythm with sinus arrhythmia. EKG #2: 74 bpm appears to be a sinus rhythm with sinus arrhythmia. No ST segment elevation or depression. QTC 470. Heart rates improved compared to previous and now clearly appears to be in a sinus rhythm. Patient's laboratory studies and imaging reviewed. Differential includes Appendicitis, infections, diverticulitis, UTI, obstruction, mesenteric ischemia, aortic pathology, inflammatory bowel disease, renal colic, PUD, pancreatitis, biliary pathology, hernia, volvulus, constipation, as well as other pathologies. IMPRESSION/MEDICAL DECISION MAKING: Patient presents complaining of some nausea vomiting and lower abdominal discomfort. CT imaging will be obtained and basic labs. Patient also appears to be in what I believe is rapid A. fib but has no history. Given some magnesium here and a small fluid bolus. Denies any chest pain or shortness of breath. Patient states she does not believe she talked with her doctor but does not remember much the last several days. Computer records show the patient did recently receive course of ciprofloxacin 4 days ago (patient states she never picked up the medication has not taken any as she has just been forgetful) and has had some Zofran recently outpatient setting. Is on outpatient metoprolol. Patient likely not having diarrhea lower suspicion at this time for C. difficile. Blood work shows evidence of leukocytosis today with slight anemia. Worsened hyponatremia 125 is noted renal function does not appear off. Hypokalemia is noted given some IV for supplementation. No evidence of acute liver dysfunction. Bilirubin with normal limits and I doubt this is biliary in nature. Lipase is low and I doubt pancreatitis. Free T4 within normal and so the TSH slightly high. Troponin slightly detectable but not abnormal. Heart rate improved with some metoprolol here given again do of suspicion for A. fib although could be sinus with frequent PACs. CT abdomen pelvis was completed g nisa her complaints and per radiology report questions possible UTI. Lipase not significantly of and lower suspicion for acute pancreatitis but symptoms of nausea and vomiting are somewhat consistent. Location of pain is atypical however. Urinalysis is still pending but could explain her symptoms especially in light of her leukocytosis. Urinalysis appears positive and given Rocephin based on tolerance previously. Again has not received any antibiotics at home. Discussed with the patient. Do not believe she is acutely septic but given a dose of ceftriaxone discussed with her further monitoring here in the hospital. Patient was quite unsteady on her feet here. Did tolerate some oral intake with coke but later became somewhat nauseous after this. Coronavirus test returns positive. Informed the patient and the hospitalist. DIAGNOSIS: Nausea and vomiting, hypokalemia, hyponatremia, weakness, acute UTI, COVID-19 DISPOSITION: Hospitalist will evaluate Patient was agreeable with this plan. Past Med/Surg History Medical History (Updated 12/16/20 @ 21:18 by Berlin Barakat M.D.) Anemia Anxiety Avascular necrosis of bone of left hip Chronic back pain COPD (chronic obstructive pulmonary disease) Depression DJD (degenerative joint disease) Fluid collection at surgical site Hypertension Hypothyroidism Osteoporosis Post-operative complication SIADH (syndrome of inappropriate ADH production) Surgical History (System 05/07/20 @ 10:21 by Lisset Helms) History of hysterectomy History of total left hip arthroplasty Family History (System 05/07/20 @ 10:21 by Lisset Helms) Other Family history non-contributory Social History (System 05/07/20 @ 10:21 by Lisset Helms) Smoking Status: Current some day smoker Second Hand Exposure: No; Hx Alcohol Use: No Hx Substance Use: No Preferred Language: Palestinian Communication Ability: Effective District Gauger Required: No Beliefs That Will Affect Care: None marital status: Current Living Situation: Alone Current Living Situation Comment: IN AN APARTMENT Feels Safe at Home: Yes Assistive Devices: None Allergies Allergies Allergy/AdvReac Type Severity Reaction Status Date / Time bupropion Allergy Unknown Unknown Verified 12/16/20 19:53 Penicillins Allergy Unknown Unknown Verified 12/16/20 19:53 gabapentin [From Neurontin] AdvReac Unknown Nausea Verified 12/16/20 19:53 latex AdvReac Unknown unknown Verified 12/16/20 19:53 Sulfa (Sulfonamide AdvReac Unknown unknown Verified 12/16/20 19:54 Antibiotics) nicotine gum AdvReac Unknown unknown Uncoded 12/16/20 19:54 Home Meds Home Medications Medication Instructions Recorded Confirmed cyanocobalamin (vitamin B-12) 1,000 mcg PO DAILY 09/08/19 12/16/20 [Vitamin B-12] duloxetine 30 mg PO DAILY 09/08/19 12/16/20 levothyroxine 88 mcg PO DAILYBB 09/08/19 12/16/20 lisinopril 2.5 mg PO DAILY 09/08/19 12/16/20 melatonin 5 mg PO HS 09/08/19 12/16/20 omeprazole 20 mg PO QAM 09/08/19 12/16/20 sennosides 8.6 mg PO BID PRN 09/08/19 12/16/20 simvastatin 10 mg PO HS 09/08/19 12/16/20 oxycodone 5 mg PO BID PRN 10/24/19 12/16/20 ciprofloxacin HCl 250 mg PO BID 12/16/20 12/16/20 metoprolol succinate 50 mg PO DAILY 12/16/20 12/16/20 ondansetron HCl 4 mg PO Q8 PRN 12/16/20 12/16/20 Previous Rx's Medication Instructions Recorded morphine 60 mg PO TID #9 tab 09/22/19 Results & Data (ED) Vital Signs Vital Signs - 24 hr 12/16/20 16:36 12/16/20 16:46 12/16/20 16:50 Temperature 37.0 C Temperature Source Oral Pulse Rate 122 H 127 H Pulse Rate [Right Finger] Pulse Rate from SpO2 Sensor 118 H 128 H Respiratory Rate 18 21 Respiratory Effort / Characteristics Respiratory Depth Respiratory Pattern Blood Pressure 128/99 128/99 Blood Pressure [Right Arm] Blood Pressure Mean 108 108 Blood Pressure Mean [Right Arm] Blood Pressure Position [Right Arm] Pulse Oximetry 95 95 96 Oxygen Delivery Method Room Air Sepsis Recent Fever Within 48 Hours No Sepsis New/Unexplained Change in Mental Status No Sepsis Action Taken by Nursing No Action Required 12/16/20 17:00 12/16/20 17:01 12/16/20 17:13 Temperature Temperature Source Pulse Rate 107 H 126 H 122 H Pulse Rate [Right Finger] Pulse Rate from SpO2 Sensor 109 H 108 H Respiratory Rate 19 20 Respiratory Effort / Characteristics Respiratory Depth Respiratory Pattern Blood Pressure 137/64 137/64 Blood Pressure [Right Arm] Blood Pressure Mean 88 Blood Pressure Mean [Right Arm] Blood Pressure Position [Right Arm] Pulse Oximetry 95 95 Oxygen Delivery Method Sepsis Recent Fever Within 48 Hours Sepsis New/Unexplained Change in Mental Status Sepsis Action Taken by Nursing 12/16/20 17:30 12/16/20 17:31 12/16/20 18:00 Temperature Temperature Source Pulse Rate 77 83 81 Pulse Rate [Right Finger] Pulse Rate from SpO2 Sensor 83 80 82 Respiratory Rate 18 18 20 Respiratory Effort / Characteristics Respiratory Depth Respiratory Pattern Blood Pressure 112/73 118/65 Blood Pressure [Right Arm] Blood Pressure Mean 86 82 Blood Pressure Mean [Right Arm] Blood Pressure Position [Right Arm] Pulse Oximetry 95 96 95 Oxygen Delivery Method Sepsis Recent Fever Within 48 Hours Sepsis New/Unexplained Change in Mental Status Sepsis Action Taken by Nursing 12/16/20 18:01 12/16/20 18:26 12/16/20 18:30 Temperature Temperature Source Pulse Rate 83 89 83 Pulse Rate [Right Finger] Pulse Rate from SpO2 Sensor 80 85 Respiratory Rate 17 17 15 Respiratory Effort / Characteristics Respiratory Depth Respiratory Pattern Blood Pressure 123/76 122/69 Blood Pressure [Right Arm] Blood Pressure Mean 91 86 Blood Pressure Mean [Right Arm] Blood Pressure Position [Right Arm] Pulse Oximetry 98 94 Oxygen Delivery Method Sepsis Recent Fever Within 48 Hours Sepsis New/Unexplained Change in Mental Status Sepsis Action Taken by Nursing 12/16/20 18:31 12/16/20 19:00 12/16/20 19:01 Temperature Temperature Source Pulse Rate 87 88 86 Pulse Rate [Right Finger] Pulse Rate from SpO2 Sensor 87 89 86 Respiratory Rate 17 14 23 Respiratory Effort / Characteristics Respiratory Depth Respiratory Pattern Blood Pressure 140/77 Blood Pressure [Right Arm] Blood Pressure Mean 98 Blood Pressure Mean [Right Arm] Blood Pressure Position [Right Arm] Pulse Oximetry 94 96 94 Oxygen Delivery Method Sepsis Recent Fever Within 48 Hours Sepsis New/Unexplained Change in Mental Status Sepsis Action Taken by Nursing 12/16/20 20:20 Temperature Temperature Source Pulse Rate Pulse Rate [Right Finger] 116 H Pulse Rate from SpO2 Sensor Respiratory Rate 22 Respiratory Effort / Characteristics Non-Labored Spontaneous Respiratory Depth Normal Respiratory Pattern Regular Blood Pressure Blood Pressure [Right Arm] 129/82 Blood Pressure Mean Blood Pressure Mean [Right Arm] 97 Blood Pressure Position [Right Arm] Lying Pulse Oximetry Oxygen Delivery Method Sepsis Recent Fever Within 48 Hours Sepsis New/Unexplained Change in Mental Status Sepsis Action Taken by Nursing Laboratory Data Result diagrams: 12/16/20 16:50 12/16/20 17:41 Lab Results 12/16/20 12/16/20 12/16/20 Range/Units 16:50 16:50 16:50 WBC 17.08 H (4.8-10.8) K/uL RBC 3.75 L (4.2-5.4) M/uL Hgb 10.2 L (12.0-16.0) g/dL Hct 30.7 L (37-47) % MCV 81.9 (80-100) fL MCH 27.2 (25-34) pg MCHC 33.2 (32-36) g/dL RDW Std Deviation 43.5 (36.4-46.3) fL RDW Coeff of Main 14.4 (11.5-14.5) % Plt Count 208 (130-400) K/uL MPV 10.0 (7.4-10.4) fL Immature Gran % (Auto) 0.3 % Neut % (Auto) 87.7 % Lymph % (Auto) 2.8 % [place] % (Auto) 9.1 % Eos % (Auto) 0.0 % Baso % (Auto) 0.1 % Neut # (Auto) 14.99 H (1.4-6.5) K/uL Lymph # (Auto) 0.48 L (1.2-3.4) K/uL [place] # (Auto) 1.55 H (0.11-0.59) K/uL Eos # (Auto) 0.00 (0-0.5) K/uL Baso # (Auto) 0.01 (0-0.2) K/uL Immature Gran # (Auto) 0.05 H (0.00-0.02) K/uL PT 10.9 (9.0-12.0) Seconds INR 1.1 (0.9-1.1) Sodium 125 L (136-145) mmol/L Potassium (3.5-5.1) mmol/L Chloride 90 L (98-107) mmol/L Carbon Dioxide 24 (21-32) mmol/L Anion Gap 11.0 (3-11) BUN 10 (7-18) mg/dl Creatinine 1.13 (0.6-1.2) mg/dl Est Cr Clr Drug Dosing 37.1 ml/min Est GFR ( Amer) 56.6 Est GFR (Non-Af Amer) 48.9 BUN/Creatinine Ratio 8.7 L (10-20) Glucose 170 H (70-99) mg/dl Calcium 8.4 L (8.5-10.1) mg/dl Magnesium (1.8-2.4) mg/dl Total Bilirubin 0.6 (0.2-1) mg/dl AST (15-37) U/L ALT 19 (12-78) U/L Alkaline Phosphatase 126 H (45-117) U/L Troponin I 0.018 (0-0.045) ng/ml Total Protein 6.3 L (6.4-8.2) gm/dl Albumin 2.1 L (3.4-5.0) gm/dl Globulin 4.2 H (2.5-4.0) gm/dl Albumin/Globulin Ratio 0.5 L (0.9-2) Lipase 38 L (73-393) U/L TSH 5.980 H (0.300-4.500) uIu/ml Free T4 0.94 (0.8-1.6) ng/dl Urine Color Urine Appearance (Clear) Urine pH (4.5-7.5) Ur Specific [place] (1.000-1.030) Urine Protein (Negative) Urine Glucose (UA) (Negative) Urine Ketones (Negative) Urine Blood (Negative) Urine Nitrite (Negative) Urine Bilirubin (Negative) Urine Urobilinogen (Negative) Ur Leukocyte Esterase (Negative) Urine RBC (0-4) /hpf Urine WBC (0-5) /hpf Ur Epithelial Cells (0-5) /lpf Urine Bacteria (Negative) COVID-19 Eval Order SARS-CoV-2 (PCR) (Negative) Influenza Type A (PCR) (Neg) Influenza Type B (PCR) (Neg) RSV (RT-PCR) (Neg) 12/16/20 12/16/20 12/16/20 Range/Units 17:41 18:59 20:00 WBC (4.8-10.8) K/uL RBC (4.2-5.4) M/uL Hgb (12.0-16.0) g/dL Hct (37-47) % MCV (80-100) fL MCH (25-34) pg MCHC (32-36) g/dL RDW Std Deviation (36.4-46.3) fL RDW Coeff of Main (11.5-14.5) % Plt Count (130-400) K/uL MPV (7.4-10.4) fL Immature Gran % (Auto) % Neut % (Auto) % Lymph % (Auto) % [place] % (Auto) % Eos % (Auto) % Baso % (Auto) % Neut # (Auto) (1.4-6.5) K/uL Lymph # (Auto) (1.2-3.4) K/uL [place] # (Auto) (0.11-0.59) K/uL Eos # (Auto) (0-0.5) K/uL Baso # (Auto) (0-0.2) K/uL Immature Gran # (Auto) (0.00-0.02) K/uL PT (9.0-12.0) Seconds INR (0.9-1.1) Sodium (136-145) mmol/L Potassium 2.6 L (3.5-5.1) mmol/L Chloride (98-107) mmol/L Carbon Dioxide (21-32) mmol/L Anion Gap (3-11) BUN (7-18) mg/dl Creatinine (0.6-1.2) mg/dl Est Cr Clr Drug Dosing ml/min Est GFR ( Amer) Est GFR (Non-Af Amer) BUN/Creatinine Ratio (10-20) Glucose (70-99) mg/dl Calcium (8.5-10.1) mg/dl Magnesium 2.2 (1.8-2.4) mg/dl Total Bilirubin (0.2-1) mg/dl AST 20 (15-37) U/L ALT (12-78) U/L Alkaline Phosphatase (45-117) U/L Troponin I (0-0.045) ng/ml Total Protein (6.4-8.2) gm/dl Albumin (3.4-5.0) gm/dl Globulin (2.5-4.0) gm/dl Albumin/Globulin Ratio (0.9-2) Lipase (73-393) U/L TSH (0.300-4.500) uIu/ml Free T4 (0.8-1.6) ng/dl Urine Color Yellow Urine Appearance Clear (Clear) Urine pH 6.0 (4.5-7.5) Ur Specific [place] 1.011 (1.000-1.030) Urine Protein Negative (Negative) Urine Glucose (UA) Negative (Negative) Urine Ketones Negative (Negative) Urine Blood Trace H (Negative) Urine Nitrite Positive A (Negative) Urine Bilirubin Negative (Negative) Urine Urobilinogen Negative (Negative) Ur Leukocyte Esterase 2+ H (Negative) Urine RBC 0-4 (0-4) /hpf Urine WBC >30 H (0-5) /hpf Ur Epithelial Cells 5-10 H (0-5) /lpf Urine Bacteria 2+ H (Negative) COVID-19 Eval Order CovFluRsv at [facility] SARS-CoV-2 (PCR) (Negative) Influenza Type A (PCR) (Neg) Influenza Type B (PCR) (Neg) RSV (RT-PCR) (Neg) 12/16/20 Range/Units 20:00 WBC (4.8-10.8) K/uL RBC (4.2-5.4) M/uL Hgb (12.0-16.0) g/dL Hct (37-47) % MCV (80-100) fL MCH (25-34) pg MCHC (32-36) g/dL RDW Std Deviation (36.4-46.3) fL RDW Coeff of Main (11.5-14.5) % Plt Count (130-400) K/uL MPV (7.4-10.4) fL Immature Gran % (Auto) % Neut % (Auto) % Lymph % (Auto) % [place] % (Auto) % Eos % (Auto) % Baso % (Auto) % Neut # (Auto) (1.4-6.5) K/uL Lymph # (Auto) (1.2-3.4) K/uL [place] # (Auto) (0.11-0.59) K/uL Eos # (Auto) (0-0.5) K/uL Baso # (Auto) (0-0.2) K/uL Immature Gran # (Auto) (0.00-0.02) K/uL PT (9.0-12.0) Seconds INR (0.9-1.1) Sodium (136-145) mmol/L Potassium (3.5-5.1) mmol/L Chloride (98-107) mmol/L Carbon Dioxide (21-32) mmol/L Anion Gap (3-11) BUN (7-18) mg/dl Creatinine (0.6-1.2) mg/dl Est Cr Clr Drug Dosing ml/min Est GFR ( Amer) Est GFR (Non-Af Amer) BUN/Creatinine Ratio (10-20) Glucose (70-99) mg/dl Calcium (8.5-10.1) mg/dl Magnesium (1.8-2.4) mg/dl Total Bilirubin (0.2-1) mg/dl AST (15-37) U/L ALT (12-78) U/L Alkaline Phosphatase (45-117) U/L Troponin I (0-0.045) ng/ml Total Protein (6.4-8.2) gm/dl Albumin (3.4-5.0) gm/dl Globulin (2.5-4.0) gm/dl Albumin/Globulin Ratio (0.9-2) Lipase (73-393) U/L TSH (0.300-4.500) uIu/ml Free T4 (0.8-1.6) ng/dl Urine Color Urine Appearance (Clear) Urine pH (4.5-7.5) Ur Specific [place] (1.000-1.030) Urine Protein (Negative) Urine Glucose (UA) (Negative) Urine Ketones (Negative) Urine Blood (Negative) Urine Nitrite (Negative) Urine Bilirubin (Negative) Urine Urobilinogen (Negative) Ur Leukocyte Esterase (Negative) Urine RBC (0-4) /hpf Urine WBC (0-5) /hpf Ur Epithelial Cells (0-5) /lpf Urine Bacteria (Negative) COVID-19 Eval Order SARS-CoV-2 (PCR) POSITIVE A* (Negative) Influenza Type A (PCR) Negative (Neg) Influenza Type B (PCR) Negative (Neg) RSV (RT-PCR) Negative (Neg) Administered Medications Discontinued Medications Magnesium Sulfate/Dextrose (Magnesium Sulfate / D5w) 1 gm in 100 mls @ 400 mls/hr IV Q15M PARISA Stop: 12/16/20 16:59 Last Infusion: 12/16/20 18:34 Dose: 0 mls/hr Documented by: [id number] Admin: 12/16/20 17:13 Dose: 400 mls/hr Documented by: [id number] Sodium Chloride (Nss 1000ml) 500 mls @ 999 mls/hr IV .Q31M ONE Stop: 12/16/20 17:34 Last Infusion: 12/16/20 18:34 Dose: 0 mls/hr Documented by: [id number] Admin: 12/16/20 17:13 Dose: 999 mls/hr Documented by: [id number] Potassium Chloride (K Will / Wtr) 10 meq in 100 mls @ 100 mls/hr IV Q1H PARISA Stop: 12/16/20 20:14 Last Infusion: 12/16/20 20:15 Dose: 0 mls/hr Documented by: [id number] Admin: 12/16/20 19:08 Dose: 100 mls/hr Documented by: [id number] Ceftriaxone Sodium (Rocephin) 1,000 mg in 50 mls @ 100 mls/hr IV NOW STA Stop: 12/16/20 19:34 Last Infusion: 12/16/20 20:46 Dose: 0 mls/hr Documented by: [id number] Admin: 12/16/20 20:15 Dose: 100 mls/hr Documented by: [id number] Ioversol (Ioversol 100ml) 94 ml IV ONCE ONE Stop: 12/16/20 18:19 Last Admin: 12/16/20 18:18 Dose: 94 ml Documented by: [id number] Metoprolol Tartrate (Metoprolol Tartrate 1 Mg/Ml Vial) 5 mg IV NOW STA Stop: 12/16/20 17:07 Last Admin: 12/16/20 17:13 Dose: 5 mg Documented by: [id number] Ondansetron HCl (Ondansetron Inj 2 Mg/Ml 2 Ml Vial) 4 mg IV NOW STA Stop: 12/16/20 16:47 Last Admin: 12/16/20 17:13 Dose: 4 mg Documented by: [id number] Discharge Plan Visit Data Chief Complaint: Illness Stated Complaint: NAUSEA VOMIT/ ABD PROBLEM ED Provider: Berlin Barakat Discharge Problem: Nausea & vomiting, Hypokalemia, Weakness, Hyponatremia, Acute UTI, COVID-19 Patient Disposition: Being Evaluated by Hospitalist Condition: Fair Forms Stand Alone Forms: [facility] Playdate App Prescriptions Prescriptions: No Action oxycodone 5 mg tablet 5 mg PO BID PRN (Reason: Pain) RF: 0 ciprofloxacin HCl 250 mg tablet 250 mg PO BID RF: 0 ondansetron HCl 4 mg tablet 4 mg PO Q8 PRN (Reason: Nausea) RF: 0 metoprolol succinate 50 mg tablet extended release 24 hr 50 mg PO DAILY RF: 0 sennosides 8.6 mg Tablet 8.6 mg PO BID PRN (Reason: Constipation) RF: 0 simvastatin 10 mg tablet 10 mg PO HS RF: 0 levothyroxine 88 mcg tablet 88 mcg PO DAILYBB RF: 0 omeprazole 20 mg capsule,delayed release(DR/EC) 20 mg PO QAM RF: 0 lisinopril 2.5 mg Tablet 2.5 mg PO DAILY RF: 0 duloxetine 30 mg capsule,delayed release(DR/EC) 30 mg PO DAILY RF: 0 cyanocobalamin (vitamin B-12) [Vitamin B-12] 1,000 mcg Tablet 1,000 mcg PO DAILY RF: 0 melatonin 5 mg Tablet 5 mg PO HS RF: 0 morphine 60 mg tablet extended release 60 mg PO TID Qty: 9 RF: 0 Referrals Referrals: Myrna Munguia [Primary Care Provider] - Discharge Problem: Nausea & vomiting Qualifiers: Vomiting type: unspecified Vomiting Intractability: non-intractable Qualified Code(s): R11.2 - Nausea with vomiting, unspecified
[2020-12-16] MEDS ORDERED: METOPROLOL TARTRATE 1 MG/ML VIAL IV STA (17:06)
--- NOTE | 2020-12-16 17:09 | XRay Report ---
XR chest 1V portable CLINICAL HISTORY: abdominal pain COMPARISON STUDY: 09/08/2019 FINDINGS: The cardiac and mediastinal contours are normal. There is no evidence of focal pulmonary co nsolidation. There is no evidence of failure. No pleural effusions are visualized.[There is an old pr oximal left humeral fracture. There are old rib deformities. There is no free intraperitoneal air. IMPRESSION: No active disease in the chest. ACT 112: Negative or not required by law. Electronically signed by: Jc Beltre M.D. 12/16/2020 5:07 PM
[2020-12-16 17:21] LABS: INR 1.1 (0.9-1.1); Prothrombin Time 10.9 Seconds (9.0-12.0)
[2020-12-16 17:33] LABS: Albumin Globulin Ratio 0.5 (0.9-2); Albumin Level 2.1 gm/dl (3.4-5.0); BUN Creatinine Ratio 8.7 (10-20); Bilirubin,Total 0.6 mg/dl (0.2-1); Calcium 8.4 mg/dl (8.5-10.1); Creatinine Clr Calc Pharmacy 37.1 ml/min; Est GFR (African American) 56.6; Est GFR (Non-African American) 48.9; Globulin 4.2 gm/dl (2.5-4.0); Thyroid Stimulating Hormone 5.98 uIu/ml (0.300-4.500); Total Protein 6.3 gm/dl (6.4-8.2); Troponin I 0.018 ng/ml (0-0.045)
[2020-12-16 17:56] LABS: T4 Free Thyroxine 0.94 ng/dl (0.8-1.6)
[2020-12-16 18:14] LABS: Potassium 2.6 mmol/L (3.5-5.1)
[2020-12-16 18:18] LABS: Magnesium 2.2 mg/dl (1.8-2.4)
[2020-12-16] MEDS ORDERED: IOVERSOL 100ml IV ONE (18:18)
--- NOTE | 2020-12-16 18:41 | CT Scan Report ---
CT abd pelvis IV con only CLINICAL HISTORY: nausea/vomiting, lower abd pain COMPARISON STUDY: May 2016 TECHNIQUE: The patient was scanned in a dynamic helical fashion during intravenous administration of 94 cc of Optiray 320. A dose lowering technique was utilized adhering to the principles of ALARA. CT DOSE: 315.01 mGy.cm FINDINGS: Lower chest: There is a healing right eighth rib fracture. There are mild basilar atelectatic changes Liver: The contrast-enhanced liver is normal in size, contour, and attenuation. There is no intrahepa tic biliary ductal dilatation. The hepatic veins and portal veins are patent. Gallbladder: Minimally distended. No calculi identified Spleen: Normal in size and attenuation. Pancreas: There is minimal infiltration of the fat surrounding the pancreatic tail but the pancreatic parenchyma does not appear particularly edematous. Adrenal glands: Unremarkable. Kidneys: No solid renal masses are visualized. There is bilateral perinephric stranding. There is min imal uroepithelial enhancement. Bowel: There are no transition zones indicate bowel obstruction. There is no evidence of acute divert iculitis. There is mild diffuse colonic wall thickening versus artifact from nondistention. The appen jenny is not visualized with certainty. There are no findings to indicate acute appendicitis.. Peritoneum: There is no intraperitoneal free air or abdominal ascites. Vasculature: The abdominal aorta is normal in course and caliber. Adenopathy: None. Pelvic viscera: The bladder is distended. The uterus appears surgically absent. Skeletal structures: There are postsurgical changes of a total left hip arthroplasty. There is an old superior endplate L2 compression fracture. Since the prior study, the patient developed a T12 compre ssion fracture. This does not appear acute. IMPRESSION: 1. No evidence of bowel obstruction. No evidence of free air 2. Nonvisualization of the appendix, but no findings to indicate acute appendicitis 3. Minimal infiltration of the fat surrounding the pancreatic tail, but no convincing findings to sug gest acute pancreatitis. Correlation with lipase and amylase could be obtained as deemed clinically a ppropriate 4. Bilateral perinephric edema. Minimal uroepithelial enhancement. Clinical correlation to exclude a urinary tract infection is recommended 5. Mild colonic wall thickening versus artifact from nondistended colon. 6. Mild bladder distention ACT 112: Negative or not required by law. Electronically signed by: Jc Beltre M.D. 12/16/2020 6:39 PM
[2020-12-16] MEDS ORDERED: cefTRIAXone SODIUM 1,000 MG/50 ML BAG IV STA (19:05)
[2020-12-16] MEDS: POTASSIUM CHLORIDE / WTR 10 MEQ/100 ML PLCT IV SCH ×2 (19:08→21:30)
[2020-12-16 19:10] LABS: Appearance Urine Clear (Clear); Bilirubin Urine Negative (Negative); Blood Urine Trace (Negative); Color Urine Yellow; Glucose Urine UA Negative (Negative); Ketones Urine Negative (Negative); Leukocyte Esterase Urine 2+ (Negative); Nitrite Urine Positive (Negative); Protein Urine Negative (Negative); Specific Gravity Urine 1.011 (1.000-1.030); Urobilinogen Urine Negative (Negative)
[2020-12-16 19:23] LABS: Bacteria Urine 2+ (Negative); RBC Urine 0-4 /hpf (0-4); WBC Urine >30 /hpf (0-5)
[2020-12-16 20:51] LABS: Influenza A virus by PCR Negative (Neg); Influenza B virus by PCR Negative (Neg); RSV by PCR Negative (Neg)
[2020-12-16 20:58] LABS: SARS CoV2 RNA(COVID-19) InHosp POSITIVE (Negative)
[2020-12-16] MEDS ORDERED: SENNA 8.6 MG TAB PO PRN (22:32)
[2020-12-16] MEDS ORDERED: DEXAMETHASONE SOD INJ 10 MG/ML VIAL IV SCH (22:32)
[2020-12-16] MEDS ORDERED: ACETAMINOPHEN 325 MG TAB PO PRN (22:32)
[2020-12-16] MEDS ORDERED: SODIUM CHLORIDE 0.9% 1000ML 1,000 ML IV SCH (22:32)
[2020-12-16] MEDS ORDERED: POTASSIUM CHLORIDE CRTAB 20 MEQ TABCR PO STA (22:59)
[2020-12-16] MEDS ORDERED: MoRPHine SULFATE CR 15 MG TABCR PO ONE (23:00)
[2020-12-16] MEDS ORDERED: DEXAMETHASONE SOD PHOSPHATE 6 MG in SYRINGE 0 ML IV ONE (23:15)
[2020-12-16] MEDS ORDERED: METOPROLOL SUCC 50MG EXT REL TAB PO STA (23:32)
[2020-12-16] MEDS ORDERED: METOPROLOL SUCC 25MG EXT REL TAB PO STA (23:33)
[2020-12-16] MEDS: MELATONIN 3 MG TAB PO SCH (23:41)
[2020-12-16] MEDS: SIMVASTATIN 10 MG TAB PO SCH (23:56)
[2020-12-17] MEDS: POTASSIUM CHLORIDE / WTR 10 MEQ/100 ML PLCT IV SCH ×2 (00:04→03:01)
--- NOTE | 2020-12-17 00:28 | History and Physical Report ---
DATE OF ADMISSION: 12/16/2020 CHIEF COMPLAINT: Urinary symptoms. HISTORY OF PRESENT ILLNESS: This is a 70-year-old female with past medical history significant for hypertension, hyperlipidemia, hypothyroidism, COPD, chronic anemia, anxiety, chronic back pain on chronic narcotic pain medications, who presents with urinary symptoms. The patient says since last she has had increased urinary frequency and some lower abdominal discomfort, but after that her appetite is down and she is not drinking and she is not eating much and not micturating much. No other abdominal pain. No diarrhea, no constipation, no blood in the stool or black stools. No chest pain, no shortness of breath, no cough. She has low-grade temperature around 99 degrees at home. No headache, no blurred visions, no runny nose, no sore throat. She says she is ambulating with the help of walker and cane at home, but lately not ambulating much because of weakness since last few days. Lives alone. No nausea, no vomiting. Currently, resting comfortably and hemodynamically stable. Her UA was positive and her white count was 17. ER gave her Rocephin and called us for admission.But at the time of admission routine SARS-CoV-2 came back as positive and influenza A and B and RSV are negative, but the patient is saturating fine on room air and she is afebrile currently. ALLERGIES: BUPROPION, PENICILLINS, GABAPENTIN, LATEX, SULFA ANTIBIOTICS, NICOTINE GUM. PAST MEDICAL HISTORY: As mentioned above. PAST SURGICAL HISTORY: History of hysterectomy, history of left hip arthroplasty. MEDICATIONS: The patient is on ciprofloxacin 250 mg p.o. b.i.d., vitamin B12 1000 mcg p.o. daily, duloxetine 30 mg p.o. daily, levothyroxine 88 mcg p.o. daily, lisinopril 2.5 mg p.o. daily, melatonin 5 mg p.o. at bedtime, metoprolol succinate 50 mg p.o. daily, morphine 60 mg p.o. t.i.d., omeprazole 20 mg p.o. a.m., Zofran 4 mg p.o. 8 hours p.r.n., oxycodone 5 mg p.o. b.i.d. p.r.n., Senokot 8.6 mg p.o. b.i.d. p.r.n., simvastatin 10 mg p.o. at bedtime. FAMILY HISTORY: Noncontributory. SOCIAL HISTORY: Lives alone, walks with a walker or cane. As per records, she smokes every day. No alcohol use, no drug use. REVIEW OF SYSTEMS: As per HPI. Rest of the review of systems negative. PHYSICAL EXAMINATION: GENERAL: The patient is of moderate build, not in acute distress. VITAL SIGNS: Temperature 37, pulse in 80s, respiratory rate 22, blood pressure 129/82, oxygen 94% on room air. HEENT: Pupils equal, round, and reactive to light. Oral mucosa moist. NECK: No neck masses seen. CARDIOVASCULAR: S1, S2 heard, regular rate and rhythm, no murmur, no gallop. RESPIRATORY SYSTEM: Normal AP diameter. No accessory muscle use. No wheezing, no crackles. ABDOMEN: Soft, bowel sounds present, nontender. No distention. CENTRAL NERVOUS SYSTEM: Cranial nerves II-XII are grossly intact. Nonfocal. EXTREMITIES: No edema, no erythema. LABORATORY DATA: WBC 17, hemoglobin 10.2, hematocrit 30.7, platelets 208. PT 10.9, INR 1.1. Sodium 125, potassium 2.6, chloride 90, CO2 of 24, BUN 10, creatinine 1.1, serum glucose 170, calcium 8.4, magnesium 2.2, total bilirubin 0.6, AST 20, ALT 19, alkaline phosphatase 126, lipase 38. TSH 5.9, free T4 of 0.9. Urinalysis, positive for nitrite and bacteria. SARS-CoV-2 PCR negative. Influenza A and B PCR negative, RSV PCR negative. IMAGING DATA: Chest x-ray, no acute disease in the chest. CT of the abdomen and pelvis, no evidence of bowel obstruction, no evidence of free air, minimal infiltration of fat surrounding the pancreas, but no convincing evidence of acute pancreatitis, bilateral perinephric edema, minimal urothelial enhancement. Clinical correlation to exclude urinary tract infection is recommended. Mild colonic wall thickening versus artifact. Mild bladder distention. EKG: Sinus rhythm with marked sinus arrhythmia at the rate of 74. ASSESSMENT AND PLAN: This is a 70-year-old female who presents with urinary symptoms, found to have urinary tract infection and also COVID positive. 1. Urinary tract infection, weakness: Empirically started on Rocephin, which will be continued. Follow the cultures. Gentle fluids. 2. COVID-19 positive: Routine test in the ER came back positive. The patient is not symptomatic, no cough. No runny nose, sore throat, or shortness of breath. Chest x-ray in the ER was okay. Does not meet any criteria for any remdesivir or plasma. We will give Decadron for now and monitor her course.Airbone isolation. Follow d Dimer and troponin. 3. Hyponatremia and hypokalemia: The patient has history of SIADH, currently getting gentle fluids because of poor appetite. Will follow the repeat labs and if does not get any better, we will consult nephrology in the a.m. 4. Chronic back pain, on chronic narcotic pain medications, will continue. 5. Hyperlipidemia: Continue statin. 6. Hypertension: Continue lisinopril and metoprolol succinate. Will follow the blood pressure. 7. Hypothyroidism: Continue Synthroid. 8. Depression: Continue duloxetine. 9. Gastroesophageal reflux disease: Continue omeprazole. 10. Tobacco abuse: Needs counseling. Monitor for any bronchitis. 11. Deep venous thrombosis prophylaxis: Sequential compression devices. DISPOSITION: Monitor in the medical floor. Addendum: On medical floor patient was having tachycardia in 140 rage though no a fib on ekg. A dose of toprol xl 25mg ordered, iv lopressor prn, ordered cta chest and transferred to tele. CTA chest preliminary report unremarkable. Fluid bolus given.Later heart rates improved. MTDD
[2020-12-17] MEDS ORDERED: OPTIRAY 320 125ml IV ONE (01:01)
[2020-12-17] MEDS ORDERED: METOPROLOL TARTRATE 1 MG/ML VIAL IV PRN (01:15)
[2020-12-17] MEDS ORDERED: SODIUM CHLORIDE 0.9% 500 ML IV SCH (02:00)
[2020-12-17 06:05] LABS: Basophils # (auto) 0.01 K/uL (0-0.2); Basophils % (auto) 0.1 %; Hematocrit (blood only) 28.6 % (37-47); Hemoglobin 9.6 g/dL (12.0-16.0); Immature Granulocytes # (auto) 0.05 K/uL (0.00-0.02); Immature Granulocytes % (auto) 0.3 %; Lymphocytes # (auto) 0.66 K/uL (1.2-3.4); Lymphocytes % (auto) 3.8 %; Mean Corpuscular Hemoglobin 27.4 pg (25-34); Mean Corpuscular Hgb Conc 33.6 g/dL (32-36); Mean Corpuscular Volume 81.5 fL (80-100); Mean Platelet Volume 10.8 fL (7.4-10.4); Monocytes # (auto) 0.44 K/uL (0.11-0.59); Monocytes % (auto) 2.5 %; Neutrophils # (auto) 16.32 K/uL (1.4-6.5); Neutrophils % (auto) 93.3 %; Platelet Count 208 K/uL (130-400); RDW Coefficient of Variation 14.6 % (11.5-14.5); RDW Standard Deviation 43.8 fL (36.4-46.3); Red Blood Count 3.51 M/uL (4.2-5.4); White Blood Count 17.48 K/uL (4.8-10.8)
[2020-12-17] MEDS: MoRPHine SULFATE CR 60 MG TABCR PO SCH ×2 (06:10→21:41)
[2020-12-17] MEDS: LEVOTHYROXINE SODIUM 88 MCG TABLET PO SCH (06:10)
[2020-12-17 06:31] LABS: D Dimer 3750 ug/L FEU (0-500)
[2020-12-17 06:34] LABS: BUN Creatinine Ratio 10.1 (10-20); Blood Urea Nitrogen 9 mg/dl (7-18); Calcium 8.4 mg/dl (8.5-10.1); Carbon Dioxide 25 mmol/L (21-32); Chloride 98 mmol/L (98-107); Creatinine Clr Calc Pharmacy 54.6 ml/min; Est GFR (African American) 79.9; Est GFR (Non-African American) 68.9; Glucose 141 mg/dl (70-99); Magnesium 1.8 mg/dl (1.8-2.4); Potassium 3.8 mmol/L (3.5-5.1); Sodium 129 mmol/L (136-145)
[2020-12-17 06:37] LABS: Troponin I < 0.015 ng/ml (0-0.045)
--- NOTE | 2020-12-17 07:30 | Hospitalist Progress Note ---
Date of Service December 17, 2020 Assessment & Plan (1) Acute UTI: (2) COVID-19: (3) Nausea & vomiting: (4) Hypokalemia: (5) COPD (chronic obstructive pulmonary disease): (6) Weakness: (7) SIADH (syndrome of inappropriate ADH production): (8) Depression: (9) Chronic back pain: (10) Hypertension: (11) DJD (degenerative joint disease): (12) Hypothyroidism: (13) Anemia: (14) Anxiety: ASSESSMENT AND PLAN: This is a 70-year-old female who presents with urinary symptoms, found to have urinary tract infection and also COVID positive. 1. Urinary tract infection/Leukocytosis/Gen Weakness: Continue on Rocephin. Urine Cultures NGTD. Hold fluids. 2. COVID-19 positive: Routine test in the ER came back positive. Patient is asymptomatic. Does not meet any criteria for Remdesivir or Plasma. Started on Decadron and monitor. 3. Hyponatremia and hypokalemia: The patient has history of SIADH, Stop fluids. Consult nephrology. 4. Chronic back pain, on chronic narcotic pain medications, will continue. 5. Hyperlipidemia: Continue statin. 6. Hypertension: Continue lisinopril and metoprolol succinate. Will follow the blood pressure. 7. Hypothyroidism: Continue Synthroid. 8. Depression: Continue duloxetine. 9. Gastroesophageal reflux disease: Continue omeprazole. 10. Tobacco abuse: Needs counseling. Monitor for any bronchitis. 11. Deep venous thrombosis prophylaxis: Sequential compression devices. DISPOSITION: Medical/Surg floor. Isolation precautions for COVID, D-dimer was high, CTA done but not read, troponin negative. Labs Checked ROS-No Headache, No Visual Changes, No Nausea, No Vomiting, No Fever, No Chills, No Neck Pain or Stiffness, No Chest Pain, No Palpitations, No SOB, No NERI, No Cough, No Sputum, No Wheezing, No Abdominal Pain, No Diarrhea, No Hematemesis, No Hemoptysis, No Unexpected Weight Loss, No Flank pain, No Melena, No Hematochezia, No Frequency, No Urgency, No Burning, No Hematuria, No Rashes, No Diaphoresis. Appetite is Normal, Feels a little better than yesterday Physical Exam Gen-AAO x 3, NAD, Afebrile Head-NCAT, EOMI, PERRLA, Anicteric Sclera, No Posterior Pharyngeal Erythema Neck-Supple, No JVD, No Thyromegaly, No Masses, No LAD, No Bruits Lungs-Clear to Auscultation Bilaterally, No Rales, No Rhonchi, No Wheezing, No Crepitus Chest-No S4, +S1, +S2, No S3, No Murmurs, No Rubs, No Gallops, No Ectopy Abdomen-Soft, Bowel Sounds Present, Non Tender, Non Distended, No Hepatomegaly, No Splenomegaly, No Palpable Masses, No Rebound, No Rigidity, No Guarding Musculoskeletal-Full Range of Motion Bilaterally, No CVAT Extremities-No Cyanosis, No Clubbing, No Edema Nuero-Cranial Nerves II-XII grossly intact, Motor WNL, DTRs WNL, Strength WNL, Non Focal Psych-Normal Mood Admission and Anticipated Discharge Date Admission Date: December 16, 2020 Results & Data Results & Data ([facility]) Vital Signs (Past 12 Hours) Vital Signs Temp Pulse Pulse Resp BP BP Pulse Ox 12/17/20 03:36 36.9 C 81 17 108/68 97 12/16/20 23:54 140 H 147/79 H 12/16/20 22:49 37.5 C 121 H 20 135/82 95 12/16/20 22:33 37.5 C 121 H 18 135/82 95 12/16/20 22:11 118 H 18 132/97 95 12/16/20 22:00 132/97 94 12/16/20 20:20 116 H 22 129/82 Allergies bupropion Allergy (Unknown, Verified 12/16/20 19:53) Unknown Penicillins Allergy (Unknown, Verified 12/16/20 19:53) Unknown gabapentin [From Neurontin] Adverse Reaction (Unknown, Verified 12/16/20 19:53) Nausea latex Adverse Reaction (Unknown, Verified 12/16/20 19:53) unknown Sulfa (Sulfonamide Antibiotics) Adverse Reaction (Unknown, Verified 12/16/20 19:54) unknown nicotine gum Adverse Reaction (Unknown, Uncoded 12/16/20 19:54) unknown Height/Weight/Isolation Height 5 ft 5 in Weight 66.5 kg Isolation Type Airborne Precautions,COVID Precautions Chemistry 12/16/20 12/16/20 12/17/20 16:50 17:41 05:34 Sodium 125 L 129 L Potassium 2.6 L 3.8 D Chloride 90 L 98 Carbon Dioxide 24 25 Anion Gap 11.0 6.0 BUN 10 9 Creatinine 1.13 0.85 Glucose 170 H 141 H Urinalysis 12/16/20 18:59 Urine Color Yellow Urine Appearance Clear Urine pH 6.0 Ur Specific Alexander 1.011 Urine Protein Negative Urine Glucose (UA) Negative Urine Ketones Negative Urine Blood Trace H Urine Nitrite Positive A Urine Bilirubin Negative Microbiology 12/16/20 18:59 Urine,Clean Catch Urine Culture - Pending (1) Nausea & vomiting Vomiting Intractability: non-intractable Vomiting type: unspecified Qualified Code(s): R11.2 - Nausea with vomiting, unspecified
--- NOTE | 2020-12-17 07:54 | CT Scan Report ---
CHEST CTA for PULMONARY ARTERIES CT DOSE: 313.80 mGycm HISTORY: Nausea. Vomiting. Cough. TECHNIQUE: Multiaxial CT images of the chest were performed following the intravenous administration of contrast to evaluate the pulmonary arteries. Maximal intensity projection images were also obtaine d. A dose lowering technique was utilized adhering to the principles of ALARA. COMPARISON STUDY: Chest CT 10/24/2019. FINDINGS: Old sternal fracture and multiple old compression deformities within the thoracic and visua lized lumbar spine. The visualized liver and adrenal glands unremarkable. The spleen is at the upper limits of normal. Small hiatus hernia. Mild diffuse thickening of the esophagus, unchanged. No medias tinal or hilar lymphadenopathy. Trace left pleural effusion and a trace pericardial effusion. Normal caliber thoracic aorta with no evidence for dissection. No filling defects within the pulmonary arter ies to suggest pulmonary embolus. Multiple healing right-sided rib fractures. No pneumothorax. The ce ntral airways are patent. Mild central bronchial wall thickening, unchanged. This is likely chronic. No new focal lung consolidations to suggest pneumonia. No evidence for pulmonary edema. Old left linda ral neck fracture. Mild left perinephric edema which also surrounds the pancreatic tail. This is unch anged compared to the 12/16/[address] IMPRESSION: 1. No evidence for pulmonary embolus. 2. Multiple healing right-sided rib fractures. 3. Old sternal fracture and multiple old compression fractures within the thoracic and lumbar spine. 4. Mild left perinephric edema which also surrounds the pancreatic tail. This is better present on th e recent abdomen and pelvis CT. 5. Trace pericardial effusion and a trace left pleural effusion. ACT 112: Negative or not required by law. Electronically signed by: Sundar Bowens M.D. 12/17/2020 7:52 AM
--- NOTE | 2020-12-17 08:44 | Electrocardiogram Report ---
Test Reason : Blood Pressure : / mmHG Vent. Rate : 132 BPM Atrial Rate : 132 BPM P-R Int : 168 ms QRS Dur : 062 ms QT Int : 294 ms P-R-T Axes : 000 -18 070 degrees QTc Int : 435 ms Poor data quality, interpretation may be adversely affected Multifocal atrial tachycardia with frequent Premature ventricular complexes Low voltage QRS Possible Old Inferior infarct Old Anterior infarct (cited on or before 24-OCT-2019) Abnormal ECG When compared with ECG of 24-OCT-2019 17:50, Multifocal atrial tachycardia with Premature ventricular complexes now present Criteria for Inferior infarct now present Confirmed by Reyes Dowell ([id number]) on 12/17/2020 8:44:42 AM Referred By: REFERRED SELF Confirmed By:Reyes Dowell
[2020-12-17] MEDS ORDERED: DEXAMETHASONE SOD PHOSPHATE 6 MG in SYRINGE 0 ML IV SCH (09:00)
[2020-12-17] MEDS: dexAMETHasone 4 MG TAB PO SCH (09:00)
[2020-12-17] MEDS ORDERED: dexAMETHasone 4 MG TAB PO SCH (09:00)
[2020-12-17] MEDS: DULoxetine HCL 30 MG CAP PO SCH (09:07)
[2020-12-17] MEDS: CYANOCOBALAMIN 500 MCG TABLET (VITAMIN B-12) PO SCH (09:08)
[2020-12-17] MEDS: PANTOprazole 40 MG TAB PO SCH (09:08)
[2020-12-17] MEDS: METOPROLOL SUCC 50MG EXT REL TAB PO SCH (09:36)
[2020-12-17] MEDS: lisinopril 2.5 MG TAB PO SCH (09:36)
--- NOTE | 2020-12-17 09:38 | Electrocardiogram Report ---
Test Reason : Blood Pressure : / mmHG Vent. Rate : 074 BPM Atrial Rate : 074 BPM P-R Int : 164 ms QRS Dur : 074 ms QT Int : 424 ms P-R-T Axes : 018 -18 047 degrees QTc Int : 470 ms Poor data quality, interpretation may be adversely affected Sinus rhythm with frequent Premature atrial complexes Low voltage QRS Old Inferior infarct (cited on or before 19-AUG-2017) Old Anterior infarct (cited on or before 24-OCT-2019) Abnormal ECG When compared with ECG of 16-DEC-2020 16:41, Multifocal atrial tachycardia no longer present Premature ventricular complexes are no longer Present Vent. rate has decreased BY 58 BPM Confirmed by Reyes Dowell ([id number]) on 12/17/2020 9:37:23 AM Referred By: REFERRED SELF Confirmed By:Reyes Dowell
--- NOTE | 2020-12-17 09:41 | Electrocardiogram Report ---
Test Reason : Blood Pressure : / mmHG Vent. Rate : 134 BPM Atrial Rate : 134 BPM P-R Int : 148 ms QRS Dur : 056 ms QT Int : 302 ms P-R-T Axes : 071 -05 078 degrees QTc Int : 450 ms Multifocal atrial tachycardia with occasional Premature ventricular complexes Low voltage QRS Old Anterior infarct (cited on or before 24-OCT-2019) Old Inferior infarct Abnormal ECG When compared with ECG of 16-DEC-2020 18:39, Vent. rate has increased BY 60 BPM Multifocal atrial tachycardia now present Confirmed by Reyes Dowell ([id number]) on 12/17/2020 9:41:08 AM Referred By: REFERRED SELF Confirmed By:Reyes Dowell
[2020-12-17] MEDS ORDERED: ENOXAPARIN INJ 40 MG/0.4 ML SYR SQ SCH (09:45)
[2020-12-17] MEDS: ENOXAPARIN INJ 40 MG/0.4 ML SYR SQ SCH (11:04)
[2020-12-17] MEDS ORDERED: MoRPHine SULFATE CR 15 MG TABCR PO ONE (14:45)
[2020-12-17] MEDS: ONDANSETRON INJ 2 MG/ML 2 ML VIAL IV PRN ×2 (14:58→21:41)
[2020-12-17] MEDS: MELATONIN 3 MG TAB PO SCH (21:41)
[2020-12-17] MEDS: SIMVASTATIN 10 MG TAB PO SCH (21:43)
[2020-12-17] MEDS: cefTRIAXone SODIUM 1,000 MG in DEXTROSE 5% 50 ML IV SCH (23:44)
[2020-12-18] MEDS: LEVOTHYROXINE SODIUM 88 MCG TABLET PO SCH (05:43)
[2020-12-18] MEDS: MoRPHine SULFATE CR 60 MG TABCR PO SCH ×3 (05:46→22:05)
[2020-12-18 06:16] LABS: Hematocrit (blood only) 30.8 % (37-47); Hemoglobin 10.3 g/dL (12.0-16.0); Mean Corpuscular Hemoglobin 27.5 pg (25-34); Mean Corpuscular Hgb Conc 33.4 g/dL (32-36); Mean Corpuscular Volume 82.4 fL (80-100); Platelet Count 242 K/uL (130-400); RDW Coefficient of Variation 14.7 % (11.5-14.5); RDW Standard Deviation 44.4 fL (36.4-46.3); Red Blood Count 3.74 M/uL (4.2-5.4); White Blood Count 19.13 K/uL (4.8-10.8)
[2020-12-18 06:57] LABS: BUN Creatinine Ratio 16.5 (10-20); Blood Urea Nitrogen 15 mg/dl (7-18); Calcium 8.5 mg/dl (8.5-10.1); Carbon Dioxide 24 mmol/L (21-32); Chloride 97 mmol/L (98-107); Creatinine Clr Calc Pharmacy 51.6 ml/min; Est GFR (African American) 74.6; Est GFR (Non-African American) 64.3; Glucose 132 mg/dl (70-99); Potassium 3.5 mmol/L (3.5-5.1); Sodium 129 mmol/L (136-145)
[2020-12-18 07:02] LABS: Troponin I < 0.015 ng/ml (0-0.045)
[2020-12-18] MEDS: METOPROLOL SUCC 50MG EXT REL TAB PO SCH (08:21)
[2020-12-18] MEDS: DULoxetine HCL 30 MG CAP PO SCH (08:54)
[2020-12-18] MEDS: ENOXAPARIN INJ 40 MG/0.4 ML SYR SQ SCH (08:54)
[2020-12-18] MEDS: lisinopril 2.5 MG TAB PO SCH (08:55)
[2020-12-18] MEDS: PANTOprazole 40 MG TAB PO SCH (08:55)
[2020-12-18] MEDS: CYANOCOBALAMIN 500 MCG TABLET (VITAMIN B-12) PO SCH (08:55)
[2020-12-18] MEDS: dexAMETHasone 4 MG TAB PO SCH (08:56)
[2020-12-18] MEDS: oxyCODONE HCL IR 5 MG TAB (IMMEDIATE RELEASE) PO PRN ×2 (10:17→19:01)
[2020-12-18] MEDS: ONDANSETRON INJ 2 MG/ML 2 ML VIAL IV PRN (11:28)
--- NOTE | 2020-12-18 14:27 | Hospitalist Progress Note ---
Date of Service December 18, 2020 Assessment & Plan (1) Acute UTI: Continue Rocephin pending urine culture results. She is improved. No evidence of pyelonephritis. (2) COVID-19: Asymptomatic, stopping Decadron in setting of active bacterial infection as this is not needed per criteria. Continue supportive care measures. PT/OT for generalized weakness and fatigue is reported. Patient notably lives alone and is concerned about her physical abilities at this point. (3) Hypokalemia: Improved with replacement. She remains in the normal range. (4) Hyponatremia: Patient appears to have been volume down on admission and responded well to IV fluids. She is currently tolerating p.o. but not heartily. Volume status is either euvolemic to hypovolemic. Patient does have a history of SIADH. Monitor BMP in a.m. Further work-up to be considered based on results and clinical progression (5) Weakness: Generalized weakness secondary to infections as above and electrolyte abnormalities. Continue ambulatory trials with nursing and evaluation by PT and OT in a.m. (6) Hypothyroidism: Continue Synthroid per home regimen. (7) Anemia: Mild anemia, around her baseline. Minimize phlebotomy. Continue to follow as outpatient. (8) Depression: Likely related to long-term chronic pain, continue Cymbalta 30 mg daily per home regimen. (9) Chronic back pain: On high-dose chronic narcotics per home regimen. (10) DVT prophylaxis: Lovenox Full Code Dispo-uncertain at this time. D/C telemetry Sondra Trevizo DO [facility] Hospitalist Admission and Anticipated Discharge Date Admission Date: December 16, 2020 Subjective 70-year-old female presented with pelvic discomfort and generalized weakness for approximately 1 week prior to arrival. She reports feeling significantly better now that she is on antibiotic therapy. She reports total body fatigue and weakness. She denies any respiratory symptoms. She denies any fevers or chills. She is tolerating p.o. Although Covid positive she remains oxygenating well on room air. Dexamethasone was stopped in the setting of acute urinary tract infection. Review of Systems Review of Systems: All systems reviewed & are unremarkable except as noted in Subjective Physical Exam Physical Exam: CONSTITUTIONAL: WNWD, vitals as above, generally well- appearing EYES: normal conjunctivae, no scleral icterus ENT: external ear and nose normal, MMM RESPIRATORY: clear to auscultation bilaterally, no crackles, rales or wheezes, normal respiratory effort CARDIOVASCULAR: regular rate and rhythm, S1 and 2 heard without murmurs, gallops or rubs, no JVD, no peripheral edema GASTROINTESTINAL: soft, nontender, nondistended, no guarding, no CVA tenderness. MUSCULOSKELETAL: generalized weakness, head is normocephalic and atraumatic SKIN: warm and dry NEUROLOGIC: CN 2-12 grossly intact, no sensory deficit, normal cognition, normal speech, no gross focal deficits. PSYCHIATRIC: alert cooperative and answering questions appropriately. Results & Data Results & Data ([facility]) Vital Signs (Past 12 Hours) Vital Signs Temp Pulse Pulse Resp BP Pulse Ox 12/18/20 07:20 69 12/18/20 07:07 36.5 C 70 19 97/67 L 96 12/18/20 04:00 36.8 C 67 20 118/68 98 Laboratory Results Short CBC 12/18/20 Range/Units 05:25 WBC 19.13 H (4.8-10.8) K/uL Hgb 10.3 L (12.0-16.0) g/dL Hct 30.8 L (37-47) % Plt Count 242 (130-400) K/uL BMP 12/18/20 05:25 Sodium 129 L Potassium 3.5 Chloride 97 L Carbon Dioxide 24 BUN 15 D Creatinine 0.90 Glucose 132 H Calcium 8.5 Cardiac Enzymes 12/18/20 Range/Units 05:25 Troponin I < 0.015 (0-0.045) ng/ml Medications Administered Current Inpatient Medications Acetaminophen (Acetaminophen 325 Mg Tab) 650 mg PO Q4H PRN PRN Reason: pain/fever Stop: 01/15/21 22:31 Last Admin: 12/17/20 15:42 Dose: 650 mg Documented by: Cyanocobalamin (Cyanocobalamin 500 Mcg Tablet (Vitamin B-12)) 1,000 mcg PO DAILY PARISA Stop: 01/16/21 08:59 Last Admin: 12/18/20 08:55 Dose: 1,000 mcg Documented by: Dexamethasone (Dexamethasone 4 Mg Tab) 6 mg PO DAILY [facility] Stop: 01/16/21 08:59 Last Admin: 12/18/20 08:56 Dose: 6 mg Documented by: Duloxetine HCl (Duloxetine Hcl 30 Mg Cap) 30 mg PO DAILY [facility] Stop: 01/16/21 08:59 Last Admin: 12/18/20 08:54 Dose: 30 mg Documented by: Enoxaparin Sodium (Enoxaparin Inj 40 Mg/0.4 Ml Syr) 40 mg SQ DAILY [facility] Stop: 01/16/21 09:59 Last Admin: 12/18/20 08:54 Dose: 40 mg Documented by: Ceftriaxone Sodium 1,000 mg/ (Dextrose) 50 mls @ 100 mls/hr IV Q24H [facility]; Protocol Stop: 12/27/20 22:59 Last Infusion: 12/18/20 00:15 Dose: Infused Documented by: Levothyroxine Sodium (Levothyroxine Sodium 88 Mcg Tablet) 88 mcg PO DAILYBB [facility] Stop: 01/16/21 06:29 Last Admin: 12/18/20 05:43 Dose: 88 mcg Documented by: Lisinopril (Lisinopril 2.5 Mg Tab) 2.5 mg PO DAILY [facility] Stop: 01/16/21 08:59 Last Admin: 12/18/20 08:55 Dose: 2.5 mg Documented by: Melatonin (Melatonin 3 Mg Tab) 6 mg PO HS [facility] Stop: 01/15/21 22:59 Last Admin: 12/17/20 21:41 Dose: 6 mg Documented by: Metoprolol Succinate (Metoprolol Succ 50mg Ext Rel Tab) 50 mg PO DAILY [facility] Stop: 01/16/21 08:59 Last Admin: 12/18/20 08:21 Dose: Not Given Documented by: Metoprolol Tartrate (Metoprolol Tartrate 1 Mg/Ml Vial) 2.5 mg IV Q6 PRN PRN Reason: Tachycardia Stop: 01/16/21 01:14 Morphine Sulfate (Morphine Sulfate Cr 60 Mg Tabcr) 60 mg PO Q8H [facility] Stop: 12/31/20 05:59 Last Admin: 12/18/20 13:57 Dose: 60 mg Documented by: Ondansetron HCl (Ondansetron Inj 2 Mg/Ml 2 Ml Vial) 4 mg IV Q6H PRN PRN Reason: Nausea Stop: 01/15/21 22:31 Last Admin: 12/18/20 11:28 Dose: 4 mg Documented by: Oxycodone HCl (Oxycodone Hcl Ir 5 Mg Tab (Immediate Release)) 5 mg PO BID PRN PRN Reason: Pain Stop: 12/30/20 22:31 Last Admin: 12/18/20 10:17 Dose: 5 mg Documented by: Pantoprazole Sodium (Pantoprazole 40 Mg Tab) 40 mg PO [facility] Stop: 01/16/21 08:59 Last Admin: 12/18/20 08:55 Dose: 40 mg Documented by: Sennosides (Senna 8.6 Mg Tab) 8.6 mg PO BID PRN PRN Reason: Constipation Stop: 01/15/21 22:31 Simvastatin (Simvastatin 10 Mg Tab) 10 mg PO [facility] Stop: 01/15/21 22:31 Last Admin: 12/17/20 21:43 Dose: 10 mg Documented by:
[2020-12-18] MEDS: SIMVASTATIN 10 MG TAB PO SCH (19:52)
[2020-12-18] MEDS: MELATONIN 3 MG TAB PO SCH (22:05)
[2020-12-18] MEDS: cefTRIAXone SODIUM 1,000 MG in DEXTROSE 5% 50 ML IV SCH (22:05)
[2020-12-19] MEDS: LEVOTHYROXINE SODIUM 88 MCG TABLET PO SCH (05:22)
[2020-12-19] MEDS: MoRPHine SULFATE CR 60 MG TABCR PO SCH ×3 (05:22→20:15)
[2020-12-19 06:28] LABS: Basophils # (auto) 0.01 K/uL (0-0.2); Basophils % (auto) 0.1 %; Hematocrit (blood only) 33.5 % (37-47); Immature Granulocytes # (auto) 0.11 K/uL (0.00-0.02); Immature Granulocytes % (auto) 0.7 %; Lymphocytes % (auto) 9.9 %; Mean Corpuscular Hemoglobin 27.3 pg (25-34); Mean Corpuscular Hgb Conc 32.8 g/dL (32-36); Mean Corpuscular Volume 83.1 fL (80-100); Monocytes % (auto) 5.5 %; Neutrophils % (auto) 83.8 %; Platelet Count 347 K/uL (130-400); RDW Coefficient of Variation 14.7 % (11.5-14.5); RDW Standard Deviation 44.9 fL (36.4-46.3); Red Blood Count 4.03 M/uL (4.2-5.4); White Blood Count 16.22 K/uL (4.8-10.8)
[2020-12-19 07:20] LABS: BUN Creatinine Ratio 16.7 (10-20); Calcium 8.8 mg/dl (8.5-10.1); Creatinine Clr Calc Pharmacy 48.9 ml/min; Est GFR (African American) 69.8; Est GFR (Non-African American) 60.3; Magnesium 1.8 mg/dl (1.8-2.4); Potassium 3.9 mmol/L (3.5-5.1)
[2020-12-19 07:22] LABS: C Reactive Protein 6.39 mg/dl (0-0.29)
[2020-12-19] MEDS: METOPROLOL SUCC 50MG EXT REL TAB PO SCH (07:47)
[2020-12-19] MEDS: CYANOCOBALAMIN 500 MCG TABLET (VITAMIN B-12) PO SCH (07:47)
[2020-12-19] MEDS: lisinopril 2.5 MG TAB PO SCH (07:48)
[2020-12-19] MEDS: PANTOprazole 40 MG TAB PO SCH (07:48)
[2020-12-19] MEDS: DULoxetine HCL 30 MG CAP PO SCH (07:48)
[2020-12-19] MEDS: ENOXAPARIN INJ 40 MG/0.4 ML SYR SQ SCH (07:48)
[2020-12-19] MEDS: oxyCODONE HCL IR 5 MG TAB (IMMEDIATE RELEASE) PO PRN (10:29)
[2020-12-19] MEDS: ONDANSETRON INJ 2 MG/ML 2 ML VIAL IV PRN (10:32)
[2020-12-19] MEDS: PROMETHAZINE HCL 25 MG/20 ML UDP PO PRN ×2 (15:12→23:37)
[2020-12-19] MEDS: SIMVASTATIN 10 MG TAB PO SCH (20:15)
[2020-12-19] MEDS: MELATONIN 3 MG TAB PO SCH (20:16)
--- NOTE | 2020-12-19 20:17 | Hospitalist Progress Note ---
Date of Service December 19, 2020 Assessment & Plan (1) Acute UTI: Rocephin changed to oral cipro to complete course. (2) COVID-19: Asymptomatic aside from fatigue and malaise. CRP elevated to 6 supports this. No indication for decadron as no hypoxia present. PT/OT for generalized weakness and fatigue is reported. Patient notably lives alone and is concerned about her physical abilities at this point. (3) Hyponatremia: Patient appears to have been volume down on admission and responded well to IV fluids. She is eating more today, however, did have an episode of nausea which can drive her Na down through SIADH. Na continues to remain low. Cont efforts to control nausea and repeat in am. Encouraged PO hydration with recent poor PO intake and lower serum osmolality on labwork. (4) Weakness: Generalized weakness secondary to infections as above and electrolyte abnormalities. Continue ambulatory trials with nursing and evaluation by PT and OT in a.m. Patient declined therapy today. (5) Hypothyroidism: Continue Synthroid per home regimen. (6) Anemia: Mild anemia, around her baseline. Minimize phlebotomy. Continue to follow as outpatient. (7) Depression: Likely related to long-term chronic pain, continue Cymbalta 30 mg daily per home regimen. (8) Chronic back pain: On high-dose chronic narcotics per home regimen. (9) DVT prophylaxis: Lovenox Full Code Dispo-uncertain at this time. Expect she will return home when weakness and fatigue improves more. Sondra Trevizo DO [facility] Hospitalist Admission and Anticipated Discharge Date Admission Date: December 16, 2020 Subjective 70-year-old female presented with pelvic discomfort and generalized weakness for approximately 1 week prior to arrival. She reports feeling nauseated today which is an intermittent issue for her off and on for months. We discussed that this may be from her chronic narcotics, same as her constipation which is also still present today. She declined a suppository but was open to trying to ambulate more and using Sennakot. She is eating after antiemetics and some sleep and feels better. Fatigue still present. Overall improved. No development of respiratory symptoms or other covid symptoms. Review of Systems Review of Systems: All systems reviewed & are unremarkable except as noted in Subjective Physical Exam Physical Exam: CONSTITUTIONAL: WNWD, vitals as above, generally well- appearing, sittin gup in bedside chair and fixing her coffee, speaking in full sentences. EYES: normal conjunctivae, no scleral icterus ENT: external ear and nose normal, MMM RESPIRATORY: clear to auscultation bilaterally, no crackles, rales or wheezes, normal respiratory effort CARDIOVASCULAR: regular rate and rhythm, S1 and 2 heard without murmurs, gallops or rubs, no JVD, no peripheral edema GASTROINTESTINAL: soft, nontender, nondistended, no guarding MUSCULOSKELETAL: generalized weakness, head is normocephalic and atraumatic SKIN: warm and dry NEUROLOGIC: CN 2-12 grossly intact, no sensory deficit, normal cognition, normal speech, no gross focal deficits. PSYCHIATRIC: alert cooperative and answering questions appropriately. Results & Data Results & Data ([facility]) Vital Signs (Past 12 Hours) Vital Signs Temp Pulse Resp BP Pulse Ox 12/19/20 19:48 36.6 C 70 18 112/51 L 97 12/19/20 15:01 36.7 C 64 18 120/65 100 Laboratory Results Short CBC 12/19/20 Range/Units 05:42 WBC 16.22 H (4.8-10.8) K/uL Hgb 11.0 L (12.0-16.0) g/dL Hct 33.5 L (37-47) % Plt Count 347 (130-400) K/uL BMP 12/19/20 05:42 Sodium 128 L Potassium 3.9 Chloride 96 L Carbon Dioxide 26 BUN 16 Creatinine 0.95 Glucose 93 Calcium 8.8 Medications Administered Current Inpatient Medications Acetaminophen (Acetaminophen 325 Mg Tab) 650 mg PO Q4H PRN PRN Reason: pain/fever Stop: 01/15/21 22:31 Last Admin: 12/17/20 15:42 Dose: 650 mg Documented by: Cyanocobalamin (Cyanocobalamin 500 Mcg Tablet (Vitamin B-12)) 1,000 mcg PO DAILY PARISA Stop: 01/16/21 08:59 Last Admin: 12/19/20 07:47 Dose: 1,000 mcg Documented by: Duloxetine HCl (Duloxetine Hcl 30 Mg Cap) 30 mg PO DAILY PARISA Stop: 01/16/21 08:59 Last Admin: 12/19/20 07:48 Dose: 30 mg Documented by: Enoxaparin Sodium (Enoxaparin Inj 40 Mg/0.4 Ml Syr) 40 mg SQ DAILY PARISA Stop: 01/16/21 09:59 Last Admin: 12/19/20 07:48 Dose: 40 mg Documented by: Ceftriaxone Sodium 1,000 mg/ (Dextrose) 50 mls @ 100 mls/hr IV Q24H [facility]; Protocol Stop: 12/27/20 22:59 Last Infusion: 12/18/20 22:54 Dose: Infused Documented by: Levothyroxine Sodium (Levothyroxine Sodium 88 Mcg Tablet) 88 mcg PO DAILYBB [facility] Stop: 01/16/21 06:29 Last Admin: 12/19/20 05:22 Dose: 88 mcg Documented by: Lisinopril (Lisinopril 2.5 Mg Tab) 2.5 mg PO DAILY [facility] Stop: 01/16/21 08:59 Last Admin: 12/19/20 07:48 Dose: 2.5 mg Documented by: Melatonin (Melatonin 3 Mg Tab) 6 mg PO HS [facility] Stop: 01/15/21 22:59 Last Admin: 12/19/20 20:16 Dose: 6 mg Documented by: Metoprolol Succinate (Metoprolol Succ 50mg Ext Rel Tab) 50 mg PO DAILY [facility] Stop: 01/16/21 08:59 Last Admin: 12/19/20 07:47 Dose: 50 mg Documented by: Morphine Sulfate (Morphine Sulfate Cr 60 Mg Tabcr) 60 mg PO Q8H [facility] Stop: 12/31/20 05:59 Last Admin: 12/19/20 20:15 Dose: 60 mg Documented by: Ondansetron HCl (Ondansetron Inj 2 Mg/Ml 2 Ml Vial) 4 mg IV Q6H PRN PRN Reason: Nausea Stop: 01/15/21 22:31 Last Admin: 12/19/20 10:32 Dose: 4 mg Documented by: Oxycodone HCl (Oxycodone Hcl Ir 5 Mg Tab (Immediate Release)) 5 mg PO BID PRN PRN Reason: Pain Stop: 12/30/20 22:31 Last Admin: 12/19/20 10:29 Dose: 5 mg Documented by: Pantoprazole Sodium (Pantoprazole 40 Mg Tab) 40 mg PO QAM [facility] Stop: 01/16/21 08:59 Last Admin: 12/19/20 07:48 Dose: 40 mg Documented by: Promethazine HCl (Promethazine Hcl 25 Mg/20 Ml Udp) 25 mg PO Q6H PRN PRN Reason: Nausea And Vomiting Stop: 01/18/21 14:29 Last Admin: 12/19/20 15:12 Dose: 25 mg Documented by: Sennosides (Senna 8.6 Mg Tab) 8.6 mg PO BID PRN PRN Reason: Constipation Stop: 01/15/21 22:31 Simvastatin (Simvastatin 10 Mg Tab) 10 mg PO HS [facility] Stop: 01/15/21 22:31 Last Admin: 12/19/20 20:15 Dose: 10 mg Documented by:
[2020-12-19] MEDS: CIPROFLOXACIN 250 MG TAB PO SCH (23:36)
[2020-12-20] MEDS: LEVOTHYROXINE SODIUM 88 MCG TABLET PO SCH (06:25)
[2020-12-20] MEDS: MoRPHine SULFATE CR 60 MG TABCR PO SCH ×3 (06:25→21:30)
[2020-12-20 07:07] LABS: Hematocrit (blood only) 33.2 % (37-47); Hemoglobin 10.8 g/dL (12.0-16.0); Mean Corpuscular Hemoglobin 27.3 pg (25-34); Mean Corpuscular Hgb Conc 32.5 g/dL (32-36); Mean Corpuscular Volume 83.8 fL (80-100); Mean Platelet Volume 10.3 fL (7.4-10.4); Platelet Count 337 K/uL (130-400); RDW Coefficient of Variation 14.7 % (11.5-14.5); RDW Standard Deviation 45.7 fL (36.4-46.3); Red Blood Count 3.96 M/uL (4.2-5.4); White Blood Count 10.58 K/uL (4.8-10.8)
[2020-12-20 07:35] LABS: BUN Creatinine Ratio 14.3 (10-20); Calcium 8.6 mg/dl (8.5-10.1); Creatinine Clr Calc Pharmacy 43.4 ml/min; Est GFR (African American) 60.5; Est GFR (Non-African American) 52.2; Potassium 3.6 mmol/L (3.5-5.1)
[2020-12-20 07:37] LABS: C Reactive Protein 3.27 mg/dl (0-0.29)
[2020-12-20] MEDS: DOCUSATE SODIUM/SENNA 50/8.6MG TAB PO SCH (09:10)
[2020-12-20] MEDS: PANTOprazole 40 MG TAB PO SCH (09:11)
[2020-12-20] MEDS: METOPROLOL SUCC 50MG EXT REL TAB PO SCH (09:11)
[2020-12-20] MEDS: CIPROFLOXACIN 250 MG TAB PO SCH ×2 (09:11→21:30)
[2020-12-20] MEDS: lisinopril 2.5 MG TAB PO SCH (09:11)
[2020-12-20] MEDS: DULoxetine HCL 30 MG CAP PO SCH (09:12)
[2020-12-20] MEDS: ENOXAPARIN INJ 40 MG/0.4 ML SYR SQ SCH (09:12)
[2020-12-20] MEDS: CYANOCOBALAMIN 500 MCG TABLET (VITAMIN B-12) PO SCH (09:12)
--- NOTE | 2020-12-20 18:06 | Hospitalist Progress Note ---
Date of Service December 20, 2020 Assessment & Plan (1) Acute UTI: Rocephin changed to oral cipro to complete course. (2) COVID-19: Asymptomatic aside from fatigue and malaise. CRP elevated to 6 supports this, trended down to 3. No indication for decadron as no hypoxia present. Patient reports ambulating close to her baseline. Weakness is improved. (3) Hyponatremia: Initial admission exam suggested hypovolemia and patient was given IV fluids. She also had nausea and vomiting likely related to chronic opiate use and sodium improved with correction of nausea to 134 from 125 over several days (4) Weakness: Generalized weakness secondary to infections as above and electrolyte abnormalities. Continue ambulatory trials with nursing and evaluation by PT and OT in a.m. (5) Hypothyroidism: Continue Synthroid per home regimen. (6) Anemia: Mild anemia, around her baseline. Minimize phlebotomy. Continue to follow as outpatient. (7) Depression: Likely related to long-term chronic pain, continue Cymbalta 30 mg daily per home regimen. (8) Chronic back pain: On high-dose chronic narcotics per home regimen. (9) DVT prophylaxis: Lovenox Full Code Dispo-uncertain at this time. Expect she will return home when weakness and fatigue improves more. [facility]ondra [facility]izo [facility] and Anticipated Discharge Date Admission Date: December 16, 2020 Subjective 70-year-old female presented with pelvic discomfort and generalized weakness for approximately 1 week prior to arrival. Denies nausea today Tolerating p.o. Ambulating without difficulty per her report Feels improved from a weakness standpoint Denies pain. Review of Systems Review of Systems: All systems reviewed & are unremarkable except as noted in Subjective Physical Exam Physical Exam: CONSTITUTIONAL: WNWD, vitals as above, generally well- appearing ENT: external ear and nose normal, MMM RESPIRATORY: clear to auscultation bilaterally, no crackles, rales or wheezes, normal respiratory effort CARDIOVASCULAR: regular rate and rhythm, S1 and 2 heard without murmurs, gallops or rubs, no JVD, no peripheral edema GASTROINTESTINAL: soft, nontender, nondistended, no guarding MUSCULOSKELETAL: generalized weakness, head is normocephalic and atraumatic SKIN: warm and dry NEUROLOGIC: CN 2-12 grossly intact, no sensory deficit, normal cognition, normal speech, no gross focal deficits. PSYCHIATRIC: alert cooperative and answering questions appropriately. Results & Data Results & Data ([facility]) Vital Signs (Past 12 Hours) Vital Signs Temp Pulse Resp BP BP Pulse Ox 12/20/20 15:03 36.6 C 60 18 106/54 L 92 12/20/20 07:58 36.9 C 69 18 106/54 L 95 Laboratory Results Short CBC 12/20/20 Range/Units 05:49 WBC 10.58 (4.8-10.8) K/uL Hgb 10.8 L (12.0-16.0) g/dL Hct 33.2 L (37-47) % Plt Count 337 (130-400) K/uL BMP 12/20/20 05:49 Sodium 134 L Potassium 3.6 Chloride 99 Carbon Dioxide 31 BUN 15 Creatinine 1.07 Glucose 66 L Calcium 8.6 Medications Administered Current Inpatient Medications Acetaminophen (Acetaminophen 325 Mg Tab) 650 mg PO Q4H PRN PRN Reason: pain/fever Stop: 01/15/21 22:31 Last Admin: 12/17/20 15:42 Dose: 650 mg Documented by: Ciprofloxacin (Ciprofloxacin 250 Mg Tab) 250 mg PO BID PARISA Stop: 12/24/20 22:59 Last Admin: 12/20/20 09:11 Dose: 250 mg Documented by: Cyanocobalamin (Cyanocobalamin 500 Mcg Tablet (Vitamin B-12)) 1,000 mcg PO DAILY PARISA Stop: 01/16/21 08:59 Last Admin: 12/20/20 09:12 Dose: 1,000 mcg Documented by: Duloxetine HCl (Duloxetine Hcl 30 Mg Cap) 30 mg PO DAILY [facility]ISA Stop: 01/16/21 08:59 Last Admin: 12/20/20 09:12 Dose: 30 mg Documented by: Enoxaparin Sodium (Enoxaparin Inj 40 Mg/0.4 Ml Syr) 40 mg SQ DAILY [facility] Stop: 01/16/21 09:59 Last Admin: 12/20/20 09:12 Dose: 40 mg Documented by: Levothyroxine Sodium (Levothyroxine Sodium 88 Mcg Tablet) 88 mcg PO DAILYBB [facility] Stop: 01/16/21 06:29 Last Admin: 12/20/20 06:25 Dose: 88 mcg Documented by: Lisinopril (Lisinopril 2.5 Mg Tab) 2.5 mg PO DAILY [facility] Stop: 01/16/21 08:59 Last Admin: 12/20/20 09:11 Dose: 2.5 mg Documented by: Melatonin (Melatonin 3 Mg Tab) 6 mg PO HS [facility] Stop: 01/15/21 22:59 Last Admin: 12/19/20 20:16 Dose: 6 mg Documented by: Metoprolol Succinate (Metoprolol Succ 50mg Ext Rel Tab) 50 mg PO DAILY [facility] Stop: 01/16/21 08:59 Last Admin: 12/20/20 09:11 Dose: 50 mg Documented by: Morphine Sulfate (Morphine Sulfate Cr 60 Mg Tabcr) 60 mg PO Q8H [facility] Stop: 12/31/20 05:59 Last Admin: 12/20/20 14:33 Dose: 60 mg Documented by: Ondansetron HCl (Ondansetron Inj 2 Mg/Ml 2 Ml Vial) 4 mg IV Q6H PRN PRN Reason: Nausea Stop: 01/15/21 22:31 Last Admin: 12/19/20 10:32 Dose: 4 mg Documented by: Oxycodone HCl (Oxycodone Hcl Ir 5 Mg Tab (Immediate Release)) 5 mg PO BID PRN PRN Reason: Pain Stop: 12/30/20 22:31 Last Admin: 12/19/20 10:29 Dose: 5 mg Documented by: Pantoprazole Sodium (Pantoprazole 40 Mg Tab) 40 mg PO QAM [facility] Stop: 01/16/21 08:59 Last Admin: 12/20/20 09:11 Dose: 40 mg Documented by: Promethazine HCl (Promethazine Hcl 25 Mg/20 Ml Udp) 25 mg PO Q6H PRN PRN Reason: Nausea And Vomiting Stop: 01/18/21 14:29 Last Admin: 12/19/20 23:37 Dose: 25 mg Documented by: Senna/Docusate Sodium (Docusate Sodium/Senna 50/8.6mg Tab) [facility] Stop: 01/19/21 08:59 Last Admin: 12/20/20 09:10 Dose: 1 tab Documented by: Sennosides (Senna 8.6 Mg Tab) 8.6 mg PO BID PRN PRN Reason: Constipation Stop: 01/15/21 22:31 Simvastatin (Simvastatin 10 Mg Tab) 10 mg PO HS [facility] Stop: 01/15/21 22:31 Last Admin: 12/19/20 20:15 Dose: 10 mg Documented by:
[2020-12-20] MEDS: SIMVASTATIN 10 MG TAB PO SCH (21:30)
[2020-12-20] MEDS: MELATONIN 3 MG TAB PO SCH (21:30)
[2020-12-21] MEDS: MoRPHine SULFATE CR 60 MG TABCR PO SCH ×2 (06:09→15:06)
[2020-12-21] MEDS: LEVOTHYROXINE SODIUM 88 MCG TABLET PO SCH (06:11)
[2020-12-21] MEDS: oxyCODONE HCL IR 5 MG TAB (IMMEDIATE RELEASE) PO PRN (06:20)
[2020-12-21] MEDS: DOCUSATE SODIUM/SENNA 50/8.6MG TAB PO SCH (08:58)
[2020-12-21] MEDS: METOPROLOL SUCC 50MG EXT REL TAB PO SCH (08:58)
[2020-12-21] MEDS: lisinopril 2.5 MG TAB PO SCH (08:58)
[2020-12-21] MEDS: DULoxetine HCL 30 MG CAP PO SCH (08:58)
[2020-12-21] MEDS: CIPROFLOXACIN 250 MG TAB PO SCH (08:59)
[2020-12-21] MEDS: ENOXAPARIN INJ 40 MG/0.4 ML SYR SQ SCH (08:59)
[2020-12-21] MEDS: PANTOprazole 40 MG TAB PO SCH (08:59)
[2020-12-21] MEDS: CYANOCOBALAMIN 500 MCG TABLET (VITAMIN B-12) PO SCH (08:59)
--- NOTE | 2020-12-21 14:06 | Discharge Summary ---
Date of Service December 21, 2020 Admission HPI Per Admitting Provider HISTORY OF PRESENT ILLNESS: This is a 70-year-old female with past medical history significant for hypertension, hyperlipidemia, hypothyroidism, COPD, chronic anemia, anxiety, chronic back pain on chronic narcotic pain medications, who presents with urinary symptoms. The patient says since last she has had increased urinary frequency and some lower abdominal discomfort, but after that her appetite is down and she is not drinking and she is not eating much and not micturating much. No other abdominal pain. No diarrhea, no constipation, no blood in the stool or black stools. No chest pain, no shortness of breath, no cough. She has low-grade temperature around 99 degrees at home. No headache, no blurred visions, no runny nose, no sore throat. She says she is ambulating with the help of walker and cane at home, but lately not ambulating much because of weakness since last few days. Lives alone. No nausea, no vomiting. Currently, resting comfortably and hemodynamically stable. Her UA was positive and her white count was 17. ER gave her Rocephin and called us for admission.But at the time of admission routine SARS-CoV-2 came back as positive and influenza A and B and RSV are negative, but the patient is saturating fine on room air and she is afebrile currently. Admission Exam Per Admitting Provider GENERAL: The patient is of moderate build, not in acute distress. VITAL SIGNS: Temperature 37, pulse in 80s, respiratory rate 22, blood pressure 129/82, oxygen 94% on room air. HEENT: Pupils equal, round, and reactive to light. Oral mucosa moist. NECK: No neck masses seen. CARDIOVASCULAR: S1, S2 heard, regular rate and rhythm, no murmur, no gallop. RESPIRATORY SYSTEM: Normal AP diameter. No accessory muscle use. No wheezing, no crackles. ABDOMEN: Soft, bowel sounds present, nontender. No distention. CENTRAL NERVOUS SYSTEM: Cranial nerves II-XII are grossly intact. Nonfocal. EXTREMITIES: No edema, no erythema. Principal Diagnosis Acute urinary tract infection Weakness COVID-19 Hyponatremia Hypokalemia Nausea and vomiting-intermittent, chronic Chronic opiate use Chronic pain syndrome Tobacco use Discharge Exam CONSTITUTIONAL: WNWD, vitals as above, generally well-appearing EYES: normal conjunctivae, no scleral icterus ENT: external ear and nose normal, MMM RESPIRATORY: clear to auscultation bilaterally, no crackles, rales or wheezes, normal respiratory effort CARDIOVASCULAR: regular rate and rhythm, S1 and 2 heard without murmurs, gallops or rubs, no JVD, no peripheral edema MUSCULOSKELETAL: generalized weakness, head is normocephalic and atraumatic SKIN: warm and dry NEUROLOGIC: CN 2-12 grossly intact, no sensory deficit, normal cognition, normal speech, no gross focal deficits. PSYCHIATRIC: alert cooperative and answering questions appropriately. Discharge Data Allergies Allergy/AdvReac Type Severity Reaction Status Date / Time bupropion Allergy Unknown Unknown Verified 12/16/20 19:53 Penicillins Allergy Unknown Unknown Verified 12/16/20 19:53 gabapentin [From Neurontin] AdvReac Unknown Nausea Verified 12/16/20 19:53 latex AdvReac Unknown unknown Verified 12/16/20 19:53 Sulfa (Sulfonamide AdvReac Unknown unknown Verified 12/16/20 19:54 Antibiotics) nicotine gum AdvReac Unknown unknown Uncoded 12/16/20 19:54 Consultations 12/16/20 19:06 ED Decision to Admit Stat 12/16/20 22:32 Consult Case Management - Discharge Planning Routine Ordered Studies 12/16/20 16:45 CT abd pelvis IV con only Stat 12/16/20 23:32 CT angio chest PE protocol Urgent Hospital Course (1) Acute UTI: (2) COVID-19: (3) Hyponatremia: (4) Weakness: (5) Hypokalemia: (6) Chronic back pain: The patient is a 70-year-old female who presented with urinary symptoms an d weakness. She was found to have a urinary tract infection and started on Rocephin. She was also found to be Covid positive and was placed in the Covid unit on telemetry. Chest x-ray revealed no evidence of pneumonia and she had no other symptoms of COVID-19 infection aside from significant weakness. CRP level was elevated to 6.39 and she was significantly fatigued. This did trend down to 63.27. Hypokalemia and hyponatremia were also seen and she did admit to low intake of food and water over the last week with her illness. She was given IV fluids with an appropriate response. Additional factors driving the sodium down may have also been intermittent nausea and vomiting likely secondary to chronic opiate use. Nausea and vomiting have been intermittent for this patient for several months now, and the symptoms are intermittent. A CT of the abdomen pelvis with IV contrast was performed revealing no evidence of bowel obstruction no evidence of free air, and no evidence to indicate acute appendicitis. Bilateral perinephric edema was seen consistent with urinary tract infection. As a result of nausea vomiting and some coughing she also underwent a chest CT with contrast revealing no evidence of pulmonary embolus and multiple healing right-sided rib fractures. There was evidence of an old sternal fracture and multiple old compression fractures within the thoracic and lumbar spine. Urine culture revealed E. coli and Rocephin was switched back to ciprofloxacin for an extra couple of days to complete the antibiotic course while in the hospital. At time of discharge she was mentating and ambulating at baseline and tolerating p.o. She was hemodynamically stable and afebrile and oxygenating well on room air. She was discharged in stable condition with close primary care follow-up recommended. Home isolation was explained to the patient and resources given to contact [facility] department as needed for questions. Total Time Total Time Spent Total Time Spent (In Minutes): 60 Total Time Includes: Examination of the Patient, Discharge Planning, Medication Reconciliation and Communication With Other Providers Discharge Plan Discharge Items Patient Disposition: Home - Self-Care Reason For Visit: ILLNESS Discharge Diagnosis: Acute urinary tract infection Weakness COVID-19 Hyponatremia Hypokalemia Nausea and vomiting-intermittent, chronic Chronic opiate use Chronic pain syndrome Tobaco use Condition on Discharge: Good Activity: Resume your previous activity Non-emergency contact: Primary Care Provider Call non-emergency contact if: you have any medication questions, your symptoms worsen, your pain is not controlled, your pain is worsening, your pain is unusua l for you, your pain is concerning for you and you have a fever Follow-up/Referrals: Myrna Munguia [Primary Care Provider] - Diet: Heart Healthy Addtl Attending Provider Instructions: Please take all medications as instructed on discharge list below. It is recommended that you follow-up with your primary care doctor within 1 week of discharge. This will be to ensure your weakness has improved, your nausea and vomiting has not returned, and that you are overall feeling better since hospital discharge. As we discussed if you still have nausea and vomiting this may be attributed to your chronic high doses of narcotics. Additionally, nausea can drive your sodium to be lower, a situation called SIADH. It is strongly recommended that you quit smoking as this is terrible for your health. As discussed you will need to remain on home isolation from 10 days diagnosis of Covid, which was 12/16/2020. If you have further questions please contact the Department of Health at [phone]. It was a pleasure taking care of you! Please call if you have any questions or problems. You can reach a [facility] hospitalist on duty at [facility] 24 hours a day by calling [phone]. Take care of yourself. Sondra Trevizo, DO [facility] Hospitalist Pending Studies at Discharge: No Stand-Alone Forms: My [facility], Smoking Cessation Medications and DC Order Prescriptions: Continued oxycodone 5 mg tablet 5 mg PO BID PRN (Reason: Pain) RF: 0 ondansetron HCl 4 mg tablet 4 mg PO Q8 PRN (Reason: Nausea) RF: 0 metoprolol succinate 50 mg tablet extended release 24 hr 50 mg PO DAILY RF: 0 sennosides 8.6 mg Tablet 8.6 mg PO BID PRN (Reason: Constipation) RF: 0 simvastatin 10 mg tablet 10 mg PO HS RF: 0 levothyroxine 88 mcg tablet 88 mcg PO DAILYBB RF: 0 omeprazole 20 mg capsule,delayed release(DR/EC) 20 mg PO QAM RF: 0 lisinopril 2.5 mg Tablet 2.5 mg PO DAILY RF: 0 duloxetine 30 mg capsule,delayed release(DR/EC) 30 mg PO DAILY RF: 0 cyanocobalamin (vitamin B-12) [Vitamin B-12] 1,000 mcg Tablet 1,000 mcg PO DAILY RF: 0 melatonin 5 mg Tablet 5 mg PO HS RF: 0 morphine 60 mg tablet extended release 60 mg PO TID Qty: 9 RF: 0 Discontinued ciprofloxacin HCl 250 mg tablet 250 mg PO BID RF: 0 Discharge Orders: Discharge Order (Routine); Ordered 12/21/20 Ordered By: Sondra Trevizo Admission Data Admit Date/Time: 12/16/20 20:21 Attending Provider: Sondra Trevizo Admit Provider: Sumanth Velasco Primary Care Provider: Myrna Munguia Other Providers: Sumanth Velacso
== END 2020-12-21 18:30 | disposition home health service (06) | DRG 689 ==
LOC: ED 16:34 → SUATTDRO 20:21 → 3E 20:21 → 2E 12-17 01:11

== ENCOUNTER 2021-04-13 23:14 | Inpatient (IN) ==
[2021-04-13] MEDS ORDERED: diphenhydrAMINE 50 MG/ML VIAL IV STA (23:22)
[2021-04-13] MEDS ORDERED: methylPREDNISolone 125 MG/2 ML VIAL IV STA (23:22)
[2021-04-13] MEDS ORDERED: DROPERIDOL 5 MG/2 ML VIAL IV STA (23:22)
[2021-04-13] MEDS ORDERED: SODIUM CHLORIDE 0.9% 1000ML 1,000 ML IV ONE (23:24)
[2021-04-13] MEDS ORDERED: MAGNESIUM SULFATE / D5W 1 GM/100 ML BAG IV STA (23:24)
[2021-04-13] MEDS ORDERED: ACETAMINOPHEN 1,000 MG/100 ML VIAL IV STA (23:26)
--- NOTE | 2021-04-13 23:26 | Emergency Department Note ---
Impression & Plan Vomiting, Acute hyponatremia, Acute hypokalemia ED Provider Note NAME: GAVIN TINSLEY AGE: 70 SEX: F : 1950 ARRIVES VIA: Ambulance INFORMANT: Patient, EMS ED PROVIDER(S): Mikael Banda MD CHIEF COMPLAINT: vomiting HPI: This is a 70-year-old female who presents emergency department complaining of vomiting that has been ongoing for the past 4 days. The patient reports she was just getting over coronavirus and received the coronavirus vaccine. She reports she has been vomiting ever since the administration of the second dose of the coronavirus vaccine. She reports taking Zofran for the vomiting however this is done nothing. She reports nothing seems to make the vomiting better or worse. She denies any abdominal pain and any headache. She also denies chest pain. Patient reports she is on morphine sulfate for chronic pain and has not been able to keep this down. ROS: See above HPI for pertinent positives & negatives. A total of 10 systems reviewed and were otherwise negative. PAST MEDICAL HISTORY: See Below PAST SURGICAL HISTORY: See Below FAMILY HISTORY: See Below SOCIAL HISTORY: See Below HOME MEDICATIONS: See Below ALLERGIES: See Below VITALS: See Below PHYSICAL EXAMINATION: VITAL SIGNS - Vital signs and nursing notes were reviewed. GENERAL - 70-year-old female appearing stated age who is in no acute distress. Communicates well with provider and answers questions appropriately. SKIN - Without rashes. HEAD - NC/AT. EYES - PERRL with EOMI bilaterally. Sclera anicteric. Palpebral conjunctiva pink and moist with no injection noted. EARS - No deformities of external structures noted on gross examination bilaterally. NOSE - Midline and without cyanosis. No epistaxis or purulent drainage noted. Septum midline without deviation or septal hematoma noted. MOUTH/OROPHARYNX - Without perioral cyanosis. Buccal mucosa pink and moist and without leukoplakia. Tongue midline with equal elevation of palate bilaterally. No tonsillar hypertrophy, erythema, or exudates noted. NECK - Neck with FROM. Supple to palpation. No nuchal rigidity. LUNGS - Chest wall symmetric without accessory muscle use, intercostals retractions, or central cyanosis. Normal vesicular breath sounds CTA B/L. No wheezes, rales, or rhonchi appreciated. CARDIAC - RRR with S1/S2. No murmur, rubs, or gallops appreciated. ABDOMEN - Abdominal contour without pulsations or visible masses. BS normoactive all four quadrants. No tenderness, palpable masses, hepatos plenomegaly, or ascites noted. Abdomen distended EXTREMITIES - No clubbing or peripheral cyanosis. No pretibial edema present. +3/5 radial, posterior tibial, and dorsalis pedis pulses palpated throughout. +5/5 strength noted in UE/LE bilaterally. NEUROLOGIC - Cranial nerves II through XII grossly intact. Sensory intact to light touch throughout. Patellar reflexes +2/4. PSYCH - A&Ox3 and cooperates fully with examiner. Pt is very pleasant and interacts well with examiner. MEDICAL DECISION MAKING: Patient was seen and evaluated as above in room C4. Review was performed of nursing notes and vital signs. I did review pertinent previous visits and patient history. After obtaining a thorough history and physical examination the above work up was performed. This is a 70-year-old female who presents emergency department complaining of nausea and vomiting since receiving the second Covid vaccine. Here in the emergency department she did receive a migraine cocktail including diphenhydr amine droperidol magnesium acetaminophen and Solu-Medrol as well as a normal saline bolus. The patient's sodium was found to be low as well as her potassium. She was started on IV potassium given oral potassium as well. She was also given Tylenol as well as droperidol to get her vomiting under control. She was also started on Solu-Medrol. I did discuss the case with the hospitalist service who did agree to admit the patient. Patient is in agreement with treatment plan. While in the department, I personally reevaluated the patient several times and each time the patient was found to be resting comfortably. The patient was educated upon management, educated upon todays findings/results, educated upon importance of follow up from today's visit, educated upon symptoms in which to return, had questions answered prior to discharge, verbalized understanding, and was discharged home in good condition. An order was placed for continuous cardiac monitoring. The monitor shows a rate of 52 with Sinus Luis Alfredo rhythm. The patient was evaluated during a period of high volume and high acuity during the global COVID-19 pandemic, and that diagnosis was suspected/considered upon their initial presentation. Their evaluation, treatment and testing was consistent with current guidelines for patients who present with complaints or symptoms that may be related to COVID-19. Patient was seen while provider was wearing PPE. Triage Nursing notes reviewed. Prior medical records reviewed Vital Signs: reviewed and remarkable for hypertension, bradycardia Differential diagnosis: Infection, dehydration, metabolic abnormality, hypo/hyperglycemia, electrolyte disturbance, anemia, hypoxia, cardiac sources, intracerebral event, toxicologic, neurologic, as well as other pathologies. ER treatment provided: See below Diagnostics interpreted by me: ECG: EKG shows an undetermined rhythm left axis deviation old inferior infarct old anterior infarct QTC is 499 ventricular rate is 125 EKG is compared to 12/16/2020 and has increased in rate. Laboratory studies: As stated above and show below. Imaging studies: CT of the head: Comparison October 24, 2019. The paranasal sinuses and mastoid air cells are normally aerated. There is no skull fracture or scalp hematoma. There is a normal gyral pattern of the brain. There is no mass lesion or midline shift. The ramos-white matter differentiation is maintained. There is mild periventricular white matter low-density bilaterally consistent with chronic small vessel disease. There is no evidence of acute large vessel infarct or intracranial hemorrhage. CT abdomen pelvis with contrast: Comparison December 16, 2020. Bowel loops are nondilated no acute inflammatory changes are seen involving the bowel. The liver gallbladder pancreas spleen adrenal glands kidneys appear within normal limits. The urinary bladder is partially distended with nondilated with an unremarkable appearance. Left upper arthroplasty with 1.8 cm rim of edema and fluid adjacent to the acetabular component of the device. The configuration suggest particle disease although low grade infection, excluded on the basis of imaging. Moderate to severe multilevel degenerative changes throughout the spine including the chronic appearing compression fractures at T12 and L2. Consultation(s): Internal Medicine Past Med/Surg History Medical History Acute UTI Anemia Anxiety Avascular necrosis of bone of left hip Chronic back pain COPD (chronic obstructive pulmonary disease) Depression DJD (degenerative joint disease) Fluid collection at surgical site Hypertension Hypokalemia Hyponatremia Hypothyroidism Nausea & vomiting Osteoporosis Post-operative complication SIADH (syndrome of inappropriate ADH production) Surgical History History of hysterectomy History of total left hip arthroplasty Family History Other Family history non-contributory Social History Smoking Status: Current every day smoker Second Hand Exposure: No; Do You Dip or Chew Tobacco: No; Tobacco Cessation Education Requested by Patient: No Hx Alcohol Use: No Hx Substance Use: No Preferred Language: Romanian Communication Ability: Effective Chairperson Anesthesiology Required: No Beliefs That Will Affect Care: None marital status: Current Living Situation: Alone Current Living Situation Comment: IN AN APARTMENT Other Information That Helps Us Care for You: No Feels Safe at Home: Yes Safety Concerns: Feels Safe At This Time Assistive Devices: None and Walker Allergies Allergies Allergy/AdvReac Type Severity Reaction Status Date / Time bupropion Allergy Unknown Unknown Verified 04/14/21 03:01 Penicillins Allergy Unknown Unknown Verified 04/14/21 03:01 gabapentin [From Neurontin] AdvReac Unknown Nausea Verified 04/14/21 03:01 latex AdvReac Unknown unknown Verified 04/14/21 03:01 Sulfa (Sulfonamide AdvReac Unknown unknown Verified 04/14/21 03:01 Antibiotics) nicotine gum AdvReac Unknown unknown Uncoded 04/14/21 03:01 Home Meds Home Medications Medication Instructions Recorded Confirmed cyanocobalamin (vitamin B-12) 1,000 mcg PO DAILY 09/08/19 04/14/21 [Vitamin B-12] duloxetine 30 mg PO DAILY 09/08/19 04/14/21 levothyroxine 88 mcg PO DAILYBB 09/08/19 04/14/21 lisinopril 2.5 mg PO DAILY 09/08/19 04/14/21 melatonin 5 mg PO HS 09/08/19 04/14/21 omeprazole 20 mg PO QAM 09/08/19 04/14/21 sennosides 8.6 mg PO BID PRN 09/08/19 04/14/21 simvastatin 10 mg PO HS 09/08/19 04/14/21 oxycodone 5 mg PO BID PRN 10/24/19 04/14/21 metoprolol succinate 50 mg PO DAILY 12/16/20 04/14/21 ondansetron HCl 4 mg PO Q8 PRN 12/16/20 04/14/21 furosemide 20 mg PO TUTHSA 04/14/21 04/14/21 Previous Rx's Medication Instructions Recorded morphine 60 mg PO TID #9 tab 11/15/19 Results & Data (ED) Vital Signs Vital Signs - 24 hr 04/13/21 23:18 04/13/21 23:22 04/14/21 00:00 Temperature 37.3 C Temperature Source Oral Pulse Rate 52 L 139 H Pulse Rate from SpO2 Sensor 128 H Pulse Rhythm Regular Pulse Strength Normal Respiratory Rate 20 30 H Respiratory Effort / Characteristics Non-Labored Spontaneous Respiratory Depth Normal Respiratory Pattern Regular Blood Pressure 144/96 H 187/117 H Blood Pressure Mean 112 140 Blood Pressure Position Sitting Pulse Oximetry 94 95 91 Oxygen Delivery Method Room Air Room Air Sepsis Recent Fever Within 48 Hours No Sepsis New/Unexplained Change in Mental Status No Sepsis Action Taken by Nursing No Action Required 04/14/21 00:12 04/14/21 00:30 04/14/21 01:00 Temperature Temperature Source Pulse Rate 139 H 124 H 135 H Pulse Rate from SpO2 Sensor 122 H 115 H 129 H Pulse Rhythm Pulse Strength Respiratory Rate 38 H 30 H 26 H Respiratory Effort / Characteristics Respiratory Depth Respiratory Pattern Blood Pressure 183/95 H 177/103 H Blood Pressure Mean 124 127 Blood Pressure Position Pulse Oximetry 95 95 94 Oxygen Delivery Method Sepsis Recent Fever Within 48 Hours Sepsis New/Unexplained Change in Mental Status Sepsis Action Taken by Nursing 04/14/21 01:24 04/14/21 01:30 04/14/21 02:00 Temperature Temperature Source Pulse Rate 137 H 140 H 108 H Pulse Rate from SpO2 Sensor 147 H 132 H 114 H Pulse Rhythm Pulse Strength Respiratory Rate 21 27 H 22 Respiratory Effort / Characteristics Respiratory Depth Respiratory Pattern Blood Pressure 174/88 H 185/142 H 175/116 H Blood Pressure Mean 116 156 135 Blood Pressure Position Pulse Oximetry 93 94 94 Oxygen Delivery Method Sepsis Recent Fever Within 48 Hours Sepsis New/Unexplained Change in Mental Status Sepsis Action Taken by Nursing 04/14/21 02:30 04/14/21 02:31 04/14/21 03:00 Temperature Temperature Source Pulse Rate 99 H 115 H 108 H Pulse Rate from SpO2 Sensor 100 H 115 H 118 H Pulse Rhythm Pulse Strength Respiratory Rate 23 24 26 H Respiratory Effort / Characteristics Respiratory Depth Respiratory Pattern Blood Pressure 179/97 H Blood Pressure Mean 124 Blood Pressure Position Pulse Oximetry 94 90 93 Oxygen Delivery Method Sepsis Recent Fever Within 48 Hours Sepsis New/Unexplained Change in Mental Status Sepsis Action Taken by Nursing 04/14/21 03:01 04/14/21 03:30 Temperature Temperature Source Pulse Rate 136 H Pulse Rate from SpO2 Sensor 114 H 110 H Pulse Rhythm Pulse Strength Respiratory Rate 36 H 28 H Respiratory Effort / Characteristics Respiratory Depth Respiratory Pattern Blood Pressure 174/119 H Blood Pressure Mean 137 Blood Pressure Position Pulse Oximetry 94 90 Oxygen Delivery Method Sepsis Recent Fever Within 48 Hours Sepsis New/Unexplained Change in Mental Status Sepsis Action Taken by Nursing Laboratory Data Result diagrams: 04/13/21 23:42 04/14/21 03:12 Lab Results 04/13/21 04/13/21 04/13/21 Range/Units 23:42 23:42 23:42 WBC 11.89 H (4.8-10.8) K/uL RBC 4.34 (4.2-5.4) M/uL Hgb 11.8 L (12.0-16.0) g/dL Hct 34.6 L (37-47) % MCV 79.7 L (80-100) fL MCH 27.2 (25-34) pg MCHC 34.1 (32-36) g/dL RDW Std Deviation 41.8 (36.4-46.3) fL RDW Coeff of Main 14.3 (11.5-14.5) % Plt Count 409 H (130-400) K/uL MPV 9.1 (7.4-10.4) fL Immature Gran % (Auto) 0.2 % Neut % (Auto) 70.4 % Lymph % (Auto) 17.4 % Caroline % (Auto) 11.5 % Eos % (Auto) 0.3 % Baso % (Auto) 0.2 % Neut # (Auto) 8.37 H (1.4-6.5) K/uL Lymph # (Auto) 2.07 (1.2-3.4) K/uL Caroline # (Auto) 1.37 H (0.11-0.59) K/uL Eos # (Auto) 0.04 (0-0.5) K/uL Baso # (Auto) 0.02 (0-0.2) K/uL Immature Gran # (Auto) 0.02 (0.00-0.02) K/uL APTT (21.0-31.0) Seconds PTT Ratio Sodium 129 L (136-145) mmol/L Potassium 3.0 L (3.5-5.1) mmol/L Chloride 93 L (98-107) mmol/L Carbon Dioxide 24 (21-32) mmol/L Anion Gap 12.0 H (3-11) BUN 11 (7-18) mg/dl Creatinine 0.99 (0.6-1.2) mg/dl Est Cr Clr Drug Dosing 41.2 ml/min Est GFR ( Amer) 66.4 ml/min Est GFR (Non-Af Amer) 57.3 ml/min BUN/Creatinine Ratio 10.7 (10-20) Glucose 110 H (70-99) mg/dl Osmolality 259 L (280-300) mOsm/kg Lactate (0.4-2.0) mmol/L Calcium 9.2 (8.5-10.1) mg/dl Magnesium (1.8-2.4) mg/dl Total Bilirubin 0.7 (0.2-1) mg/dl AST 14 L (15-37) U/L ALT 12 (12-78) U/L Alkaline Phosphatase 91 (45-117) U/L Total Creatine Kinase 122 (26-192) U/L CK-MB (CK-2) 2.6 (0.5-3.6) ng/ml CK/CKMB % Calc 2.1 (0-3.0) Troponin I 0.021 (0-0.045) ng/ml Total Protein 8.2 (6.4-8.2) gm/dl Albumin 3.5 (3.4-5.0) gm/dl Globulin 4.7 H (2.5-4.0) gm/dl Albumin/Globulin Ratio 0.7 L (0.9-2) Lipase 134 (73-393) U/L Procalcitonin (0-0.5) ng/ml TSH 4.970 H (0.300-4.500) uIu/ml Urine Color Urine Appearance (Clear) Urine pH (4.5-7.5) Ur Specific [place] (1.000-1.030) Urine Protein (Negative) Urine Glucose (UA) (Negative) Urine Ketones (Negative) Urine Blood (Negative) Urine Nitrite (Negative) Urine Bilirubin (Negative) Urine Urobilinogen (Negative) Ur Leukocyte Esterase (Negative) Urine Opiates Screen (Neg) Ur Methadone, Qual (Neg) Urine Barbiturates (Neg) Ur Phencyclidine (PCP) (Neg) U Amphetamin/Meth Scrn (Neg) MDMA (Ecstasy) Screen (Neg) U Benzodiazepines Scrn (Neg) Ur Cocaine Metabolite (Neg) U Marijuana (THC) Screen (Neg) COVID-19 Eval Order SARS-CoV-2 (PCR) (Negative) 04/13/21 04/14/21 04/14/21 Range/Units 23:45 00:17 00:17 WBC (4.8-10.8) K/uL RBC (4.2-5.4) M/uL Hgb (12.0-16.0) g/dL Hct (37-47) % MCV (80-100) fL MCH (25-34) pg MCHC (32-36) g/dL RDW Std Deviation (36.4-46.3) fL RDW Coeff of Main (11.5-14.5) % Plt Count (130-400) K/uL MPV (7.4-10.4) fL Immature Gran % (Auto) % Neut % (Auto) % Lymph % (Auto) % Caroline % (Auto) % Eos % (Auto) % Baso % (Auto) % Neut # (Auto) (1.4-6.5) K/uL Lymph # (Auto) (1.2-3.4) K/uL Caroline # (Auto) (0.11-0.59) K/uL Eos # (Auto) (0-0.5) K/uL Baso # (Auto) (0-0.2) K/uL Immature Gran # (Auto) (0.00-0.02) K/uL APTT (21.0-31.0) Seconds PTT Ratio Sodium (136-145) mmol/L Potassium (3.5-5.1) mmol/L Chloride (98-107) mmol/L Carbon Dioxide (21-32) mmol/L Anion Gap (3-11) BUN (7-18) mg/dl Creatinine (0.6-1.2) mg/dl Est Cr Clr Drug Dosing ml/min Est GFR ( Amer) ml/min Est GFR (Non-Af Amer) ml/min BUN/Creatinine Ratio (10-20) Glucose (70-99) mg/dl Osmolality (280-300) mOsm/kg Lactate (0.4-2.0) mmol/L Calcium (8.5-10.1) mg/dl Magnesium (1.8-2.4) mg/dl Total Bilirubin (0.2-1) mg/dl AST (15-37) U/L ALT (12-78) U/L Alkaline Phosphatase (45-117) U/L Total Creatine Kinase (26-192) U/L CK-MB (CK-2) (0.5-3.6) ng/ml CK/CKMB % Calc (0-3.0) Troponin I (0-0.045) ng/ml Total Protein (6.4-8.2) gm/dl Albumin (3.4-5.0) gm/dl Globulin (2.5-4.0) gm/dl Albumin/Globulin Ratio (0.9-2) Lipase (73-393) U/L Procalcitonin 0.11 (0-0.5) ng/ml TSH (0.300-4.500) uIu/ml Urine Color Urine Appearance (Clear) Urine pH (4.5-7.5) Ur Specific [place] (1.000-1.030) Urine Protein (Negative) Urine Glucose (UA) (Negative) Urine Ketones (Negative) Urine Blood (Negative) Urine Nitrite (Negative) Urine Bilirubin (Negative) Urine Urobilinogen (Negative) Ur Leukocyte Esterase (Negative) Urine Opiates Screen (Neg) Ur Methadone, Qual (Neg) Urine Barbiturates (Neg) Ur Phencyclidine (PCP) (Neg) U Amphetamin/Meth Scrn (Neg) MDMA (Ecstasy) Screen (Neg) U Benzodiazepines Scrn (Neg) Ur Cocaine Metabolite (Neg) U Marijuana (THC) Screen (Neg) COVID-19 Eval Order Covid19 at [facility] SARS-CoV-2 (PCR) NEGATIVE (Negative) 04/14/21 04/14/21 04/14/21 Range/Units 00:40 00:40 02:54 WBC (4.8-10.8) K/uL RBC (4.2-5.4) M/uL Hgb (12.0-16.0) g/dL Hct (37-47) % MCV (80-100) fL MCH (25-34) pg MCHC (32-36) g/dL RDW Std Deviation (36.4-46.3) fL RDW Coeff of Main (11.5-14.5) % Plt Count (130-400) K/uL MPV (7.4-10.4) fL Immature Gran % (Auto) % Neut % (Auto) % Lymph % (Auto) % Caroline % (Auto) % Eos % (Auto) % Baso % (Auto) % Neut # (Auto) (1.4-6.5) K/uL Lymph # (Auto) (1.2-3.4) K/uL Caroline # (Auto) (0.11-0.59) K/uL Eos # (Auto) (0-0.5) K/uL Baso # (Auto) (0-0.2) K/uL Immature Gran # (Auto) (0.00-0.02) K/uL APTT 29.7 (21.0-31.0) Seconds PTT Ratio 1.1 Sodium (136-145) mmol/L Potassium (3.5-5.1) mmol/L Chloride (98-107) mmol/L Carbon Dioxide (21-32) mmol/L Anion Gap (3-11) BUN (7-18) mg/dl Creatinine (0.6-1.2) mg/dl Est Cr Clr Drug Dosing ml/min Est GFR ( Amer) ml/min Est GFR (Non-Af Amer) ml/min BUN/Creatinine Ratio (10-20) Glucose (70-99) mg/dl Osmolality (280-300) mOsm/kg Lactate (0.4-2.0) mmol/L Calcium (8.5-10.1) mg/dl Magnesium (1.8-2.4) mg/dl Total Bilirubin (0.2-1) mg/dl AST (15-37) U/L ALT (12-78) U/L Alkaline Phosphatase (45-117) U/L Total Creatine Kinase (26-192) U/L CK-MB (CK-2) (0.5-3.6) ng/ml CK/CKMB % Calc (0-3.0) Troponin I (0-0.045) ng/ml Total Protein (6.4-8.2) gm/dl Albumin (3.4-5.0) gm/dl Globulin (2.5-4.0) gm/dl Albumin/Globulin Ratio (0.9-2) Lipase (73-393) U/L Procalcitonin (0-0.5) ng/ml TSH (0.300-4.500) uIu/ml Urine Color Yellow Urine Appearance Clear (Clear) Urine pH 6.5 (4.5-7.5) Ur Specific [place] 1.007 (1.000-1.030) Urine Protein Negative (Negative) Urine Glucose (UA) Negative (Negative) Urine Ketones Negative (Negative) Urine Blood Negative (Negative) Urine Nitrite Negative (Negative) Urine Bilirubin Negative (Negative) Urine Urobilinogen Negative (Negative) Ur Leukocyte Esterase Negative (Negative) Urine Opiates Screen Pos H (Neg) Ur Methadone, Qual Neg (Neg) Urine Barbiturates Neg (Neg) Ur Phencyclidine (PCP) Neg (Neg) U Amphetamin/Meth Scrn Neg (Neg) MDMA (Ecstasy) Screen Neg (Neg) U Benzodiazepines Scrn Neg (Neg) Ur Cocaine Metabolite Neg (Neg) U Marijuana (THC) Screen Neg (Neg) COVID-19 Eval Order SARS-CoV-2 (PCR) (Negative) 04/14/21 04/14/21 Range/Units 03:12 03:12 WBC (4.8-10.8) K/uL RBC (4.2-5.4) M/uL Hgb (12.0-16.0) g/dL Hct (37-47) % MCV (80-100) fL MCH (25-34) pg MCHC (32-36) g/dL RDW Std Deviation (36.4-46.3) fL RDW Coeff of Main (11.5-14.5) % Plt Count (130-400) K/uL MPV (7.4-10.4) fL Immature Gran % (Auto) % Neut % (Auto) % Lymph % (Auto) % Caroline % (Auto) % Eos % (Auto) % Baso % (Auto) % Neut # (Auto) (1.4-6.5) K/uL Lymph # (Auto) (1.2-3.4) K/uL Caroline # (Auto) (0.11-0.59) K/uL Eos # (Auto) (0-0.5) K/uL Baso # (Auto) (0-0.2) K/uL Immature Gran # (Auto) (0.00-0.02) K/uL APTT (21.0-31.0) Seconds PTT Ratio Sodium 129 L (136-145) mmol/L Potassium (3.5-5.1) mmol/L Chloride (98-107) mmol/L Carbon Dioxide (21-32) mmol/L Anion Gap (3-11) BUN (7-18) mg/dl Creatinine (0.6-1.2) mg/dl Est Cr Clr Drug Dosing ml/min Est GFR ( Amer) ml/min Est GFR (Non-Af Amer) ml/min BUN/Creatinine Ratio (10-20) Glucose (70-99) mg/dl Osmolality (280-300) mOsm/kg Lactate 1.8 (0.4-2.0) mmol/L Calcium (8.5-10.1) mg/dl Magnesium 2.1 (1.8-2.4) mg/dl Total Bilirubin (0.2-1) mg/dl AST (15-37) U/L ALT (12-78) U/L Alkaline Phosphatase (45-117) U/L Total Creatine Kinase (26-192) U/L CK-MB (CK-2) (0.5-3.6) ng/ml CK/CKMB % Calc (0-3.0) Troponin I (0-0.045) ng/ml Total Protein (6.4-8.2) gm/dl Albumin (3.4-5.0) gm/dl Globulin (2.5-4.0) gm/dl Albumin/Globulin Ratio (0.9-2) Lipase (73-393) U/L Procalcitonin (0-0.5) ng/ml TSH (0.300-4.500) uIu/ml Urine Color Urine Appearance (Clear) Urine pH (4.5-7.5) Ur Specific [place] (1.000-1.030) Urine Protein (Negative) Urine Glucose (UA) (Negative) Urine Ketones (Negative) Urine Blood (Negative) Urine Nitrite (Negative) Urine Bilirubin (Negative) Urine Urobilinogen (Negative) Ur Leukocyte Esterase (Negative) Urine Opiates Screen (Neg) Ur Methadone, Qual (Neg) Urine Barbiturates (Neg) Ur Phencyclidine (PCP) (Neg) U Amphetamin/Meth Scrn (Neg) MDMA (Ecstasy) Screen (Neg) U Benzodiazepines Scrn (Neg) Ur Cocaine Metabolite (Neg) U Marijuana (THC) Screen (Neg) COVID-19 Eval Order SARS-CoV-2 (PCR) (Negative) Administered Medications Potassium Chloride/Sodium Chloride (Normal Saline W/20 Meq Kcl) 20 meq in 1,000 mls @ 50 mls/hr IV .Q20H ONE Stop: 04/14/21 23:41 Last Admin: 04/14/21 04:26 Dose: 50 mls/hr Documented by: [id number] Discontinued Medications Diphenhydramine HCl (Diphenhydramine 50 Mg/Ml Vial) 50 mg IV NOW STA Stop: 04/13/21 23:23 Last Admin: 04/13/21 23:53 Dose: 50 mg Documented by: [id number] Droperidol (Droperidol 5 Mg/2 Ml Vial) 1.25 mg IV ONE STA Stop: 04/13/21 23:23 Last Admin: 04/13/21 23:53 Dose: 1.25 mg Documented by: [id number] Magnesium Sulfate/Dextrose (Magnesium Sulfate / D5w) 1 gm in 100 mls @ 100 mls/hr IV NOW STA Stop: 04/14/21 00:23 Last Infusion: 04/14/21 01:10 Dose: 0 mls/hr Documented by: [id number] Admin: 04/14/21 00:07 Dose: 100 mls/hr Documented by: [id number] Sodium Chloride (Nss 1000ml) 1,000 mls @ 999 mls/hr IV .Q1H1M ONE Stop: 04/14/21 00:24 Last Infusion: 04/14/21 00:55 Dose: 0 mls/hr Documented by: [id number] Admin: 04/13/21 23:51 Dose: 999 mls/hr Documented by: [id number] Acetaminophen (Ofirmev) 1,000 mg in 100 mls @ 400 mls/hr IV NOW STA Stop: 04/13/21 23:40 Last Infusion: 04/14/21 00:15 Dose: 0 mls/hr Documented by: [id number] Admin: 04/14/21 00:00 Dose: 400 mls/hr Documented by: [id number] Potassium Chloride (K Will / Wtr) 10 meq in 100 mls @ 100 mls/hr IV Q1H PARISA Stop: 04/14/21 02:44 Last Infusion: 04/14/21 03:40 Dose: 0 mls/hr Documented by: [id number] Admin: 04/14/21 02:41 Dose: 100 mls/hr Documented by: [id number] Infusion: 04/14/21 02:41 Dose: 100 mls/hr Documented by: [id number] Admin: 04/14/21 01:43 Dose: 100 mls/hr Documented by: [id number] Ioversol (Optiray 320 100ml) 100 ml IV ONCE ONE Stop: 04/14/21 01:32 Last Admin: 04/14/21 01:32 Dose: 92 ml Documented by: [id number] Labetalol HCl (Labetalol Hcl Iv 5 Mg/Ml 20ml) 10 mg IV NOW STA Stop: 04/14/21 05:08 Last Admin: 04/14/21 05:14 Dose: Not Given Documented by: [id number] Lisinopril (Lisinopril 2.5 Mg Tab) 2.5 mg PO ONE ONE Stop: 04/14/21 03:39 Last Admin: 04/14/21 04:24 Dose: 2.5 mg Documented by: [id number] Methylprednisolone (Methylprednisolone 125 Mg/2 Ml Vial) 125 mg IV NOW STA Stop: 04/13/21 23:23 Last Admin: 04/13/21 23:53 Dose: 125 mg Documented by: [id number] Metoprolol Succinate (Metoprolol Succ 50mg Ext Rel Tab) 50 mg PO NOW STA Stop: 04/14/21 04:00 Last Admin: 04/14/21 04:24 Dose: 50 mg Documented by: [id number] Metoprolol Tartrate (Metoprolol Tartrate 1 Mg/Ml Vial) 2.5 mg IV NOW STA Stop: 04/14/21 02:56 Last Admin: 04/14/21 03:58 Dose: 2.5 mg Documented by: [id number] Morphine Sulfate (Morphine Sulfate Cr 15 Mg Tabcr) 60 mg PO NOW STA Stop: 04/14/21 03:35 Last Admin: 04/14/21 04:17 Dose: 60 mg Documented by: [id number] Potassium Chloride (Potassium Chloride Crtab 20 Meq Tabcr) 40 meq PO NOW STA Stop: 04/14/21 00:44 Last Admin: 04/14/21 01:39 Dose: 40 meq Documented by: [id number] Discharge Plan Visit Data Chief Complaint: Vomiting Stated Complaint: VOMITTING/DIARRHEA ED Provider: Mikael Banda Discharge Problem: Vomiting, Acute hyponatremia, Acute hypokalemia Patient Disposition: Admitted As Inpatient Discharge Instructions Interventions: ED Discharge Assessment Last Done: 04/14/21 04:33 Discharge Problem: Vomiting Qualifiers: Vomiting type: unspecified Vomiting Intractability: unspecified Nausea presence: unspecified Qualified Code(s): R11.10 - Vomiting, unspecified
[2021-04-13 23:53] LABS: Basophils # (auto) 0.02 K/uL (0-0.2); Basophils % (auto) 0.2 %; Eosinophils # (auto) 0.04 K/uL (0-0.5); Eosinophils % (auto) 0.3 %; Hematocrit (blood only) 34.6 % (37-47); Hemoglobin 11.8 g/dL (12.0-16.0); Immature Granulocytes # (auto) 0.02 K/uL (0.00-0.02); Immature Granulocytes % (auto) 0.2 %; Lymphocytes # (auto) 2.07 K/uL (1.2-3.4); Lymphocytes % (auto) 17.4 %; Mean Corpuscular Hemoglobin 27.2 pg (25-34); Mean Corpuscular Hgb Conc 34.1 g/dL (32-36); Mean Corpuscular Volume 79.7 fL (80-100); Mean Platelet Volume 9.1 fL (7.4-10.4); Monocytes # (auto) 1.37 K/uL (0.11-0.59); Monocytes % (auto) 11.5 %; Neutrophils # (auto) 8.37 K/uL (1.4-6.5); Neutrophils % (auto) 70.4 %; Platelet Count 409 K/uL (130-400); RDW Coefficient of Variation 14.3 % (11.5-14.5); RDW Standard Deviation 41.8 fL (36.4-46.3); Red Blood Count 4.34 M/uL (4.2-5.4); White Blood Count 11.89 K/uL (4.8-10.8)
[2021-04-14 00:09] LABS: Albumin Level 3.5 gm/dl (3.4-5.0); BUN Creatinine Ratio 10.7 (10-20); Calcium 9.2 mg/dl (8.5-10.1); Creatinine Clr Calc Pharmacy 41.2 ml/min; Est GFR (African American) 66.4 ml/min; Est GFR (Non-African American) 57.3 ml/min
[2021-04-14 00:14] LABS: Albumin Globulin Ratio 0.7 (0.9-2); Bilirubin,Total 0.7 mg/dl (0.2-1); Creatine Kinase MB 2.6 ng/ml (0.5-3.6); Globulin 4.7 gm/dl (2.5-4.0); Total Protein 8.2 gm/dl (6.4-8.2); Troponin I 0.021 ng/ml (0-0.045)
[2021-04-14] MEDS ORDERED: POTASSIUM CHLORIDE CRTAB 20 MEQ TABCR PO STA (00:43)
[2021-04-14 00:49] LABS: Appearance Urine Clear (Clear); Bilirubin Urine Negative (Negative); Blood Urine Negative (Negative); Color Urine Yellow; Glucose Urine UA Negative (Negative); Ketones Urine Negative (Negative); Leukocyte Esterase Urine Negative (Negative); Nitrite Urine Negative (Negative); Protein Urine Negative (Negative); Specific Gravity Urine 1.007 (1.000-1.030); Urobilinogen Urine Negative (Negative); pH Urine 6.5 (4.5-7.5)
[2021-04-14 01:14] LABS: Amphetamines+Metham, Urine Neg (Neg); Barbiturates, Urine Neg (Neg); Benzodiazepine, Urine Neg (Neg); Cocaine, Urine Neg (Neg); MDMA (Ecstacy), Urine Neg (Neg); Methadone, Urine Neg (Neg); Opiate, Urine Pos (Neg); Phencyclidine, Urine Neg (Neg)
[2021-04-14] MEDS ORDERED: OPTIRAY 320 100ml IV ONE (01:31)
[2021-04-14] MEDS: POTASSIUM CHLORIDE / WTR 10 MEQ/100 ML PLCT IV SCH ×2 (01:43→02:41)
[2021-04-14] MEDS ORDERED: METOPROLOL TARTRATE 1 MG/ML VIAL IV STA (02:55)
[2021-04-14 03:20] LABS: Thyroid Stimulating Hormone 4.97 uIu/ml (0.300-4.500)
[2021-04-14 03:29] LABS: Partial Thromboplastin Ratio 1.1; Partial Thromboplastin Time 29.7 Seconds (21.0-31.0)
--- NOTE | 2021-04-14 03:32 | History & Physical Report ---
Date of Service April 14, 2021 Assessment & Plan (1) Paroxysmal A-fib: New onset, no prior episodes as per patient Multifactorial : Gastroenteritis symptoms post Covid 19 vaccination rule out C. difficile Uncontrolled hypertension Electrolyte abnormalities Anxiety and pain Worsening left hip pain, possible recurrent infection left PARKER, possible sepsis COPD, ongoing tobacco abuse, pulmonary status at baseline IBS as per records chronic pain on narcotics mood disorder at baseline hypothyroidism, TSH slight elevated Acute on chronic hyponatremia secondary to clinical dehydration, hx SIADH as per records Hyperglycemia rule out DM PCU Facilitate home beta-edilberto for rate control, may need dose titration TTE, Cardiology consult Re: Paroxysmal A. fib Replace electrolytes IVF, careful correction of sodium Analgesia, anxiolytic as needed CS, hold antibiotics for now for possible recurrent infection left PARKER Orthopedics consult Re: Worsening left hip pain, left hip fluid collection Nicotine patch as needed Check hemoglobin A1c PT OT eval DVT prophylaxis. Lovenox subcu Full code Text document was generated using [employer] voice recognition software. It may contain grammatical or spelling errors. Kindly contact undersigned for clarification of any documentation item in question. History of Present Illness Chief Complaint: Abdominal pain, nausea, vomiting Primary Care Provider: Myrna Munguia History obtained from patient and records. Medical history significant for hypertension, COPD, ongoing tobacco abuse, IBS as per records, chronic pain on narcotics, mood disorder, hypothyroidism, chronic hyponatremia/SIADH as per records, history convulsions, history infected left PARKER, chronic anemia (baseline hemoglobin 9-10). Last confinement December 2020 for UTI, COVID-19 illness. Patient received the second dose of her Covid 19 vaccine few days ago. Patient subsequently noted achy abdominal pain, nausea, vomiting, diarrhea symptoms. No chest pain, no S OB, no unusual cough symptoms. Fever chills at home as per patient. Worsening left hip pain after falling down at home. Patient consulted ER for evaluation. Upon arrival at the ER, surveillance monitor noted rapid A. fib in the 150s. Patient current rhythm sinus tachycardia. Medical History as above Patient has been seeing [facility] child care development specialist at [place] (Dr. Anthony) the last few months for worsening left hip pain. Concern for infected fluid collection as per patient. Outpatient left hip fluid drainage contemplated 2 weeks from now as per patient. Surgical History : Hip replacement, NICHOLAS Family History : Heart disease, neuropathy Personal/Social history : 3 cigarettes a day, no EtOH intake, retired from [employer] work Allergies Allergy/AdvReac Type Severity Reaction Status Date / Time bupropion Allergy Unknown Unknown Verified 04/14/21 03:01 Penicillins Allergy Unknown Unknown Verified 04/14/21 03:01 gabapentin [From Neurontin] AdvReac Unknown Nausea Verified 04/14/21 03:01 latex AdvReac Unknown unknown Verified 04/14/21 03:01 Sulfa (Sulfonamide AdvReac Unknown unknown Verified 04/14/21 03:01 Antibiotics) nicotine gum AdvReac Unknown unknown Uncoded 04/14/21 03:01 Home Medications Medication Instructions Recorded Confirmed Type cyanocobalamin (vitamin B-12) 1,000 mcg PO DAILY 09/08/19 04/14/21 History [Vitamin B-12] duloxetine 30 mg PO DAILY 09/08/19 04/14/21 History levothyroxine 88 mcg PO DAILYBB 09/08/19 04/14/21 History lisinopril 2.5 mg PO DAILY 09/08/19 04/14/21 History melatonin 5 mg PO HS 09/08/19 04/14/21 History omeprazole 20 mg PO QAM 09/08/19 04/14/21 History sennosides 8.6 mg PO BID PRN 09/08/19 04/14/21 History simvastatin 10 mg PO HS 09/08/19 04/14/21 History morphine 60 mg PO TID #9 tab 09/22/19 04/14/21 Rx oxycodone 5 mg PO BID PRN 10/24/19 04/14/21 History metoprolol succinate 50 mg PO DAILY 12/16/20 04/14/21 History ondansetron HCl 4 mg PO Q8 PRN 12/16/20 04/14/21 History furosemide 20 mg PO TUTHSA 04/14/21 04/14/21 History Past Med/Surg History Medical History Acute UTI Anemia Anxiety Avascular necrosis of bone of left hip Chronic back pain COPD (chronic obstructive pulmonary disease) Depression DJD (degenerative joint disease) Fluid collection at surgical site Hypertension Hypokalemia Hyponatremia Hypothyroidism Nausea & vomiting Osteoporosis Post-operative complication SIADH (syndrome of inappropriate ADH production) Surgical History History of hysterectomy History of total left hip arthroplasty Family History Other Family history non-contributory Social History Smoking Status: Current every day smoker Second Hand Exposure: No; Do You Dip or Chew Tobacco: No; Tobacco Cessation Education Requested by Patient: No Hx Alcohol Use: No Hx Substance Use: No Preferred Language: Uzbek Communication Ability: Effective 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 Beliefs That Will Affect Care: None marital status: Current Living Situation: Alone Current Living Situation Comment: IN AN APARTMENT Other Information That Helps Us Care for You: No Feels Safe at Home: Yes Safety Concerns: Feels Safe At This Time Assistive Devices: Cane Review of Systems Review of Systems: As per HPI, all 10 systems reviewed, all other ROS negative Physical Exam Physical Exam: GENERAL: Uncomfortable, slightly hard of hearing, no respiratory distress SKIN: Pallor, warm HEENT: Pale palpebral conjunctivae, no ptosis, dry buccal mucosa NECK : Supple, no tenderness CHEST : Decreased breath sounds, no tenderness HEART : Tachycardic, no obvious murmurs ABDOMEN: Some distention, nontender EXTREMITIES : No LE swelling, left hip tenderness, no other conspicuous deformities noted NEUROLOGIC : Coherent, no facial asymmetry, slightly hard of hearing, no other gross focality Results & Data Results & Data ([facility]) Vital Signs (Past 12 Hours) Vital Signs Temp Pulse Resp BP Pulse Ox 04/14/21 02:00 108 H 22 175/116 H 94 04/14/21 01:30 140 H 27 H 185/142 H 94 04/14/21 01:24 137 H 21 174/88 H 93 04/14/21 01:00 135 H 26 H 177/103 H 94 04/14/21 00:30 124 H 30 H 183/95 H 95 04/14/21 00:12 139 H 38 H 95 04/14/21 00:00 139 H 30 H 187/117 H 91 04/13/21 23:22 95 04/13/21 23:18 37.3 C 52 L 20 144/96 H 94 Laboratory Results Laboratory Results WBC 11.89 K/uL (4.8-10.8) H 04/13/21 23:42 RBC 4.34 M/uL (4.2-5.4) 04/13/21 23:42 Hgb 11.8 g/dL (12.0-16.0) L 04/13/21 23:42 Hct 34.6 % (37-47) L 04/13/21 23:42 MCV 79.7 fL (80-100) L 04/13/21 23:42 MCH 27.2 pg (25-34) 04/13/21 23:42 MCHC 34.1 g/dL (32-36) 04/13/21 23:42 RDW Std Deviation 41.8 fL (36.4-46.3) 04/13/21 23:42 RDW Coeff of Main 14.3 % (11.5-14.5) 04/13/21 23:42 Plt Count 409 K/uL (130-400) H 04/13/21 23:42 MPV 9.1 fL (7.4-10.4) 04/13/21 23:42 Immature Gran % (Auto) 0.2 % 04/13/21 23:42 Neut % (Auto) 70.4 % 04/13/21 23:42 Lymph % (Auto) 17.4 % 04/13/21 23:42 [place] % (Auto) 11.5 % 04/13/21 23:42 Eos % (Auto) 0.3 % 04/13/21 23:42 Baso % (Auto) 0.2 % 04/13/21 23:42 Neut # (Auto) 8.37 K/uL (1.4-6.5) H 04/13/21 23:42 Lymph # (Auto) 2.07 K/uL (1.2-3.4) 04/13/21 23:42 [place] # (Auto) 1.37 K/uL (0.11-0.59) H 04/13/21 23:42 Eos # (Auto) 0.04 K/uL (0-0.5) 04/13/21 23:42 Baso # (Auto) 0.02 K/uL (0-0.2) 04/13/21 23:42 Immature Gran # (Auto) 0.02 K/uL (0.00-0.02) 04/13/21 23:42 APTT 29.7 Seconds (21.0-31.0) 04/14/21 02:54 PTT Ratio 1.1 04/14/21 02:54 Sodium 129 mmol/L (136-145) L 04/13/21 23:42 Potassium 3.0 mmol/L (3.5-5.1) L 04/13/21 23:42 Chloride 93 mmol/L (98-107) L 04/13/21 23:42 Carbon Dioxide 24 mmol/L (21-32) 04/13/21 23:42 Anion Gap 12.0 (3-11) H 04/13/21 23:42 BUN 11 mg/dl (7-18) 04/13/21 23:42 Creatinine 0.99 mg/dl (0.6-1.2) 04/13/21 23:42 Est Cr Clr Drug Dosing 41.2 ml/min 04/13/21 23:42 Est GFR ( Amer) 66.4 ml/min 04/13/21 23:42 Est GFR (Non-Af Amer) 57.3 ml/min 04/13/21 23:42 BUN/Creatinine Ratio 10.7 (10-20) 04/13/21 23:42 Glucose 110 mg/dl (70-99) H 04/13/21 23:42 Osmolality 259 mOsm/kg (280-300) L 04/13/21 23:42 Calcium 9.2 mg/dl (8.5-10.1) 04/13/21 23:42 Total Bilirubin 0.7 mg/dl (0.2-1) 04/13/21 23:42 AST 14 U/L (15-37) L 04/13/21 23:42 ALT 12 U/L (12-78) 04/13/21 23:42 Alkaline Phosphatase 91 U/L (45-117) 04/13/21 23:42 Total Creatine Kinase 122 U/L (26-192) 04/13/21 23:42 CK-MB (CK-2) 2.6 ng/ml (0.5-3.6) 04/13/21 23:42 CK/CKMB % Calc 2.1 (0-3.0) 04/13/21 23:42 Troponin I 0.021 ng/ml (0-0.045) 04/13/21 23:42 Total Protein 8.2 gm/dl (6.4-8.2) 04/13/21 23:42 Albumin 3.5 gm/dl (3.4-5.0) 04/13/21 23:42 Globulin 4.7 gm/dl (2.5-4.0) H 04/13/21 23:42 Albumin/Globulin Ratio 0.7 (0.9-2) L 04/13/21 23:42 Lipase 134 U/L (73-393) 04/13/21 23:42 Procalcitonin 0.11 ng/ml (0-0.5) 04/13/21 23:45 TSH 4.970 uIu/ml (0.300-4.500) H 04/13/21 23:42 Urine Color Yellow 04/14/21 00:40 Urine Appearance Clear (Clear) 04/14/21 00:40 Urine pH 6.5 (4.5-7.5) 04/14/21 00:40 Ur Specific Cook 1.007 (1.000-1.030) 04/14/21 00:40 Urine Protein Negative (Negative) 04/14/21 00:40 Urine Glucose (UA) Negative (Negative) 04/14/21 00:40 Urine Ketones Negative (Negative) 04/14/21 00:40 Urine Blood Negative (Negative) 04/14/21 00:40 Urine Nitrite Negative (Negative) 04/14/21 00:40 Urine Bilirubin Negative (Negative) 04/14/21 00:40 Urine Urobilinogen Negative (Negative) 04/14/21 00:40 Ur Leukocyte Esterase Negative (Negative) 04/14/21 00:40 Urine Opiates Screen Pos (Neg) H 04/14/21 00:40 Ur Methadone, Qual Neg (Neg) 04/14/21 00:40 Urine Barbiturates Neg (Neg) 04/14/21 00:40 Ur Phencyclidine (PCP) Neg (Neg) 04/14/21 00:40 U Amphetamin/Meth Scrn Neg (Neg) 04/14/21 00:40 MDMA (Ecstasy) Screen Neg (Neg) 04/14/21 00:40 U Benzodiazepines Scrn Neg (Neg) 04/14/21 00:40 Ur Cocaine Metabolite Neg (Neg) 04/14/21 00:40 U Marijuana (THC) Screen Neg (Neg) 04/14/21 00:40 COVID-19 Eval Order Covid19 at [facility] 04/14/21 00:17 SARS-CoV-2 (PCR) NEGATIVE (Negative) 04/14/21 00:[address] head initial read: Paranasal sinuses and mastoid air cells are normally aerated. No evidence of acute large vessel infarct or intracranial hemorrhage. No mass lesion or midline shift. CT abdomen pelvis initial read: Bowel loops are nondilated. Liver gallbladder pancreas spleen, adrenal glands, kidneys appear within normal limits. Partially distended urinary bladder. Left hip arthroplasty with 1.8 cm rim of edema and fluid adjacent to acetabular component of the device. Possible low-grade infection. Degenerative changes of the spine with chronic appearing compression fractures T12 and L2. Chest x-ray as per my interpretation no congestion EKG as per my interpretation: Rate 120, sinus tachycardia, LAD, LAFB, inferior infarct, PVCs
[2021-04-14] MEDS ORDERED: MoRPHine SULFATE CR 15 MG TABCR PO STA (03:34)
[2021-04-14] MEDS ORDERED: lisinopril 2.5 MG TAB PO ONE (03:38)
[2021-04-14] MEDS ORDERED: NSS + 20MEQ KCL 20 MEQ/1,000 ML BAG IV ONE (03:42)
[2021-04-14 03:53] LABS: Magnesium 2.1 mg/dl (1.8-2.4)
[2021-04-14] MEDS ORDERED: METOPROLOL SUCC 50MG EXT REL TAB PO STA (03:59)
[2021-04-14] MEDS ORDERED: LORazepam 0.25 MG/0.5 ML VIAL IV PRN (05:05)
[2021-04-14] MEDS ORDERED: ACETAMINOPHEN 325 MG TAB PO PRN (05:05)
[2021-04-14] MEDS ORDERED: SENNA 8.6 MG TAB PO PRN (05:05)
[2021-04-14] MEDS ORDERED: PROMETHAZINE HCL 6.25 MG in SODIUM CHLORIDE 0.9% 50 ML IV PRN (05:05)
[2021-04-14] MEDS ORDERED: LABETALOL HCL IV 5 MG/ML 20ML IV STA ×2 (05:07→05:26)
[2021-04-14] MEDS: LEVOTHYROXINE SODIUM 88 MCG TABLET PO SCH (06:10)
--- NOTE | 2021-04-14 07:24 | CT Scan Report ---
HEAD CT NONCONTRAST CT DOSE: 614.27 mGy.cm HISTORY: Pt c/o vomiting TECHNIQUE: Multiaxial CT images of the head were performed without the use of intravenous contrast. A utomated exposure control was utilized for this study. A dose lowering technique was utilized adheri ng to the principles of ALARA. Comparison: Head CT 10/24/2019. Findings: The paranasal sinuses and mastoid air cells are clear. The calvarium and skull base are int act. There is no mass, hematoma, midline shift, acute infarct. White matter hypodensity is nonspecifi c but suggestive of microvascular ischemic change. The ventricles and sulci demonstrate mild age-rela charlene involutional changes. Impression: No acute intracranial abnormality. ACT 112: Negative or not required by law. Electronically signed by: Sundar Bowens M.D. 04/14/2021 7:22 AM
--- NOTE | 2021-04-14 08:16 | XRay Report ---
XR chest 1V portable HISTORY: 70 years-old Female Chest Pain acute atypical chest pain COMPARISON: CT abdomen and pelvis 04/14/2021, chest radiograph 12/16/2020 TECHNIQUE: Portable AP view of the chest FINDINGS: Cardiomediastinal and hilar silhouettes are within normal limits. No pneumothorax, pleural effusion, airspace consolidation or overt pulmonary edema. Degenerative changes of the shoulders and spine. Hea led chronic fracture of the posterior right fifth rib. Healed remote fracture deformity of the proxim al left humerus redemonstrated. IMPRESSION: No acute process. ACT 112: Negative or not required by law. The above report was generated using voice recognition software. It may contain grammatical, syntax o r spelling errors. Electronically signed by: Carlos Kwon M.D. 04/14/2021 8:15 AM
--- NOTE | 2021-04-14 08:18 | CT Scan Report ---
ABDOMEN AND PELVIS CT WITH IV CONTRAST CT DOSE: 405.64 mGy.cm HISTORY: Vomiting. TECHNIQUE: Multiaxial CT images of the abdomen and pelvis were performed following the use of intrave nous contrast. A dose lowering technique was utilized adhering to the principles of ALARA. COMPARISON STUDY: Abdomen and pelvis CT 12/16/2020. FINDINGS: Mild motion artifact. Bibasilar linear densities favor scarring or atelectasis. No pneumope ritoneum. No pneumatosis. There is a healing left inferior pubic ramus fracture. There is a left tota l arthroplasty again noted. There is abnormal periprosthetic lucency at the acetabulum. The acetabula r screw extends into the iliopsoas muscle. There appears to be abnormal periostitis at the left iliac wing which has progressed. There appears to be inflammatory change surrounding the left acetabulum w ith a small fluid collection at the tip of the screw and iliopsoas muscle. Findings are concerning fo r an infected prosthesis with possible abscess. A hematoma or foreign body reaction could also a marissa lar appearance but are considered less likely. The periosteitis the left iliac wing could represent a chronic osteomyelitis. Follow-up orthopedic consultation recommended. The bladder is mildly distende d. The uterus is surgically absent. No pelvic free fluid. No dilated loops of bowel to suggest an obs truction. No definite bowel wall thickening. There is a small hiatus hernia. The liver, gallbladder, pancreas, spleen, adrenal glands, and kidneys appear unremarkable. No hydronephrosis. Moderate calcif ied plaque within the normal caliber abdominal aorta. No retroperitoneal lymphadenopathy. Old jhonatan cheri deformities at the lower thoracic spine and L2 levels. IMPRESSION: 1. No bowel wall thickening or obstruction. 2. There is abnormal periprosthetic lucency at the acetabulum. The acetabular screw extends into the iliopsoas muscle. There appears to be abnormal periostitis at the left iliac wing which has progresse d. There is also inflammatory change surrounding the left acetabulum with a possible small fluid kash ection at the tip of the screw and iliopsoas muscle. Findings are concerning for an infected prosthes is with possible abscess. A hematoma or foreign body reaction could also have a similar appearance. T he periosteitis the left iliac wing could represent a chronic osteomyelitis. Follow-up orthopedic con sultation recommended. 3. Healing left inferior pubic ramus fracture. 4. Additional findings as described above. ACT 112: Negative or not required by law. Electronically signed by: Sundar Bowens M.D. 04/14/2021 8:16 AM
[2021-04-14 08:50] LABS: Eosinophils # (auto) 0.01 K/uL (0-0.5); Eosinophils % (auto) 0.1 %; Hematocrit (blood only) 35.4 % (37-47); Hemoglobin 11.8 g/dL (12.0-16.0); Immature Granulocytes # (auto) 0.01 K/uL (0.00-0.02); Immature Granulocytes % (auto) 0.1 %; Lymphocytes # (auto) 0.52 K/uL (1.2-3.4); Mean Corpuscular Hemoglobin 27.4 pg (25-34); Mean Corpuscular Hgb Conc 33.3 g/dL (32-36); Mean Corpuscular Volume 82.1 fL (80-100); Mean Platelet Volume 9.4 fL (7.4-10.4); Monocytes # (auto) 0.07 K/uL (0.11-0.59); Monocytes % (auto) 0.9 %; Neutrophils # (auto) 6.81 K/uL (1.4-6.5); Neutrophils % (auto) 91.9 %; Platelet Count 445 K/uL (130-400); RDW Coefficient of Variation 14.6 % (11.5-14.5); RDW Standard Deviation 43.6 fL (36.4-46.3); Red Blood Count 4.31 M/uL (4.2-5.4); White Blood Count 7.42 K/uL (4.8-10.8)
[2021-04-14] MEDS ORDERED: ENOXAPARIN INJ 30 MG/0.3 ML SYR SQ SCH (09:00)
[2021-04-14] MEDS: DULoxetine HCL 30 MG CAP PO SCH (09:23)
[2021-04-14] MEDS: CYANOCOBALAMIN 500 MCG TABLET (VITAMIN B-12) PO SCH (09:23)
[2021-04-14] MEDS: PANTOprazole 40 MG TAB PO SCH (09:23)
[2021-04-14 09:28] LABS: BUN Creatinine Ratio 9.5 (10-20); Calcium 8.9 mg/dl (8.5-10.1); Creatinine Clr Calc Pharmacy 45.3 ml/min; Est GFR (African American) 74.6 ml/min; Est GFR (Non-African American) 64.3 ml/min
[2021-04-14 09:39] LABS: Estimated Average Glucose 140 mg/dl; Hemoglobin A1C 6.5 % (4.5-5.6)
--- NOTE | 2021-04-14 09:57 | Orthopedic Consultation ---
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 Patient being followed by Dr. Anthony, [place], being worked up for infectious process in an outpatient setting, has scheduled hip aspiration for 04/25/2021 and subsequent follow-up with Dr. Anthony. Patient reports planning on having revision hip replacement regardless of septic versus aseptic loosening. We certainly could accelerate her work-up and have hip aspiration performed while inpatient and subsequent follow-up with her surgeon as long as medically stable. Recommend toe-touch weightbearing on her left lower extremity and ambulation with an assistive device such as a walker. Thank you for the consultation. History of Present Illness Reason for Consultation: Painful left total hip arthroplasty Attending Physician: Brandy Olmstead MD History of Present Illness The patient is a 70-year-old female with past medical history noted below. Presents to [facility] with complaints of nausea, vomiting and diarrhea since receiving her second COVID-19 vaccination shot. Patient was admitted for further evaluation and treatment for the symptoms and also found to be in new onset A. fib. Patient has history of left total hip arthro[place] [address] Coronel subsequent I&D secondary to infection in 2016. Follows with Dr. Anthony in [place], patient has known loosening of her acetabular component, was being worked up for infectious process and has scheduled hip aspiration on 04/25/2021. Patient reports that she is planning on having surgery with Dr. Anthony irregardless of aseptic or septic loosening. Prior surgery was delayed secondary to her recent Covid 19 diagnosis. Patient has unchanged pain to her left hip, currently at baseline. Denies any fevers or chills at this time, denies any trauma to the left hip. Allergies Allergy/AdvReac Type Severity Reaction Status Date / Time bupropion Allergy Unknown Unknown Verified 04/14/21 03:01 Penicillins Allergy Unknown Unknown Verified 04/14/21 03:01 gabapentin [From Neurontin] AdvReac Unknown Nausea Verified 04/14/21 03:01 latex AdvReac Unknown unknown Verified 04/14/21 03:01 Sulfa (Sulfonamide AdvReac Unknown unknown Verified 04/14/21 03:01 Antibiotics) nicotine gum AdvReac Unknown unknown Uncoded 04/14/21 03:01 Home Medications Medication Instructions Recorded Confirmed Type cyanocobalamin (vitamin B-12) 1,000 mcg PO DAILY 09/08/19 04/14/21 History [Vitamin B-12] duloxetine 30 mg PO DAILY 09/08/19 04/14/21 History levothyroxine 88 mcg PO DAILYBB 09/08/19 04/14/21 History lisinopril 2.5 mg PO DAILY 09/08/19 04/14/21 History melatonin 5 mg PO HS 09/08/19 04/14/21 History omeprazole 20 mg PO QAM 09/08/19 04/14/21 History sennosides 8.6 mg PO BID PRN 09/08/19 04/14/21 History simvastatin 10 mg PO HS 09/08/19 04/14/21 History morphine 60 mg PO TID #9 tab 09/22/19 04/14/21 Rx oxycodone 5 mg PO BID PRN 10/24/19 04/14/21 History metoprolol succinate 50 mg PO DAILY 12/16/20 04/14/21 History ondansetron HCl 4 mg PO Q8 PRN 12/16/20 04/14/21 History furosemide 20 mg PO TUTHSA 04/14/21 04/14/21 History Patient History Medical History Acute UTI Anemia Anxiety Avascular necrosis of bone of left hip Chronic back pain COPD (chronic obstructive pulmonary disease) Depression DJD (degenerative joint disease) Fluid collection at surgical site Hypertension Hypokalemia Hyponatremia Hypothyroidism Nausea & vomiting Osteoporosis Post-operative complication SIADH (syndrome of inappropriate ADH production) Surgical History History of hysterectomy History of total left hip arthroplasty Family History Other Family history non-contributory Social History Smoking Status: Current every day smoker Second Hand Exposure: No; Do You Dip or Chew Tobacco: No; Tobacco Cessation Education Requested by Patient: No Hx Alcohol Use: No Hx Substance Use: No Preferred Language: Serbian Communication Ability: Effective 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 Constitutional: WD/WN, vitals as above Results & Data ([facility]) Vital Signs (Past 12 Hours) Vital Signs Temp Pulse Pulse Resp BP BP Pulse Ox 04/14/21 07:58 36.9 C 88 19 141/94 H 97 04/14/21 06:29 87 04/14/21 05:35 93 H 04/14/21 05:08 36.9 C 22 193/101 H 96 04/14/21 04:30 99 H 28 H 195/96 H 96 04/14/21 04:03 92 H 22 187/94 H 93 04/14/21 04:00 104 H 28 H 205/112 H 94 04/14/21 03:51 110 H 26 H 176/106 H 96 04/14/21 03:30 28 H 90 04/14/21 03:01 136 H 36 H 174/119 H 94 04/14/21 03:00 108 H 26 H 93 04/14/21 02:31 115 H 24 179/97 H 90 04/14/21 02:30 99 H 23 94 04/14/21 02:00 108 H 22 175/116 H 94 04/14/21 01:30 140 H 27 H 185/142 H 94 04/14/21 01:24 137 H 21 174/88 H 93 04/14/21 01:00 135 H 26 H 177/103 H 94 04/14/21 00:30 124 H 30 H 183/95 H 95 04/14/21 00:12 139 H 38 H 95 04/14/21 00:00 139 H 30 H 187/117 H 91 04/13/21 23:22 95 04/13/21 23:18 37.3 C 52 L 20 144/96 H 94 Diagnostic Findings ABDOMEN AND PELVIS CT WITH IV CONTRAST CT DOSE: 405.64 mGy.cm HISTORY: Vomiting. TECHNIQUE: Multiaxial CT images of the abdomen and pelvis were performed following the use of intravenous contrast. A dose lowering technique was utilized adhering to the principles of ALARA. COMPARISON STUDY: Abdomen and pelvis CT 12/16/2020. FINDINGS: Mild motion artifact. Bibasilar linear densities favor scarring or atelectasis. No pneumoperitoneum. No pneumatosis. There is a healing left inferior pubic ramus fracture. There is a left total arthroplasty again noted. There is abnormal periprosthetic lucency at the acetabulum. The acetabular screw extends into the iliopsoas muscle. There appears to be abnormal periostitis at the left iliac wing which has progressed. There appears to be inflammatory change surrounding the left acetabulum with a small fluid collection at the tip of the screw and iliopsoas muscle. Findings are concerning for an infected prosthesis with possible abscess. A hematoma or foreign body reaction could also a similar appearance but are considered less likely. The periosteitis the left iliac wing could represent a chronic osteomyelitis. Follow-up orthopedic consultation recommended. The bladder is mildly distended. The uterus is surgically absent. No pelvic free fluid. No dilated loops of bowel to suggest an obstruction. No definite bowel wall thickening. There is a small hiatus hernia. The liver, gallbladder, pancreas, spleen, adrenal glands, and kidneys appear unremarkable. No hydronephrosis. Moderate calcified plaque within the normal caliber abdominal aorta. No retroperitoneal lymphadenopathy. Old compression deformities at the lower thoracic spine and L2 levels. IMPRESSION: 1. No bowel wall thickening or obstruction. 2. There is abnormal periprosthetic lucency at the acetabulum. The acetabular screw extends into the iliopsoas muscle. There appears to be abnormal periostitis at the left iliac wing which has progressed. There is also inflammatory change surrounding the left acetabulum with a possible small fluid collection at the tip of the screw and iliopsoas muscle. Findings are concerning for an infected prosthesis with possible abscess. A hematoma or foreign body reaction could also have a similar appearance. The periosteitis the left iliac wing could represent a chronic osteomyelitis. Follow-up orthopedic consultation recommended. 3. Healing left inferior pubic ramus fracture. 4. Additional findings as described above.
--- NOTE | 2021-04-14 10:09 | Cardiology Consultation ---
Date of Consultation April 14, 2021 Assessment & Plan (1) Acute hyponatremia: (2) Acute hypokalemia: (3) SIADH (syndrome of inappropriate ADH production): (4) Multifocal atrial tachycardia: Upon admission, patient with severe electrolyte disturbances due to GI upset with nausea/vomiting for 3-4 days. Initial EKG demonstrated sinus tach with frequent PAC's and possible short runs of multifocal atrial tach noted on telemetry in ER No definitive afib during admission per extensive review of telemetry. Her arrhythmias and frequent ectopy likely due to electrolyte disturbances. would continue her metoprolol succinate 50 mg and supplement/treat electrolytes. Consider nephrology referral for history of SIADH and ongoing hyponatremia. No further cardiac testing warranted at this time. Case discussed with Dr. Laws Supervising Physician Co-Signing Physician Notes I have seen and evaluated the patient. I have reviewed the medical record and discussed the case with Shaka Gutierrez. I agree with the plan as outlined. History of Present Illness Reason for Consultation: Arrhythmia Requesting Physician: Dr. Olmstead Attending Physician: Dr. Laws History of Present Illness Patient is a 70-year-old female who was admitted to [facility] after 3 days of nausea and vomiting after receiving second Covid vaccine. She was found to have acute hyponatremia and acute hypokalemia. On arrival EKG demonstrated an irregular rhythm and thought to be possible atrial fibrillation. Cardiology was consulted. History includes hypertension, anemia, history of SIADH, chronic tobacco abuse, and dyslipidemia. Patient denies any history of cardiovascular issues. She saw cardiology in 2017 for atypical chest pain. She underwent echocardiogram at that time which demonstrated normal LV systolic function without wall motion abnormalities and grade 2 diastolic dysfunction without significant valvular heart disease, there was also a small loculated pericardial effusion without hemodynamic significa nce. No further work-up was needed at that time. Since admission, she has been placed on a fluid restriction and supplemented magnesium and potassium. Telemetry was extensively reviewed which demonstrated sinus with PACs and brief runs of possible multifocal atrial tachycardia. No definitive atrial fibrillation was noted. At time of consult, patient resting in bed comfortably. She remains nauseous but denies recurrent vomiting since admission. She feels weak and washed out. She denies chest pain or unusual shortness of breath. No sense of palpitations or tachypalpitations. No dizziness or lightheadedness. No orthopnea, PND, lower extremity edema. Allergies Allergy/AdvReac Type Severity Reaction Status Date / Time bupropion Allergy Unknown Unknown Verified 04/14/21 03:01 Penicillins Allergy Unknown Unknown Verified 04/14/21 03:01 gabapentin [From Neurontin] AdvReac Unknown Nausea Verified 04/14/21 03:01 latex AdvReac Unknown unknown Verified 04/14/21 03:01 Sulfa (Sulfonamide AdvReac Unknown unknown Verified 04/14/21 03:01 Antibiotics) nicotine gum AdvReac Unknown unknown Uncoded 04/14/21 03:01 Home Medications Medication Instructions Recorded Confirmed Type cyanocobalamin (vitamin B-12) 1,000 mcg PO DAILY 09/08/19 04/14/21 History [Vitamin B-12] duloxetine 30 mg PO DAILY 09/08/19 04/14/21 History levothyroxine 88 mcg PO DAILYBB 09/08/19 04/14/21 History lisinopril 2.5 mg PO DAILY 09/08/19 04/14/21 History melatonin 5 mg PO HS 09/08/19 04/14/21 History omeprazole 20 mg PO QAM 09/08/19 04/14/21 History sennosides 8.6 mg PO BID PRN 09/08/19 04/14/21 History simvastatin 10 mg PO HS 09/08/19 04/14/21 History morphine 60 mg PO TID #9 tab 09/22/19 04/14/21 Rx oxycodone 5 mg PO BID PRN 10/24/19 04/14/21 History metoprolol succinate 50 mg PO DAILY 12/16/20 04/14/21 History ondansetron HCl 4 mg PO Q8 PRN 12/16/20 04/14/21 History furosemide 20 mg PO TUTHSA 04/14/21 04/14/21 History Patient History Medical History Acute UTI Anemia Anxiety Avascular necrosis of bone of left hip Chronic back pain COPD (chronic obstructive pulmonary disease) Depression DJD (degenerative joint disease) Fluid collection at surgical site Hypertension Hypokalemia Hyponatremia Hypothyroidism Nausea & vomiting Osteoporosis Post-operative complication SIADH (syndrome of inappropriate ADH production) Surgical History History of hysterectomy History of total left hip arthroplasty Family History Other Family history non-contributory Social History Smoking Status: Current every day smoker Second Hand Exposure: No; Do You Dip or Chew Tobacco: No; Tobacco Cessation Education Requested by Patient: No Hx Alcohol Use: No Hx Substance Use: No Preferred Language: Palestinian Communication Ability: Effective Cylinder Filler Required: No Beliefs That Will Affect Care: None marital status: Current Living Situation: Alone Current Living Situation Comment: IN AN APARTMENT Other Information That Helps Us Care for You: No Feels Safe at Home: Yes Safety Concerns: Feels Safe At This Time Assistive Devices: Cane Physical Exam Constitutional: WD/WN, vitals as above + thin; no acute distress Eyes: PERRL, conjunctivae normal, anicteric sclerae Neck: trachea midline, no thyromegaly normal visual inspection Respiratory: normal respiratory effort, lungs clear to auscultation Cardiovascular: RRR, no murmur, no edema Vessels: no JVD Gastrointestinal (Abdomen): normal bowel sounds, soft, nontender, no hepatosplenomegaly Musculoskeletal: no cyanosis or clubbing, extremities motor strength 5/5 Skin: no rashes, warm and dry Neurologic: PERRL, EOMI, accommodation nl, no face palsy, no dysarthria Psychiatric: A+Ox3, euthymic affect Results & Data ([facility]) Vital Signs (Past 12 Hours) Vital Signs Temp Pulse Pulse Resp BP BP Pulse Ox 04/14/21 07:58 36.9 C 88 19 141/94 H 97 04/14/21 06:29 87 04/14/21 05:35 93 H 04/14/21 05:08 36.9 C 22 193/101 H 96 04/14/21 04:30 99 H 28 H 195/96 H 96 04/14/21 04:03 92 H 22 187/94 H 93 04/14/21 04:00 104 H 28 H 205/112 H 94 04/14/21 03:51 110 H 26 H 176/106 H 96 04/14/21 03:30 28 H 90 04/14/21 03:01 136 H 36 H 174/119 H 94 04/14/21 03:00 108 H 26 H 93 04/14/21 02:31 115 H 24 179/97 H 90 04/14/21 02:30 99 H 23 94 04/14/21 02:00 108 H 22 175/116 H 94 04/14/21 01:30 140 H 27 H 185/142 H 94 04/14/21 01:24 137 H 21 174/88 H 93 04/14/21 01:00 135 H 26 H 177/103 H 94 04/14/21 00:30 124 H 30 H 183/95 H 95 04/14/21 00:12 139 H 38 H 95 04/14/21 00:00 139 H 30 H 187/117 H 91 04/13/21 23:22 95 04/13/21 23:18 37.3 C 52 L 20 144/96 H 94 Laboratory Results 04/14/21 04/14/21 04/14/21 Range/Units 08:35 08:35 08:35 WBC 7.42 (4.8-10.8) K/uL RBC 4.31 (4.2-5.4) M/uL Hgb 11.8 L (12.0-16.0) g/dL Hct 35.4 L (37-47) % MCV 82.1 (80-100) fL MCH 27.4 (25-34) pg MCHC 33.3 (32-36) g/dL RDW Std Deviation 43.6 (36.4-46.3) fL RDW Coeff of Main 14.6 H (11.5-14.5) % Plt Count 445 H (130-400) K/uL MPV 9.4 (7.4-10.4) fL Immature Gran % (Auto) 0.1 % Neut % (Auto) 91.9 % Lymph % (Auto) 7.0 % [place] % (Auto) 0.9 % Eos % (Auto) 0.1 % Baso % (Auto) 0.0 % Neut # (Auto) 6.81 H (1.4-6.5) K/uL Lymph # (Auto) 0.52 L (1.2-3.4) K/uL [place] # (Auto) 0.07 L (0.11-0.59) K/uL Eos # (Auto) 0.01 (0-0.5) K/uL Baso # (Auto) 0.00 (0-0.2) K/uL Immature Gran # (Auto) 0.01 (0.00-0.02) K/uL APTT (21.0-31.0) Seconds PTT Ratio Sodium 127 L (136-145) mmol/L Potassium 4.0 D (3.5-5.1) mmol/L Chloride 96 L (98-107) mmol/L Carbon Dioxide 24 (21-32) mmol/L Anion Gap 7.0 (3-11) BUN 9 (7-18) mg/dl Creatinine 0.90 (0.6-1.2) mg/dl Est Cr Clr Drug Dosing 45.3 ml/min Est GFR ( Amer) 74.6 ml/min Est GFR (Non-Af Amer) 64.3 ml/min BUN/Creatinine Ratio 9.5 L (10-20) Glucose 153 H (70-99) mg/dl Estimat Average Glucose 140 mg/dl Hemoglobin A1c 6.5 H (4.5-5.6) % Osmolality (280-300) mOsm/kg Lactate (0.4-2.0) mmol/L Calcium 8.9 (8.5-10.1) mg/dl Magnesium (1.8-2.4) mg/dl Total Bilirubin (0.2-1) mg/dl AST (15-37) U/L ALT (12-78) U/L Alkaline Phosphatase (45-117) U/L Total Creatine Kinase (26-192) U/L CK-MB (CK-2) (0.5-3.6) ng/ml CK/CKMB % Calc (0-3.0) Troponin I (0-0.045) ng/ml Total Protein (6.4-8.2) gm/dl Albumin (3.4-5.0) gm/dl Globulin (2.5-4.0) gm/dl Albumin/Globulin Ratio (0.9-2) Lipase (73-393) U/L Tryptase Procalcitonin (0-0.5) ng/ml TSH (0.300-4.500) uIu/ml Urine Color Urine Appearance (Clear) Urine pH (4.5-7.5) Ur Specific [place] (1.000-1.030) Urine Protein (Negative) Urine Glucose (UA) (Negative) Urine Ketones (Negative) Urine Blood (Negative) Urine Nitrite (Negative) Urine Bilirubin (Negative) Urine Urobilinogen (Negative) Ur Leukocyte Esterase (Negative) Urine Opiates Screen (Neg) U Codeine Confrm GC/MS Ur Morphine (GC/MS) Ur Hydrocodone (GC/MS) Ur Norhydrocodone Ur Noroxycodone Urine Oxycodone (GC/MS) U Oxymorphone GC/MS Ur Methadone, Qual (Neg) Ur Hydromorphone (GC/MS) Urine Barbiturates (Neg) Ur Phencyclidine (PCP) (Neg) U Amphetamin/Meth Scrn (Neg) MDMA (Ecstasy) Screen (Neg) U Benzodiazepines Scrn (Neg) Ur Cocaine Metabolite (Neg) U Marijuana (THC) Screen (Neg) Drug Screen Comment COVID-19 Eval Order SARS-CoV-2 (PCR) (Negative) 04/14/21 04/14/21 04/14/21 Range/Units 03:12 03:12 02:54 WBC (4.8-10.8) K/uL RBC (4.2-5.4) M/uL Hgb (12.0-16.0) g/dL Hct (37-47) % MCV (80-100) fL MCH (25-34) pg MCHC (32-36) g/dL RDW Std Deviation (36.4-46.3) fL RDW Coeff of Main (11.5-14.5) % Plt Count (130-400) K/uL MPV (7.4-10.4) fL Immature Gran % (Auto) % Neut % (Auto) % Lymph % (Auto) % [place] % (Auto) % Eos % (Auto) % Baso % (Auto) % Neut # (Auto) (1.4-6.5) K/uL Lymph # (Auto) (1.2-3.4) K/uL [place] # (Auto) (0.11-0.59) K/uL Eos # (Auto) (0-0.5) K/uL Baso # (Auto) (0-0.2) K/uL Immature Gran # (Auto) (0.00-0.02) K/uL APTT 29.7 (21.0-31.0) Seconds PTT Ratio 1.1 Sodium 129 L (136-145) mmol/L Potassium (3.5-5.1) mmol/L Chloride (98-107) mmol/L Carbon Dioxide (21-32) mmol/L Anion Gap (3-11) BUN (7-18) mg/dl Creatinine (0.6-1.2) mg/dl Est Cr Clr Drug Dosing ml/min Est GFR ( Amer) ml/min Est GFR (Non-Af Amer) ml/min BUN/Creatinine Ratio (10-20) Glucose (70-99) mg/dl Estimat Average Glucose mg/dl Hemoglobin A1c (4.5-5.6) % Osmolality (280-300) mOsm/kg Lactate 1.8 (0.4-2.0) mmol/L Calcium (8.5-10.1) mg/dl Magnesium 2.1 (1.8-2.4) mg/dl Total Bilirubin (0.2-1) mg/dl AST (15-37) U/L ALT (12-78) U/L Alkaline Phosphatase (45-117) U/L Total Creatine Kinase (26-192) U/L CK-MB (CK-2) (0.5-3.6) ng/ml CK/CKMB % Calc (0-3.0) Troponin I (0-0.045) ng/ml Total Protein (6.4-8.2) gm/dl Albumin (3.4-5.0) gm/dl Globulin (2.5-4.0) gm/dl Albumin/Globulin Ratio (0.9-2) Lipase (73-393) U/L Tryptase Procalcitonin (0-0.5) ng/ml TSH (0.300-4.500) uIu/ml Urine Color Urine Appearance (Clear) Urine pH (4.5-7.5) Ur Specific [place] (1.000-1.030) Urine Protein (Negative) Urine Glucose (UA) (Negative) Urine Ketones (Negative) Urine Blood (Negative) Urine Nitrite (Negative) Urine Bilirubin (Negative) Urine Urobilinogen (Negative) Ur Leukocyte Esterase (Negative) Urine Opiates Screen (Neg) U Codeine Confrm GC/MS Ur Morphine (GC/MS) Ur Hydrocodone (GC/MS) Ur Norhydrocodone Ur Noroxycodone Urine Oxycodone (GC/MS) U Oxymorphone GC/MS Ur Methadone, Qual (Neg) Ur Hydromorphone (GC/MS) Urine Barbiturates (Neg) Ur Phencyclidine (PCP) (Neg) U Amphetamin/Meth Scrn (Neg) MDMA (Ecstasy) Screen (Neg) U Benzodiazepines Scrn (Neg) Ur Cocaine Metabolite (Neg) U Marijuana (THC) Screen (Neg) Drug Screen Comment COVID-19 Eval Order SARS-CoV-2 (PCR) (Negative) 04/14/21 04/14/21 04/14/21 Range/Units 00:40 00:40 00:40 WBC (4.8-10.8) K/uL RBC (4.2-5.4) M/uL Hgb (12.0-16.0) g/dL Hct (37-47) % MCV (80-100) fL MCH (25-34) pg MCHC (32-36) g/dL RDW Std Deviation (36.4-46.3) fL RDW Coeff of Main (11.5-14.5) % Plt Count (130-400) K/uL MPV (7.4-10.4) fL Immature Gran % (Auto) % Neut % (Auto) % Lymph % (Auto) % [place] % (Auto) % Eos % (Auto) % Baso % (Auto) % Neut # (Auto) (1.4-6.5) K/uL Lymph # (Auto) (1.2-3.4) K/uL [place] # (Auto) (0.11-0.59) K/uL Eos # (Auto) (0-0.5) K/uL Baso # (Auto) (0-0.2) K/uL Immature Gran # (Auto) (0.00-0.02) K/uL APTT (21.0-31.0) Seconds PTT Ratio Sodium (136-145) mmol/L Potassium (3.5-5.1) mmol/L Chloride (98-107) mmol/L Carbon Dioxide (21-32) mmol/L Anion Gap (3-11) BUN (7-18) mg/dl Creatinine (0.6-1.2) mg/dl Est Cr Clr Drug Dosing ml/min Est GFR ( Amer) ml/min Est GFR (Non-Af Amer) ml/min BUN/Creatinine Ratio (10-20) Glucose (70-99) mg/dl Estimat Average Glucose mg/dl Hemoglobin A1c (4.5-5.6) % Osmolality (280-300) mOsm/kg Lactate (0.4-2.0) mmol/L Calcium (8.5-10.1) mg/dl Magnesium (1.8-2.4) mg/dl Total Bilirubin (0.2-1) mg/dl AST (15-37) U/L ALT (12-78) U/L Alkaline Phosphatase (45-117) U/L Total Creatine Kinase (26-192) U/L CK-MB (CK-2) (0.5-3.6) ng/ml CK/CKMB % Calc (0-3.0) Troponin I (0-0.045) ng/ml Total Protein (6.4-8.2) gm/dl Albumin (3.4-5.0) gm/dl Globulin (2.5-4.0) gm/dl Albumin/Globulin Ratio (0.9-2) Lipase (73-393) U/L Tryptase Procalcitonin (0-0.5) ng/ml TSH (0.300-4.500) uIu/ml Urine Color Yellow Urine Appearance Clear (Clear) Urine pH 6.5 (4.5-7.5) Ur Specific [place] 1.007 (1.000-1.030) Urine Protein Negative (Negative) Urine Glucose (UA) Negative (Negative) Urine Ketones Negative (Negative) Urine Blood Negative (Negative) Urine Nitrite Negative (Negative) Urine Bilirubin Negative (Negative) Urine Urobilinogen Negative (Negative) Ur Leukocyte Esterase Negative (Negative) Urine Opiates Screen Pos H (Neg) U Codeine Confrm GC/MS Pending Ur Morphine (GC/MS) Pending Ur Hydrocodone (GC/MS) Pending Ur Norhydrocodone Pending Ur Noroxycodone Pending Urine Oxycodone (GC/MS) Pending U Oxymorphone GC/MS Pending Ur Methadone, Qual Neg (Neg) Ur Hydromorphone (GC/MS) Pending Urine Barbiturates Neg (Neg) Ur Phencyclidine (PCP) Neg (Neg) U Amphetamin/Meth Scrn Neg (Neg) MDMA (Ecstasy) Screen Neg (Neg) U Benzodiazepines Scrn Neg (Neg) Ur Cocaine Metabolite Neg (Neg) U Marijuana (THC) Screen Neg (Neg) Drug Screen Comment Pending COVID-19 Eval Order SARS-CoV-2 (PCR) (Negative) 04/14/21 04/14/21 04/13/21 Range/Units 00:17 00:17 23:45 WBC (4.8-10.8) K/uL RBC (4.2-5.4) M/uL Hgb (12.0-16.0) g/dL Hct (37-47) % MCV (80-100) fL MCH (25-34) pg MCHC (32-36) g/dL RDW Std Deviation (36.4-46.3) fL RDW Coeff of Main (11.5-14.5) % Plt Count (130-400) K/uL MPV (7.4-10.4) fL Immature Gran % (Auto) % Neut % (Auto) % Lymph % (Auto) % [place] % (Auto) % Eos % (Auto) % Baso % (Auto) % Neut # (Auto) (1.4-6.5) K/uL Lymph # (Auto) (1.2-3.4) K/uL [place] # (Auto) (0.11-0.59) K/uL Eos # (Auto) (0-0.5) K/uL Baso # (Auto) (0-0.2) K/uL Immature Gran # (Auto) (0.00-0.02) K/uL APTT (21.0-31.0) Seconds PTT Ratio Sodium (136-145) mmol/L Potassium (3.5-5.1) mmol/L Chloride (98-107) mmol/L Carbon Dioxide (21-32) mmol/L Anion Gap (3-11) BUN (7-18) mg/dl Creatinine (0.6-1.2) mg/dl Est Cr Clr Drug Dosing ml/min Est GFR ( Amer) ml/min Est GFR (Non-Af Amer) ml/min BUN/Creatinine Ratio (10-20) Glucose (70-99) mg/dl Estimat Average Glucose mg/dl Hemoglobin A1c (4.5-5.6) % Osmolality (280-300) mOsm/kg Lactate (0.4-2.0) mmol/L Calcium (8.5-10.1) mg/dl Magnesium (1.8-2.4) mg/dl Total Bilirubin (0.2-1) mg/dl AST (15-37) U/L ALT (12-78) U/L Alkaline Phosphatase (45-117) U/L Total Creatine Kinase (26-192) U/L CK-MB (CK-2) (0.5-3.6) ng/ml CK/CKMB % Calc (0-3.0) Troponin I (0-0.045) ng/ml Total Protein (6.4-8.2) gm/dl Albumin (3.4-5.0) gm/dl Globulin (2.5-4.0) gm/dl Albumin/Globulin Ratio (0.9-2) Lipase (73-393) U/L Tryptase Procalcitonin 0.11 (0-0.5) ng/ml TSH (0.300-4.500) uIu/ml Urine Color Urine Appearance (Clear) Urine pH (4.5-7.5) Ur Specific [place] (1.000-1.030) Urine Protein (Negative) Urine Glucose (UA) (Negative) Urine Ketones (Negative) Urine Blood (Negative) Urine Nitrite (Negative) Urine Bilirubin (Negative) Urine Urobilinogen (Negative) Ur Leukocyte Esterase (Negative) Urine Opiates Screen (Neg) U Codeine Confrm GC/MS Ur Morphine (GC/MS) Ur Hydrocodone (GC/MS) Ur Norhydrocodone Ur Noroxycodone Urine Oxycodone (GC/MS) U Oxymorphone GC/MS Ur Methadone, Qual (Neg) Ur Hydromorphone (GC/MS) Urine Barbiturates (Neg) Ur Phencyclidine (PCP) (Neg) U Amphetamin/Meth Scrn (Neg) MDMA (Ecstasy) Screen (Neg) U Benzodiazepines Scrn (Neg) Ur Cocaine Metabolite (Neg) U Marijuana (THC) Screen (Neg) Drug Screen Comment COVID-19 Eval Order Covid19 at [facility] SARS-CoV-2 (PCR) NEGATIVE (Negative) 04/13/21 04/13/21 04/13/21 Range/Units 23:42 23:42 23:42 WBC (4.8-10.8) K/uL RBC (4.2-5.4) M/uL Hgb (12.0-16.0) g/dL Hct (37-47) % MCV (80-100) fL MCH (25-34) pg MCHC (32-36) g/dL RDW Std Deviation (36.4-46.3) fL RDW Coeff of Main (11.5-14.5) % Plt Count (130-400) K/uL MPV (7.4-10.4) fL Immature Gran % (Auto) % Neut % (Auto) % Lymph % (Auto) % [place] % (Auto) % Eos % (Auto) % Baso % (Auto) % Neut # (Auto) (1.4-6.5) K/uL Lymph # (Auto) (1.2-3.4) K/uL [place] # (Auto) (0.11-0.59) K/uL Eos # (Auto) (0-0.5) K/uL Baso # (Auto) (0-0.2) K/uL Immature Gran # (Auto) (0.00-0.02) K/uL APTT (21.0-31.0) Seconds PTT Ratio Sodium 129 L (136-145) mmol/L Potassium 3.0 L (3.5-5.1) mmol/L Chloride 93 L (98-107) mmol/L Carbon Dioxide 24 (21-32) mmol/L Anion Gap 12.0 H (3-11) BUN 11 (7-18) mg/dl Creatinine 0.99 (0.6-1.2) mg/dl Est Cr Clr Drug Dosing 41.2 ml/min Est GFR ( Amer) 66.4 ml/min Est GFR (Non-Af Amer) 57.3 ml/min BUN/Creatinine Ratio 10.7 (10-20) Glucose 110 H (70-99) mg/dl Estimat Average Glucose mg/dl Hemoglobin A1c (4.5-5.6) % Osmolality 259 L (280-300) mOsm/kg Lactate (0.4-2.0) mmol/L Calcium 9.2 (8.5-10.1) mg/dl Magnesium (1.8-2.4) mg/dl Total Bilirubin 0.7 (0.2-1) mg/dl AST 14 L (15-37) U/L ALT 12 (12-78) U/L Alkaline Phosphatase 91 (45-117) U/L Total Creatine Kinase 122 (26-192) U/L CK-MB (CK-2) 2.6 (0.5-3.6) ng/ml CK/CKMB % Calc 2.1 (0-3.0) Troponin I 0.021 (0-0.045) ng/ml Total Protein 8.2 (6.4-8.2) gm/dl Albumin 3.5 (3.4-5.0) gm/dl Globulin 4.7 H (2.5-4.0) gm/dl Albumin/Globulin Ratio 0.7 L (0.9-2) Lipase 134 (73-393) U/L Tryptase Pending Procalcitonin (0-0.5) ng/ml TSH 4.970 H (0.300-4.500) uIu/ml Urine Color Urine Appearance (Clear) Urine pH (4.5-7.5) Ur Specific [place] (1.000-1.030) Urine Protein (Negative) Urine Glucose (UA) (Negative) Urine Ketones (Negative) Urine Blood (Negative) Urine Nitrite (Negative) Urine Bilirubin (Negative) Urine Urobilinogen (Negative) Ur Leukocyte Esterase (Negative) Urine Opiates Screen (Neg) U Codeine Confrm GC/MS Ur Morphine (GC/MS) Ur Hydrocodone (GC/MS) Ur Norhydrocodone Ur Noroxycodone Urine Oxycodone (GC/MS) U Oxymorphone GC/MS Ur Methadone, Qual (Neg) Ur Hydromorphone (GC/MS) Urine Barbiturates (Neg) Ur Phencyclidine (PCP) (Neg) U Amphetamin/Meth Scrn (Neg) MDMA (Ecstasy) Screen (Neg) U Benzodiazepines Scrn (Neg) Ur Cocaine Metabolite (Neg) U Marijuana (THC) Screen (Neg) Drug Screen Comment COVID-19 Eval Order SARS-CoV-2 (PCR) (Negative) 04/13/21 Range/Units 23:42 WBC 11.89 H (4.8-10.8) K/uL RBC 4.34 (4.2-5.4) M/uL Hgb 11.8 L (12.0-16.0) g/dL Hct 34.6 L (37-47) % MCV 79.7 L (80-100) fL MCH 27.2 (25-34) pg MCHC 34.1 (32-36) g/dL RDW Std Deviation 41.8 (36.4-46.3) fL RDW Coeff of Main 14.3 (11.5-14.5) % Plt Count 409 H (130-400) K/uL MPV 9.1 (7.4-10.4) fL Immature Gran % (Auto) 0.2 % Neut % (Auto) 70.4 % Lymph % (Auto) 17.4 % [place] % (Auto) 11.5 % Eos % (Auto) 0.3 % Baso % (Auto) 0.2 % Neut # (Auto) 8.37 H (1.4-6.5) K/uL Lymph # (Auto) 2.07 (1.2-3.4) K/uL [place] # (Auto) 1.37 H (0.11-0.59) K/uL Eos # (Auto) 0.04 (0-0.5) K/uL Baso # (Auto) 0.02 (0-0.2) K/uL Immature Gran # (Auto) 0.02 (0.00-0.02) K/uL APTT (21.0-31.0) Seconds PTT Ratio Sodium (136-145) mmol/L Potassium (3.5-5.1) mmol/L Chloride (98-107) mmol/L Carbon Dioxide (21-32) mmol/L Anion Gap (3-11) BUN (7-18) mg/dl Creatinine (0.6-1.2) mg/dl Est Cr Clr Drug Dosing ml/min Est GFR ( Amer) ml/min Est GFR (Non-Af Amer) ml/min BUN/Creatinine Ratio (10-20) Glucose (70-99) mg/dl Estimat Average Glucose mg/dl Hemoglobin A1c (4.5-5.6) % Osmolality (280-300) mOsm/kg Lactate (0.4-2.0) mmol/L Calcium (8.5-10.1) mg/dl Magnesium (1.8-2.4) mg/dl Total Bilirubin (0.2-1) mg/dl AST (15-37) U/L ALT (12-78) U/L Alkaline Phosphatase (45-117) U/L Total Creatine Kinase (26-192) U/L CK-MB (CK-2) (0.5-3.6) ng/ml CK/CKMB % Calc (0-3.0) Troponin I (0-0.045) ng/ml Total Protein (6.4-8.2) gm/dl Albumin (3.4-5.0) gm/dl Globulin (2.5-4.0) gm/dl Albumin/Globulin Ratio (0.9-2) Lipase (73-393) U/L Tryptase Procalcitonin (0-0.5) ng/ml TSH (0.300-4.500) uIu/ml Urine Color Urine Appearance (Clear) Urine pH (4.5-7.5) Ur Specific [place] (1.000-1.030) Urine Protein (Negative) Urine Glucose (UA) (Negative) Urine Ketones (Negative) Urine Blood (Negative) Urine Nitrite (Negative) Urine Bilirubin (Negative) Urine Urobilinogen (Negative) Ur Leukocyte Esterase (Negative) Urine Opiates Screen (Neg) U Codeine Confrm GC/MS Ur Morphine (GC/MS) Ur Hydrocodone (GC/MS) Ur Norhydrocodone Ur Noroxycodone Urine Oxycodone (GC/MS) U Oxymorphone GC/MS Ur Methadone, Qual (Neg) Ur Hydromorphone (GC/MS) Urine Barbiturates (Neg) Ur Phencyclidine (PCP) (Neg) U Amphetamin/Meth Scrn (Neg) MDMA (Ecstasy) Screen (Neg) U Benzodiazepines Scrn (Neg) Ur Cocaine Metabolite (Neg) U Marijuana (THC) Screen (Neg) Drug Screen Comment COVID-19 Eval Order SARS-CoV-2 (PCR) (Negative) Diagnostic Findings EKG on arrival - NSR with frequent PAC's and short runs of atrial tach. Telemetry reviewed - sinus tachycardia on arrival to ER, with frequent PAC's and likely short runs of multifocal atrial tach. No definitive afib. Currently, NSR imaging Chest Xray: IMPRESSION: No acute process. Head CT -Impression: No acute intracranial abnormality. Abd/Pelvic CT: 1. No bowel wall thickening or obstruction. 2. There is abnormal periprosthetic lucency at the acetabulum. The acetabular screw extends into the iliopsoas muscle. There appears to be abnormal periostitis at the left iliac wing which has progressed. There is also inflammatory change surrounding the left acetabulum with a possible small fluid collection at the tip of the screw and iliopsoas muscle. Findings are concerning for an infected prosthesis with possible abscess. A hematoma or foreign body reaction could also have a similar appearance. The periosteitis the left iliac wing could represent a chronic osteomyelitis. Follow-up orthopedic consultation recommended. 3. Healing left inferior pubic ramus fracture. 4. Additional findings as described above. Medications Administered Medications cyanocobalamin (vitamin B-12) [Vitamin B-12] 1,000 mcg PO DAILY 09/08/19 [History Confirmed 04/14/21] duloxetine 30 mg PO DAILY 09/08/19 [History Confirmed 04/14/21] levothyroxine 88 mcg PO DAILYBB 09/08/19 [History Confirmed 04/14/21] lisinopril 2.5 mg PO DAILY 09/08/19 [History Confirmed 04/14/21] melatonin 5 mg PO HS 09/08/19 [History Confirmed 04/14/21] omeprazole 20 mg PO QAM 09/08/19 [History Confirmed 04/14/21] sennosides 8.6 mg PO BID PRN 09/08/19 [History Confirmed 04/14/21] simvastatin 10 mg PO HS 09/08/19 [History Confirmed 04/14/21] morphine 60 mg PO TID #9 tab 09/22/19 [Rx Confirmed 04/14/21] oxycodone 5 mg PO BID PRN 10/24/19 [History Confirmed 04/14/21] metoprolol succinate 50 mg PO DAILY 12/16/20 [History Confirmed 04/14/21] ondansetron HCl 4 mg PO Q8 PRN 12/16/20 [History Confirmed 04/14/21] furosemide 20 mg PO TUTHSA 04/14/21 [History Confirmed 04/14/21] Home Medications Acetaminophen (Acetaminophen 325 Mg Tab) 650 mg PO Q4H PRN PRN Reason: Pain or Fever Stop: 05/14/21 05:04 Cyanocobalamin (Cyanocobalamin 500 Mcg Tablet (Vitamin B-12)) 1,000 mcg PO DAILY [facility] Stop: 05/14/21 08:59 Last Admin: 04/14/21 09:23 Dose: 1,000 mcg Documented by: Duloxetine HCl (Duloxetine Hcl 30 Mg Cap) 30 mg PO DAILY [facility] Stop: 05/14/21 08:59 Last Admin: 04/14/21 09:23 Dose: 30 mg Documented by: Enoxaparin Sodium (Enoxaparin Inj 30 Mg/0.3 Ml Syr) 30 mg SQ QAM [facility] Stop: 05/14/21 08:59 Last Admin: 04/14/21 09:25 Dose: 30 mg Documented by: Potassium Chloride/Sodium Chloride (Normal Saline W/20 Meq Kcl) 20 meq in 1,000 mls @ 50 mls/hr IV .Q20H ONE Stop: 04/14/21 23:41 Last Admin: 04/14/21 04:26 Dose: 50 mls/hr Documented by: Lorazepam (Ativan) 0.25 mg in 0.5 mls @ 0.5 mls/min IV Q6H PRN PRN Reason: Anxiety Stop: 05/14/21 05:04 Promethazine HCl 6.25 mg/ (Sodium Chloride) 50.25 mls @ 201 mls/hr IV Q6H PRN PRN Reason: Nausea And Vomiting Stop: 05/14/21 05:04 Levothyroxine Sodium (Levothyroxine Sodium 88 Mcg Tablet) 88 mcg PO DAILYBB [facility] Stop: 05/14/21 06:29 Last Admin: 04/14/21 06:10 Dose: 88 mcg Documented by: Lisinopril (Lisinopril 2.5 Mg Tab) 2.5 mg PO DAILY [facility] Stop: 05/15/21 08:59 Melatonin (Melatonin 3 Mg Tab) 6 mg PO HSZ PRN PRN Reason: Sleep Stop: 05/14/21 05:25 Metoprolol Succinate (Metoprolol Succ 50mg Ext Rel Tab) 50 mg PO DAILY [facility] Stop: 05/15/21 08:59 Morphine Sulfate (Morphine Sulfate Cr 60 Mg Tabcr) 60 mg PO Q8 [facility] Stop: 04/28/21 13:59 Oxycodone HCl (Oxycodone Hcl Ir 5 Mg Tab (Immediate Release)) 5 mg PO QID PRN PRN Reason: Pain Stop: 04/28/21 05:04 Pantoprazole Sodium (Pantoprazole 40 Mg Tab) 40 mg PO QAM [facility] Stop: 05/14/21 08:59 Last Admin: 04/14/21 09:23 Dose: 40 mg Documented by: Sennosides (Senna 8.6 Mg Tab) 8.6 mg PO BID PRN PRN Reason: Constipation Stop: 05/14/21 05:04 Last Admin: 04/14/21 09:23 Dose: 8.6 mg Documented by: Simvastatin (Simvastatin 10 Mg Tab) 10 mg PO HS [facility] Stop: 05/14/21 20:59
--- NOTE | 2021-04-14 10:38 | Hospitalist Progress Note ---
Date of Service April 14, 2021 Assessment & Plan (1) Nausea & vomiting: Present on admission with multiple episodes of vomiting associated with nausea Mostly related to COVID [address] abd/pelvis showed no bowel wall thickening or obstruction. Received gentle IVF hydration in the ER Continue anti-emetic med No episode of vomiting today Currently on clear liquid diet, will advance to full liquid Continue monitor electrolytes Electrolytes imbalance Hyponatremia Hypokalemia Mostly related to vomiting/ poor oral intake Potassium 3 and Na 129 on admission Potassium replaced and repeat K today 4 Low sodium also related to SIADH because review her Na back to 2019, it has been in the 129 Will do fluid restriction Will consult nephrology Continue monitor BMP Weakness Mostly due to acute illness Continue PT/OT Fall precaution Left hip pain Failure of left total hip arthroplasty CT pelvis showed abnormal periprosthetic lucency at the acetabulum. The acetabular screw extends into the iliopsoas muscle. There appears to be abnormal periostitis at the left iliac wing which has progressed. There is also inflammatory change surrounding the left acetabulum with a possible small fluid collection at the tip of the screw and iliopsoas muscle.Findings are concerning for an infected prosthesis with possible abscess. A hematoma or foreign body reaction could also have a similar appearance. The periosteitis the left iliac wing could represent a chronic osteomyelitis. Continue pain control Ortho on board Plan for hip aspiration to be done while inpatient and can follow-up with her surgeon for any further intervention Activity with toe-touch weightbearing on her left lower extremity and ambulation with an assistive device such as a walker. No additional cardiac testing requiring as per cardio Stable to proceed for the hip aspiration Cardiac arrhythmia Multifocal atrial tachycardia Mostly due to electrolytes imbalance Initial EKG demonstrated sinus tach with frequent PAC's and possible short runs of multifocal atrial tach noted on telemetry in ER No definitive afib during admission per extensive review of telemetry as per cardio Continue metoprolol succinate 50mg daily Abnormal TSH TSH 4.9 Continue Levothyroxine Will check outpatient chart to see if Levothyroxine was changed recently Check TSH in 4 week Diabetes Blood glucose 153 this morning Hba1c 6.5 Will do lifestyle modification Tobacco abuse Counseling on smoking cessation DVT px Will change to heparin subq if plan for any orthopedic procedure Code status FULL CODE Admission and Anticipated Discharge Date Admission Date: April 14, 2021 Subjective Pt was seen and examined for follow up nausea and vomiting associated with weakness Pt said that she feels a little better today She said that prior coming to the hospital, anything that she put in her mouth that she threw up She said that she feels nauseated but no vomiting She said that her last bowel movement was the following day after the COVID 19 shot (about 3 days ago) She said that she feels bloated Denies any chest pain, palpitation, dizziness and SOB Review of Systems Review of Systems: All systems reviewed & are unremarkable except as noted in Subjective Physical Exam Physical Exam: General- No acute distress Head- atraumatic Eyes- PERRL, EOMI, ENT- oropharynx clear Neck- supple, no JVD Lungs- clear to auscultation Heart- regular rhythm; no murmur Abdomen- normal bowel sounds, nontender Extremities- no calf tenderness Neuro- alert, oriented x 3; PERRL, EOMI; no facial palsy; no dysarthria Skin- warm & dry Results & Data Results & Data ([facility]) Vital Signs (Past 12 Hours) Vital Signs Temp Pulse Pulse Resp BP BP Pulse Ox 04/14/21 07:58 36.9 C 88 19 141/94 H 97 04/14/21 06:29 87 04/14/21 05:35 93 H 04/14/21 05:08 36.9 C 22 193/101 H 96 04/14/21 04:30 99 H 28 H 195/96 H 96 04/14/21 04:03 92 H 22 187/94 H 93 04/14/21 04:00 104 H 28 H 205/112 H 94 04/14/21 03:51 110 H 26 H 176/106 H 96 04/14/21 03:30 28 H 90 04/14/21 03:01 136 H 36 H 174/119 H 94 04/14/21 03:00 108 H 26 H 93 04/14/21 02:31 115 H 24 179/97 H 90 04/14/21 02:30 99 H 23 94 04/14/21 02:00 108 H 22 175/116 H 94 04/14/21 01:30 140 H 27 H 185/142 H 94 04/14/21 01:24 137 H 21 174/88 H 93 04/14/21 01:00 135 H 26 H 177/103 H 94 04/14/21 00:30 124 H 30 H 183/95 H 95 04/14/21 00:12 139 H 38 H 95 04/14/21 00:00 139 H 30 H 187/117 H 91 04/13/21 23:22 95 04/13/21 23:18 37.3 C 52 L 20 144/96 H 94
[2021-04-14] MEDS: oxyCODONE HCL IR 5 MG TAB (IMMEDIATE RELEASE) PO PRN ×2 (12:03→23:39)
[2021-04-14] MEDS: MoRPHine SULFATE CR 60 MG TABCR PO SCH ×2 (14:44→22:10)
--- NOTE | 2021-04-14 16:58 | Consultation Report ---
DATE OF CONSULTATION: 04/14/2021 NEPHROLOGY CONSULTATION NOTE REASON FOR CONSULT: Hyponatremia. HISTORY OF PRESENT ILLNESS: The patient is a 70-year-old female who actually has a known history of hyponatremia from SIADH. She presented to the hospital yesterday because of nausea, vomiting, diarrhea and weakness. She was not eating much solid food, but she was still drinking lots of liquid. Denies any chest pain, shortness of breath or unusual cough or fever. The patient was admitted in 12/2020 for UTI and COVID infection. She has low sodium and it does tend to fluctuate. She was also having worsening left hip pain following infected hip replacement surgery and she does take a lot of opiates. Since admission, she has received normal saline, but with that, sodium has not improved. If anything, it actually got slightly lower. The patient is not hypotensive. Diarrhea seems to have improved and she is actually slightly constipated at this time. Also not having any nausea or vomiting. Sodium was 129 and it is still 129. She is not on any diuretics as an outpatient. She has gone into paroxysmal AFib, which according to the patient is new for her. Her potassium was also very low at the time of admission at 3.0, but now it is normal. At this time, there is no further plan for any cardiac intervention. PAST MEDICAL AND SURGICAL HISTORY: Includes hypertension, COPD, ongoing tobacco use, IBS, chronic pain, on narcotics, mood disorder, hypothyroidism, chronic hyponatremia secondary to SIADH, history of convulsion, history of infected left total hip arthroplasty, chronic anemia, hysterectomy, total hip arthroplasty. FAMILY HISTORY: Negative for renal disease or dialysis. SOCIAL HISTORY: Current every day smoker. No alcohol. She lives in an apartment alone. She is . She mostly uses walker for ambulation. REVIEW OF SYSTEMS: As detailed in the HPI; unless stated otherwise, 12 systems reviewed and negative. Positive review of system includes chronic pain in the left hip, acute onset of nausea, vomiting, diarrhea and weakness. ALLERGIES: LIST WAS REVIEWED IN DETAIL AND IS PER THE RECONCILIATION LIST. MEDICATIONS AT HOME: Reviewed and include B12, duloxetine, levothyroxine, lisinopril, melatonin, omeprazole, sennosides, simvastatin, morphine, oxycodone, metoprolol, ondansetron, furosemide is listed in her medication list, but she claims she does not take it. As per the list, she is supposed to take 20 mg Wednesday, and Wednesday. PHYSICAL EXAMINATION: GENERAL: Elderly white female who actually looks more frail than her age. She is awake, alert, oriented x3. VITAL SIGNS: Blood pressure is 148/91, pulse rate 92, temperature 36.9, 95% on room air. HEENT: Mucous membranes moist. NECK: Supple. No jugular venous distention. CHEST: Bilaterally clear to auscultation. CARDIOVASCULAR: S1, S2 regular. ABDOMEN: Soft, nontender. EXTREMITIES: Show no edema. NEUROLOGIC: She is awake, alert, oriented x3. Normal speech. SKIN: Shows no rashes. LABORATORY TESTS: Blood work shows sodium 129, 127 and most recently 129. She does have chronic mild hyponatremia. Hemoglobin 11.8, WBC count 7.4, platelet count 445. Urine test, UA was done and was unremarkable. Urine osmolality and urine sodium have not been done yet. Chest x-ray was unremarkable. CT abdomen and pelvis showed some findings concerning for the infected left hip. ASSESSMENT AND PLAN: A 70-year-old female with known chronic mild hyponatremia, admitted with nausea, vomiting, diarrhea of few days' duration. I have been consulted for hyponatremia and hypokalemia. 1. Hyponatremia. 2. Hypokalemia. The patient has a known issue with hyponatremia, chronic mild type, secondary to syndrome of inappropriate antidiuretic hormone. The patient was not eating any solid food prior to hospitalization, but she was still drinking a fair amount of liquid. In a patient with chronic syndrome of inappropriate antidiuretic hormone, such imbalance can drop sodium and I believe that is what has happened. At this point, there is no need of aggressive IV hydration. We can stop the IV fluid. RECOMMENDATIONS: 1. Urine osmolality. 2. Urine sodium for further categorization of the etiology of hyponatremia. 3. Discontinue IV fluid. 4. Fluid restriction decreased to 1500 mL. 5. If possible, please change the diet to regular diet. 6. Case was discussed with primary team. 7. BMP every 8 hours.
[2021-04-14 19:03] LABS: BUN Creatinine Ratio 13.9 (10-20); Calcium 8.3 mg/dl (8.5-10.1); Creatinine Clr Calc Pharmacy 48.6 ml/min; Est GFR (Non-African American) 69.9 ml/min; Potassium 4.5 mmol/L (3.5-5.1)
[2021-04-14] MEDS: SIMVASTATIN 10 MG TAB PO SCH (19:43)
[2021-04-14] MEDS ORDERED: UREA (UREA-NA) 15 GM PACK PO SCH (21:00)
[2021-04-14] MEDS: MELATONIN 3 MG TAB PO PRN (23:39)
[2021-04-15] MEDS: MoRPHine SULFATE CR 60 MG TABCR PO SCH ×3 (06:23→22:06)
[2021-04-15] MEDS: LEVOTHYROXINE SODIUM 88 MCG TABLET PO SCH (06:23)
--- NOTE | 2021-04-15 07:53 | Nephrology Progress Note ---
Date of Service April 15, 2021 Assessment & Plan Admission and Anticipated Discharge Date Admission Date: April 14, 2021 Subjective No new issues. Sodium still low. GENERAL: Elderly white female who actually looks more frail than her age. She is awake, alert, oriented x3. VITAL SIGNS: Blood pressure is 148/91, pulse rate 92, temperature 36.9, 95% on room air. HEENT: Mucous membranes moist. NECK: Supple. No jugular venous distention. CHEST: Bilaterally clear to auscultation. CARDIOVASCULAR: S1, S2 regular. ABDOMEN: Soft, nontender. EXTREMITIES: Show no edema. NEUROLOGIC: She is awake, alert, oriented x3. Normal speech. SKIN: Shows no rashes. LABORATORY TESTS: na 128 ASSESSMENT AND PLAN: A 70-year-old female with known chronic mild hyponatremia, admitted with nausea, vomiting, diarrhea of few days' duration. I have been consulted for hyponatremia and hypokalemia. 1. Hyponatremia. 2. Hypokalemia. The patient has a known issue with hyponatremia, chronic mild type, secondary to syndrome of inappropriate antidiuretic hormone. The patient was not eating any solid food prior to hospitalization, but she was still drinking a fair amount of liquid. In a patient with chronic syndrome of inappropriate antidiuretic hormone, such imbalance can drop sodium and I believe that is what has happened. At this point, there is no need of aggressive IV hydration. We can stop the IV fluid. RECOMMENDATIONS: 1. Somewhat low Urine osmolality--consistent with teat and [place] Syndrome with SIADH 2. Fluid restriction decreased to 1500 mL. 5. change the diet to regular diet. 6. raise urea-na to 15 tid. 7 Lasix 20 bid. with k.cl 20 bid. also Salt tab 1 gm bid. Results & Data ([facility]) Vital Signs (Past 12 Hours) Vital Signs Temp Pulse Pulse Resp BP Pulse Ox 04/15/21 07:48 36.3 C L 69 18 115/66 94 04/15/21 04:00 36.8 C 73 18 110/56 L 95 04/14/21 23:26 36.9 C 20 110/70 96 04/14/21 22:21 72
[2021-04-15] MEDS ORDERED: UREA (UREA-NA) 15 GM PACK PO SCH (08:00)
[2021-04-15 08:02] LABS: BUN Creatinine Ratio 15.1 (10-20); Calcium 8.5 mg/dl (8.5-10.1); Creatinine Clr Calc Pharmacy 43.9 ml/min; Est GFR (African American) 71.7 ml/min; Est GFR (Non-African American) 61.8 ml/min; Potassium 3.8 mmol/L (3.5-5.1)
[2021-04-15] MEDS: SODIUM CHLORIDE 1 GM TABLET PO SCH ×2 (08:49→21:20)
[2021-04-15] MEDS: UREA (UREA-NA) 15 GM PACK PO SCH ×3 (08:49→21:20)
[2021-04-15] MEDS: POTASSIUM CHLORIDE CRTAB 20 MEQ TABCR PO SCH ×2 (08:49→21:20)
[2021-04-15] MEDS: FUROSEMIDE 20 MG TAB PO SCH ×2 (08:49→17:35)
[2021-04-15] MEDS: lisinopril 2.5 MG TAB PO SCH (08:50)
[2021-04-15] MEDS: METOPROLOL SUCC 50MG EXT REL TAB PO SCH (08:50)
[2021-04-15] MEDS: CYANOCOBALAMIN 500 MCG TABLET (VITAMIN B-12) PO SCH (08:51)
[2021-04-15] MEDS: HEPARIN SOD 5,000 UNIT/0.5 ML VIAL SQ SCH ×2 (08:51→21:27)
[2021-04-15] MEDS: PANTOprazole 40 MG TAB PO SCH (08:51)
[2021-04-15] MEDS: DULoxetine HCL 30 MG CAP PO SCH (08:51)
--- NOTE | 2021-04-15 17:51 | Hospitalist Progress Note ---
Date of Service April 15, 2021 Assessment & Plan (1) Nausea & vomiting: Present on admission with multiple episodes of vomiting associated with nausea Mostly related to COVID [address] abd/pelvis showed no bowel wall thickening or obstruction. Received gentle IVF hydration in the ER Continue anti-emetic med No episode of vomiting today Diet advanced as tolerated Continue monitor electrolytes Electrolytes imbalance Hyponatremia Hypokalemia Mostly related to vomiting/ poor oral intake Potassium 3 and Na 129 on admission Potassium 3.8 today Low sodium also related to SIADH because review her Na back to 2019 was in the 129 Na 131 today Nephrology on board Continue fluid restriction Urea-na increased to 15 tid. Continue Lasix 20 bid with k.cl 20 bid and Salt tab 1 gm bid. Continue monitor BMP Weakness Mostly due to acute illness Continue PT/OT Fall precaution Left hip pain Failure of left total hip arthroplasty CT pelvis showed abnormal periprosthetic lucency at the acetabulum. The acetabular screw extends into the iliopsoas muscle. There appears to be abnormal periostitis at the left iliac wing which has progressed. There is also inflammatory change surrounding the left acetabulum with a possible small fluid collection at the tip of the screw and iliopsoas muscle.Findings are concerning for an infected prosthesis with possible abscess. A hematoma or foreign body reaction could also have a similar appearance. The periosteitis the left iliac wing could represent a chronic osteomyelitis. Continue pain control Ortho on board Plan for hip aspiration to be done while inpatient and can follow-up with her surgeon for any further intervention Activity with toe-touch weightbearing on her left lower extremity and ambulation with an assistive device such as a walker. No additional cardiac testing requiring as per cardio Stable to proceed for the hip aspiration Spoke to ortho about the aspiration- Ortho said that it had to be done by radiology Spoke to radiology control room helper that will try to aspirate it tomorrow via CT guided aspiration Will hold am dose subq heparin Cardiac arrhythmia Multifocal atrial tachycardia Mostly due to electrolytes imbalance Initial EKG demonstrated sinus tach with frequent PAC's and possible short runs of multifocal atrial tach noted on telemetry in ER No definitive afib during admission per extensive review of telemetry as per cardio Continue metoprolol succinate 50mg daily Stable from cardiology standpoint Abnormal TSH TSH 4.9 Continue Levothyroxine Will check outpatient chart to see if Levothyroxine was changed recently Check TSH in 4 week Diabetes Blood glucose 153 this morning Hba1c 6.5 Will do lifestyle modification Tobacco abuse Counseling on smoking cessation DVT px On heparin subq in case plan for any orthopedic procedure Code status FULL CODE Admission and Anticipated Discharge Date Admission Date: April 14, 2021 Subjective Pt was seen and examined for follow up nausea and vomiting associated with weakness Pt said that she feels much better today She said that no vomiting, but feels a little nausea She said that pain is stable in her left hip Denies any chest pain, palpitation, dizziness and SOB Review of Systems Review of Systems: All systems reviewed & are unremarkable except as noted in Subjective Physical Exam Physical Exam: General- No acute distress Head- atraumatic Eyes- PERRL, EOMI, ENT- oropharynx clear Neck- supple, no JVD Lungs- clear to auscultation Heart- regular rhythm; no murmur Abdomen- normal bowel sounds, nontender Extremities- no calf tenderness Neuro- alert, oriented x 3; PERRL, EOMI; no facial palsy; no dysarthria Skin- warm & dry Results & Data Results & Data ([facility]) Vital Signs (Past 12 Hours) Vital Signs Temp Pulse Pulse Resp BP Pulse Ox 04/15/21 15:14 36.7 C 56 L 16 90/53 L 97 04/15/21 11:21 36.6 C 56 L 18 95/57 L 95 04/15/21 09:21 72 04/15/21 07:48 36.3 C L 69 18 115/66 94
[2021-04-15] MEDS: SIMVASTATIN 10 MG TAB PO SCH (21:20)
[2021-04-16] MEDS: LEVOTHYROXINE SODIUM 88 MCG TABLET PO SCH (05:44)
[2021-04-16] MEDS: MoRPHine SULFATE CR 60 MG TABCR PO SCH ×3 (05:44→22:18)
[2021-04-16 06:31] LABS: BUN Creatinine Ratio 22.8 (10-20); Calcium 8.5 mg/dl (8.5-10.1); Creatinine Clr Calc Pharmacy 46.4 ml/min; Est GFR (African American) 76.6 ml/min; Est GFR (Non-African American) 66.1 ml/min; Potassium 4.4 mmol/L (3.5-5.1)
[2021-04-16 08:02] LABS: Codeine Urine NEGATIVE ng/mL (<50); Hydrocodone Urine NEGATIVE ng/mL (<50); Hydromor Urine NEGATIVE ng/mL (<50); Morphine Urine 432 ng/mL (<50); Norhydrocodone Conf Ur NEGATIVE ng/mL (<50); Noroxycodone Urine NEGATIVE ng/mL (<50); Oxycodone Urine NEGATIVE ng/mL (<50); Oxymorph Urine NEGATIVE ng/mL (<50)
--- NOTE | 2021-04-16 08:07 | Hospitalist Progress Note ---
Date of Service April 16, 2021 Assessment & Plan (1) Nausea & vomiting: Present on admission with multiple episodes of vomiting associated with nausea Possibly related to COVID [address] abd/pelvis showed no bowel wall thickening or obstruction. Received gentle IVF hydration in the ER Continue anti-emetic med No episode of vomiting today Diet advanced as tolerated Continue monitor electrolytes Electrolytes imbalance Hyponatremia Hypokalemia Mostly related to vomiting/ poor oral intake Potassium 3 and Na 129 on admission Potassium improved Low sodium also related to SIADH because review her Na back to 2019 was in the 129 Nephrology consulted Continue fluid restriction Urea-na increased to 15 tid. - per nursing staff pt does not tolerate urea-Na Continue Lasix 20 bid with k.cl 20 bid and Salt tab 1 gm bid. Continue monitor BMP Weakness Mostly due to acute illness Continue PT/OT Fall precaution Left hip pain Failure of left total hip arthroplasty CT pelvis showed abnormal periprosthetic lucency at the acetabulum. The acetabular screw extends into the iliopsoas muscle. There appears to be abnormal periostitis at the left iliac wing which has progressed. There is also inflammatory change surrounding the left acetabulum with a possible small fluid collection at the tip of the screw and iliopsoas muscle.Findings are concerning for an infected prosthesis with possible abscess. A hematoma or foreign body reaction could also have a similar appearance. The periosteitis the left iliac wing could represent a chronic osteomyelitis. Continue pain control Ortho on board Plan for hip aspiration to be done while inpatient and can follow-up with her surgeon for any further intervention Activity with toe-touch weightbearing on her left lower extremity and ambulation with an assistive device such as a walker. No additional cardiac testing requiring as per cardio Stable to proceed for the hip aspiration Spoke to ortho about the aspiration- Ortho said that it had to be done by radiology Spoke to radiology orthodontic band maker that will try to aspirate it tomorrow via CT guided aspiration - 04/16/21 pt underwent L hip aspiration- 0.5cc of fluid obtained Will hold am dose subq heparin Cardiac arrhythmia Multifocal atrial tachycardia Mostly due to electrolytes imbalance Initial EKG demonstrated sinus tach with frequent PAC's and possible short runs of multifocal atrial tach noted on telemetry in ER No definitive afib during admission per extensive review of telemetry as per cardio Continue metoprolol succinate 50mg daily Stable from cardiology standpoint Abnormal TSH TSH 4.9 Continue Levothyroxine Will check outpatient chart to see if Levothyroxine was changed recently Check TSH in 4 week Diabetes Blood glucose 153 this morning Hba1c 6.5 Will do lifestyle modification Tobacco abuse Counseling on smoking cessation DVT px On heparin subq in case plan for any orthopedic procedure Code status FULL CODE Admission and Anticipated Discharge Date Admission Date: April 14, 2021 Subjective Pt was seen and examined for follow up nausea and vomiting associated with weakness Pt said that she feels much better today Currently eating Had her aspiration of left hip done w/ radiology Denies any chest pain, palpitation, dizziness and SOB Review of Systems Review of Systems: All systems reviewed & are unremarkable except as noted in HPI & below Constitutional: no fever and no chills Respiratory: no cough and no dyspnea Cardiovascular: no chest pain and no palpitations Gastrointestinal: no abdominal pain, no nausea and no vomiting Physical Exam Physical Exam: General- WD/WN, slim elderly F, No acute distress Head- atraumatic Eyes- PERRL, EOMI, ENT- oropharynx clear Neck- supple, no JVD Lungs- clear to auscultation Heart- regular rhythm; no murmur Abdomen- normal bowel sounds, nontender Extremities- no calf tenderness, moves extremities Neuro- alert, oriented x 3; PERRL, EOMI; no facial palsy; no dysarthria Skin- warm & dry Results & Data Results & Data ([facility]) Vital Signs (Past 12 Hours) Vital Signs Temp Pulse Pulse Resp BP Pulse Ox 04/16/21 08:00 37.0 C 70 18 109/66 97 04/16/21 03:29 36.6 C 70 18 104/58 L 94 04/15/21 23:47 37 C 62 18 98/60 L 96 04/15/21 22:20 64 Laboratory Results 04/16/21 04/14/21 Range/Units 05:30 00:40 Sodium 128 L (136-145) mmol/L Potassium 4.4 D (3.5-5.1) mmol/L Chloride 95 L (98-107) mmol/L Carbon Dioxide 28 (21-32) mmol/L Anion Gap 5.0 (3-11) BUN 20 H (7-18) mg/dl Creatinine 0.88 (0.6-1.2) mg/dl Est Cr Clr Drug Dosing 46.4 ml/min Est GFR ( Amer) 76.6 ml/min Est GFR (Non-Af Amer) 66.1 ml/min BUN/Creatinine Ratio 22.8 H (10-20) Glucose 77 (70-99) mg/dl Calcium 8.5 (8.5-10.1) mg/dl U Codeine Confrm GC/MS NEGATIVE (<50) ng/mL Ur Morphine (GC/MS) 432 H (<50) ng/mL Ur Hydrocodone (GC/MS) NEGATIVE (<50) ng/mL Ur Norhydrocodone NEGATIVE (<50) ng/mL Ur Noroxycodone NEGATIVE (<50) ng/mL Urine Oxycodone (GC/MS) NEGATIVE (<50) ng/mL U Oxymorphone GC/MS NEGATIVE (<50) ng/mL Ur Hydromorphone (GC/MS) NEGATIVE (<50) ng/mL Drug Screen Comment SEE NOTE
[2021-04-16] MEDS: UREA (UREA-NA) 15 GM PACK PO SCH ×4 (08:39→20:05)
[2021-04-16] MEDS: FUROSEMIDE 20 MG TAB PO SCH ×2 (08:40→16:58)
[2021-04-16] MEDS: PANTOprazole 40 MG TAB PO SCH (08:40)
[2021-04-16] MEDS: SODIUM CHLORIDE 1 GM TABLET PO SCH ×2 (08:40→20:04)
[2021-04-16] MEDS: DULoxetine HCL 30 MG CAP PO SCH (08:40)
[2021-04-16] MEDS: CYANOCOBALAMIN 500 MCG TABLET (VITAMIN B-12) PO SCH (08:40)
[2021-04-16] MEDS: METOPROLOL SUCC 50MG EXT REL TAB PO SCH (08:41)
[2021-04-16] MEDS: POTASSIUM CHLORIDE CRTAB 20 MEQ TABCR PO SCH ×2 (08:41→20:04)
[2021-04-16] MEDS: lisinopril 2.5 MG TAB PO SCH (08:42)
[2021-04-16] MEDS: oxyCODONE HCL IR 5 MG TAB (IMMEDIATE RELEASE) PO PRN (08:53)
--- NOTE | 2021-04-16 09:44 | Nephrology Progress Note ---
Date of Service April 16, 2021 Assessment & Plan Admission and Anticipated Discharge Date Admission Date: April 14, 2021 Subjective No new issues. Sodium still low. Getting Aspiration done today GENERAL: Elderly white female who actually looks more frail than her age. She is awake, alert, oriented x3. HEENT: Mucous membranes moist. NECK: Supple. No jugular venous distention. CHEST: Bilaterally clear to auscultation. CARDIOVASCULAR: S1, S2 regular. ABDOMEN: Soft, nontender. EXTREMITIES: Show no edema. NEUROLOGIC: She is awake, alert, oriented x3. Normal speech. SKIN: Shows no rashes. LABORATORY TESTS: na 128 today ASSESSMENT AND PLAN: A 70-year-old female with known chronic mild hyponatremia, admitted with nausea, vomiting, diarrhea of few days' duration. I have been consulted for hyponatremia and hypokalemia. 1. Hyponatremia. 2. Hypokalemia. The patient has a known issue with hyponatremia, chronic mild type, secondary to syndrome of inappropriate antidiuretic hormone. The patient was not eating any solid food prior to hospitalization, but she was still drinking a fair amount of liquid. In a patient with chronic syndrome of inappropriate antidiuretic hormone, such imbalance can drop sodium and I believe that is what has happened. At this point, there is no need of aggressive IV hydration. We can stop the IV fluid. RECOMMENDATIONS: 1. Somewhat low Urine osmolality--consistent with tea and [place] Syndrome with SIADH 2. Fluid restriction 1500 mL. 5. change the diet to regular diet. 6. raise urea-na to 15 tid. 7 Lasix 20 bid. with k.cl 20 bid. also Salt tab 1 gm bid. So no chaange today. Will follow. It may be in this range for some time. As long as 126+ stable can be discharged Results & Data ([facility]) Vital Signs (Past 12 Hours) Vital Signs Temp Pulse Pulse Resp BP Pulse Ox 04/16/21 08:00 37.0 C 70 18 109/66 97 04/16/21 03:29 36.6 C 70 18 104/58 L 94 04/15/21 23:47 37 C 62 18 98/60 L 96 04/15/21 22:20 64
--- NOTE | 2021-04-16 12:57 | Fluoroscopy Report ---
FLUOROSCOPIC GUIDED LEFT HIP ASPIRATION FLUOROSCOPY TIME: 0.3 minutes. A single fluoroscopic spot image of the left hip HISTORY: . Left hip pain. Abnormal CT. PROCEDURE: After obtaining written informed consent, the patient was placed supine on the fluoroscopy table. A suitable site for needle insertion was marked using fluoroscopic guidance. The left hip wa s prepped and draped in the usual sterile fashion. 1% lidocaine was used for skin, subcutaneous and d eep soft tissue anesthesia. Under intermittent fluoroscopic guidance, a 20 gauge x 3.5 inch spinal ne edle was inserted into the left hip joint. A total of 0.5 cc of serosanguineous fluid was aspirated from the hip. An additional 10 cc of normal saline was injected into the left hip. However, no additi onal fluid was able to the aspirated. 2 cc of Optiray 300 was injected to confirm the intra-articular location. The needle was then removed. There were no apparent complications. IMPRESSION: Fluoroscopic-guided left hip aspiration with a total of 0.5 cc of serosanguineous fluid aspirated. This was sent to the laboratory at the request of the referring physician. ACT 112: Negative or not required by law. Electronically signed by: Sundar Bowens M.D. 04/16/2021 12:56 PM
[2021-04-16] MEDS: SIMVASTATIN 10 MG TAB PO SCH (20:04)
[2021-04-16] MEDS: MELATONIN 3 MG TAB PO PRN (22:18)
[2021-04-17] MEDS: MoRPHine SULFATE CR 60 MG TABCR PO SCH ×3 (05:56→22:48)
[2021-04-17] MEDS: LEVOTHYROXINE SODIUM 88 MCG TABLET PO SCH (05:56)
[2021-04-17] MEDS: UREA (UREA-NA) 15 GM PACK PO SCH ×3 (08:03→21:14)
[2021-04-17] MEDS: METOPROLOL SUCC 50MG EXT REL TAB PO SCH (08:03)
[2021-04-17] MEDS: SODIUM CHLORIDE 1 GM TABLET PO SCH ×4 (08:03→21:14)
[2021-04-17] MEDS: PANTOprazole 40 MG TAB PO SCH (08:04)
[2021-04-17] MEDS: CYANOCOBALAMIN 500 MCG TABLET (VITAMIN B-12) PO SCH (08:04)
[2021-04-17] MEDS: FUROSEMIDE 20 MG TAB PO SCH (08:04)
[2021-04-17] MEDS: lisinopril 2.5 MG TAB PO SCH (08:04)
[2021-04-17] MEDS: DULoxetine HCL 30 MG CAP PO SCH (08:05)
[2021-04-17] MEDS: POTASSIUM CHLORIDE CRTAB 20 MEQ TABCR PO SCH (08:06)
--- NOTE | 2021-04-17 08:26 | Hospitalist Progress Note ---
Date of Service April 17, 2021 Assessment & Plan (1) Nausea & vomiting: Present on admission with multiple episodes of vomiting associated with nausea Possibly related to COVID [address] abd/pelvis showed no bowel wall thickening or obstruction. 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 - per nursing staff pt does not tolerate urea-Na Tried Lasix 20 bid with k.cl 20 bid and Salt tab 1 gm bid. Now stopped lasix, cont. with increased sodium tabs Pt also now orthostatic Continue monitor BMP Weakness Mostly due to acute illness Continue PT/OT Fall precaution Likely discharge to rehab Left hip pain Failure of left total hip arthroplasty CT pelvis showed abnormal periprosthetic lucency at the acetabulum. The acetabular screw extends into the iliopsoas muscle. There appears to be abnormal periostitis at the left iliac wing which has progressed. There is also inflammatory change surrounding the left acetabulum with a possible small fluid collection at the tip of the screw and iliopsoas muscle.Findings are concerning for an infected prosthesis with possible abscess. A hematoma or foreign body reaction could also have a similar appearance. The periosteitis the left iliac wing could represent a chronic osteomyelitis. Continue pain control Ortho consulted Plan for hip aspiration to be done while inpatient and can follow-up with her surgeon for any further intervention Activity with toe-touch weightbearing on her left lower extremity and ambulation with an assistive device such as a walker. No additional cardiac testing requiring as per cardio Stable to proceed for the hip aspiration Spoke to ortho about the aspiration- Ortho said that it had to be done by radiology Spoke to radiology impersonator character that will try to aspirate it tomorrow via CT guided aspiration - 04/16/21 pt underwent L hip aspiration- 0.5 cc of fluid obtained, does not seem to be infected, final cultx pending Cardiac arrhythmia Multifocal atrial tachycardia Mostly due to electrolytes imbalance Initial EKG demonstrated sinus tach with frequent PAC's and possible short runs of multifocal atrial tach noted on telemetry in ER No definitive afib during admission per extensive review of telemetry as per cardio Continue metoprolol succinate 50mg daily Stable from cardiology standpoint Abnormal TSH TSH 4.9 Continue Levothyroxine Will check outpatient chart to see if Levothyroxine was changed recently Check TSH in 4 week Diabetes Blood glucose 153 this morning Hba1c 6.5 Will do lifestyle modification Tobacco abuse Counseling on smoking cessation DVT px On heparin subq Code status FULL CODE Admission and Anticipated Discharge Date Admission Date: April 14, 2021 Subjective Pt was seen and examined for follow up nausea and vomiting associated with weakness Her nausea and vomiting has resolved, however she still has poor appetite, she is eating very little She was seen by Occupational Therapy today, and was orthostatic, blood pressure on the lower side Lasix was discontinued by nephrology, as her sodium does not seem to be affected, instead sodium tablets were increased She feels weak, and not well, will give her small normal saline bolus Had her aspiration of left hip done w/ radiology yesterday - only small amount of fluid was aspirated 0.5 cc, likely not infected Denies any chest pain, palpitation, dizziness and SOB Review of Systems Review of Systems: All systems reviewed & are unremarkable except as noted in HPI & below Constitutional: + fatigue; no fever and no chills Respiratory: no cough and no dyspnea Cardiovascular: no chest pain and no palpitations Gastrointestinal: no abdominal pain, no nausea and no vomiting Physical Exam Physical Exam: General- WD/WN, slim elderly F, No acute distress Head- atraumatic Eyes- PERRL, EOMI, ENT- oropharynx clear Neck- supple, no JVD Lungs- clear to auscultation Heart- regular rhythm; no murmur Abdomen- normal bowel sounds, nontender Extremities- no calf tenderness, moves extremities Neuro- alert, oriented x 3; PERRL, EOMI; no facial palsy; no dysarthria Skin- warm & dry Results & Data Results & Data ([facility]) Vital Signs (Past 12 Hours) Vital Signs Temp Pulse Pulse Resp BP Pulse Ox 04/17/21 07:03 36.7 C 65 14 97/50 L 91 04/17/21 03:53 36.8 C 81 20 106/77 96 04/16/21 22:20 76 04/16/21 22:10 36.9 C 83 18 119/66 94 Laboratory Results 04/17/21 04/16/21 Range/Units 08:56 12:31 Sodium 127 L (136-145) mmol/L Potassium 4.0 (3.5-5.1) mmol/L Chloride 93 L (98-107) mmol/L Carbon Dioxide 27 (21-32) mmol/L Anion Gap 7.0 (3-11) BUN 15 (7-18) mg/dl Creatinine 0.91 (0.6-1.2) mg/dl Est Cr Clr Drug Dosing 44.8 ml/min Est GFR ( Amer) 73.6 ml/min Est GFR (Non-Af Amer) 63.5 ml/min BUN/Creatinine Ratio 16.7 (10-20) Glucose 111 H (70-99) mg/dl Calcium 8.9 (8.5-10.1) mg/dl Synovial Crystals Cancelled Medications Administered Current Inpatient Medications Acetaminophen (Acetaminophen 325 Mg Tab) 650 mg PO Q4H PRN PRN Reason: Pain or Fever Stop: 05/14/21 05:04 Last Admin: 04/14/21 14:44 Dose: 650 mg Documented by: Cyanocobalamin (Cyanocobalamin 500 Mcg Tablet (Vitamin B-12)) 1,000 mcg PO DAILY [facility] Stop: 05/14/21 08:59 Last Admin: 04/17/21 08:04 Dose: 1,000 mcg Documented by: Duloxetine HCl (Duloxetine Hcl 30 Mg Cap) 30 mg PO DAILY [facility] Stop: 05/14/21 08:59 Last Admin: 04/17/21 08:05 Dose: 30 mg Documented by: Furosemide (Furosemide 20 Mg Tab) 20 mg PO BID17 [facility] Stop: 05/15/21 08:59 Last Admin: 04/17/21 08:04 Dose: 20 mg Documented by: Heparin Sodium (Porcine) (Heparin Sod 5,000 Unit/0.5 Ml Vial) 5,000 units SQ Q12 [facility] Stop: 05/15/21 08:59 Last Admin: 04/15/21 21:27 Dose: 5,000 units Documented by: Lorazepam (Ativan) 0.25 mg in 0.5 mls @ 0.5 mls/min IV Q6H PRN PRN Reason: Anxiety Stop: 05/14/21 05:04 Promethazine HCl 6.25 mg/ (Sodium Chloride) 50.25 mls @ 201 mls/hr IV Q6H PRN PRN Reason: Nausea And Vomiting Stop: 05/14/21 05:04 Levothyroxine Sodium (Levothyroxine Sodium 88 Mcg Tablet) 88 mcg PO DAILYBB [facility] Stop: 05/14/21 06:29 Last Admin: 04/17/21 05:56 Dose: 88 mcg Documented by: Lisinopril (Lisinopril 2.5 Mg Tab) 2.5 mg PO DAILY [facility] Stop: 05/15/21 08:59 Last Admin: 04/17/21 08:04 Dose: 2.5 mg Documented by: Melatonin (Melatonin 3 Mg Tab) 6 mg PO HSZ PRN PRN Reason: Sleep Stop: 05/14/21 05:25 Last Admin: 04/16/21 22:18 Dose: 6 mg Documented by: Metoprolol Succinate (Metoprolol Succ 50mg Ext Rel Tab) 50 mg PO DAILY [facility] Stop: 05/15/21 08:59 Last Admin: 04/17/21 08:03 Dose: 50 mg Documented by: Morphine Sulfate (Morphine Sulfate Cr 60 Mg Tabcr) 60 mg PO Q8 [facility] Stop: 04/28/21 13:59 Last Admin: 04/17/21 05:56 Dose: 60 mg Documented by: Oxycodone HCl (Oxycodone Hcl Ir 5 Mg Tab (Immediate Release)) 5 mg PO QID PRN PRN Reason: Pain Stop: 04/28/21 05:04 Last Admin: 04/16/21 08:53 Dose: 5 mg Documented by: Pantoprazole Sodium (Pantoprazole 40 Mg Tab) 40 mg PO QAM [facility] Stop: 05/14/21 08:59 Last Admin: 04/17/21 08:04 Dose: 40 mg Documented by: Potassium Chloride (Potassium Chloride Crtab 20 Meq Tabcr) 20 meq PO BID [facility] Stop: 05/15/21 08:59 Last Admin: 04/17/21 08:06 Dose: 20 meq Documented by: Sennosides (Senna 8.6 Mg Tab) 8.6 mg PO BID PRN PRN Reason: Constipation Stop: 05/14/21 05:04 Last Admin: 04/14/21 09:23 Dose: 8.6 mg Documented by: Simvastatin (Simvastatin 10 Mg Tab) 10 mg PO HS [facility] Stop: 05/14/21 20:59 Last Admin: 04/16/21 20:04 Dose: 10 mg Documented by: Sodium Chloride (Sodium Chloride 1 Gm Tablet) 1 gm PO BID [facility] Stop: 05/15/21 08:59 Last Admin: 04/17/21 08:03 Dose: 1 gm Documented by: Urea (Urea (Ure-Na) 15 Gm Pack) 15 gm PO TID [facility] Stop: 05/15/21 08:59 Last Admin: 04/17/21 08:03 Dose: Not Given Documented by:
[2021-04-17] MEDS: HEPARIN SOD 5,000 UNIT/0.5 ML VIAL SQ SCH ×2 (09:00→21:14)
[2021-04-17 09:48] LABS: BUN Creatinine Ratio 16.7 (10-20); Calcium 8.9 mg/dl (8.5-10.1); Creatinine Clr Calc Pharmacy 44.8 ml/min; Est GFR (African American) 73.6 ml/min; Est GFR (Non-African American) 63.5 ml/min
--- NOTE | 2021-04-17 11:06 | Nephrology Progress Note ---
Date of Service April 17, 2021 Assessment & Plan Admission and Anticipated Discharge Date Admission Date: April 14, 2021 Subjective No new issues. Sodium still low. GENERAL: Elderly white female who actually looks more frail than her age. She is awake, alert, oriented x3. HEENT: Mucous membranes moist. NECK: Supple. No jugular venous distention. CHEST: Bilaterally clear to auscultation. CARDIOVASCULAR: S1, S2 regular. ABDOMEN: Soft, nontender. EXTREMITIES: Show no edema. NEUROLOGIC: She is awake, alert, oriented x3. Normal speech. SKIN: Shows no rashes. LABORATORY TESTS: na 127 today ASSESSMENT AND PLAN: A 70-year-old female with known chronic mild hyponatremia, admitted with nausea, vomiting, diarrhea of few days' duration. I have been consulted for hyponatremia and hypokalemia. 1. Hyponatremia. 2. Hypokalemia. The patient has a known issue with hyponatremia, chronic mild type, secondary to syndrome of inappropriate antidiuretic hormone. The patient was not eating any solid food prior to hospitalization, but she was still drinking a fair amount of liquid. In a patient with chronic syndrome of inappropriate antidiuretic hormone, such imbalance can drop sodium and I believe that is what has happened. At this point, there is no need of aggressive IV hydration. We can stop the IV fluid. RECOMMENDATIONS: 1. Somewhat low Urine osmolality--consistent with tea and [place] Syndrome with SIADH 2. Fluid restriction 1200 mL Now. 5. change the diet to regular diet. 6. Conitnue urea-na to 15 tid. 7 Will stop Lasix and k.cl . Raise Salt tab 1 gm tid. It may be in this range for some time. Despite various change in management na not really changing. As long as 126+ stable she can be discharged with outpt follow up. D/c On Salt tab and Fluid restriction 1200 ml. Results & Data ([facility]) Vital Signs (Past 12 Hours) Vital Signs Temp Pulse Resp BP Pulse Ox 04/17/21 07:03 36.7 C 65 14 97/50 L 91 04/17/21 03:53 36.8 C 81 20 106/77 96
[2021-04-17] MEDS: oxyCODONE HCL IR 5 MG TAB (IMMEDIATE RELEASE) PO PRN (12:21)
[2021-04-17] MEDS ORDERED: SODIUM CHLORIDE 0.9% 500 ML IV SCH (14:45)
[2021-04-17] MEDS: SIMVASTATIN 10 MG TAB PO SCH (21:14)
[2021-04-18] MEDS: MoRPHine SULFATE CR 60 MG TABCR PO SCH ×2 (05:12→13:59)
[2021-04-18] MEDS: LEVOTHYROXINE SODIUM 88 MCG TABLET PO SCH (05:13)
[2021-04-18 07:52] LABS: Hematocrit (blood only) 32.6 % (37-47); Hemoglobin 10.4 g/dL (12.0-16.0); Mean Corpuscular Hemoglobin 26.9 pg (25-34); Mean Corpuscular Hgb Conc 31.9 g/dL (32-36); Mean Corpuscular Volume 84.2 fL (80-100); Mean Platelet Volume 9.2 fL (7.4-10.4); Platelet Count 369 K/uL (130-400); RDW Coefficient of Variation 14.9 % (11.5-14.5); RDW Standard Deviation 45.8 fL (36.4-46.3); Red Blood Count 3.87 M/uL (4.2-5.4); White Blood Count 7.81 K/uL (4.8-10.8)
[2021-04-18] MEDS: METOPROLOL SUCC 50MG EXT REL TAB PO SCH (08:07)
[2021-04-18] MEDS: PANTOprazole 40 MG TAB PO SCH (08:07)
[2021-04-18] MEDS: DULoxetine HCL 30 MG CAP PO SCH (08:07)
[2021-04-18] MEDS: HEPARIN SOD 5,000 UNIT/0.5 ML VIAL SQ SCH (08:08)
[2021-04-18] MEDS: CYANOCOBALAMIN 500 MCG TABLET (VITAMIN B-12) PO SCH (08:08)
[2021-04-18] MEDS: UREA (UREA-NA) 15 GM PACK PO SCH ×2 (08:09→13:59)
[2021-04-18] MEDS: SODIUM CHLORIDE 1 GM TABLET PO SCH (08:09)
[2021-04-18 08:21] LABS: BUN Creatinine Ratio 14.5 (10-20); Calcium 8.8 mg/dl (8.5-10.1); Creatinine Clr Calc Pharmacy 55.6 ml/min; Est GFR (African American) 82.2 ml/min; Est GFR (Non-African American) 70.9 ml/min; Magnesium 1.7 mg/dl (1.8-2.4); Phosphorus 3.1 mg/dl (2.5-4.9); Potassium 3.8 mmol/L (3.5-5.1)
[2021-04-18] MEDS ORDERED: MAGNESIUM SULFATE / D5W 1 GM/100 ML BAG IV ONE (09:30)
[2021-04-18] MEDS ORDERED: SODIUM CHLORIDE 0.9% 500 ML IV SCH (09:30)
--- NOTE | 2021-04-18 09:33 | Hospitalist Progress Note ---
Date of Service April 18, 2021 Assessment & Plan (1) Nausea & vomiting: Present on admission with multiple episodes of vomiting associated with nausea Possibly related to COVID [address] abd/pelvis showed no bowel wall thickening or obstruction. 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 - per nursing staff pt does not tolerate urea-Na, also diff. to obtain as outpt Tried Lasix 20 bid with k.cl 20 bid and Salt tab 1 gm bid. Now stopped lasix, cont. with sodium tabs 1gm BID Pt was orthostatic - gave 500cc of NS, repeat orthostatics - resolved, BP improved Continue monitor BMP Current Na 129 - per nephrology - chronic ok as long Na 126+ Weakness Mostly due to acute illness Continue PT/OT Fall precaution Likely discharge to rehab/snf Left hip pain Failure of left total hip arthroplasty CT pelvis showed abnormal periprosthetic lucency at the acetabulum. The acetabular screw extends into the iliopsoas muscle. There appears to be abnormal periostitis at the left iliac wing which has progressed. There is also inflammatory change surrounding the left acetabulum with a possible small fluid collection at the tip of the screw and iliopsoas muscle.Findings are concerning for an infected prosthesis with possible abscess. A hematoma or foreign body reaction could also have a similar appearance. The periosteitis the left iliac wing could represent a chronic osteomyelitis. Continue pain control Ortho consulted Plan for hip aspiration to be done while inpatient and can follow-up with her surgeon (Dr. Anthony) for any further intervention Activity with toe-touch weightbearing on her left lower extremity and ambulation with an assistive device such as a walker. No additional cardiac testing requiring as per cardio Stable to proceed for the hip aspiration CT guided aspiration - 04/16/21 pt underwent L hip aspiration - 0.5 cc of fluid obtained Per orthopedics, not likely infected given such a small amount of fluid. Culture does not show any bacteria however many WBCs, follow-up final cultures Cardiac arrhythmia Multifocal atrial tachycardia Mostly due to electrolytes imbalance Initial EKG demonstrated sinus tach with frequent PAC's and possible short runs of multifocal atrial tach noted on telemetry in ER No definitive afib during admission per extensive review of telemetry as per cardio Continue metoprolol succinate 50mg daily Stable from cardiology standpoint Abnormal TSH TSH 4.9 Continue Levothyroxine Will check outpatient chart to see if Levothyroxine was changed recently Check TSH in 4 week Diabetes Blood glucose 153 this morning Hba1c 6.5 Will do lifestyle modification Tobacco abuse Counseling on smoking cessation DVT px On heparin subq Code status FULL CODE Admission and Anticipated Discharge Date Admission Date: April 14, 2021 Subjective Pt was seen and examined for follow up nausea and vomiting associated with weakness Her nausea and vomiting has resolved, however she still has poor appetite, she is eating very little She was seen by Occupational Therapy yesterday, and was orthostatic, gave 500 cc of NS Blood pressure now seems improved, will repeat orthostatics now -patient is no longer orthostatic Feeling fatigued, says that she always has difficulty with sleep Lasix was discontinued by nephrology, as her sodium does not seem to be affected, instead sodium tablets were increased Current Na 129 Denies any chest pain, palpitation, shortness of breath, or dizziness Review of Systems Review of Systems: All systems reviewed & are unremarkable except as noted in HPI & below Constitutional: + fatigue; no fever and no chills Respiratory: no cough and no dyspnea Cardiovascular: no chest pain and no palpitations Gastrointestinal: no abdominal pain, no nausea and no vomiting Physical Exam Physical Exam: General- WD/WN, slim elderly F, No acute distress Head- atraumatic Eyes- PERRL, EOMI, ENT- oropharynx clear Neck- supple, no JVD Lungs- clear to auscultation Heart- regular rhythm; no murmur Abdomen- normal bowel sounds, nontender Extremities- no calf tenderness, moves extremities Neuro- alert, oriented x 3; PERRL, EOMI; no facial palsy; no dysarthria Skin- warm & dry Results & Data Results & Data ([facility]) Vital Signs (Past 12 Hours) Vital Signs Temp Pulse Pulse Resp BP Pulse Ox 04/18/21 03:58 36.6 C 66 18 108/59 L 93 04/17/21 23:27 68 04/17/21 23:26 36.8 C 66 18 92/53 L 93 Laboratory Results 04/18/21 04/18/21 04/18/21 Range/Units 09:14 09:14 07:27 WBC (4.8-10.8) K/uL RBC (4.2-5.4) M/uL Hgb (12.0-16.0) g/dL Hct (37-47) % MCV (80-100) fL MCH (25-34) pg MCHC (32-36) g/dL RDW Std Deviation (36.4-46.3) fL RDW Coeff of Main (11.5-14.5) % Plt Count (130-400) K/uL MPV (7.4-10.4) fL Sodium 129 L (136-145) mmol/L Potassium 3.8 (3.5-5.1) mmol/L Chloride 95 L (98-107) mmol/L Carbon Dioxide 26 (21-32) mmol/L Anion Gap 8.0 (3-11) BUN 12 (7-18) mg/dl Creatinine 0.83 (0.6-1.2) mg/dl Est Cr Clr Drug Dosing 55.6 ml/min Est GFR ( Amer) 82.2 ml/min Est GFR (Non-Af Amer) 70.9 ml/min BUN/Creatinine Ratio 14.5 (10-20) Glucose 118 H (70-99) mg/dl Calcium 8.8 (8.5-10.1) mg/dl Phosphorus 3.1 (2.5-4.9) mg/dl Magnesium 1.7 L (1.8-2.4) mg/dl COVID-19 Eval Order Covid19 [facility]Now [facility] SARS-CoV-2, RNA, NAAT Pending 04/18/21 04/17/21 Range/Units 07:27 08:56 WBC 7.81 (4.8-10.8) K/uL RBC 3.87 L (4.2-5.4) M/uL Hgb 10.4 L (12.0-16.0) g/dL Hct 32.6 L (37-47) % MCV 84.2 (80-100) fL MCH 26.9 (25-34) pg MCHC 31.9 L (32-36) g/dL RDW Std Deviation 45.8 (36.4-46.3) fL RDW Coeff of Main 14.9 H (11.5-14.5) % Plt Count 369 (130-400) K/uL MPV 9.2 (7.4-10.4) fL Sodium 127 L (136-145) mmol/L Potassium 4.0 (3.5-5.1) mmol/L Chloride 93 L (98-107) mmol/L Carbon Dioxide 27 (21-32) mmol/L Anion Gap 7.0 (3-11) BUN 15 (7-18) mg/dl Creatinine 0.91 (0.6-1.2) mg/dl Est Cr Clr Drug Dosing 44.8 ml/min Est GFR ( Amer) 73.6 ml/min Est GFR (Non-Af Amer) 63.5 ml/min BUN/Creatinine Ratio 16.7 (10-20) Glucose 111 H (70-99) mg/dl Calcium 8.9 (8.5-10.1) mg/dl Phosphorus (2.5-4.9) mg/dl Magnesium (1.8-2.4) mg/dl COVID-19 Eval Order SARS-CoV-2, RNA, NAAT Medications Administered Current Inpatient Medications Acetaminophen (Acetaminophen 325 Mg Tab) 650 mg PO Q4H PRN PRN Reason: Pain or Fever Stop: 05/14/21 05:04 Last Admin: 04/14/21 14:44 Dose: 650 mg Documented by: Cyanocobalamin (Cyanocobalamin 500 Mcg Tablet (Vitamin B-12)) 1,000 mcg PO DAILY [facility] Stop: 05/14/21 08:59 Last Admin: 04/18/21 08:08 Dose: 1,000 mcg Documented by: Duloxetine HCl (Duloxetine Hcl 30 Mg Cap) 30 mg PO DAILY [facility] Stop: 05/14/21 08:59 Last Admin: 04/18/21 08:07 Dose: 30 mg Documented by: Heparin Sodium (Porcine) (Heparin Sod 5,000 Unit/0.5 Ml Vial) 5,000 units SQ Q12 [facility] Stop: 05/15/21 08:59 Last Admin: 04/18/21 08:08 Dose: 5,000 units Documented by: Lorazepam (Ativan) 0.25 mg in 0.5 mls @ 0.5 mls/min IV Q6H PRN PRN Reason: Anxiety Stop: 05/14/21 05:04 Promethazine HCl 6.25 mg/ (Sodium Chloride) 50.25 mls @ 201 mls/hr IV Q6H PRN PRN Reason: Nausea And Vomiting Stop: 05/14/21 05:04 Magnesium Sulfate/Dextrose (Magnesium Sulfate / D5w) 1 gm in 100 mls @ 50 mls/hr IV NOW ONE Stop: 04/18/21 11:29 Sodium Chloride (Nss) 500 mls @ 80 mls/hr IV .Q6H15M [facility] Stop: 05/18/21 09:29 Levothyroxine Sodium (Levothyroxine Sodium 88 Mcg Tablet) 88 mcg PO DAILYBB [facility] Stop: 05/14/21 06:29 Last Admin: 04/18/21 05:13 Dose: 88 mcg Documented by: Melatonin (Melatonin 3 Mg Tab) 6 mg PO HSZ PRN PRN Reason: Sleep Stop: 05/14/21 05:25 Last Admin: 04/16/21 22:18 Dose: 6 mg Documented by: Metoprolol Succinate (Metoprolol Succ 50mg Ext Rel Tab) 50 mg PO DAILY [facility] Stop: 05/15/21 08:59 Last Admin: 04/18/21 08:07 Dose: 50 mg Documented by: Morphine Sulfate (Morphine Sulfate Cr 60 Mg Tabcr) 60 mg PO Q8 [facility] Stop: 04/28/21 13:59 Last Admin: 04/18/21 05:12 Dose: 60 mg Documented by: Oxycodone HCl (Oxycodone Hcl Ir 5 Mg Tab (Immediate Release)) 5 mg PO QID PRN PRN Reason: Pain Stop: 04/28/21 05:04 Last Admin: 04/17/21 12:21 Dose: 5 mg Documented by: Pantoprazole Sodium (Pantoprazole 40 Mg Tab) 40 mg PO QAM [facility] Stop: 05/14/21 08:59 Last Admin: 04/18/21 08:07 Dose: 40 mg Documented by: Sennosides (Senna 8.6 Mg Tab) 8.6 mg PO BID PRN PRN Reason: Constipation Stop: 05/14/21 05:04 Last Admin: 04/14/21 09:23 Dose: 8.6 mg Documented by: Simvastatin (Simvastatin 10 Mg Tab) 10 mg PO HS [facility] Stop: 05/14/21 20:59 Last Admin: 04/17/21 21:14 Dose: 10 mg Documented by: Sodium Chloride (Sodium Chloride 1 Gm Tablet) 1 gm PO TID [facility] Stop: 05/17/21 11:14 Last Admin: 04/18/21 08:09 Dose: 1 gm Documented by: Urea (Urea (Ure-Na) 15 Gm Pack) 15 gm PO TID [facility] Stop: 05/15/21 08:59 Last Admin: 04/18/21 08:09 Dose: Not Given Documented by:
--- NOTE | 2021-04-18 10:13 | Nephrology Progress Note ---
Date of Service April 18, 2021 Assessment & Plan Admission and Anticipated Discharge Date Admission Date: April 14, 2021 Subjective No new issues. Sodium still low but up a bit. GENERAL: Elderly white female who actually looks more frail than her age. She is awake, alert, oriented x3. HEENT: Mucous membranes moist. NECK: Supple. No jugular venous distention. CHEST: Bilaterally clear to auscultation. CARDIOVASCULAR: S1, S2 regular. ABDOMEN: Soft, nontender. EXTREMITIES: Show no edema. NEUROLOGIC: She is awake, alert, oriented x3. Normal speech. SKIN: Shows no rashes. LABORATORY TESTS: na 129 today ASSESSMENT AND PLAN: A 70-year-old female with known chronic mild hyponatremia, admitted with nausea, vomiting, diarrhea of few days' duration. I have been consulted for hyponatremia and hypokalemia. 1. Hyponatremia. 2. Hypokalemia. The patient has a known issue with hyponatremia, chronic mild type, secondary to syndrome of inappropriate antidiuretic hormone. The patient was not eating any solid food prior to hospitalization, but she was still drinking a fair amount of liquid. In a patient with chronic syndrome of inappropriate antidiuretic hormone, such imbalance can drop sodium and I believe that is what has happened. At this point, there is no need of aggressive IV hydration. We can stop the IV fluid. RECOMMENDATIONS: 1. Somewhat low Urine osmolality--consistent with tea and [place] Syndrome with SIADH 2. Fluid restriction 1200 mL Now. 5. change the diet to regular diet. 6. Stop Urea-Na at discharge--Impossible to get outpt--insurance and cost issues 7 Continue Salt tab 2 gm bid. It may be in this range for some time. Despite various change in management na not really changing. As long as 126+ stable she can be discharged with outpt follow up. D/c On Salt tab 2 gm bid and Fluid restriction 1200 ml. Results & Data ([facility]) Vital Signs (Past 12 Hours) Vital Signs Temp Pulse Pulse Resp BP BP Pulse Ox 04/18/21 08:00 36.6 C 64 18 95/56 L 92 04/18/21 03:58 36.6 C 66 18 108/59 L 93 04/17/21 23:27 68 04/17/21 23:26 36.8 C 66 18 92/53 L 93
--- NOTE | 2021-04-18 12:24 | Discharge Summary ---
Date of Service April 18, 2021 Admission HPI Per Admitting Provider History obtained from patient and records. Medical history significant for hypertension, COPD, ongoing tobacco abuse, IBS as per records, chronic pain on narcotics, mood disorder, hypothyroidism, chronic hyponatremia/SIADH as per records, history convulsions, history infected left PARKER, chronic anemia (baseline hemoglobin 9-10). Last confinement December 2020 for UTI, COVID-19 illness. Patient received the second dose of her Covid 19 vaccine few days ago. Patient subsequently noted achy abdominal pain, nausea, vomiting, diarrhea symptoms. No chest pain, no S OB, no unusual cough symptoms. Fever chills at home as per patient. Worsening left hip pain after falling down at home. Patient consulted ER for evaluation. Upon arrival at the ER, hall monitor noted rapid A. fib in the 150s. Patient current rhythm sinus tachycardia. Medical History as above Patient has been seeing [facility] [address] asset recovery specialist at [place] (Dr. Anthony) the last few months for worsening left hip pain. Concern for infected fluid collection as per patient. Outpatient left hip fluid drainage contemplated 2 weeks from now as per patient. Surgical History : Hip replacement, NICHOLAS Family History : Heart disease, neuropathy Personal/Social history : 3 cigarettes a day, no EtOH intake, retired from [employer] work Admission Exam Per Admitting Provider GENERAL: Uncomfortable, slightly hard of hearing, no respiratory distress SKIN: Pallor, warm HEENT: Pale palpebral conjunctivae, no ptosis, dry buccal mucosa NECK : Supple, no tenderness CHEST : Decreased breath sounds, no tenderness HEART : Tachycardic, no obvious murmurs ABDOMEN: Some distention, nontender EXTREMITIES : No LE swelling, left hip tenderness, no other conspicuous deformities noted NEUROLOGIC : Coherent, no facial asymmetry, slightly hard of hearing, no other gross focality Principal Diagnosis Nausea, vomiting, weakness Hypokalemia, hyponatremia Left hip pain, ambulatory dysfunction Discharge Exam General- WD/WN, slim elderly F, No acute distress Head- atraumatic Eyes- PERRL, EOMI, ENT- oropharynx clear Neck- supple, no JVD Lungs- clear to auscultation Heart- regular rhythm; no murmur Abdomen- normal bowel sounds, nontender Extremities- no calf tenderness, moves extremities Neuro- alert, oriented x 3; PERRL, EOMI; no facial palsy; no dysarthria Skin- warm & dry Discharge Data Allergies Allergy/AdvReac Type Severity Reaction Status Date / Time bupropion Allergy Unknown Unknown Verified 04/14/21 03:01 nicotine [From Nicorette] Allergy Unknown Unknown Verified 04/18/21 09:38 Penicillins Allergy Unknown Unknown Verified 04/14/21 03:01 gabapentin [From Neurontin] AdvReac Unknown Nausea Verified 04/14/21 03:01 latex AdvReac Unknown unknown Verified 04/14/21 03:01 Sulfa (Sulfonamide AdvReac Unknown unknown Verified 04/14/21 03:01 Antibiotics) Consultations 04/14/21 02:33 ED Decision to Admit Stat 04/14/21 03:51 Consult Orthopedic Surgery Routine 04/14/21 04:01 Consult Cardiology Routine 04/14/21 04:04 Consult Health Information Management Routine 04/14/21 10:35 Consult Nephrology Routine Ordered Studies 04/13/21 23:22 CT abd pelvis IV con only Urgent IMPRESSION: 1. No bowel wall thickening or obstruction. 2. There is abnormal periprosthetic lucency at the acetabulum. The acetabular screw extends into the iliopsoas muscle. There appears to be abnormal periostitis at the left iliac wing which has progressed. There is also inflammatory change surrounding the left acetabulum with a possible small fluid collection at the tip of the screw and iliopsoas muscle. Findings are concerning for an infected prosthesis with possible abscess. A hematoma or foreign body reaction could also have a similar appearance. The periosteitis the left iliac wing could represent a chronic osteomyelitis. Follow-up orthopedic consultation recommended. 3. Healing left inferior pubic ramus fracture. 4. Additional findings as described above. CT head/brain wo con Urgent Impression: No acute intracranial abnormality. 04/16/21 06:00 FL inj majr joint sh,hip,kn LT Routine Hospital Course (1) Nausea & vomiting: Present on admission with multiple episodes of vomiting associated with nausea Possibly related to COVID [address] abd/pelvis showed no bowel wall thickening or obstruction. 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 - per nursing staff pt does not tolerate urea-Na, also diff. to obtain as outpt Tried Lasix 20 bid with k.cl 20 bid and Salt tab 1 gm bid. Now stopped lasix, cont. with sodium tabs 1gm BID Pt was orthostatic - gave 500cc of NS, repeat orthostatics - resolved, BP improved Continue monitor BMP Current Na 129 - per nephrology - chronic ok as long Na 126+ Weakness Mostly due to acute illness Continue PT/OT Fall precaution Likely discharge to rehab/snf Left hip pain Failure of left total hip arthroplasty CT pelvis showed abnormal periprosthetic lucency at the acetabulum. The acetabular screw extends into the iliopsoas muscle. There appears to be abnormal periostitis at the left iliac wing which has progressed. There is also inflammatory change surrounding the left acetabulum with a possible small fluid collection at the tip of the screw and iliopsoas muscle.Findings are concerning for an infected prosthesis with possible abscess. A hematoma or foreign body reaction could also have a similar appearance. The periosteitis the left iliac wing could represent a chronic osteomyelitis. Continue pain control Ortho consulted Plan for hip aspiration to be done while inpatient and can follow-up with her surgeon (Dr. Anthony) for any further intervention Activity with toe-touch weightbearing on her left lower extremity and ambulation with an assistive device such as a walker. No additional cardiac testing requiring as per cardio Stable to proceed for the hip aspiration CT guided aspiration - 04/16/21 pt underwent L hip aspiration - 0.5 cc of fluid obtained Per orthopedics, not likely infected given such a small amount of fluid. Culture does not show any bacteria however many WBCs, follow-up final cultures Cardiac arrhythmia Multifocal atrial tachycardia Mostly due to electrolytes imbalance Initial EKG demonstrated sinus tach with frequent PAC's and possible short runs of multifocal atrial tach noted on telemetry in ER No definitive afib during admission per extensive review of telemetry as per cardio Continue metoprolol succinate 50mg daily Stable from cardiology standpoint Abnormal TSH TSH 4.9 Continue Levothyroxine Will check outpatient chart to see if Levothyroxine was changed recently Check TSH in 4 week Diabetes Blood glucose 153 this morning Hba1c 6.5 Will do lifestyle modification Tobacco abuse Counseling on smoking cessation Code status FULL CODE Total Time Total Time Spent Total Time Spent (In Minutes): 40 Total Time Includes: Examination of the Patient, Discharge Planning, Medication Reconciliation and Communication With Other Providers Discharge Plan Discharge Items Patient Disposition: Transfer [facility] Reason For Visit: HYPONATREMIA Discharge Diagnosis: Nausea, vomiting, weakness Hypokalemia, hyponatremia Left hip pain, ambulatory dysfunction Activity: Per Instructions section Non-emergency contact: Primary Care Provider Call non-emergency contact if: you have any medication questions and your symptoms worsen Follow-up/Referrals: Myrna Munguia [Primary Care Provider] - Diet: Regular Fluids: 1200ml (5 cups) Addtl Attending Provider Instructions: Patient has a long history of hyponatremia, it is encouraged that patient has regular food, possibly higher salt intake, and lower fluid intake. At this time recommend fluid restriction to 1200 to 1500 cc. Patient was also started on sodium tablets, 1 g twice daily. Recommend to monitor BMP as outpatient. Please obtain next labs within 1 week. For now do not take lisinopril, as your blood pressures been on the lower side. Monitor your blood pressure and keep a log of these numbers. Discuss further with your primary care doctors. You should follow-up with your primary care physician within 1 to 2 weeks. We will contact your orthopedic surgeon as well, so he can follow-up on the final culture from your hip aspiration. You should follow-up with your orthopedic surgeon within the next several days. Pending Studies at Discharge: Yes Studies:: Final culture from hip aspiration Stand-Alone Forms: My [facility] Skilled Items Patient informed of condition?: Yes DNR: No Discharge Level of Care: Skilled Communicable Disease: No Discharge Prognosis: Stable Lines: None Urinary Catheter: No Medications and DC Order Prescriptions: New sodium chloride 1 gram Tablet 2 g PO TID 30 Days Qty: 180 RF: 0 multivitamin Tablet 1 tab PO DAILY Qty: 30 RF: 0 melatonin 10 mg tablet 10 mg PO HS PRN (Reason: sleep) Qty: 30 RF: 0 Continued oxycodone 5 mg tablet 5 mg PO BID PRN (Reason: Pain) RF: 0 ondansetron HCl 4 mg tablet 4 mg PO Q8 PRN (Reason: Nausea) RF: 0 metoprolol succinate 50 mg tablet extended release 24 hr 50 mg PO DAILY RF: 0 sennosides 8.6 mg Tablet 8.6 mg PO BID PRN (Reason: Constipation) RF: 0 simvastatin 10 mg tablet 10 mg PO HS RF: 0 levothyroxine 88 mcg tablet 88 mcg PO DAILYBB RF: 0 omeprazole 20 mg capsule,delayed release(DR/EC) 20 mg PO QAM RF: 0 duloxetine 30 mg capsule,delayed release(DR/EC) 30 mg PO DAILY RF: 0 cyanocobalamin (vitamin B-12) [Vitamin B-12] 1,000 mcg Tablet 1,000 mcg PO DAILY RF: 0 melatonin 5 mg Tablet 5 mg PO HS RF: 0 morphine 60 mg tablet extended release 60 mg PO TID Qty: 9 RF: 0 furosemide 20 mg tablet 20 mg PO TUTHSA RF: 0 Discontinued lisinopril 2.5 mg Tablet 2.5 mg PO DAILY RF: 0 Discharge Orders: Discharge Order (Routine); Ordered 04/18/21 Ordered By: Munir Moss/Nguyễn Patient Handouts: A1C Admission Data Admit Date/Time: 04/14/21 03:38 Attending Provider: Munir Palmer Admit Provider: Andre Humphrey Primary Care Provider: Myrna Munguia Other Providers: Andre Humphrey ; Barrington Pacheco ; Austen Cota ; Saurabh De La Rosa ; Kaycee Jones ; Babak Billings ; Emeli Lyon ; Donnie Dean ; Kang Brown ; Des Allen Andrew J. ; Kang Salamanca ; Francis Recinos ; Harpreet Farris ; Rosales Wilkerson ; Riki Sanchez ; Emeli Mix ; Jude Steen ; Simone Sanchez ; Marilyn Allen ; Zhou Arreola ; Paulina Hutton ; Mateusz Venegas ; Jf Ngo ; Britton Siddiqui ; Babak Barger ; Francis Laws ; Des Arita ; Madiha Whitley ; Penny Redd ; Jazz Calvert ; Ivan Sanchez ; Bonifacio Smith ; Brandy Olmstead ; [facility] ; [facility],
[2021-04-18] MEDS ORDERED: SODIUM CHLORIDE 1 GM TABLET PO SCH (14:00)
== END 2021-04-18 16:33 | DRG 644 ==
LOC: ED 23:14 → 2N 04-14 03:38 → SUATTDRO 04-14 03:38 → 2N 04-14 04:33 → 2S 04-14 05:45

== ENCOUNTER 2022-08-26 10:07 | Observation (INO) ==
[2022-08-26 10:48] LABS: Basophils # (auto) 0.04 K/uL (0-0.2); Basophils % (auto) 0.3 %; Eosinophils # (auto) 0.04 K/uL (0-0.50); Eosinophils % (auto) 0.3 %; Hematocrit (blood only) 33.9 % (34.1-44.9); Hemoglobin 11.3 g/dl (12.0-16.0); Immature Granulocytes # (auto) 0.05 K/uL (0.00-0.02); Immature Granulocytes % (auto) 0.4 %; Lymphocytes % (auto) 19.9 %; Mean Corpuscular Hemoglobin 28.3 pg (25.0-34.0); Mean Corpuscular Hgb Conc 33.3 g/dL (32.0-36.0); Mean Platelet Volume 10.1 fL (9.4-12.3); Monocytes # (auto) 0.73 K/uL (0.24-0.82); Monocytes % (auto) 5.8 %; Neutrophils # (auto) 9.19 K/uL (1.4-6.5); Neutrophils % (auto) 73.3 %; Platelet Count 385 K/uL (130-400); RDW Standard Deviation 43.1 fL (36.4-46.3); Red Blood Count 3.99 M/uL (3.93-5.22); White Blood Count 12.55 K/ul (4.8-10.8)
--- NOTE | 2022-08-26 11:14 | Electrocardiogram Report ---
Test Reason : Blood Pressure : / mmHG Vent. Rate : 096 BPM Atrial Rate : 096 BPM P-R Int : 142 ms QRS Dur : 072 ms QT Int : 528 ms P-R-T Axes : 089 -23 075 degrees QTc Int : 667 ms Possible wandering atrial pacemaker Low voltage QRS Old Inferior infarct (cited on or before 19-AUG-2017) Abnormal ECG When compared with ECG of 20-DEC-2021 04:34, Wandering trial pacemaker replaces ectopic atrial rhythm Confirmed by Reyes Dowell ([id number]) on 08/26/2022 11:14:46 AM Referred By: Confirmed By:Reyes Dowell
[2022-08-26 11:17] LABS: Albumin Globulin Ratio 0.9 (0.9-2); Albumin Level 3.6 gm/dl (3.4-5.0); BUN Creatinine Ratio 4.5 (10-20); Bilirubin,Total 0.8 mg/dl (0.2-1.0); Calcium 9.2 mg/dl (8.5-10.1); Creatinine Clr Calc Pharmacy 29.1 ml/min; Est GFR (African American) 45.4 ml/min; Est GFR (Non-African American) 39.2 ml/min; Globulin 3.8 gm/dl (2.5-4.0); Potassium 2.2 mmol/L (3.5-5.1); Total Protein 7.4 gm/dl (6.0-8.3)
[2022-08-26] MEDS ORDERED: POTASSIUM CHLORIDE CRTAB 20 MEQ TABCR PO STA ×2 (11:23→21:11)
[2022-08-26] MEDS: SODIUM CHLORIDE 0.9% 1000ML 1,000 ML IV SCH ×2 (11:27→17:52)
[2022-08-26] MEDS: POTASSIUM CHLORIDE / WTR 10 MEQ/100 ML PLCT IV SCH ×2 (11:44→15:39)
--- NOTE | 2022-08-26 12:21 | History & Physical Report ---
Date of Service August 26, 2022 Assessment & Plan (1) Acute hypokalemia: Plan: Chronic poor PO intake from nausea and vomiting. Potassium replacement started in the ER and will repeat BMP this afternoon. Check mag and repeat potassium this afternoon. Pt not using lasix. (2) Ectopic atrial rhythm: Plan: Noted to have wandering atrial pacemaker on admission EKG. She has no known cardiac history and EF >70% on recent echo Apr 2021. Record review reveals EKG from Dec 2021 with possible ectopic atrial rhythm and occasional PVCs. She is asymptomatic from a cardiac standpoint at this time but did report some chest pressure overnight. Will add troponin to labs and continue correcting electrolytes. (3) Acute kidney failure: Plan: Likely related to poor PO intake. Repeat creatinine is improved after IVf. (4) Nausea & vomiting: Plan: Uncertain cause, although long-standing narcotic use is a thought, other etiologies are possible. Doubt infectious etiology with the timing and also, she is having no lower GI symptoms and no fever. She is currently asking for food. Cont to monitor progress. Antiemetics as needed. (5) COPD (chronic obstructive pulmonary disease): Plan: chronic, stable. No active wheezing. (6) Hypothyroidism: Plan: Chronic, no recent TSH. Will add this now. (7) Smoking: Plan: Reports to smoke 1/2 cigarette daily. Smoking cessation recommended. (8) Anemia: Plan: chronic, stable at baseline. (9) DVT prophylaxis: Plan: Heparin Full Code Dispo-to home once potassium corrected and tolerating PO reliably. DO [facility] History of Present Illness Chief Complaint: low potassium Primary Care Provider: Myrna Munguia 72 yo F who reports nausea/vomiting for 4 weeks with vomiting for the first week (sick for total one month). Reports regular BMs. Wears depends for urinary incontinence. Did notice stool incontinence once three days ago which was shocker to her. Chronic pain in hips and her baseline ability to ambulate is to walk with a cane and walker. She has been subsisting on crackers for the past few weeks. She drinks coca cola which helps to settle her stomach. No CP, SOB, headaches. Last night she felt a pressure in her chest which lasted a couple of hours and spontaneously resolved and states this comes after many nights of having insomnia. Takes trazodone and melatonin. Reports that she is on little sleep right now. To help her nausea, she decreased her narcotics as follows: morphine went from 3 to 2 per day oxycodone for breakthrough-brought it down from 2 per day to 1 per day no other medication changes, but this was not successful. Has been taking ondansetron three times daily and feels it is not working as well as it had been for her nausea previously. She went to see her PCP, Dr. Munguia, who jarred labwork on her on 08/25 and was sent to the ER for a K of 2.2. She notably denies any use of furosemide even though this was on an original medication list. Today, she is generally weak and is asking for tomato soup. She is worried for her cat and wants to go home nati. She lives alone. She was given IV and PO potassium and also a liter of fluids to treat her hypokalemia and acute renal failure, respectively. Allergies Allergy/AdvReac Type Severity Reaction Status Date / Time bupropion Allergy Unknown Unknown Verified 04/14/21 03:01 nicotine [From Nicorette] Allergy Unknown Unknown Verified 04/18/21 09:38 Penicillins Allergy Unknown Unknown Verified 04/14/21 03:01 gabapentin [From Neurontin] AdvReac Unknown Nausea Verified 04/14/21 03:01 latex AdvReac Unknown unknown Verified 04/14/21 03:01 Sulfa (Sulfonamide AdvReac Unknown unknown Verified 04/14/21 03:01 Antibiotics) Home Medications Medication Instructions Recorded Confirmed Type duloxetine 30 mg capsule,delayed 30 mg PO DAILY 09/08/19 08/26/22 History release levothyroxine 88 mcg tablet 88 mcg PO DAILYBB 09/08/19 08/26/22 History melatonin 5 mg tablet 5 mg PO HS 09/08/19 08/26/22 History sennosides 8.6 mg tablet 8.6 mg PO BID PRN Constipation 09/08/19 08/26/22 History simvastatin 10 mg tablet 10 mg PO HS 09/08/19 08/26/22 History morphine 60 mg tablet,extended 60 mg PO TID #9 tabs 09/22/19 08/26/22 Rx release oxycodone 5 mg tablet 5 mg PO BID PRN Pain 10/24/19 08/26/22 History metoprolol succinate 50 mg 50 mg PO DAILY 12/16/20 08/26/22 History tablet,extended release 24 hr ondansetron HCl 4 mg tablet 4 mg PO Q8 PRN Nausea 12/16/20 08/26/22 History trazodone 100 mg tablet 100 mg PO HS 08/26/22 08/26/22 History Past Med/Surg History Medical History Acute UTI Anemia Anxiety Avascular necrosis of bone of left hip Chronic back pain COPD (chronic obstructive pulmonary disease) Depression DJD (degenerative joint disease) Fluid collection at surgical site Hypertension Hypokalemia Hyponatremia Hypothyroidism Nausea & vomiting Osteoporosis Post-operative complication SIADH (syndrome of inappropriate ADH production) Surgical History History of hysterectomy History of total left hip arthroplasty Family History (Updated 08/26/22 @ 12:20 by Sondra Trevizo DO) Father Arrhythmia Other Family history non-contributory Social History (Updated 08/26/22 @ 12:21 by Sondra Trevizo DO) Smoking Status: Current every day smoker Tobacco Type: Cigarettes Second Hand Exposure: No; Hx Alcohol Use: Yes Alcohol type: beer Alcohol Intake Frequency: Monthly or Less Hx Substance Use: No Preferred Language: Korean Communication Ability: Effective 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 Physical Exam Physical Exam: CONSTITUTIONAL: thin, frail, vitals as above, generally well- appearing, NAD EYES: pupils are round and equal bilaterally, normal conjunctivae ENT: external ear and nose normal, MMM NECK: trachea midline RESPIRATORY: clear to auscultation bilaterally with decreased breath sounds at the bases bilaterally, no crackles, rales or wheezes, normal respiratory effort CARDIOVASCULAR: regular rate and rhythm, S1 and 2 heard without murmurs, gallops or rubs, no JVD, no peripheral edema CHEST: inspection of chest was normal GASTROINTESTINAL: soft, nontender, ND, no guarding MUSCULOSKELETAL: strength 5/5 throughout, head is normocephalic and atraumatic, neck supple, normal palpation of chest wall without tenderness SKIN: warm and dry NEUROLOGIC: CN 2-12 grossly intact, no sensory deficit, normal cognition, normal speech, no tremor PSYCHIATRIC: alert cooperative and oriented to person, place and time. Euthymic mood, makes good eye contact, language grossly intact, recent and remote memory grossly intact. Results & Data Results & Data ([facility]) Vital Signs (Past 12 Hours) Vital Signs Temp Pulse Resp BP Pulse Ox O2 Del Method 08/26/22 11:00 90 19 123/74 92 08/26/22 10:30 81 20 127/80 93 08/26/22 10:07 37.7 C H 98 H 22 127/77 96 Room Air Laboratory Results Short CBC 08/26/22 Range/Units 10:25 WBC 12.55 H (4.8-10.8) K/ul Hgb 11.3 L (12.0-16.0) g/dl Hct 33.9 L (34.1-44.9) % Plt Count 385 (130-400) K/uL BMP 08/26/22 10:25 Sodium 133 L Potassium 2.2 L* Chloride 89 L Carbon Dioxide 31 BUN 6 Creatinine 1.34 H Glucose 113 H Calcium 9.2 Liver Function 08/26/22 Range/Units 10:25 Total Bilirubin 0.8 (0.2-1.0) mg/dl AST 11 L (13-39) U/L ALT 4 L (7-52) U/L Alkaline Phosphatase 90 (34-104) U/L Albumin 3.6 (3.4-5.0) gm/dl Medications Administered Current Inpatient Medications Acetaminophen (Acetaminophen 325 Mg Tab) 650 mg PO Q4H PRN PRN Reason: Pain or Fever Stop: 09/25/22 15:10 Duloxetine HCl (Duloxetine Hcl 30 Mg Cap) 30 mg PO DAILY PARISA Stop: 09/26/22 08:59 Heparin Sodium (Porcine) (Heparin Sod 5,000 Unit/0.5 Ml Vial) 5,000 units SQ Q12 PARISA Stop: 09/25/22 20:59 Sodium Chloride (Nss 1000ml) 1,000 mls @ 125 mls/hr IV .Q8H PARISA Stop: 09/25/22 11:14 Last Admin: 08/26/22 11:27 Dose: 125 mls/hr Levothyroxine Sodium (Levothyroxine Sodium 88 Mcg Tablet) 88 mcg PO DAILYBB PARISA Stop: 09/26/22 06:29 Melatonin (Melatonin 3 Mg Tab) 3 mg PO HSZ PARISA Stop: 09/25/22 21:59 Metoprolol Succinate (Metoprolol Succ 50mg Ext Rel Tab) 50 mg PO DAILY PARISA Stop: 09/26/22 08:59 Morphine Sulfate (Morphine Sulfate Cr 60 Mg Tabcr) 60 mg PO BID PARISA Stop: 09/09/22 20:59 Oxycodone HCl (Oxycodone Hcl Ir 5 Mg Tab (Immediate Release)) 5 mg PO Q12H PRN PRN Reason: Pain Stop: 09/09/22 15:10 Polyethylene Glycol (Polyethylene (Miralax) 17 Gm Pack) 17 gm PO DAILY PRN PRN Reason: Constipation Stop: 09/25/22 15:10 Sennosides (Senna 8.6 Mg Tab) 8.6 mg PO BID PRN PRN Reason: Constipation Stop: 09/25/22 15:10 Simvastatin (Simvastatin 10 Mg Tab) 10 mg PO HS PARISA Stop: 09/25/22 20:59 Trazodone HCl (Trazodone Hcl 100 Mg Tab) 100 mg PO HS PARISA Stop: 09/25/22 20:59 Code Status & VTE Plan VTE Prophylaxis Plan VTE Prophylaxis will be ordered: Yes
[2022-08-26] MEDS ORDERED: SENNA 8.6 MG TAB PO PRN (15:11)
[2022-08-26] MEDS ORDERED: POLYETHYLENE (MIRALAX) 17 GM PACK PO PRN (15:11)
[2022-08-26] MEDS ORDERED: ACETAMINOPHEN 325 MG TAB PO PRN (15:11)
--- NOTE | 2022-08-26 16:16 | Emergency Department Note ---
Impression & Plan Acute hypokalemia ED Provider Note CHIEF COMPLAINT: Low potassium HISTORY OF PRESENT ILLNESS: This 72-year-old female patient presents to the emergency department with complaints of low potassium. Patient was sent in by her primary care physician after having blood work done yesterday. She states she has been feeling generally weak. She has had some periodic vomiting but no diarrhea. She has had a poor p.o. intake. Patient denies taking any diuretics or potassium supplementation. She has had issues with her potassium in the past. Patient states her PCP originally noted something "wrong with her heart" prompting the laboratory work. REVIEW OF SYSTEMS: A review of systems was performed with positives and pertinent negatives listed in the history of present illness. 10 systems were reviewed and are otherwise negative. ALLERGIES: see below MEDICATIONS: see below PMH: see below SOCIAL HISTORY: see below DDx: Infection, dehydration, metabolic abnormality, hypo/hyperglycemia, electrolyte disturbance, anemia, hypoxia, cardiac sources, intracerebral event, toxicologic, neurologic, as well as other pathologies. PHYSICAL EXAM: Vital signs reviewed. General: Chronically ill-appearing 72-year-old female, in some discomfort. Thin and frail. HEENT: No scleral icterus, PERRLA, neck supple. Dry mucous membranes. Cardiovascular: Regular rate and rhythm, no extra sounds. Occasional irregularity. Pulmonary: Clear to auscultation bilaterally, normal work of breathing. Abdomen: Soft, nontender, nondistended, positive bowel sounds. Musculoskeletal: Atraumatic, no peripheral edema. Neurologic: Patient awake alert and oriented x 3, speech is clear Skin: Warm, dry, no rash EMERGENCY DEPARTMENT COURSE/MDM: This patient was evaluated and appeared to be in no significant distress. IV access was obtained and laboratory work was drawn. The patient was placed on a environmental monitoring technician and noted to be in a normal sinus rhythm with PACs. The patient was hydrated with normal saline solution. Laboratory work confirms a severe hypokalemia. Patient was given 40 mg of p.o. potassium and started on 20 MEQ KCl IV in the emergency department. EKG reveals no evidence of acute dysrhythmia other than PACs. Patient's case was discussed with the hospitalist service as she will require potassium repletion. MONITORING: An order for cardiac monitoring was placed and the patient is noted to be in a normal sinus rhythm 72 beats per minute. RADIOLOGY: See below EKG: DISPOSITION: Past Med/Surg History Medical History Acute UTI Anemia Anxiety Avascular necrosis of bone of left hip Chronic back pain COPD (chronic obstructive pulmonary disease) Depression DJD (degenerative joint disease) Fluid collection at surgical site Hypertension Hypokalemia Hyponatremia Hypothyroidism Nausea & vomiting Osteoporosis Post-operative complication SIADH (syndrome of inappropriate ADH production) Surgical History History of hysterectomy History of total left hip arthroplasty Family History (Updated 08/26/22 @ 12:20 by Sondra Trevizo DO) Father Arrhythmia Other Family history non-contributory Social History (Updated 08/26/22 @ 12:21 by Sondra Trevizo DO) Smoking Status: Current every day smoker Tobacco Type: Cigarettes Second Hand Exposure: No; Hx Alcohol Use: Yes Alcohol type: beer Alcohol Intake Frequency: Monthly or Less Hx Substance Use: No Preferred Language: Amharic Communication Ability: Effective Palliative Senior Np Required: No Beliefs That Will Affect Care: None marital status: Current Living Situation: Alone Current Living Situation Comment: IN AN APARTMENT Feels Safe at Home: Yes Assistive Devices: Glasses, Walker and Wheelchair Allergies Allergies Allergy/AdvReac Type Severity Reaction Status Date / Time bupropion Allergy Unknown Unknown Verified 04/14/21 03:01 nicotine [From Nicorette] Allergy Unknown Unknown Verified 04/18/21 09:38 Penicillins Allergy Unknown Unknown Verified 04/14/21 03:01 gabapentin [From Neurontin] AdvReac Unknown Nausea Verified 04/14/21 03:01 latex AdvReac Unknown unknown Verified 04/14/21 03:01 Sulfa (Sulfonamide AdvReac Unknown unknown Verified 04/14/21 03:01 Antibiotics) Home Meds Home Medications Medication Instructions Recorded Confirmed duloxetine 30 mg capsule,delayed 30 mg PO DAILY 09/08/19 08/26/22 release levothyroxine 88 mcg tablet 88 mcg PO DAILYBB 09/08/19 08/26/22 melatonin 5 mg tablet 5 mg PO HS 09/08/19 08/26/22 sennosides 8.6 mg tablet 8.6 mg PO BID PRN Constipation 09/08/19 08/26/22 simvastatin 10 mg tablet 10 mg PO HS 09/08/19 08/26/22 oxycodone 5 mg tablet 5 mg PO BID PRN Pain 10/24/19 08/26/22 metoprolol succinate 50 mg 50 mg PO DAILY 12/16/20 08/26/22 tablet,extended release 24 hr ondansetron HCl 4 mg tablet 4 mg PO Q8 PRN Nausea 12/16/20 08/26/22 trazodone 100 mg tablet 100 mg PO HS 08/26/22 08/26/22 Previous Rx's Medication Instructions Recorded morphine 60 mg tablet,extended 60 mg PO TID #9 tabs 09/22/19 release potassium chloride 10 mEq 20 meq PO DAILY 5 days #10 tabs 08/28/22 tablet,extended release (Klor-Con) Results & Data (ED) Vital Signs Vital Signs - 24 hr 08/26/22 10:07 08/26/22 10:30 08/26/22 11:00 Temperature 37.7 C H Temperature Source Oral Pulse Rate 98 H 81 90 Pulse Rate from SpO2 Sensor 87 101 H Respiratory Rate 22 20 19 Respiratory Effort / Characteristics Non-Labored Respiratory Depth Normal Respiratory Pattern Regular Blood Pressure 127/77 127/80 123/74 Blood Pressure Mean 93 95 90 Pulse Oximetry 96 93 92 Oxygen Delivery Method Room Air Sepsis Recent Fever Within 48 Hours No Sepsis New/Unexplained Change in Mental Status N/A Sepsis Action Taken by Nursing No Action Required 08/26/22 11:30 Temperature Temperature Source Pulse Rate 109 H Pulse Rate from SpO2 Sensor Respiratory Rate 20 Respiratory Effort / Characteristics Respiratory Depth Respiratory Pattern Blood Pressure Blood Pressure Mean Pulse Oximetry Oxygen Delivery Method Sepsis Recent Fever Within 48 Hours Sepsis New/Unexplained Change in Mental Status Sepsis Action Taken by [facility] Medications Current Medication List: was personally reviewed by me Laboratory Data Attestation: I reviewed the patient's lab results. Result diagrams: 08/27/22 06:07 08/28/22 08:45 Lab Results 08/26/22 08/26/22 08/26/22 Range/Units 10:25 10:25 10:25 WBC 12.55 H (4.8-10.8) K/ul RBC 3.99 (3.93-5.22) M/uL Hgb 11.3 L (12.0-16.0) g/dl Hct 33.9 L (34.1-44.9) % MCV 85.0 (80.0-100.0) fL MCH 28.3 (25.0-34.0) pg MCHC 33.3 (32.0-36.0) g/dL RDW Std Deviation 43.1 (36.4-46.3) fL RDW Coeff of Main 14.0 (11.5-14.5) % Plt Count 385 (130-400) K/uL MPV 10.1 (9.4-12.3) fL Immature Gran % (Auto) 0.4 % Neut % (Auto) 73.3 % Lymph % (Auto) 19.9 % Cache % (Auto) 5.8 % Eos % (Auto) 0.3 % Baso % (Auto) 0.3 % Neut # (Auto) 9.19 H (1.4-6.5) K/uL Lymph # (Auto) 2.50 (1.2-3.4) K/uL Cache # (Auto) 0.73 (0.24-0.82) K/uL Eos # (Auto) 0.04 (0-0.50) K/uL Baso # (Auto) 0.04 (0-0.2) K/uL Immature Gran # (Auto) 0.05 H (0.00-0.02) K/uL Sodium 133 L (136-145) mmol/L Potassium 2.2 L* (3.5-5.1) mmol/L Chloride 89 L (98-107) mmol/L Carbon Dioxide 31 (21-32) mmol/L Anion Gap 13 H (3-11) BUN 6 (6-23) mg/dl Creatinine 1.34 H (0.6-1.2) mg/dl Est Cr Clr Drug Dosing 29.1 ml/min Est GFR ( Amer) 45.4 ml/min Est GFR (Non-Af Amer) 39.2 ml/min BUN/Creatinine Ratio 4.5 L (10-20) Glucose 113 H (70-99(Fasting)) mg/dl Calcium 9.2 (8.5-10.1) mg/dl Total Bilirubin 0.8 (0.2-1.0) mg/dl AST 11 L (13-39) U/L ALT 4 L (7-52) U/L Alkaline Phosphatase 90 (34-104) U/L Total Protein 7.4 (6.0-8.3) gm/dl Albumin 3.6 (3.4-5.0) gm/dl Globulin 3.8 (2.5-4.0) gm/dl Albumin/Globulin Ratio 0.9 (0.9-2) TSH 9.684 H (0.300-4.500) uIu/ml Free T4 0.96 (0.61-1.60) ng/dl Administered Medications Discontinued Medications Acetaminophen (Acetaminophen 325 Mg Tab) 650 mg PO Q4H PRN PRN Reason: Pain or Fever Stop: 09/25/22 15:10 Last Admin: 08/27/22 19:06 Dose: 650 mg Documented By: DRUM Duloxetine HCl (Duloxetine Hcl 30 Mg Cap) 30 mg PO DAILY PARISA Stop: 09/26/22 08:59 Last Admin: 08/28/22 07:44 Dose: 30 mg Documented By: Admin: 08/27/22 07:47 Dose: 30 mg Documented By: CC Heparin Sodium (Porcine) (Heparin Sod 5,000 Unit/0.5 Ml Vial) 5,000 units SQ Q12 PARISA Stop: 09/25/22 20:59 Last Admin: 08/28/22 07:44 Dose: 5,000 units Documented By: Admin: 08/27/22 21:26 Dose: 5,000 units Documented By: Admin: 08/27/22 07:47 Dose: 5,000 units Documented By: Admin: 08/26/22 21:37 Dose: 5,000 units Documented By: [facility] Sodium Chloride (Nss 1000ml) 1,000 mls @ 75 mls/hr IV .[id number] PARISA Stop: 09/25/22 11:14 Last Admin: 08/28/22 09:02 Dose: 75 mls/hr Documented By: Infusion: 08/28/22 09:02 Dose: 0 mls/hr Documented By: Infusion: 08/27/22 21:27 Dose: 75 mls/hr Documented By: Admin: 08/27/22 19:26 Dose: 125 mls/hr Documented By: Infusion: 08/27/22 19:23 Dose: 75 mls/hr Documented By: Admin: 08/27/22 11:23 Dose: 125 mls/hr Documented By: Infusion: 08/27/22 10:56 Dose: 0 mls/hr Documented By: Admin: 08/27/22 02:51 Dose: 125 mls/hr Documented By: Infusion: 08/27/22 01:52 Dose: 0 mls/hr Documented By: Admin: 08/26/22 17:52 Dose: 125 mls/hr Documented By: Infusion: 08/26/22 17:49 Dose: 0 mls/hr Documented By: Admin: 08/26/22 11:27 Dose: 125 mls/hr Documented By: SHERMAN Potassium Chloride (K Will / Wtr) 10 meq in 100 mls @ 100 mls/hr IV Q1H PARISA; Protocol Stop: 08/26/22 13:29 Last Infusion: 08/26/22 17:53 Dose: 0 mls/hr Documented By: Admin: 08/26/22 15:39 Dose: 50 mls/hr Documented By: Infusion: 08/26/22 13:46 Dose: 0 mls/hr Documented By: Infusion: 08/26/22 12:04 Dose: 50 mls/hr Documented By: Infusion: 08/26/22 11:53 Dose: 75 mls/hr Documented By: Admin: 08/26/22 11:44 Dose: 100 mls/hr Documented By: SHERMAN Magnesium Sulfate 4 gm/Potassium Chloride 40 meq/Sodium Chloride 1,028 mls @ 125 mls/hr IV .[id number] PARISA Stop: 08/27/22 05:13 Last Infusion: 08/27/22 06:04 Dose: 0 mls/hr Documented By: Admin: 08/26/22 21:45 Dose: 125 mls/hr Documented By: KIRA Promethazine HCl 12.5 mg/ (Sodium Chloride) 50.5 mls @ 202 mls/hr IV NOW STA Stop: 08/27/22 10:33 Last Admin: 08/27/22 12:09 Dose: Not Given Documented By: NIRANJAN Levothyroxine Sodium (Levothyroxine Sodium 88 Mcg Tablet) 88 mcg PO DAILYBB PARISA Stop: 09/26/22 06:29 Last Admin: 08/28/22 05:20 Dose: 88 mcg Documented By: Admin: 08/27/22 06:05 Dose: 88 mcg Documented By: KIRA Melatonin (Melatonin 3 Mg Tab) 3 mg PO HSZ PARISA Stop: 09/25/22 21:59 Last Admin: 08/27/22 21:26 Dose: 3 mg Documented By: Admin: 08/26/22 21:35 Dose: 3 mg Documented By: [facility] Metoprolol Succinate (Metoprolol Succ 50mg Ext Rel Tab) 50 mg PO DAILY PARISA Stop: 09/26/22 08:59 Last Admin: 08/28/22 07:43 Dose: 50 mg Documented By: Admin: 08/27/22 07:47 Dose: 50 mg Documented By: CC Morphine Sulfate (Morphine Sulfate Cr 60 Mg Tabcr) 60 mg PO BID PARISA Stop: 09/09/22 20:59 Last Admin: 08/28/22 08:26 Dose: 60 mg Documented By: Admin: 08/27/22 21:35 Dose: 60 mg Documented By: Admin: 08/27/22 07:51 Dose: 60 mg Documented By: Admin: 08/26/22 21:34 Dose: 60 mg Documented By: [facility] Oxycodone HCl (Oxycodone Hcl Ir 5 Mg Tab (Immediate Release)) 5 mg PO Q12H PRN PRN Reason: Pain Stop: 09/09/22 15:10 Last Admin: 08/27/22 19:05 Dose: 5 mg Documented By: Admin: 08/27/22 03:52 Dose: 5 mg Documented By: [facility] Potassium Chloride (Potassium Chloride Crtab 20 Meq Tabcr) 40 meq PO NOW STA Stop: 08/26/22 11:24 Last Admin: 08/26/22 11:38 Dose: 40 meq Documented By: [facility] Potassium Chloride (Potassium Chloride Crtab 20 Meq Tabcr) 40 meq PO NOW STA Stop: 08/26/22 21:12 Last Admin: 08/26/22 22:00 Dose: 40 meq Documented By: [facility] Simethicone (Simethicone 40 Mg/0.6 Ml 30ml) 40 mg PO NOW ONE Stop: 08/27/22 11:07 Last Admin: 08/27/22 11:34 Dose: 40 mg Documented By: CC Simvastatin (Simvastatin 10 Mg Tab) 10 mg PO HS PARISA Stop: 09/25/22 20:59 Last Admin: 08/27/22 21:26 Dose: 10 mg Documented By: Admin: 08/26/22 21:35 Dose: 10 mg Documented By: KIRA Trazodone HCl (Trazodone Hcl 100 Mg Tab) 100 mg PO HS PARISA Stop: 09/25/22 20:59 Last Admin: 08/27/22 21:26 Dose: 100 mg Documented By: Admin: 08/26/22 21:35 Dose: 100 mg Documented By: KIRA Blood Pressure Blood Pressure Findings: Low blood pressure Blood Pressure Disposition: further management by hospitalist Discharge Plan Visit Data Chief Complaint: Abnormal Labs/Diagnostic Testing Stated Complaint: CHEST PRESSURE, ABNORMAL LAB ED Provider: Cecilia Stewart Discharge Problem: Acute hypokalemia Patient Disposition: Admitted As Inpatient Discharge Instructions Interventions: ED Discharge Assessment Last Done: 08/26/22 14:55
[2022-08-26 17:00] LABS: Anion Gap 10 (3-11); BUN Creatinine Ratio 5.4 (10-20); Blood Urea Nitrogen 6 mg/dl (6-23); Calcium 8.4 mg/dl (8.5-10.1); Carbon Dioxide 30 mmol/L (21-32); Chloride 92 mmol/L (98-107); Creatinine Clr Calc Pharmacy 35.1 ml/min; Est GFR (African American) 57.1 ml/min; Est GFR (Non-African American) 49.2 ml/min; Glucose 82 mg/dl (70-99(Fasting)); Magnesium 1.4 mg/dl (1.7-2.4); Sodium 132 mmol/L (136-145)
[2022-08-26 18:37] LABS: Thyroid Stimulating Hormone 9.684 uIu/ml (0.300-4.500)
[2022-08-26 19:11] LABS: T4 Free Thyroxine 0.96 ng/dl (0.61-1.60)
[2022-08-26 19:20] LABS: Potassium 2.9 mmol/L (3.5-5.1)
[2022-08-26 19:26] LABS: Troponin I High Sensitivity 8.6 pg/ml (0-14)
[2022-08-26] MEDS ORDERED: MAGNESIUM SULFATE IV SCH (21:00)
[2022-08-26] MEDS ORDERED: [UNRECOGNIZED DRUG - OTHER] IV SCH (21:00)
[2022-08-26] MEDS ORDERED: POTASSIUM CHLORIDE IV SCH (21:00)
[2022-08-26] MEDS: MoRPHine SULFATE CR 60 MG TABCR PO SCH (21:34)
[2022-08-26] MEDS: MELATONIN 3 MG TAB PO SCH (21:35)
[2022-08-26] MEDS: traZODone HCL 100 MG TAB PO SCH (21:35)
[2022-08-26] MEDS: SIMVASTATIN 10 MG TAB PO SCH (21:35)
[2022-08-26] MEDS: HEPARIN SOD 5,000 UNIT/0.5 ML VIAL SQ SCH (21:37)
[2022-08-27] MEDS: SODIUM CHLORIDE 0.9% 1000ML 1,000 ML IV SCH ×3 (02:51→19:26)
[2022-08-27] MEDS: oxyCODONE HCL IR 5 MG TAB (IMMEDIATE RELEASE) PO PRN ×2 (03:52→19:05)
[2022-08-27] MEDS: LEVOTHYROXINE SODIUM 88 MCG TABLET PO SCH (06:05)
[2022-08-27 07:03] LABS: Hematocrit (blood only) 27.1 % (34.1-44.9); Hemoglobin 8.8 g/dl (12.0-16.0); Mean Corpuscular Hemoglobin 28.4 pg (25.0-34.0); Mean Corpuscular Hgb Conc 32.5 g/dL (32.0-36.0); Mean Corpuscular Volume 87.4 fL (80.0-100.0); Mean Platelet Volume 10.1 fL (9.4-12.3); Platelet Count 277 K/uL (130-400); RDW Coefficient of Variation 14.6 % (11.5-14.5); RDW Standard Deviation 46.5 fL (36.4-46.3); White Blood Count 9.28 K/ul (4.8-10.8)
[2022-08-27 07:30] LABS: Calcium 7.9 mg/dl (8.5-10.1); Creatinine Clr Calc Pharmacy 35.6 ml/min; Est GFR (Non-African American) 55.2 ml/min; Potassium 3.8 mmol/L (3.5-5.1)
[2022-08-27] MEDS: HEPARIN SOD 5,000 UNIT/0.5 ML VIAL SQ SCH ×2 (07:47→21:26)
[2022-08-27] MEDS: DULoxetine HCL 30 MG CAP PO SCH (07:47)
[2022-08-27] MEDS: METOPROLOL SUCC 50MG EXT REL TAB PO SCH (07:47)
[2022-08-27] MEDS: MoRPHine SULFATE CR 60 MG TABCR PO SCH ×2 (07:51→21:35)
[2022-08-27] MEDS ORDERED: PROMETHAZINE HCL 12.5 MG in SODIUM CHLORIDE 0.9% 50 ML IV PRN (10:19)
[2022-08-27] MEDS ORDERED: PROMETHAZINE HCL 12.5 MG in SODIUM CHLORIDE 0.9% 50 ML IV STA (10:19)
--- NOTE | 2022-08-27 10:50 | XRay Report ---
KUB HISTORY: nausea/vomiting COMPARISON: Left hip CT 12/20/2021. Abdomen and pelvis CT 04/14/2021. KUB 05/26/2016. FINDINGS: Moderate gaseous distention of the stomach. Multiple nondilated gas-filled loops of large a nd small bowel seen throughout the abdomen. Abnormal periprosthetic lucency at the left acetabular cu p with abnormal angulation of the acetabular cup. This suggests chronic loosening/hardware failure. N o acute fracture or dislocation within the pelvis or hips. Chronic sclerosis of the left acetabulum i s also unchanged. Chronic compression deformity is within the lumbar spine. No renal calculi. No ure teral calculi. No pneumoperitoneum or pneumatosis. IMPRESSION: 1. Moderate gaseous distention of the stomach. 2. Multiple nondilated gas-filled loops of large and small bowel seen throughout the abdomen. No evid ence for bowel infarction. 3. Chronic changes again noted within the left hip prosthesis consistent with loosening/hardware fail ure. ACT 112: Negative or not required by law. Electronically signed by: Sundar Bowens M.D. 08/27/2022 10:48 AM
[2022-08-27] MEDS ORDERED: SIMETHICONE 40 MG/0.6 ML 30ML PO ONE (11:06)
--- NOTE | 2022-08-27 14:57 | Electrocardiogram Report ---
Test Reason : Blood Pressure : / mmHG Vent. 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 Confirmed by Reyes Dowell ([id number]) on 08/27/2022 2:56:41 PM Referred By: REFERRED SELF Confirmed By:Reyes Dowell
[2022-08-27 16:30] LABS: Appearance Urine Clear (Clear); Bilirubin Urine Negative (Negative); Blood Urine Negative (Negative); Color Urine Yellow; Glucose Urine UA Negative (Negative); Ketones Urine Negative (Negative); Leukocyte Esterase Urine Negative (Negative); Nitrite Urine Negative (Negative); Protein Urine Negative (Negative); Specific Gravity Urine 1.009 (1.000-1.030); Urobilinogen Urine Negative (Negative)
[2022-08-27 16:52] LABS: Creatinine Urine Random 41.7 mg/dl
--- NOTE | 2022-08-27 17:07 | Hospitalist Progress Note ---
Date of Service August 27, 2022 Assessment & Plan (1) Acute hypokalemia: Plan: Chronic poor PO intake from nausea and vomiting. Potassium replacement started in the ER and will repeat BMP this afternoon. Check mag and repeat potassium this afternoon. Pt not using lasix. 08/27 Resolved Potassium 3.8 (2) Ectopic atrial rhythm: Plan: Noted to have wandering atrial pacemaker on admission EKG. She has no known cardiac history and EF >70% on recent echo Apr 2021. Record review reveals EKG from Dec 2021 with possible ectopic atrial rhythm and occasional PVCs. She is asymptomatic from a cardiac standpoint at this time but did report some chest pressure overnight. Will add troponin to labs and continue correcting electrolytes. 08/27 Likely secondary to hypokalemia EKG today showing sinus rhythm with PACs (3) Acute kidney failure: Plan: Likely related to poor PO intake. Repeat creatinine is improved after IVf. 08/27 Given IV fluids Resolved (4) Nausea & vomiting: Plan: Uncertain cause, although long-standing narcotic use is a thought, other etiologies are possible. Doubt infectious etiology with the timing and also, she is having no lower GI symptoms and no fever. She is currently asking for food. Cont to monitor progress. Antiemetics as needed. 08/27 KUB: Gaseous distention of small and large intestines, no signs of obstruction Nausea and vomiting likely secondary to preceding viral gastroenteritis, exacerbated by chronic opiate use Seems to be improving Continue as needed Phenergan IV fluids Monitor closely (5) COPD (chronic obstructive pulmonary disease): Plan: chronic, stable. No active wheezing. (6) Hypothyroidism: Plan: Chronic, no recent TSH. Will add this now. TSH 9.6-elevated Free T4 0.96-normal Outpatient follow-up (7) Smoking: Plan: Reports to smoke 1/2 cigarette daily. Smoking cessation recommended. (8) Anemia: Plan: chronic, stable at baseline. (9) DVT prophylaxis: Plan: Heparin Full Code Dispo-to home once potassium corrected and tolerating PO reliably. plan of care discussed with patient in detail and at length all questions answered She is understanding, agreeable, comfortable with the plan of care Admission and Anticipated Discharge Date Admission Date: August 26, 2022 Subjective Follow-up for nausea vomiting, hypokalemia, etc. Seen sitting up in bed, comfortable, not in distress States that she feels better compared to yesterday but still having nausea Rates nausea 7 out of 10 Very mild abdominal discomfort Able to tolerate breakfast no chest pain, dyspnea, palpitations, dizziness Fevers or chills Positive BMs daily, no diarrhea No other symptoms Review of Systems Review of Systems: all noted and negative except for above Physical Exam Physical Exam: General- oriented x 3, not in distress, speaks in sentences with no effort or accessory muscle use Eyes- anicteric Neck- no JVD Lungs- clear breath sounds bilaterally, no crackles or wheezing Heart- normal rate, regular rhythm; no murmurs Abdomen- normal bowel sounds, mildly distended, tympanitic, soft, nontender Extremities- no pretibial edema, no calf tenderness Neuro- alert, oriented x 3; no gross focal neurologic deficits Skin- warm & dry Results & Data Results & Data ([facility]) Vital Signs (Past 12 Hours) Vital Signs Temp Pulse Resp BP BP Pulse Ox O2 Del Method 08/27/22 15:49 37.0 C 75 101/65 96 Room Air 08/27/22 11:50 36.3 C L 72 18 102/59 L 95 Room Air 08/27/22 08:15 36.8 C 99 H 17 107/67 95 Room Air 08/27/22 08:01 Room Air all noted and reviewed including below
[2022-08-27] MEDS: MELATONIN 3 MG TAB PO SCH (21:26)
[2022-08-27] MEDS: traZODone HCL 100 MG TAB PO SCH (21:26)
[2022-08-27] MEDS: SIMVASTATIN 10 MG TAB PO SCH (21:26)
[2022-08-28] MEDS: LEVOTHYROXINE SODIUM 88 MCG TABLET PO SCH (05:20)
[2022-08-28] MEDS: METOPROLOL SUCC 50MG EXT REL TAB PO SCH (07:43)
[2022-08-28] MEDS: DULoxetine HCL 30 MG CAP PO SCH (07:44)
[2022-08-28] MEDS: HEPARIN SOD 5,000 UNIT/0.5 ML VIAL SQ SCH (07:44)
[2022-08-28] MEDS: MoRPHine SULFATE CR 60 MG TABCR PO SCH (08:26)
[2022-08-28] MEDS: SODIUM CHLORIDE 0.9% 1000ML 1,000 ML IV SCH (09:02)
[2022-08-28 10:08] LABS: BUN Creatinine Ratio 4.8 (10-20); Calcium 8.1 mg/dl (8.5-10.1); Creatinine Clr Calc Pharmacy 42.8 ml/min; Est GFR (African American) 79.9 ml/min; Magnesium 1.8 mg/dl (1.7-2.4); Potassium 3.6 mmol/L (3.5-5.1)
--- NOTE | 2022-08-28 11:18 | Hospitalist Progress Note ---
Date of Service August 28, 2022 Assessment & Plan (1) Acute hypokalemia: Plan: Chronic poor PO intake from nausea and vomiting. Potassium replacement started in the ER and will repeat BMP this afternoon. Check mag and repeat potassium this afternoon. Pt not using lasix. Potassium replaced Improved from 2.9, now 3.6 Discharge on Klor-Con 20 mill equivalents daily x5 days Repeat BMP on follow-up with PCP in 1 week (2) Ectopic atrial rhythm: Plan: Noted to have wandering atrial pacemaker on admission EKG. She has no known cardiac history and EF >70% on recent echo Apr 2021. Record review reveals EKG from Dec 2021 with possible ectopic atrial rhythm and occasional PVCs. She is asymptomatic from a cardiac standpoint at this time but did report some chest pressure overnight. Will add troponin to labs and continue correcting electrolytes. 08/28 Likely secondary to hypokalemia Repeat EKG showing sinus rhythm with PACs (3) Acute kidney failure: Plan: Likely related to poor PO intake. Repeat creatinine is improved after IVf. 08/28 Given IV fluids Resolved (4) Nausea & vomiting: Plan: Uncertain cause, although long-standing narcotic use is a thought, other etiologies are possible. Doubt infectious etiology with the timing and also, she is having no lower GI symptoms and no fever. She is currently asking for food. Cont to monitor progress. Antiemetics as needed. 08/28 KUB: Gaseous distention of small and large intestines, no signs of obstruction Nausea and vomiting likely secondary to preceding viral gastroenteritis, exacerbated by chronic opiate use Resolved (5) COPD (chronic obstructive pulmonary disease): Plan: chronic, stable. No active wheezing. (6) Hypothyroidism: Plan: Chronic, no recent TSH. Will add this now. TSH 9.6-elevated Free T4 0.96-normal Outpatient follow-up (7) Smoking: Plan: Reports to smoke 1/2 cigarette daily. Smoking cessation recommended. (8) Anemia: Plan: chronic, stable at baseline. (9) Femoral loosening of prosthetic left hip: Plan: Seen on KUB x-ray: Chronic changes again noted within the left hip prosthesis consistent with loosening/hardware failure. No changes with ambulation Outpatient follow-up with orthopedic service (10) DVT prophylaxis: Plan: Heparin Full Code Dispo- Discharge to home Follow-up with PCP in 1 week plan of care discussed with patient in detail and at length all questions answered She is understanding, agreeable, comfortable with the plan of care Admission and Anticipated Discharge Date Admission Date: August 26, 2022 Subjective Follow-up for nausea vomiting, dehydration, hypokalemia, etc. Seen resting in bed, sitting up, not in distress, in good spirits States she feels much better overall Nausea has resolved Tolerating regular diet well No abdominal pain Positive normal BMs Ambulating with no problems no chest pain, dyspnea, palpitations, dizziness No other symptoms States she is ready and would like to be discharged today Review of Systems Review of Systems: all noted and negative except for above Physical Exam Physical Exam: General- oriented x 3, not in distress, speaks in sentences with no effort or accessory muscle use Eyes- anicteric Neck- no JVD Lungs- clear breath sounds bilaterally, no rales/wheezes Heart- normal rate, regular rhythm; no murmurs Abdomen- normal bowel sounds, nondistended, soft, nontender Extremities- no pretibial edema, no calf tenderness Neuro- alert, oriented x 3; no gross focal neurologic deficits Skin- warm & dry Results & Data Results & Data ([facility]) Vital Signs (Past 12 Hours) Vital Signs Temp Pulse Resp BP BP Pulse Ox O2 Del Method 08/28/22 08:41 36.6 C 64 20 94/58 L 96 Room Air 08/28/22 08:00 Room Air 08/28/22 02:37 36.6 C 62 18 133/67 94 Room Air all noted and reviewed including below
--- NOTE | 2022-08-28 12:38 | Discharge Summary ---
Discharge Summary Date of Service August 28, 2022 Notes For Next Care Provider Repeat potassium level on follow-up with PCP in 1 week Refer to Ortho for loosening of left hip hardware Medication Changes From Visit Eric 20 mill equivalents daily x5 days Admission HPI Per Admitting Provider 72 yo F who reports nausea/vomiting for 4 weeks with vomiting for the first week (sick for total one month). Reports regular BMs. Wears depends for urinary incontinence. Did notice stool incontinence once three days ago which was shocker to her. Chronic pain in hips and her baseline ability to ambulate is to walk with a cane and walker. She has been subsisting on crackers for the past few weeks. She drinks coca cola which helps to settle her stomach. No CP, SOB, headaches. Last night she felt a pressure in her chest which lasted a couple of hours and spontaneously resolved and states this comes after many nights of having insomnia. Takes trazodone and melatonin. Reports that she is on little sleep right now. To help her nausea, she decreased her narcotics as follows: morphine went from 3 to 2 per day oxycodone for breakthrough-brought it down from 2 per day to 1 per day no other medication changes, but this was not successful. Has been taking ondansetron three times daily and feels it is not working as well as it had been for her nausea previously. She went to see her PCP, Dr. Munguia, who jarred labwork on her on 08/25 and was sent to the ER for a K of 2.2. She notably denies any use of furosemide even though this was on an original medication list. Today, she is generally weak and is asking for tomato soup. She is worried for her cat and wants to go home nati. She lives alone. She was given IV and PO potassium and also a liter of fluids to treat her hypokalemia and acute renal failure, respectively. Admission Exam Per Admitting Provider CONSTITUTIONAL: thin, frail, vitals as above, generally well-appearing, NAD EYES: pupils are round and equal bilaterally, normal conjunctivae ENT: external ear and nose normal, MMM NECK: trachea midline RESPIRATORY: clear to auscultation bilaterally with decreased breath sounds at the bases bilaterally, no crackles, rales or wheezes, normal respiratory effort CARDIOVASCULAR: regular rate and rhythm, S1 and 2 heard without murmurs, gallops or rubs, no JVD, no peripheral edema CHEST: inspection of chest was normal GASTROINTESTINAL: soft, nontender, ND, no guarding MUSCULOSKELETAL: strength 5/5 throughout, head is normocephalic and atraumatic, neck supple, normal palpation of chest wall without tenderness SKIN: warm and dry NEUROLOGIC: CN 2-12 grossly intact, no sensory deficit, normal cognition, normal speech, no tremor PSYCHIATRIC: alert cooperative and oriented to person, place and time. Euthymic mood, makes good eye contact, language grossly intact, recent and remote memory grossly intact. Principal Dx & Hospital Course #1 = Principal Diagnosis (1) Acute hypokalemia: Secondary to ongoing nausea and vomiting Potassium replaced Improved from 2.9, now 3.6 Discharge on Klor-Con 20 mill equivalents daily x5 days Repeat BMP on follow-up with PCP in 1 week (2) Ectopic atrial rhythm: On admission, noted to have wandering atrial pacemaker on admission EKG. She has no known cardiac history and EF >70% on recent echo Apr 2021. Record review reveals EKG from Dec 2021 with possible ectopic atrial rhythm and occasional PVCs. She is asymptomatic from a cardiac standpoint at this time but did report some chest pressure overnight. 08/28 Likely secondary to hypokalemia Repeat EKG showing sinus rhythm with PACs Denies cardiac symptoms (3) Acute kidney failure: Secondary to poor oral intake 08/28 Given IV fluids Resolved (4) Nausea & vomiting: Uncertain cause, although long-standing narcotic use is a thought, other etiologies are possible. Doubt infectious etiology with the timing and also, she is having no lower GI symptoms and no fever. 08/28 KUB: Gaseous distention of small and large intestines, no signs of obstruction Nausea and vomiting likely secondary to preceding viral gastroenteritis, exacerbated by chronic opiate use Resolved (5) COPD (chronic obstructive pulmonary disease): chronic, stable. No active wheezing. (6) Hypothyroidism: Chronic, no recent TSH. Will add this now. TSH 9.6-elevated Free T4 0.96-normal Outpatient follow-up (7) Smoking: Reports to smoke 1/2 cigarette daily. Smoking cessation recommended. (8) Anemia: chronic, stable at baseline. (9) Femoral loosening of prosthetic left hip: Seen on KUB x-ray: Chronic changes again noted within the left hip prosthesis consistent with loosening/hardware failure. No changes with ambulation Outpatient follow-up with orthopedic service (10) DVT prophylaxis: Heparin Full Code Dispo- Discharge to home Follow-up with PCP in 1 week plan of care discussed with patient in detail and at length all questions answered She is understanding, agreeable, comfortable with the plan of care Discharge Exam CONSTITUTIONAL: thin, frail, vitals as above, generally well-appearing, NAD EYES: pupils are round and equal bilaterally, normal conjunctivae ENT: external ear and nose normal, MMM NECK: trachea midline RESPIRATORY: clear to auscultation bilaterally with decreased breath sounds at the bases bilaterally, no crackles, rales or wheezes, normal respiratory effort CARDIOVASCULAR: regular rate and rhythm, S1 and 2 heard without murmurs, gallops or rubs, no JVD, no peripheral edema CHEST: inspection of chest was normal GASTROINTESTINAL: soft, nontender, ND, no guarding MUSCULOSKELETAL: strength 5/5 throughout, head is normocephalic and atraumatic, neck supple, normal palpation of chest wall without tenderness SKIN: warm and dry NEUROLOGIC: CN 2-12 grossly intact, no sensory deficit, normal cognition, normal speech, no tremor PSYCHIATRIC: alert cooperative and oriented to person, place and time. Euthymic mood, makes good eye contact, language grossly intact, recent and remote memory grossly intact. Updated Medication List Medication Instructions Recorded Confirmed Type duloxetine 30 mg capsule,delayed 30 mg PO DAILY 09/08/19 08/26/22 History release levothyroxine 88 mcg tablet 88 mcg PO DAILYBB 09/08/19 08/26/22 History melatonin 5 mg tablet 5 mg PO HS 09/08/19 08/26/22 History sennosides 8.6 mg tablet 8.6 mg PO BID PRN Constipation 09/08/19 08/26/22 History simvastatin 10 mg tablet 10 mg PO HS 09/08/19 08/26/22 History morphine 60 mg tablet,extended 60 mg PO TID #9 tabs 09/22/19 08/26/22 Rx release oxycodone 5 mg tablet 5 mg PO BID PRN Pain 10/24/19 08/26/22 History metoprolol succinate 50 mg 50 mg PO DAILY 12/16/20 08/26/22 History tablet,extended release 24 hr ondansetron HCl 4 mg tablet 4 mg PO Q8 PRN Nausea 12/16/20 08/26/22 History trazodone 100 mg tablet 100 mg PO HS 08/26/22 08/26/22 History potassium chloride 10 mEq 20 meq PO DAILY 5 days #10 tabs 08/28/22 Rx tablet,extended release (Klor-Con) Hospital Stay Data Consultations 08/26/22 11:33 ED Decision to Admit Stat Diagnostic Imagining Performed KUB X-Ray 08/27/22 08:03 KUB HISTORY: nausea/vomiting COMPARISON: Left hip CT 12/20/2021. Abdomen and pelvis CT 04/14/2021. KUB 05/26/2016. FINDINGS: Moderate gaseous distention of the stomach. Multiple nondilated gas- filled loops of large and small bowel seen throughout the abdomen. Abnormal periprosthetic lucency at the left acetabular cup with abnormal angulation of the acetabular cup. This suggests chronic loosening/hardware failure. No acute fracture or dislocation within the pelvis or hips. Chronic sclerosis of the left acetabulum is also unchanged. Chronic compression deformity is within the lumbar spine. No renal calculi. No ureteral calculi. No pneumoperitoneum or pneumatosis. IMPRESSION: 1. Moderate gaseous distention of the stomach. 2. Multiple nondilated gas-filled loops of large and small bowel seen throughout the abdomen. No evidence for bowel infarction. 3. Chronic changes again noted within the left hip prosthesis consistent with loosening/hardware failure. ACT 112: Negative or not required by law. Electronically signed by: Sundar Bowens M.D. 08/27/2022 10:48 AM Pending Results Patient Have Any Pending Studies at Discharge: No Discharge Instructions Given to Patient (Per Discharging Provider) PLEASE REFER TO YOUR NEW MEDICATION LIST AND FOLLOW INSTRUCTIONS CAREFULLY. YOUR NEW MEDICATION INCLUDE: Potassium supplement-to be taken for 5 days Please ensure adequate hydration every day. PLEASE CALL YOUR PRIMARY CARE PHYSICIAN OR RETURN TO THE ER IF WITH WORSENING OF SYMPTOMS, INCLUDING Recurrence of nausea and vomiting, poor appetite/poor oral intake, abdominal pain, fevers or chills, etc. FOLLOW UP WITH PRIMARY CARE PHYSICIAN in 1 week Total Time Total Time Spent Total Time Spent (In Minutes): >30 minutes
== END 2022-08-28 12:51 | disposition home or self-care (01) ==
LOC: ED 10:07 → 2N 11:50 → SUATTDRO 11:50 → INTOOBSV 11:50 → 2N 14:55

== ENCOUNTER 2024-08-01 13:29 | Inpatient (IN) ==
--- NOTE | 2024-08-01 13:40 | ED Triage Note ---
Date of Service August 01, 2024 Provider in Triage Author: Neno Guevara History of Present Illness This patient was briefly evaluated while in triage. An abbreviated physical exam was performed. This patient is a 73-year-old Female who presents to the ED for evaluation sent by PCP for abnormal labs - low sodium and potassium, elevated TSH, anemia needs admission/placement hx of noncompliance Physical Exam GENERAL: Elderly female in wheelchair CARDIOVASCULAR: RRR RESPIRATORY: CTA Initial orders for labs and / or imaging were placed and patient was placed in the waiting area until a bed is available. Please see further documentation for the full ED course.
[2024-08-01 14:46] LABS: Basophils # (auto) 0.02 K/uL (0.00-0.20); Basophils % (auto) 0.3 %; Eosinophils # (auto) 0.02 K/uL (0.00-0.50); Eosinophils % (auto) 0.3 %; Hematocrit (blood only) 33.5 % (37.0-47.0); Hemoglobin 11.3 g/dl (12.0-16.0); Immature Granulocytes # (auto) 0.04 K/uL (0.01-0.20); Immature Granulocytes % (auto) 0.6 %; Lymphocytes # (auto) 0.64 K/uL (1.20-3.40); Lymphocytes % (auto) 9.1 %; Mean Corpuscular Hemoglobin 27.4 pg (25.0-34.0); Mean Corpuscular Hgb Conc 33.7 g/dL (32.0-36.0); Mean Corpuscular Volume 81.3 fL (80.0-100.0); Monocytes # (auto) 0.36 K/uL (0.11-0.59); Monocytes % (auto) 5.1 %; Neutrophils # (auto) 5.99 K/uL (1.40-6.50); Neutrophils % (auto) 84.6 %; Platelet Count 253 K/uL (130-400); RDW Coefficient of Variation 16.4 % (11.5-14.5); RDW Standard Deviation 48.7 fL (36.4-46.3); Red Blood Count 4.12 M/uL (4.20-5.40); White Blood Count 7.07 K/ul (4.8-10.8)
[2024-08-01 15:03] LABS: Alanine Aminotransferase 4 U/L (7-52); Albumin Globulin Ratio 1.1 (0.9-2); Albumin Level 4.1 gm/dl (3.4-5.0); Alkaline Phosphatase 95 U/L (34-104); Anion Gap 10 (3-11); Aspartate Aminotransferase 12 U/L (13-39); BUN Creatinine Ratio 6.4 (10-20); Bilirubin,Total 0.7 mg/dl (0.2-1.0); Blood Urea Nitrogen 7 mg/dl (6-23); Calcium 9.8 mg/dl (8.6-10.3); Carbon Dioxide 27 mmol/L (21-32); Chloride 86 mmol/L (98-107); Est GFR (African American) 57.3 ml/min; Est GFR (Non-African American) 49.4 ml/min; Globulin 3.9 gm/dl (2.5-4.0); Glucose 159 mg/dl (70-99(Fasting)); Magnesium 1.5 mg/dl (1.7-2.4); Potassium 3.1 mmol/L (3.5-5.1); Sodium 123 mmol/L (136-145)
[2024-08-01 15:17] LABS: Thyroid Stimulating Hormone 8.642 uIu/ml (0.300-4.500)
[2024-08-01] MEDS: MAGNESIUM SULFATE / D5W 1 GM/100 ML BAG IV STA (15:28)
[2024-08-01] MEDS: SODIUM CHLORIDE 0.9% 1,000 ML IV SCH (15:29)
[2024-08-01 15:51] LABS: T4 Free Thyroxine 1.18 ng/dl (0.61-1.60)
--- NOTE | 2024-08-01 17:10 | History & Physical Report ---
Date of Service August 01, 2024 Assessment & Plan (1) Hypothyroidism: (2) Failure to thrive in adult: (3) Chronic back pain: Plan Assessment and plan: Hyponatremia likely secondary to volume depletion: Patient admits to poor oral intake and noncompliance with medications Check urine Osmo/gentle IV flu anything else aside from oral urine electrolytes. BMP every 6 hours, monitor mental status, currently awake alert oriented x 3 Nephrology consulted for severe hyponatremia, hold duloxetine/Zofran Telemetry monitoring Acute on chronic severe malnutrition: Failure to thrive: Patient WC bound at baseline, consult PT Consult dietary, consider SNF on DC Hx hypothyroidism: Continue Synthroid Chronic back/hip pain: Continue oxycodone and MS Contin Hx AMY: Continue ferrous sulfate, hemoglobin stable Full code DVT prophylaxis: Lovenox Admission and Anticipated Discharge Date Admission Date: 08/01/24 Anticipated date of discharge: 08/04/24 History of Present Illness Chief Complaint: Abnormal labs Primary Care Provider: Myrna Munguia The patient is a 73-year-old female with a past medical history of hypothyroidism, SIADH, COPD, chronic back pain/hip pain, anemia, anxiety, depression, A-fib who presented to the ED on 07/28/2024 after she was sent in by her primary care provider with abnormal outpatient labs. On arrival to the ED, labs remarkable for sodium 123, potassium 3.1, magnesium 1.5, chloride 86. the patient's POA, Corey, her brother, is at the bedside and reports noncompliance with medications. Patient reports she had not been taking her medications correctly over the past month. Over the past 4 days, the patient's brother has been helping at home and her medications have been taken appropriately. Patient has been on duloxetine and takes Zofran intermittently which could also be contributing to her hyponatremia. Patient also reports a poor appetite and admits that she has not been eating much over the past week. The patient's brother reports concerns over the patient's failure to thrive. Reports the patient is mostly wheelchair-bound and does not have enough help at home. The patient denies any shortness of breath/chest pain/fevers/chills/nausea/vomiting/diarrhea. She does report feeling "off" but she is awake alert and oriented x 3 on exam. Initial EKG shows QTc 568 with T wave abnormalities, the patient denies any chest pain or shortness of breath on exam Repeat EKG pending The patient will be admitted to telemetry for further monitoring Allergies Allergy/AdvReac Type Severity Reaction Status Date / Time bupropion Allergy Unknown Unknown Verified 08/01/24 15:46 nicotine [From Nicorette] Allergy Unknown Unknown Verified 09/01/22 21:23 Penicillins Allergy Unknown Unknown Verified 08/01/24 15:46 gabapentin [From Neurontin] AdvReac Intermediate Nausea Verified 08/01/24 15:46 latex AdvReac Unknown unknown Verified 08/01/24 15:46 Sulfa (Sulfonamide AdvReac Unknown unknown Verified 08/01/24 15:46 Antibiotics) Home Medications Medication Instructions Recorded Confirmed Type levothyroxine 88 mcg tablet 88 mcg PO DAILYBB 09/08/19 08/01/24 History simvastatin 10 mg tablet 10 mg PO HS 09/08/19 09/01/22 History morphine 60 mg tablet,extended 60 mg PO TID #9 tabs 09/22/19 08/01/24 Rx release oxycodone 5 mg tablet 5 mg PO BID PRN Pain 10/24/19 08/01/24 History metoprolol succinate 50 mg 50 mg PO DAILY 12/16/20 09/01/22 History tablet,extended release 24 hr ondansetron HCl 4 mg tablet 4 mg PO Q8 PRN Nausea 12/16/20 09/01/22 History trazodone 100 mg tablet 100 mg PO HS 08/26/22 08/01/24 History duloxetine 20 mg capsule,delayed 20 mg PO QAM 09/01/22 08/01/24 History release sennosides 8.6 mg-docusate sodium 1 - 2 tab-cap (1 - 2 x 8.6-50 mg) 07/11/24 Rx 50 mg tablet (Senokot-S) PO BID PRN constipation #60 tabs cholecalciferol (vitamin D3) 125 125 mcg PO DAILY 08/01/24 08/01/24 History mcg (5,000 unit) capsule ferrous sulfate 324 mg (65 mg 324 mg PO 3XWK 08/01/24 08/01/24 History iron) tablet,delayed release melatonin 5 mg disintegrating 5 mg PO QPM 08/01/24 08/01/24 History tablet pantoprazole 20 mg tablet,delayed 20 mg PO BID 08/01/24 08/01/24 History release Past Med/Surg History Problem List (Updated 08/01/24 @ 19:25 by Fahad Head MD) Hypomagnesemia (Acute) Failure to thrive in adult Femoral loosening of prosthetic left hip Anemia Acute kidney failure DVT prophylaxis Smoking Ectopic atrial rhythm Acute hypokalemia (Acute) Nausea & vomiting 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 Paroxysmal A-fib Vomiting (Acute) Acute hyponatremia (Acute) Acute hypokalemia (Acute) DVT prophylaxis Weakness (Acute) COVID-19 (Acute) Fracture of proximal humerus (Acute) Fall (Acute) Ambulatory dysfunction (Acute) COPD (chronic obstructive pulmonary disease) (Chronic) Depression (Chronic) Chronic back pain (Chronic) Hypertension (Chronic) DJD (degenerative joint disease) (Chronic) SIADH (syndrome of inappropriate ADH production) (Chronic) Hypothyroidism (Chronic) Osteoporosis (Chronic) Anemia (Chronic) Anxiety (Chronic) Avascular necrosis of bone of left hip (Chronic) History of hysterectomy (Chronic) History of total left hip arthroplasty (Chronic) Fluid collection at surgical site (Chronic) Post-operative complication (Chronic) Medical History Acute UTI Hyponatremia Hypokalemia Nausea & vomiting Family History Father Arrhythmia Other Family history non-contributory Social History Smoking Status: Light tobacco smoker Tobacco Type: Cigarettes Cigarettes Per Day: Pt. reports half a cigarette every other day; Second Hand Exposure: No; Do You Dip or Chew Tobacco: No; Hx Alcohol Use: No Hx Substance Use: No Preferred Language: Tajik Communication Ability: Effective Bankruptcy Paralegal Required: No Beliefs That Will Affect Care: None marital status: Current Living Situation: Alone Current Living Situation Comment: Caregiver comes on tuesdays and Feels Safe at Home: Yes Safety Concerns: Feels Safe At This Time Assistive Devices: Cane, Walker and Wheelchair Review of Systems Review of Systems: all negative aside from as stated in HPI Physical Exam Constitutional: + ill appearing, + thin, + frail appeari ng and + underweight; + not well nourished Eyes: PERRL, conjunctivae normal, anicteric sclerae ENMT: external ear and nose normal, oropharynx normal Neck: trachea midline, no thyromegaly Respiratory: normal respiratory effort, lungs clear to auscultation Cardiovascular: RRR, no murmur, no edema Chest (Breasts): Breast: + abnormal inspection of breast ( fungal rash under bilateral breasts) Gastrointestinal (Abdomen): normal bowel sounds, soft, nontender, no hepatosplenomegaly Musculoskeletal: no cyanosis or clubbing, extremities motor strength 5/5 ( generalized weakness) Extremities: extremities normal to inspection Neurologic: patellar DTR's 2+ bilat, sensation intact and PERRL, EOMI, accommodation nl, no face palsy, no dysarthria Psychiatric: A+Ox3, euthymic affect Results & Data Results & Data Vital Signs (Past 12 Hours) Vital Signs Temp Pulse Resp BP Pulse Ox O2 Del Method 08/01/24 15:47 89 08/01/24 13:33 36.7 C 67 18 110/73 98 Room Air Laboratory Results Laboratory Results WBC 7.07 K/ul (4.8-10.8) 08/01/24 14:27 RBC 4.12 M/uL (4.20-5.40) L 08/01/24 14:27 Hgb 11.3 g/dl (12.0-16.0) L 08/01/24 14:27 Hct 33.5 % (37.0-47.0) L 08/01/24 14:27 MCV 81.3 fL (80.0-100.0) 08/01/24 14:27 MCH 27.4 pg (25.0-34.0) 08/01/24 14:27 MCHC 33.7 g/dL (32.0-36.0) 08/01/24 14:27 RDW Std Deviation 48.7 fL (36.4-46.3) H 08/01/24 14:27 RDW Coeff of Main 16.4 % (11.5-14.5) H 08/01/24 14: Plt Count 253 K/uL (130-400) 08/01/24 14:27 MPV 11.0 fL (9.4-12.4) 08/01/24 14:27 Immature Gran % (Auto) 0.6 % 08/01/24 14:27 Neut % (Auto) 84.6 % 08/01/24 14:27 Lymph % (Auto) 9.1 % 08/01/24 14:27 [place] % (Auto) 5.1 % 08/01/24 14:27 Eos % (Auto) 0.3 % 08/01/24 14:27 Baso % (Auto) 0.3 % 08/01/24 14:27 Neut # (Auto) 5.99 K/uL (1.40-6.50) 08/01/24 14:27 Lymph # (Auto) 0.64 K/uL (1.20-3.40) L 08/01/24 14:27 [place] # (Auto) 0.36 K/uL (0.11-0.59) 08/01/24 14:27 Eos # (Auto) 0.02 K/uL (0.00-0.50) 08/01/24 14:27 Baso # (Auto) 0.02 K/uL (0.00-0.20) 08/01/24 14:27 Immature Gran # (Auto) 0.04 K/uL (0.01-0.20) 08/01/24 14:27 Sodium 123 mmol/L (136-145) L 08/01/24 14:27 Potassium 3.1 mmol/L (3.5-5.1) L 08/01/24 14:27 Chloride 86 mmol/L (98-107) L 08/01/24 14:27 Carbon Dioxide 27 mmol/L (21-32) 08/01/24 14:27 Anion Gap 10 (3-11) 08/01/24 14:27 BUN 7 mg/dl (6-23) 08/01/24 14:27 Creatinine 1.10 mg/dl (0.6-1.2) 08/01/24 14:27 Est Cr Clr Drug Dosing Not Reportable 08/01/24 14:27 Est GFR ( Amer) 57.3 ml/min 08/01/24 14:27 Est GFR (Non-Af Amer) 49.4 ml/min 08/01/24 14:27 BUN/Creatinine Ratio 6.4 (10-20) L 08/01/24 14:27 Glucose 159 mg/dl (70-99(Fasting)) H 08/01/24 14:27 Calcium 9.8 mg/dl (8.6-10.3) 08/01/24 14:27 Magnesium 1.5 mg/dl (1.7-2.4) L 08/01/24 14:27 Total Bilirubin 0.7 mg/dl (0.2-1.0) 08/01/24 14:27 AST 12 U/L (13-39) L 08/01/24 14:27 ALT 4 U/L (7-52) L 08/01/24 14:27 Alkaline Phosphatase 95 U/L (34-104) 08/01/24 14:27 Total Protein 8.0 gm/dl (6.0-8.3) 08/01/24 14: Albumin 4.1 gm/dl (3.4-5.0) 08/01/24 14: Globulin 3.9 gm/dl (2.5-4.0) 08/01/24 14:27 Albumin/Globulin Ratio 1.1 (0.9-2) 08/01/24 14:27 TSH 8.642 uIu/ml (0.300-4.500) H 08/01/24 14:27 Free T4 1.18 ng/dl (0.61-1.60) 08/01/24 14:27 Code Status & VTE Plan VTE Prophylaxis Plan VTE Prophylaxis will be ordered: Yes Critical Care Time Critical Care Time: No Supervising Physician Co-Signing Physician Notes Pt was seen and examined by myself, Betty Parks MD on the day of service. Care was coordinated with JANIE Montano. 73yoF seen with brother at bedside. Brother states he is her POA, pt states she is getting weaker by the day but denies other symptoms. Would like assistance with placement. Hard of hearing, frail, abdomen soft Hyponatremia of 123, urine electrolytes, IV fluids, nephrology consult, PT/OT replete magnesium as needed Otherwise as above. I spent a total [id number] coordinating, documenting, and providing care for this patient excluding time spent in the performance of separately billed services
[2024-08-01] MEDS: POTASSIUM CHLORIDE CRTAB 20 MEQ TABCR PO STA (17:19)
[2024-08-01] MEDS: MAGNESIUM OXIDE 400 MG TAB PO STA (17:19)
--- NOTE | 2024-08-01 18:33 | XRay Report ---
XR chest 2V PA/lateral CLINICAL HISTORY: baseline TECHNIQUE: 2 views of the chest were obtained. Comparison: None available at the time of this dictation. FINDINGS: No lines and tubes are seen. Calcified aortic knob is seen. The lungs are clear. No evidence of pleur al effusion or pneumothorax. IMPRESSION: No acute chest disease. ACT 112: Negative or not required by law. Electronically signed by: Abdullahi Govea M.D. 08/01/2024 6:31 PM
--- NOTE | 2024-08-01 19:25 | Emergency Department Note ---
History of Present Illness General Chief Complaint: Abnormal Labs/Diagnostic Testing Stated Complaint: ABN BLOOD WORK, POSTASSIUM LOW Time Seen by Provider: 08/01/24 14:35 History of Present Illness Provider Complaint: + abnormal lab Returns today for: + called because of abnormal lab/test Description of abnormal result: Low-sodium Associated symptoms: + other (Patient reports she feels weak. No seizures.); no fever, no chills, no chest pain, no shortness of breath, no nausea or no abdominal pain Home Medications Medication Instructions Recorded Confirmed Type levothyroxine 88 mcg tablet 88 mcg PO DAILYBB 09/08/19 08/01/24 History simvastatin 10 mg tablet 10 mg PO HS 09/08/19 09/01/22 History morphine 60 mg tablet,extended 60 mg PO TID #9 tabs 09/22/19 08/01/24 Rx release oxycodone 5 mg tablet 5 mg PO BID PRN Pain 10/24/19 08/01/24 History metoprolol succinate 50 mg 50 mg PO DAILY 12/16/20 09/01/22 History tablet,extended release 24 hr ondansetron HCl 4 mg tablet 4 mg PO Q8 PRN Nausea 12/16/20 09/01/22 History trazodone 100 mg tablet 100 mg PO HS 08/26/22 08/01/24 History duloxetine 20 mg capsule,delayed 20 mg PO QAM 09/01/22 08/01/24 History release sennosides 8.6 mg-docusate sodium 1 - 2 tab-cap (1 - 2 x 8.6-50 mg) 07/11/24 Rx 50 mg tablet (Senokot-S) PO BID PRN constipation #60 tabs cholecalciferol (vitamin D3) 125 125 mcg PO DAILY 08/01/24 08/01/24 History mcg (5,000 unit) capsule ferrous sulfate 324 mg (65 mg 324 mg PO 3XWK 08/01/24 08/01/24 History iron) tablet,delayed release melatonin 5 mg disintegrating 5 mg PO QPM 08/01/24 08/01/24 History tablet pantoprazole 20 mg tablet,delayed 20 mg PO BID 08/01/24 08/01/24 History release Allergies Allergy/AdvReac Type Severity Reaction Status Date / Time bupropion Allergy Unknown Unknown Verified 08/01/24 15:46 nicotine [From Nicorette] Allergy Unknown Unknown Verified 09/01/22 21:23 Penicillins Allergy Unknown Unknown Verified 08/01/24 15:46 gabapentin [From Neurontin] AdvReac Intermediate Nausea Verified 08/01/24 15:46 latex AdvReac Unknown unknown Verified 08/01/24 15:46 Sulfa (Sulfonamide AdvReac Unknown unknown Verified 08/01/24 15:46 Antibiotics) Past Med/Surg History Problem List (Updated 08/01/24 @ 19:25 by Fahad eHad MD) Hypomagnesemia (Acute) Failure to thrive in adult Femoral loosening of prosthetic left hip Anemia Acute kidney failure DVT prophylaxis Smoking Ectopic atrial rhythm Acute hypokalemia (Acute) Nausea & vomiting 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 Paroxysmal A-fib Vomiting (Acute) Acute hyponatremia (Acute) Acute hypokalemia (Acute) DVT prophylaxis Weakness (Acute) COVID-19 (Acute) Fracture of proximal humerus (Acute) Fall (Acute) Ambulatory dysfunction (Acute) COPD (chronic obstructive pulmonary disease) (Chronic) Depression (Chronic) Chronic back pain (Chronic) Hypertension (Chronic) DJD (degenerative joint disease) (Chronic) SIADH (syndrome of inappropriate ADH production) (Chronic) Hypothyroidism (Chronic) Osteoporosis (Chronic) Anemia (Chronic) Anxiety (Chronic) Avascular necrosis of bone of left hip (Chronic) History of hysterectomy (Chronic) History of total left hip arthroplasty (Chronic) Fluid collection at surgical site (Chronic) Post-operative complication (Chronic) Medical History Acute UTI Hyponatremia Hypokalemia Nausea & vomiting Family History Father Arrhythmia Other Family history non-contributory Social History Smoking Status: Never smoker Tobacco Type: Cigarettes Second Hand Exposure: No; Do You Dip or Chew Tobacco: No; Hx Alcohol Use: Yes Alcohol type: beer Alcohol Intake Frequency: Monthly or Less Hx Substance Use: No Preferred Language: Thai Communication Ability: Effective 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 Required: No Beliefs That Will Affect Care: None marital status: Current Living Situation: Alone Current Living Situation Comment: IN AN APARTMENT Feels Safe at Home: Yes Assistive Devices: Glasses, Walker and Wheelchair Physical Exam 2 Vital Signs: Vital Signs - 24 hr 08/01/24 13:33 08/01/24 15:47 08/01/24 18:00 Temperature 36.7 C Temperature Source Skin Pulse Rate 67 89 Pulse Rate [Apical ] 81 Pulse Rhythm [Apic al] Regular Pulse Strength [Ap ical] Normal Respiratory Rate 18 17 Respiratory Effort / Characteristics Non-Labored Sponta neous Respiratory Depth Normal Blood Pressure 110/73 Blood Pressure [Ri ght Arm] 124/67 Blood Pressure Asia n 85 Blood Pressure Asia n [Right Arm] 86 Pulse Oximetry 98 93 Oxygen Delivery Me thod Room Air Room Air Sepsis Recent Feve r Within 48 Hours No Sepsis New/Unexpla ined Change in Men christie Status No Sepsis Action Take n by Nursing No Action Required 08/01/24 18:27 Temperature Temperature Source Pulse Rate 81 Pulse Rate [Apical ] Pulse Rhythm [Apic al] Pulse Strength [Ap ical] Respiratory Rate 17 Respiratory Effort / Characteristics Respiratory Depth Blood Pressure Blood Pressure [Ri ght Arm] Blood Pressure Asia n Blood Pressure Asia n [Right Arm] Pulse Oximetry 93 Oxygen Delivery Me thod Room Air Sepsis Recent Feve r Within 48 Hours Sepsis New/Unexpla ined Change in Men christie Status Sepsis Action Take n by Nursing Physical Exam: Physical Exam GENERAL: oriented to person, place, and time. appears well-developed and well- nourished. HENT: Exam performed. - Head: Normocephalic and atraumatic. EYES: Conjunctivae and EOM are normal. Right eye exhibits no discharge. Left eye exhibits no discharge. No scleral icterus. NECK: Normal range of motion. Neck supple. No JVD present. CV: Normal rate, regular rhythm, normal heart sounds and intact distal pulses. There is no peripheral edema. Palpable radial pulses bue. PULM/CHEST: Effort normal and breath sounds normal. No respiratory distress. No stridor. no wheezes. no rales. ABD: The abdomen is soft. There is no tenderness. NEURO: Motor and sensation grossly intact. SKIN: Skin is warm and dry. He is not diaphoretic. PSYCH: normal mood and affect. Behavior is normal. Judgment and thought content normal. Course Course 1435: The patient was evaluated in room C6. A complete history and physical exam was performed Administered Medications Sodium Chloride (Nss) 1,000 mls @ 80 mls/hr IV .[id number] PARISA Stop: 08/31/24 15:14 Last Admin: 08/01/24 15:29 Dose: 80 mls/hr Documented By: SHERMAN Discontinued Medications Magnesium Sulfate/Dextrose (Magnesium Sulfate / D5w) 1 gm in 100 mls @ 100 mls/hr IV NOW STA Stop: 08/01/24 16:07 Last Infusion: 08/01/24 16:35 Dose: Infused Documented By: Admin: 08/01/24 15:28 Dose: 100 mls/hr Documented By: SHERMAN Magnesium Oxide (Magnesium Oxide 400 Mg Tab) 400 mg PO NOW STA Stop: 08/01/24 16:26 Last Admin: 08/01/24 17:19 Dose: 400 mg Documented By: DANIEL Potassium Chloride (Potassium Chloride Crtab 20 Meq Tabcr) 40 meq PO NOW STA Stop: 08/01/24 16:25 Last Admin: 08/01/24 17:19 Dose: 40 meq Documented By: DANIEL Medical Decision Making Laboratory Data Attestation: I reviewed the patient's lab results. 08/01/24 14:27 08/01/24 14:27 Lab Results 08/01/24 Range/Units 14:27 WBC 7.07 (4.8-10.8) K/ul RBC 4.12 L (4.20-5.40) M/uL Hgb 11.3 L (12.0-16.0) g/dl Hct 33.5 L (37.0-47.0) % MCV 81.3 (80.0-100.0) fL MCH 27.4 (25.0-34.0) pg MCHC 33.7 (32.0-36.0) g/dL RDW Std Deviation 48.7 H (36.4-46.3) fL RDW Coeff of Main 16.4 H (11.5-14.5) % Plt Count 253 (130-400) K/uL MPV 11.0 (9.4-12.4) fL Immature Gran % (Auto) 0.6 % Neut % (Auto) 84.6 % Lymph % (Auto) 9.1 % [place] % (Auto) 5.1 % Eos % (Auto) 0.3 % Baso % (Auto) 0.3 % Neut # (Auto) 5.99 (1.40-6.50) K/uL Lymph # (Auto) 0.64 L (1.20-3.40) K/uL [place] # (Auto) 0.36 (0.11-0.59) K/uL Eos # (Auto) 0.02 (0.00-0.50) K/uL Baso # (Auto) 0.02 (0.00-0.20) K/uL Immature Gran # (Auto) 0.04 (0.01-0.20) K/uL Sodium 123 L (136-145) mmol/L Potassium 3.1 L (3.5-5.1) mmol/L Chloride 86 L (98-107) mmol/L Carbon Dioxide 27 (21-32) mmol/L Anion Gap 10 (3-11) BUN 7 (6-23) mg/dl Creatinine 1.10 (0.6-1.2) mg/dl Est Cr Clr Drug Dosing Not Reportable Est GFR ( Amer) 57.3 ml/min Est GFR (Non-Af Amer) 49.4 ml/min BUN/Creatinine Ratio 6.4 L (10-20) Glucose 159 H (70-99(Fasting)) mg/dl Osmolality 259 L (280-300) mOsm/kg Calcium 9.8 (8.6-10.3) mg/dl Magnesium 1.5 L (1.7-2.4) mg/dl Total Bilirubin 0.7 (0.2-1.0) mg/dl AST 12 L (13-39) U/L ALT 4 L (7-52) U/L Alkaline Phosphatase 95 (34-104) U/L Total Protein 8.0 (6.0-8.3) gm/dl Albumin 4.1 (3.4-5.0) gm/dl Globulin 3.9 (2.5-4.0) gm/dl Albumin/Globulin Ratio 1.1 (0.9-2) TSH 8.642 H (0.300-4.500) uIu/ml Free T4 1.18 (0.61-1.60) ng/dl Imaging Data Radiologist's Impression: Chest X-Ray 08/01/24 16:59 XR chest 2V PA/lateral CLINICAL HISTORY: baseline TECHNIQUE: 2 views of the chest were obtained. Comparison: None available at the time of this dictation. FINDINGS: No lines and tubes are seen. Calcified aortic knob is seen. The lungs are clear. No evidence of pleural effusion or pneumothorax. IMPRESSION: No acute chest disease. ACT 112: Negative or not required by law. Electronically signed by: Abdullahi Govea M.D. 08/01/2024 6:31 PM ECG Data Attestation: I personally reviewed and interpreted this ECG as follows: Rate (beats per minute): 121 Rhythm: sinus with SA Findings: no ST depression, no ST elevation or no prolonged QT Additional Comments: QRS 66 MDM Narrative Patient was seen during a time of extreme volume and extreme acuity. Nursing triage protocols were initiated labs and imaging was conducted by protocol in the triage area. Labs are significant for sodium 123. Potassium 3.1. Magnesium 1.5. Magnesium repletion started in the emergency department. Patient be treated with normal saline. No need for hypertonic saline at this time as patient has not had any seizures. After magnesium repletion has been completed patient's potassium will be repleted. Patient will be admitted to the hospitalist team. Impression & Plan Acute hyponatremia, Acute hypokalemia, Hypomagnesemia Discharge Plan Visit Data Chief Complaint: Abnormal Labs/Diagnostic Testing Stated Complaint: ABN BLOOD WORK, POSTASSIUM LOW ED Provider: Fahad Head Discharge Problem: Acute hyponatremia, Acute hypokalemia, Hypomagnesemia Patient Disposition: Admitted As Inpatient Forms Stand Alone Forms: [facility] Prescriptions Prescriptions: No Action oxycodone 5 mg tablet 5 mg PO BID PRN (Reason: Pain) Rx Instructions: breakthrough pain ondansetron HCl 4 mg tablet 4 mg PO Q8 PRN (Reason: Nausea) metoprolol succinate 50 mg tablet extended release 24 hr 50 mg PO DAILY simvastatin 10 mg tablet 10 mg PO HS levothyroxine 88 mcg tablet 88 mcg PO DAILYBB morphine 60 mg tablet extended release 60 mg PO TID Qty: 9 0RF trazodone 100 mg tablet 100 mg PO HS duloxetine 20 mg capsule,delayed release(DR/EC) 20 mg PO QAM sennosides-docusate sodium [Senokot-S] 8.6-50 mg tablet 1 - 2 tab-cap PO BID PRN (Reason: constipation) Qty: 60 2RF pantoprazole 20 mg tablet,delayed release (DR/EC) 20 mg PO BID cholecalciferol (vitamin D3) 125 mcg (5,000 unit) capsule 125 mcg PO DAILY ferrous sulfate 324 mg (65 mg iron) tablet,delayed release (DR/EC) 324 mg PO 3XWK Rx Instructions: MoWeFr melatonin 5 mg tablet,disintegrating 5 mg PO QPM Referrals Referrals: Myrna Munguia [Primary Care Provider] -
[2024-08-01 19:41] LABS: Anion Gap 7 (3-11); BUN Creatinine Ratio 7.6 (10-20); Blood Urea Nitrogen 8 mg/dl (6-23); Calcium 9.1 mg/dl (8.6-10.3); Carbon Dioxide 28 mmol/L (21-32); Chloride 89 mmol/L (98-107); Est GFR (African American) 60.6 ml/min; Est GFR (Non-African American) 52.3 ml/min; Glucose 115 mg/dl (70-99(Fasting)); Potassium 3.6 mmol/L (3.5-5.1); Sodium 124 mmol/L (136-145)
[2024-08-01] MEDS: traZODone HCL 100 MG TAB PO SCH (21:29)
[2024-08-01] MEDS: MoRPHine SULFATE CR 60 MG TABCR PO SCH (23:05)
[2024-08-01] MEDS: ENOXAPARIN INJ 40 MG/0.4 ML SYR SQ SCH (23:06)
[2024-08-02] MEDS: PANTOprazole 40 MG TAB PO SCH (00:56)
[2024-08-02 01:27] LABS: BUN Creatinine Ratio 6.5 (10-20); Calcium 9.2 mg/dl (8.6-10.3); Creatinine Clr Calc Pharmacy 38.3 ml/min; Est GFR (African American) 59.2 ml/min; Est GFR (Non-African American) 51.1 ml/min; Potassium 3.8 mmol/L (3.5-5.1)
[2024-08-02 05:57] LABS: Appearance Urine Clear (Clear); Bacteria Urine Automated None Seen (None Seen); Bilirubin Urine Negative (Negative); Blood Urine Negative (Negative); Cast Urine Automated 0-2 /lpf (0-2); Color Urine Yellow; Epithelial Cell Urine Auto 0-2 /hpf (0-2); Glucose Urine UA Negative (Negative); Ketones Urine Negative (Negative); Leukocyte Esterase Urine Trace (Negative); Nitrite Urine Negative (Negative); Protein Urine Negative (Negative); RBC Urine Automated 0-2 /hpf (0-2); Specific Gravity Urine 1.004 (1.000-1.030); Urobilinogen Urine Negative (Negative); WBC Urine Automated 0-5 /hpf (0-5); pH Urine 6.5 (4.5-7.5)
[2024-08-02 06:22] LABS: Urine Chloride < 15 mmol/L; Urine Potassium 5.7 mmol/L; Urine Sodium < 10 mmol/L
[2024-08-02 07:58] LABS: Basophils # (auto) 0.02 K/uL (0.00-0.20); Basophils % (auto) 0.6 %; Eosinophils # (auto) 0.03 K/uL (0.00-0.50); Eosinophils % (auto) 0.9 %; Hematocrit (blood only) 28.7 % (37.0-47.0); Immature Granulocytes # (auto) 0.02 K/uL (0.01-0.20); Immature Granulocytes % (auto) 0.6 %; Lymphocytes # (auto) 1.03 K/uL (1.20-3.40); Lymphocytes % (auto) 29.7 %; Mean Corpuscular Hemoglobin 26.2 pg (25.0-34.0); Mean Corpuscular Hgb Conc 31.4 g/dL (32.0-36.0); Mean Corpuscular Volume 83.7 fL (80.0-100.0); Mean Platelet Volume 10.9 fL (9.4-12.4); Monocytes # (auto) 0.27 K/uL (0.11-0.59); Monocytes % (auto) 7.8 %; Neutrophils % (auto) 60.4 %; Platelet Count 217 K/uL (130-400); RDW Coefficient of Variation 16.6 % (11.5-14.5); RDW Standard Deviation 50.8 fL (36.4-46.3); Red Blood Count 3.43 M/uL (4.20-5.40); White Blood Count 3.47 K/ul (4.8-10.8)
[2024-08-02] MEDS: FERROUS SULFATE 325 MG TAB PO SCH (07:58)
[2024-08-02] MEDS: CHOLECALCIFEROL 125 MCG (5,000 UNITS) TAB PO SCH (07:58)
[2024-08-02] MEDS: LEVOTHYROXINE SODIUM 88 MCG TABLET PO SCH (07:59)
[2024-08-02 08:19] LABS: BUN Creatinine Ratio 6.8 (10-20); Calcium 8.8 mg/dl (8.6-10.3); Creatinine Clr Calc Pharmacy 47.6 ml/min; Est GFR (Non-African American) 64.7 ml/min; Potassium 4.4 mmol/L (3.5-5.1)
[2024-08-02 08:36] LABS: Phosphorus 3.3 mg/dl (2.5-4.9)
--- NOTE | 2024-08-02 09:10 | Nephrology Consultation ---
Date of Consultation August 02, 2024 Assessment & Plan (1) Hyponatremia: severe hyponatremia, with presenting sodium 123 yesterday 1430, up to 128 this AM at 0630. looks as though she's been drinking too much water based on labs and w/ minimal solute intake. compounded by SNRI use. -correcting quickly >> target is no more than 129 sodium by midday today and looks on track w/ changes below to make that -for now continue no fluid limit -will hold IV fluids for now >> held as of late AM -cont q6 h bmp and then -control pain w/o nsaids -maintain eukalemia (2) Failure to thrive in adult: as per primary service History of Present Illness Reason for Consultation: hyponatremia Requesting Physician: Dr Parks Attending Physician: Miriam Hernadez MD History of Present Illness 73 y/o F whom I'm asked to see for hyponatremia was admitted overnight for hypothyroidism and failure to thrive after being sent by PCP to ED for abnormal labs. PMH includes hypothyroidism, SIADH, COPD, chronic back pain/hip pain, anemia, anxiety, depression, A-fib, chronic ambulatory dysfunction//mostly w-c bound, active tobacco abuse. Presenting sodium was 123, K 3.1, mag 1.5 at 1430 yesterday. This am at 0630 her sodium is 128, K 4.4. She had 40 mEq po K, 1 gm mag sulfate, and is on NS at 80 mL hourly. she has received at least 1.1L fluid so far. Pt lives alone; had not taken meds for approximately past month until 4 days back when her brother came to stay w/ her to ensure she was taking her meds appropriately. endorses poor po intake prior to admission and ongoing >> denies dysphagia or odynophagia; but does endorse depression and poor appetite. denies sob, chest pain, n/v/d/abd pain, falls or presyncopal sx, no confusion; no new/worrisome voiding sx, no f/c. Patient has been on duloxetine and takes Zofran intermittently. Allergies Allergy/AdvReac Type Severity Reaction Status Date / Time bupropion Allergy Unknown Unknown Verified 08/01/24 15:46 nicotine [From Nicorette] Allergy Unknown Unknown Verified 10/25/22 21:23 Penicillins Allergy Unknown Unknown Verified 08/01/24 15:46 gabapentin [From Neurontin] AdvReac Intermediate Nausea Verified 08/01/24 15:46 latex AdvReac Unknown unknown Verified 08/01/24 15:46 Sulfa (Sulfonamide AdvReac Unknown unknown Verified 08/01/24 15:46 Antibiotics) Home Medications Medication Instructions Recorded Confirmed Type levothyroxine 88 mcg tablet 88 mcg PO DAILYBB 09/08/19 08/01/24 History simvastatin 10 mg tablet 10 mg PO HS 09/08/19 09/01/22 History morphine 60 mg tablet,extended 60 mg PO TID #9 tabs 09/22/19 08/01/24 Rx release oxycodone 5 mg tablet 5 mg PO BID PRN Pain 10/24/19 08/01/24 History metoprolol succinate 50 mg 50 mg PO DAILY 12/16/20 09/01/22 History tablet,extended release 24 hr ondansetron HCl 4 mg tablet 4 mg PO Q8 PRN Nausea 12/16/20 09/01/22 History trazodone 100 mg tablet 100 mg PO HS 08/26/22 08/01/24 History duloxetine 20 mg capsule,delayed 20 mg PO QAM 09/01/22 08/01/24 History release sennosides 8.6 mg-docusate sodium 1 - 2 tab-cap (1 - 2 x 8.6-50 mg) 07/11/24 Rx 50 mg tablet (Senokot-S) PO BID PRN constipation #60 tabs cholecalciferol (vitamin D3) 125 125 mcg PO DAILY 08/01/24 08/01/24 History mcg (5,000 unit) capsule ferrous sulfate 324 mg (65 mg 324 mg PO 3XWK 08/01/24 08/01/24 History iron) tablet,delayed release melatonin 5 mg disintegrating 5 mg PO QPM 08/01/24 08/01/24 History tablet pantoprazole 20 mg tablet,delayed 20 mg PO BID 08/01/24 08/01/24 History release Patient History Medical History Acute UTI Hyponatremia Hypokalemia Nausea & vomiting Family History Father Arrhythmia Other Family history non-contributory Social History Smoking Status: Light tobacco smoker Tobacco Type: Cigarettes Cigarettes Per Day: Pt. reports half a cigarette every other day; Second Hand Exposure: No; Do You Dip or Chew Tobacco: No; Hx Alcohol Use: No Hx Substance Use: No Preferred Language: Croatian Communication Ability: Effective Forwarder Operator Required: No Beliefs That Will Affect Care: None marital status: Current Living Situation: Alone Current Living Situation Comment: Caregiver comes on tuesdays and Feels Safe at Home: Yes Safety Concerns: Feels Safe At This Time Assistive Devices: Walker and Wheelchair Review of Systems 2 Review of Systems: All systems reviewed & are unremarkable except as noted in HPI & below Physical Exam 2 Constitutional: well developed, + cachectic and + frail appearing; no acute distress ENMT: Mouth: + dry oral mucous membranes Respiratory: normal respiratory effort and + cough (thick, nonproductive) A uscultation: + diminished lung sounds Cardiovascular: Rate/Rhythm: regular rate and regular rhythm Extremities: n o edema Gastrointestinal (Abdomen): Inspection/Auscultation: normal bowel sounds P ercussion/Palpation: abdomen soft; abdomen nontender Musculoskeletal: Extremities: strength 5/5 throughout Skin: no rashes, warm and dry Neurologic: maynard, fluent speech, no tremor Results & Data Vital Signs (Past 12 Hours) Vital Signs Temp Pulse Pulse Resp BP Pulse Ox O2 Del Method 08/02/24 08:07 36.4 C L 82 18 109/74 98 Nasal Cannula 08/02/24 07:32 64 08/01/24 23:16 36.4 C L 66 18 89/56 L 100 Room Air 08/01/24 21:47 60 08/01/24 21:37 36.6 C 89 18 122/80 98 Room Air O2 Flow Rate 08/02/24 08:07 2 08/02/24 07:32 08/01/24 23:16 08/01/24 21:47 08/01/24 21:37 0 Laboratory Results 08/02/24 06:41 08/02/24 06:41 s osm 259 u osm 85 luke <10, uCl <10 Diagnostic Findings cxr w/o active cp dz
--- NOTE | 2024-08-02 12:20 | Hospitalist Progress Note ---
Date of Service August 02, 2024 Assessment & Plan (1) Hypothyroidism: (2) Failure to thrive in adult: (3) Chronic back pain: Plan Hyponatremia Patient admits to poor oral intake and noncompliance with medications Urine Osmo 85 Serum osm 259 Hypotonic hyponatremia. Likely due to increased free water intake/poor solute diet likely compounded by SNRI in patient with h/o SIADH IVF had been stopped Monitor Na to avoid rapid correction Nephrology eval noted Acute on chronic severe malnutrition: Failure to thrive: Mostly stays in bed/chair now due to weakness/FTT per brother at bedside Brother stated she gets HH 2x a week and he has been assisting with all ADLs for sometime and it is getting too much to handle. Patient lives alone Nutrition consult PT/OT eval Will likely need placement CM aware Depression Patient reports depression, poor appetite, sleep She reported she had attempted suicide/SI a long time ago Brother stated she has not followed with psychiatrist in a long time She is open to psych eval Psych consulted Hx hypothyroidism: Continue Synthroid Chronic back/hip pain: Currently on oxycodone and MS Contin Will monitor and may need reduction if possible Hx AMY: Continue ferrous sulfate, hemoglobin stable Full code DVT prophylaxis: Manjux I spent a total of 55 minutes coordinating, documenting and providing care for this patient excluding time spent in performance of separately billed services Admission and Anticipated Discharge Date Admission Date: August 01, 2024 Subjective Patient seen and examined Reports anorexia, weakness Reports depression, poor sleep Denied SI/HI Reports chronic left sided pain especially in hip and ankles Denied any nausea, vomiting, abd pain, diarrhea, constipation, fever, chills, cough, SOB Physical Exam Constitutional: + well hydrated and + thin; no acute dis tress Chronically ill looking Eyes: PERRL, conjunctivae normal, anicteric sclerae ENMT: external ear and nose normal, oropharynx normal Respiratory: normal respiratory effort, lungs clear to auscultation Cardiovascular: Rate/Rhythm: regular rate and regular rhythm Gastrointestinal (Abdomen): normal bowel sounds, soft, nontender, no hepatosplenomegaly Musculoskeletal: No pedal edema Neurologic: PERRL, EOMI, accommodation nl, no face palsy, no dysarthria Psychiatric: A+Ox3, euthymic affect Results & Data Results & Data Vital Signs (Past 12 Hours) Vital Signs Temp Pulse Pulse Resp BP Pulse Ox O2 Del Method 08/02/24 08:07 36.4 C L 82 18 109/74 98 Nasal Cannula 08/02/24 07:32 64 O2 Flow Rate 08/02/24 08:07 2 08/02/24 07:32 Laboratory Results Abnormal lab results 08/01/24 08/01/24 08/02/24 Range/Units 14:27 19:14 00:50 WBC (4.8-10.8) K/ul RBC 4.12 L (4.20-5.40) M/uL Hgb 11.3 L (12.0-16.0) g/dl Hct 33.5 L (37.0-47.0) % MCHC (32.0-36.0) g/dL RDW Std Deviation 48.7 H (36.4-46.3) fL RDW Coeff of Main 16.4 H (11.5-14.5) % Lymph # (Auto) 0.64 L (1.20-3.40) K/uL Sodium 123 L 124 L 126 L (136-145) mmol/L Potassium 3.1 L (3.5-5.1) mmol/L Chloride 86 L 89 L 91 L (98-107) mmol/L BUN/Creatinine Ratio 6.4 L 7.6 L 6.5 L (10-20) Glucose 159 H 115 H 110 H (70-99(Fasting)) mg/dl Osmolality 259 L (280-300) mOsm/kg Magnesium 1.5 L (1.7-2.4) mg/dl AST 12 L (13-39) U/L ALT 4 L (7-52) U/L TSH 8.642 H (0.300-4.500) uIu/ml Ur Leukocyte Esterase (Negative) Urine Osmolality (500-800) mOsm/kg 08/02/24 08/02/24 Range/Units 06:41 Unknown WBC 3.47 L (4.8-10.8) K/ul RBC 3.43 L (4.20-5.40) M/uL Hgb 9.0 L (12.0-16.0) g/dl Hct 28.7 L (37.0-47.0) % MCHC 31.4 L (32.0-36.0) g/dL RDW Std Deviation 50.8 H (36.4-46.3) fL RDW Coeff of Main 16.6 H (11.5-14.5) % Lymph # (Auto) 1.03 L (1.20-3.40) K/uL Sodium 128 L (136-145) mmol/L Potassium (3.5-5.1) mmol/L Chloride 96 L (98-107) mmol/L BUN/Creatinine Ratio 6.8 L (10-20) Glucose 110 H (70-99(Fasting)) mg/dl Osmolality (280-300) mOsm/kg Magnesium (1.7-2.4) mg/dl AST (13-39) U/L ALT (7-52) U/L TSH (0.300-4.500) uIu/ml Ur Leukocyte Esterase Trace H (Negative) Urine Osmolality 85 L (500-800) mOsm/kg
[2024-08-02 13:42] LABS: BUN Creatinine Ratio 7.4 (10-20); Calcium 8.9 mg/dl (8.6-10.3); Creatinine Clr Calc Pharmacy 44.6 ml/min; Est GFR (African American) 69.3 ml/min; Est GFR (Non-African American) 59.8 ml/min; Potassium 4.1 mmol/L (3.5-5.1)
[2024-08-02 20:06] LABS: BUN Creatinine Ratio 7.1 (10-20); Calcium 8.8 mg/dl (8.6-10.3); Creatinine Clr Calc Pharmacy 42.3 ml/min; Est GFR (African American) 65.1 ml/min; Est GFR (Non-African American) 56.1 ml/min; Potassium 4.2 mmol/L (3.5-5.1)
--- NOTE | 2024-08-02 22:41 | Electrocardiogram Report ---
Test Reason : Blood Pressure : */* mmHG Vent. Rate : 121 BPM Atrial Rate : 153 BPM P-R Int : 166 ms QRS Dur : 66 ms QT Int : 300 ms P-R-T Axes : 82 -41 94 degrees QTcB Int : 426 ms Multifocal atrial tachycardia Left axis deviation Inferior infarct , age undetermined Anterior infarct , age undetermined T wave abnormality, consider lateral ischemia Abnormal ECG When compared with ECG of 11-Jul-2024 13:09, Premature ventricular complexes are no longer Present Confirmed by Naveen Espitia ([id number]) on 08/02/2024 10:40:46 PM Referred By: Confirmed By: Naveen Espitia
[2024-08-03 09:53] LABS: Hematocrit (blood only) 25.5 % (37.0-47.0); Hemoglobin 8.1 g/dl (12.0-16.0); Mean Corpuscular Hemoglobin 26.6 pg (25.0-34.0); Mean Corpuscular Hgb Conc 31.8 g/dL (32.0-36.0); Mean Corpuscular Volume 83.6 fL (80.0-100.0); Mean Platelet Volume 11.4 fL (9.4-12.4); Platelet Count 191 K/uL (130-400); RDW Coefficient of Variation 16.6 % (11.5-14.5); RDW Standard Deviation 50.7 fL (36.4-46.3); Red Blood Count 3.05 M/uL (4.20-5.40); White Blood Count 3.36 K/ul (4.8-10.8)
[2024-08-03 10:01] LABS: Calcium 8.7 mg/dl (8.6-10.3); Potassium 4.1 mmol/L (3.5-5.1)
[2024-08-03 10:07] LABS: BUN Creatinine Ratio 7.9 (10-20); Creatinine Clr Calc Pharmacy 47.4 ml/min; Est GFR (Non-African American) 63.8 ml/min
--- NOTE | 2024-08-03 11:38 | Hospitalist Progress Note ---
Date of Service August 03, 2024 Assessment & Plan (1) Hypothyroidism: (2) Failure to thrive in adult: (3) Chronic back pain: Plan Hyponatremia Patient admits to poor oral intake and noncompliance with medications Urine Osmo 85 Serum osm 259 Hypotonic hyponatremia. Likely due to increased free water intake/poor solute diet likely compounded by SNRI in patient with h/o SIADH Nephrology on board. Recs noted IVF NSS resumed by Nephro who recommends rechecking BMP at 8pm and for Meat Hostess to dc IVF if Na >133 or <129 Acute on chronic severe malnutrition: Failure to thrive: Mostly stays in bed/chair now due to weakness/FTT per brother at bedside Brother stated she gets HH 2x a week and he has been assisting with all ADLs for sometime and it is getting too much to handle. Patient lives alone Nutrition consult PT/OT eval CM working on placement Depression Patient reports depression, poor appetite, sleep She reported she had attempted suicide/SI a long time ago Brother stated she has not followed with psychiatrist in a long time She is open to psych eval Psych consulted Hx hypothyroidism: Continue Synthroid Chronic back/hip pain: Currently on oxycodone and MS Contin Reviewed PDMP Reduced home MS contin to half dose of 30mg q8h. Will monitor Hx AMY: Continue ferrous sulfate Hb is 8 today down from 9 yesterday No active bleed. Possibly dilutional Get anemia workup Full code DVT prophylaxis: Priscila Shoemaker spent a total of 45 minutes coordinating, documenting and providing care for this patient excluding time spent in performance of separately billed services Admission and Anticipated Discharge Date Admission Date: August 01, 2024 Subjective Patient seen and examined Reports generalized weakness Reports appetite is better today Reports chronic left sided pain especially in hip and ankles RN reported she was quite drowsy earlier this AM after getting her MS contin Physical Exam Constitutional: + well hydrated and + thin; no acute dis tress Eyes: PERRL, conjunctivae normal, anicteric sclerae ENMT: external ear and nose normal, oropharynx normal Respiratory: normal respiratory effort, lungs clear to auscultation Cardiovascular: Rate/Rhythm: regular rate and regular rhythm Gastrointestinal (Abdomen): normal bowel sounds, soft, nontender, no hepatosplenomegaly Musculoskeletal: No pedal edema Neurologic: PERRL, EOMI, accommodation nl, no face palsy, no dysarthria Psychiatric: A+Ox3, euthymic affect Results & Data Results & Data Vital Signs (Past 12 Hours) Vital Signs Temp Pulse Resp BP Pulse Ox O2 Del Method O2 Flow Rate 08/03/24 11:37 36.8 C 70 18 113/70 100 Nasal Cannula 1 08/03/24 07:52 36.4 C L 68 18 109/68 97 Nasal Cannula 1 08/03/24 03:33 36.5 C 74 18 114/69 95 Nasal Cannula 2 Laboratory Results Abnormal lab results 08/02/24 08/03/24 08/03/24 Range/Units 19:07 08:07 12:14 WBC 3.36 L (4.8-10.8) K/ul RBC 3.05 L (4.20-5.40) M/uL Hgb 8.1 L (12.0-16.0) g/dl Hct 25.5 L (37.0-47.0) % MCHC 31.8 L (32.0-36.0) g/dL RDW Std Deviation 50.7 H (36.4-46.3) fL RDW Coeff of Main 16.6 H (11.5-14.5) % Sodium 128 L 129 L (136-145) mmol/L Chloride 96 L 97 L (98-107) mmol/L BUN/Creatinine Ratio 7.1 L 7.9 L (10-20) Glucose 101 H (70-99(Fasting)) mg/dl Transferrin 170 L (200-360) mg/dl Folate 2.48 L (>5.38) ng/ml
--- NOTE | 2024-08-03 12:16 | Nephrology Progress Note ---
Date of Service August 03, 2024 Assessment & Plan (1) Hyponatremia: Plan: severe hyponatremia, with presenting sodium 123 08/01 at 1430, up to 129 this AM at 0800. 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 compounded by SNRI use. -corrected initially too quickly and stopped NS but will resume now >> target is no more than 135 sodium by tomorrow AM >resume NS at 80 and repeat bmp for 1999 ordered >> asked hospitalist to have steam locomotive firer/fireman review >> if sNa at 1999 >133 or <129 should d/c NS; else continue it -for now continue no fluid limit -control pain w/o nsaids -maintain eukalemia > K 4.1 Plan for sodium mgt as above re IVF, FR, f/u labs reviewed w/ Dr Hernadez via TText; we are in agreement. asked that steam locomotive firer/fireman d/c ivf if 1999 Na >133 or <129 (2) Failure to thrive in adult: Plan: as per primary service; significant anemia hgb 8.1 today may be in part malntutrition Admission and Anticipated Discharge Date Admission Date: August 01, 2024 Subjective no acute interval events; no complaints today of uncontrolled pain. no sob, no n/v; still w/ minimal appetite Review of Systems 2 Review of Systems: All systems reviewed & are unremarkable except as noted in Subjective Physical Exam 2 Constitutional: well developed, + cachectic and + frail appearing; no acute distress ENMT: Mouth: + dry oral mucous membranes Respiratory: normal respiratory effort; no cough Auscultation: + diminished lung sounds Cardiovascular: Rate/Rhythm: regular rate and regular rhythm Extremities: n o edema Gastrointestinal (Abdomen): Inspection/Auscultation: normal bowel sounds P ercussion/Palpation: abdomen soft; abdomen nontender Musculoskeletal: Extremities: strength 5/5 throughout Skin: no rashes, warm and dry Results & Data Vital Signs (Past 12 Hours) Vital Signs Temp Pulse Resp BP Pulse Ox O2 Del Method O2 Flow Rate 08/03/24 11:37 36.8 C 70 18 113/70 100 Nasal Cannula 1 08/03/24 08:00 Nasal Cannula 1.0 08/03/24 07:52 36.4 C L 68 18 109/68 97 Nasal Cannula 1 08/03/24 03:33 36.5 C 74 18 114/69 95 Nasal Cannula 2 Laboratory Results 08/03/24 08:07 08/03/24 08:07
[2024-08-03 13:30] LABS: Folate (Folic Acid),Ser orPlas 2.48 ng/ml (>5.38)
[2024-08-03 13:34] LABS: Ferritin 73.3 ng/ml (8-388); Transferrin 170 mg/dl (200-360); Unsaturated Iron Binding Cap 222 mcg/dl (155-355)
[2024-08-03] MEDS: SODIUM CHLORIDE 0.9% 1,000 ML IV SCH (13:49)
[2024-08-03 14:57] LABS: Iron 13 mcg/dl (35-150); Lactate Dehydrogenase 153 U/L (86-244)
--- NOTE | 2024-08-03 15:55 | Psychiatric Consultation ---
Date of Consultation August 03, 2024 Impression / Recommendations Impression Nessa Stewart" is a 73 y/o female, lives alone, h/o depression, hypothyroidism, failure to thrive who presents with hyponatremia in the context of poor appetite, excess fluid intakes, poor self care, poor medication adherence. Psychiatry consulted for evaluation and recommendations. Presentation concerning for severe major depressive disorder that has been persistent for multiple years. Concern that depression is impacting her ability for self-care, causing memory impairments, possible psychogenic polydipsia (excess fluid intake with hyponatremia, low serum osmolality in the setting of a severe mood disorder). She is not connected to outpatient psychiatry or therapy. She would benefit from placement in a higher level of care with regular medication assistance. She may benefit from admission to inpatient geriatric psychiatry for management and appropriate disposition planning. Alternate option could be placement in an assisted living and follow-up with outpatient psychiatry. Unclear if her depression is responsive to currently prescribed Cymbalta given chronic nonadherence. Unlikely Cymbalta is leading to hyponatremia given history of nonadherence. Overall, I spent a total of 60 minutes with this case including review of chart records, nursing report, review of lab work, direct evaluation of the patient at bedside, counseling the patient, discussion with the psychiatric liaison during clinical rounds, and documentation in the electronic health record. (1) MDD (major depressive disorder), recurrent severe, without psychosis: (2) Failure to thrive in adult: Plan 08/03/2024: Restart duloxetine 30 mg daily -Continue trazodone 100 mg at bedtime Does not require bedside sitter Case management to assist with outpatient psychiatry referral - Fluid restriction Psych History Identifying Data Nessa Stewart" is a 73 y/o female, lives alone, h/o depression, hypothyroidism, failure to thrive who presents with hyponatremia in the context of poor appetite, excess fluid intakes, poor self care, poor medication adherence. Psychiatry consulted for evaluation and recommendations. Chief Complaint "Never hungry" History of Present Illness Patient reports having poor appetite. Mostly drinks Coca-Cola and water. Unable to state how much water she drinks. She says she is not sure why she is thirsty and reports no recent increase in fluid intake. Reports she has "never slept well" and has not able to stay asleep at night. Complains of chronically low mood. Reports low energy "nonexistent". Unsure of concentration issues. Reports not being able to experience pleasure "do not have fun". Says this has been going on for years. Patient presents a constricted affect throughout the interview. Says she is nonadherent to medications because she is "forgetful". Does not use a pillbox. Unsure if antidepressants or trazodone are helpful because she does not take it every day. She denies auditory visualizations. She feels safe in the hospital. Currently does not have an outpatient psychiatrist. Denies alcohol or drug use. Complains of chronic hip pain. Open to being connected with an outpatient psychiatrist. Reports having home health court twice a week. Wheelchair bound. She denies suicidal ideation. Collateral from patient's brother: Not familiar with her medications. Not aware of past suicide attempts. 15 years ago she had an episode of paranoia and delusions and she was involuntary committed at that time. Denies any indication of recent psychosis. Patient has been medication nonadherent. Patient has no desire to leave her home. Patient has hoarding problem and family history of hoarding problems. At baseline patient has low body weight. She spends most of her day watching TV. She lives in a second floor apartment with an elevator. Both brothers live locally. Patient is on Cymbalta and trazodone. Allergies Allergy/AdvReac Type Severity Reaction Status Date / Time bupropion Allergy Unknown Unknown Verified 08/01/24 15:46 nicotine [From Nicorette] Allergy Unknown Unknown Verified 09/01/22 21:23 Penicillins Allergy Unknown Unknown Verified 08/01/24 15:46 gabapentin [From Neurontin] AdvReac Intermediate Nausea Verified 08/01/24 15:46 latex AdvReac Unknown unknown Verified 08/01/24 15:46 Sulfa (Sulfonamide AdvReac Unknown unknown Verified 08/01/24 15:46 Antibiotics) Home Medications Medication Instructions Recorded Confirmed Type levothyroxine 88 mcg tablet 88 mcg PO DAILYBB 09/08/19 08/01/24 History simvastatin 10 mg tablet 10 mg PO HS 09/08/19 09/01/22 History morphine 60 mg tablet,extended 60 mg PO TID #9 tabs 09/22/19 08/01/24 Rx release oxycodone 5 mg tablet 5 mg PO BID PRN Pain 10/24/19 08/01/24 History metoprolol succinate 50 mg 50 mg PO DAILY 12/16/20 09/01/22 History tablet,extended release 24 hr ondansetron HCl 4 mg tablet 4 mg PO Q8 PRN Nausea 12/16/20 09/01/22 History trazodone 100 mg tablet 100 mg PO HS 08/26/22 08/01/24 History duloxetine 20 mg capsule,delayed 20 mg PO QAM 09/01/22 08/01/24 History release sennosides 8.6 mg-docusate sodium 1 - 2 tab-cap (1 - 2 x 8.6-50 mg) 07/11/24 Rx 50 mg tablet (Senokot-S) PO BID PRN constipation #60 tabs cholecalciferol (vitamin D3) 125 125 mcg PO DAILY 08/01/24 08/01/24 History mcg (5,000 unit) capsule ferrous sulfate 324 mg (65 mg 324 mg PO 3XWK 08/01/24 08/01/24 History iron) tablet,delayed release melatonin 5 mg disintegrating 5 mg PO QPM 08/01/24 08/01/24 History tablet pantoprazole 20 mg tablet,delayed 20 mg PO BID 08/01/24 08/01/24 History release Patient History Medical History Acute UTI Hyponatremia Hypokalemia Nausea & vomiting Family History Father Arrhythmia Other Family history non-contributory Social History Smoking Status: Light tobacco smoker Tobacco Type: Cigarettes Cigarettes Per Day: Pt. reports half a cigarette every other day; Second Hand Exposure: No; Do You Dip or Chew Tobacco: No; Hx Alcohol Use: No Hx Substance Use: No Preferred Language: [place] Leonean Communication Ability: Effective Brake Specialist Required: No Beliefs That Will Affect Care: None marital status: Current Living Situation: Alone Current Living Situation Comment: Caregiver comes on tuesdays and Feels Safe at Home: Yes Safety Concerns: Feels Safe At This Time Assistive Devices: Walker and Wheelchair Physical Exam Mental Examination: Appearance: Disheveled (thin) Eye Contact: Maintains Eye Contact Motor Behavior: Slowed Speech: Delayed Mood: Depressed Affect: Congruent and Constricted Thought Process: Intact and Linear Thought Content: Intact (limited spontaneous speech) Hallucinations: None Insight: Poor Judgement: Poor Vital Signs (Past 24 Hours): Last Vital Signs Temp 36.8 C 08/03/24 11:37 Pulse 70 08/03/24 11:37 Resp 18 08/03/24 11:37 BP 113/70 08/03/24 11:37 Pulse Ox 100 08/03/24 11:37 O2 Del Method Nasal Cannula 08/03/24 11:37 O2 Flow Rate 1 08/03/24 11:37 Results & Data (PSY) Medications Administered Enoxaparin Sodium (Enoxaparin Inj 40 Mg/0.4 Ml Syr) 40 mg SQ PM PARISA Stop: 08/31/24 21:19 Last Admin: 08/02/24 21:49 Dose: 40 mg Documented By: Admin: 08/01/24 23:06 Dose: 40 mg Documented By: CHAD Ferrous Sulfate (Ferrous Sulfate 325 Mg Tab) 325 mg PO MoWeFr@0900 PARISA Stop: 09/01/24 08:59 Last Admin: 08/02/24 07:58 Dose: 325 mg Documented By: BETTY Sodium Chloride (Nss) 1,000 mls @ 80 mls/hr IV .[id number] PARISA Stop: 09/02/24 12:29 Last Admin: 08/03/24 13:49 Dose: 80 mls/hr Documented By: COMFORT Levothyroxine Sodium (Levothyroxine Sodium 88 Mcg Tablet) 88 mcg PO DAILYBB PARISA Stop: 09/01/24 06:29 Last Admin: 08/03/24 06:25 Dose: 88 mcg Documented By: Admin: 08/02/24 07:59 Dose: 88 mcg Documented By: BETTY Pantoprazole Sodium (Pantoprazole 40 Mg Tab) 40 mg PO BID PARISA Stop: 08/31/24 20:59 Last Admin: 08/03/24 09:50 Dose: 40 mg Documented By: Admin: 08/02/24 21:49 Dose: 40 mg Documented By: Admin: 08/02/24 07:57 Dose: 40 mg Documented By: Admin: 08/02/24 00:56 Dose: Not Given Documented By: CHAD Trazodone HCl (Trazodone Hcl 100 Mg Tab) 100 mg PO HS PARISA Stop: 08/31/24 20:59 Last Admin: 08/02/24 21:49 Dose: 100 mg Documented By: Admin: 08/01/24 21:29 Dose: 100 mg Documented By: CHAD Vitamin D (Cholecalciferol 125 Mcg (5,000 Units) Tab) 125 mcg PO DAILY PARISA Stop: 09/01/24 08:59 Last Admin: 08/03/24 09:50 Dose: 125 mcg Documented By: Admin: 08/02/24 07:58 Dose: 125 mcg Documented By: BET[place] [address] IN/OBS CONSULT LVL 4,60M Patient Type New History Detailed Exam Detailed Medical Decision Making Moderate Complexity Diagnoses MDD (major depressive disorder), recurrent severe, without psychosis F33.2 Failure to thrive in adult R62.7
[2024-08-03] MEDS: MoRPHine SULFATE CR 15 MG TABCR PO SCH (21:28)
[2024-08-03 21:37] LABS: BUN Creatinine Ratio 7.6 (10-20); Calcium 8.8 mg/dl (8.6-10.3); Creatinine Clr Calc Pharmacy 40.1 ml/min; Est GFR (African American) 60.6 ml/min; Est GFR (Non-African American) 52.3 ml/min
--- NOTE | 2024-08-03 21:57 | Communication Note ---
Date of Service: August 03, 2024
[2024-08-04 06:20] LABS: Hematocrit (blood only) 25.8 % (37.0-47.0); Hemoglobin 8.2 g/dl (12.0-16.0); Mean Corpuscular Hemoglobin 26.9 pg (25.0-34.0); Mean Corpuscular Hgb Conc 31.8 g/dL (32.0-36.0); Mean Corpuscular Volume 84.6 fL (80.0-100.0); Mean Platelet Volume 10.6 fL (9.4-12.4); Platelet Count 186 K/uL (130-400); Red Blood Count 3.05 M/uL (4.20-5.40); White Blood Count 3.38 K/ul (4.8-10.8)
[2024-08-04 06:39] LABS: BUN Creatinine Ratio 7.2 (10-20); Calcium 8.6 mg/dl (8.6-10.3); Creatinine Clr Calc Pharmacy 43.5 ml/min; Est GFR (African American) 66.7 ml/min; Est GFR (Non-African American) 57.5 ml/min; Potassium 3.9 mmol/L (3.5-5.1)
[2024-08-04] MEDS: FERROUS SULFATE 325 MG TAB PO SCH (07:49)
[2024-08-04] MEDS: FOLIC ACID 1 MG TAB PO SCH (08:43)
[2024-08-04] MEDS: DOCUSATE SODIUM/SENNA 50/8.6MG TAB PO SCH (08:43)
--- NOTE | 2024-08-04 09:35 | Hospitalist Progress Note ---
Date of Service August 04, 2024 Assessment & Plan (1) Hypothyroidism: (2) Failure to thrive in adult: (3) Chronic back pain: Plan Hyponatremia Patient admits to poor oral intake and noncompliance with medications Urine Osmo 85 Serum osm 259 Hypotonic hyponatremia. Likely due to increased free water intake/poor solute diet likely compounded by SNRI in patient with h/o SIADH Na is 131 this AM Nephro on board assisting with management Acute on chronic severe malnutrition: Failure to thrive: Mostly stays in bed/chair now due to weakness/FTT per brother at bedside Brother stated she gets HH 2x a week and he has been assisting with all ADLs for sometime and it is getting too much to handle. Patient lives alone Nutrition consult PT/OT rosie noted CM working on placement Depression Patient reports depression, poor appetite, sleep She reported she had attempted suicide/SI a long time ago Brother stated she has not followed with psychiatrist in a long time Psych rosie noted Resumed home duloxetin Continue trazodone Hx hypothyroidism: Continue Synthroid Chronic back/hip pain: Currently on oxycodone and MS Contin Reviewed PDMP On 08/03/24, home MS contin was reduced to half dose of 30mg q8h due to report of drowsiness from previous night Hx AMY: Continue ferrous sulfate Hb is 8.2 Iron level low at 13 Folate low at 2.48 Home ferrous sulfate increased to daily Started on folic acid Full code DVT prophylaxis: Priscila Shoemaker spent a total of 45 minutes coordinating, documenting and providing care for this patient excluding time spent in performance of separately billed services Admission and Anticipated Discharge Date Admission Date: August 01, 2024 Subjective Patient seen and examined Reports generalized weakness Reports chronic pain especially in left hip and ankle Reports depression. Denied SI/HI Denied other complaints Physical Exam Constitutional: + well hydrated and + thin; no acute dis tress Eyes: PERRL, conjunctivae normal, anicteric sclerae ENMT: external ear and nose normal, oropharynx normal Respiratory: normal respiratory effort, lungs clear to auscultation Cardiovascular: Rate/Rhythm: regular rate and regular rhythm Gastrointestinal (Abdomen): normal bowel sounds, soft, nontender, no hepatosplenomegaly Musculoskeletal: No pedal edema Neurologic: PERRL, EOMI, accommodation nl, no face palsy, no dysarthria Psychiatric: A+Ox3, euthymic affect Results & Data Results & Data Vital Signs (Past 12 Hours) Vital Signs Temp Pulse Pulse Resp BP BP Pulse Ox 08/04/24 08:03 36.7 C 70 18 116/70 95 08/04/24 07:49 08/04/24 07:33 65 08/04/24 03:54 36.3 C L 90 16 122/74 92 08/03/24 23:10 36.5 C 72 16 113/68 91 08/03/24 22:45 66 O2 Del Method 08/04/24 08:03 Room Air 08/04/24 07:49 Room Air 08/04/24 07:33 08/04/24 03:54 Room Air 08/03/24 23:10 Room Air 08/03/24 22:45 Laboratory Results Abnormal lab results 08/03/24 08/03/24 08/03/24 Range/Units 08:07 12:14 14:04 WBC 3.36 L (4.8-10.8) K/ul RBC 3.05 L (4.20-5.40) M/uL Hgb 8.1 L (12.0-16.0) g/dl Hct 25.5 L (37.0-47.0) % MCHC 31.8 L (32.0-36.0) g/dL RDW Std Deviation 50.7 H (36.4-46.3) fL RDW Coeff of Main 16.6 H (11.5-14.5) % Sodium 129 L (136-145) mmol/L Chloride 97 L (98-107) mmol/L BUN/Creatinine Ratio 7.9 L (10-20) Glucose (70-99(Fasting)) mg/dl Iron 13 L (35-150) mcg/dl Transferrin 170 L (200-360) mg/dl Folate 2.48 L (>5.38) ng/ml 08/03/24 08/04/24 Range/Units 20:51 05:55 WBC 3.38 L (4.8-10.8) K/ul RBC 3.05 L (4.20-5.40) M/uL Hgb 8.2 L (12.0-16.0) g/dl Hct 25.8 L (37.0-47.0) % MCHC 31.8 L (32.0-36.0) g/dL RDW Std Deviation 53.0 H (36.4-46.3) fL RDW Coeff of Main 17.0 H (11.5-14.5) % Sodium 128 L 131 L (136-145) mmol/L Chloride 96 L (98-107) mmol/L BUN/Creatinine Ratio 7.6 L 7.2 L (10-20) Glucose 121 H (70-99(Fasting)) mg/dl Iron (35-150) mcg/dl Transferrin (200-360) mg/dl Folate (>5.38) ng/ml
--- NOTE | 2024-08-04 10:20 | Nephrology Progress Note ---
Date of Service August 04, 2024 Assessment & Plan (1) Hyponatremia: Plan: severe hyponatremia, with presenting sodium 123 08/01 at 1430, up to 131 this AM at 0600. 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 compounded by SNRI use. -corrected initially too quickly and stopped NS but resumed 08/04 and will continue >> target is no more than 137 sodium by tomorrow AM >continue NS at 80 and repeat bmp for 1600 ordered >> if sNa at 1600 >135 or <130 should d/c NS; else continue it -for now continue no fluid limit -control pain w/o nsaids -maintain eukalemia > K 3.9 today Plan for sodium mgt as above re IVF, FR, f/u labs reviewed w/ Dr Hernadez via TText; we are in agreement. (2) Failure to thrive in adult: Plan: as per primary service; significant anemia hgb 8.2 today may be in part malnutrition Admission and Anticipated Discharge Date Admission Date: August 01, 2024 Subjective seen on early AM rounds; denies sob, new/uncontrolled pain, n/v currently though does endorse N w/ po intake Review of Systems 2 Review of Systems: All systems reviewed & are unremarkable except as noted in Subjective Physical Exam 2 Constitutional: well developed (lying flat in bed on RA), + cachectic and + frail appearing; no acute distress ENMT: Mouth: + dry oral mucous membranes Respiratory: normal respiratory effort; no cough Auscultation: + diminished lung sounds Cardiovascular: Rate/Rhythm: regular rate and regular rhythm Extremities: n o edema Musculoskeletal: Extremities: strength 5/5 throughout Skin: no rashes, warm and dry Neurologic: maynard, fluent speech, slight psychomotor slowing Results & Data Vital Signs (Past 12 Hours) Vital Signs Temp Pulse Pulse Resp BP BP Pulse Ox 08/04/24 08:03 36.7 C 70 18 116/70 95 08/04/24 07:49 08/04/24 07:33 65 08/04/24 03:54 36.3 C L 90 16 122/74 92 08/03/24 23:10 36.5 C 72 16 113/68 91 08/03/24 22:45 66 O2 Del Method 08/04/24 08:03 Room Air 08/04/24 07:49 Room Air 08/04/24 07:33 08/04/24 03:54 Room Air 08/03/24 23:10 Room Air 08/03/24 22:45 Laboratory Results 08/04/24 05:55 08/04/24 05:55
[2024-08-04] MEDS: DULoxetine HCL 20 MG CAP PO SCH (12:06)
[2024-08-04] MEDS: POLYETHYLENE (MIRALAX) 17 GM PACK PO PRN (12:40)
[2024-08-04 16:55] LABS: BUN Creatinine Ratio 7.1 (10-20); Calcium 8.6 mg/dl (8.6-10.3); Creatinine Clr Calc Pharmacy 42.6 ml/min; Est GFR (African American) 65.1 ml/min; Est GFR (Non-African American) 56.1 ml/min; Potassium 4.1 mmol/L (3.5-5.1)
[2024-08-05 07:20] LABS: Hematocrit (blood only) 27.7 % (37.0-47.0); Mean Corpuscular Hgb Conc 32.5 g/dL (32.0-36.0); Mean Corpuscular Volume 83.2 fL (80.0-100.0); Mean Platelet Volume 10.9 fL (9.4-12.4); Platelet Count 205 K/uL (130-400); RDW Standard Deviation 52.1 fL (36.4-46.3); Red Blood Count 3.33 M/uL (4.20-5.40); White Blood Count 3.77 K/ul (4.8-10.8)
[2024-08-05 07:40] LABS: BUN Creatinine Ratio 6.5 (10-20); Calcium 8.8 mg/dl (8.6-10.3); Creatinine Clr Calc Pharmacy 44.7 ml/min; Est GFR (African American) 70.2 ml/min; Est GFR (Non-African American) 60.5 ml/min; Magnesium 1.5 mg/dl (1.7-2.4); Phosphorus 2.8 mg/dl (2.5-4.9); Potassium 3.8 mmol/L (3.5-5.1)
[2024-08-05] MEDS: CYANOCOBALAMIN (B-12) 100 MCG TABLET PO SCH (08:04)
[2024-08-05] MEDS: MAGNESIUM SULFATE / D5W 1 GM/100 ML BAG IV SCH (08:58)
[2024-08-05] MEDS: bisacodyL 10 MG SUPP PR STA (08:58)
[2024-08-05] MEDS: POLYETHYLENE (MIRALAX) 17 GM PACK PO SCH (08:58)
--- NOTE | 2024-08-05 10:15 | Hospitalist Progress Note ---
Date of Service August 05, 2024 Assessment & Plan (1) Hypothyroidism: (2) Failure to thrive in adult: (3) Chronic back pain: Plan Hyponatremia Patient admits to poor oral intake and noncompliance with medications Urine Osmo 85 Serum osm 259 Hypotonic hyponatremia. Likely due to increased free water intake/poor solute diet likely compounded by SNRI in patient with h/o SIADH Na is 131 this AM Nephro on board assisting with management Discussed with Nephro. Dr Donald today. Recommends adding urea or sodium tab Acute on chronic severe malnutrition: Failure to thrive: Mostly stays in bed/chair now due to weakness/FTT per brother at bedside Brother stated she gets HH 2x a week and he has been assisting with all ADLs for sometime and it is getting too much to handle. Patient lives alone Nutrition consult PT/OT rosie noted CM working on placement Depression Patient reports depression, poor appetite, sleep She reported she had attempted suicide/SI a long time ago Brother stated she has not followed with psychiatrist in a long time Psych eval noted Resumed home duloxetin Continue trazodone Hx hypothyroidism: Continue Synthroid Chronic back/hip pain: Currently on oxycodone and MS Contin Reviewed PDMP On 08/03/24, home MS contin was reduced to half dose of 30mg q8h due to report of drowsiness from previous night Aggressive bowel regimen Get KUB Hx AMY: Continue ferrous sulfate Hb is 9 today Iron level low at 13 Folate low at 2.48 Home ferrous sulfate increased to daily Started on folic acid Full code DVT prophylaxis: [employer] spent a total of 40 minutes coordinating, documenting and providing care for this patient excluding time spent in performance of separately billed services Admission and Anticipated Discharge Date Admission Date: August 01, 2024 Subjective Patient seen and examined Patient has not had BM in some days. Stated she does not feel constipated Reported mild abd discomfort earlier that has resolved Denied nausea, vomiting Reports chronic pain especially in left hip and ankle are well controlled Denied other complaints Physical Exam Constitutional: + well hydrated and + thin; no acute dis tress Eyes: PERRL, conjunctivae normal, anicteric sclerae ENMT: external ear and nose normal, oropharynx normal Respiratory: normal respiratory effort, lungs clear to auscultation Cardiovascular: Rate/Rhythm: regular rate and regular rhythm Gastrointestinal (Abdomen): normal bowel sounds, soft, nontender, no hepatosplenomegaly Musculoskeletal: No pedal edema Neurologic: PERRL, EOMI, accommodation nl, no face palsy, no dysarthria Psychiatric: A+Ox3, euthymic affect Results & Data Results & Data Vital Signs (Past 12 Hours) Vital Signs Temp Pulse Pulse Resp BP BP Pulse Ox 08/05/24 07:59 08/05/24 07:40 36.5 C 84 16 144/76 H 95 08/05/24 07:14 68 08/05/24 03:57 36.7 C 59 L 16 117/70 98 08/04/24 23:20 36.9 C 61 16 120/77 95 08/04/24 22:27 66 O2 Del Method 08/05/24 07:59 Room Air 08/05/24 07:40 Room Air 08/05/24 07:14 08/05/24 03:57 Room Air 08/04/24 23:20 Room Air 08/04/24 22:27 Laboratory Results Abnormal lab results 08/04/24 08/05/24 Range/Units 16:16 05:37 WBC 3.77 L (4.8-10.8) K/ul RBC 3.33 L (4.20-5.40) M/uL Hgb 9.0 L (12.0-16.0) g/dl Hct 27.7 L (37.0-47.0) % RDW Std Deviation 52.1 H (36.4-46.3) fL RDW Coeff of Main 17.0 H (11.5-14.5) % Sodium 129 L 131 L (136-145) mmol/L Chloride 96 L 96 L (98-107) mmol/L BUN/Creatinine Ratio 7.1 L 6.5 L (10-20) Glucose 106 H (70-99(Fasting)) mg/dl Magnesium 1.5 L (1.7-2.4) mg/dl
--- NOTE | 2024-08-05 14:09 | XRay Report ---
KUB CLINICAL HISTORY: Generalized abdominal pain. FINDINGS: An AP, portable, supine abdominal radiograph is compared to study dated 08/27/2022 and rowan elated with abdominal CT dated 07/11/2024. There is a nonobstructed abdominal bowel gas pattern. Modera te fecal retention is seen throughout the colon. No evidence of intraperitoneal free air is identifie d on this supine image. There are no abnormal abdominal calcifications. Phleboliths are seen in the p conchita. The skeletal structures are osteopenic. There is moderate to advanced lumbosacral spondylosis as well as scoliosis. 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 This is unchanged from prior studi es. IMPRESSION: No acute abnormality is identified. Electronically signed by: Zack Alexander M.D. 08/05/2024 12:18 PM
[2024-08-05] MEDS: UREA (UREA-NA) 15 GM PACK PO SCH (21:44)
[2024-08-06 06:59] LABS: BUN Creatinine Ratio 23.3 (10-20); Calcium 8.9 mg/dl (8.6-10.3); Creatinine Clr Calc Pharmacy 57.5 ml/min; Est GFR (Non-African American) 81.1 ml/min; Magnesium 1.8 mg/dl (1.7-2.4); Phosphorus 2.7 mg/dl (2.5-4.9); Potassium 3.7 mmol/L (3.5-5.1)
--- NOTE | 2024-08-06 11:38 | Hospitalist Progress Note ---
Date of Service August 06, 2024 Assessment & Plan (1) Hypothyroidism: (2) Failure to thrive in adult: (3) Chronic back pain: Plan Hyponatremia Patient admits to poor oral intake and noncompliance with medications Urine Osmo 85 Serum osm 259 Hypotonic hyponatremia. Likely due to increased free water intake/poor solute diet likely compounded by SNRI in patient with h/o SIADH Na was 131 yesterday. Dropped to 128 today Discussed with Nephro. Dr Donald today. Recommends continuing urea, start IVF NSS at 80cc/hr and to recheck sOsm, uOsm, Cameron in AM Acute on chronic severe malnutrition: Failure to thrive: Mostly stays in bed/chair now due to weakness/FTT per brother at bedside Brother stated she gets HH 2x a week and he has been assisting with all ADLs for sometime and it is getting too much to handle. Patient lives alone Nutrition recs noted PT/OT eval noted CM working on placement Depression Patient reports depression, poor appetite, sleep She reported she had attempted suicide/SI a long time ago Brother stated she has not followed with psychiatrist in a long time Psych eval noted Resumed home duloxetin Continue trazodone Hx hypothyroidism: Continue Synthroid Chronic back/hip pain: Currently on oxycodone and MS Contin Reviewed PDMP On 08/03/24, home MS contin was reduced to half dose of 30mg q8h due to report of drowsiness from previous night Aggressive bowel regimen Get KUB Hx AMY: Continue ferrous sulfate Hb stable Iron level low at 13 Folate low at 2.48 Home ferrous sulfate increased to daily Continue folic acid started Full code DVT prophylaxis: Priscila Shoemaker spent a total of 40 minutes coordinating, documenting and providing care for this patient excluding time spent in performance of separately billed services Admission and Anticipated Discharge Date Admission Date: August 01, 2024 Subjective Patient seen and examined No new complaints Yet to have a BM. Denied feeling constipated. Reports she has not moved her bowels because she was not eating for days prior to admission Denied nausea, vomiting, abd pain Appetite is improved now Reports chronic pain especially in left hip and ankle are well controlled Denied other complaints Physical Exam Constitutional: + well hydrated and + thin; no acute dis tress Eyes: PERRL, conjunctivae normal, anicteric sclerae ENMT: external ear and nose normal, oropharynx normal Respiratory: normal respiratory effort, lungs clear to auscultation Cardiovascular: Rate/Rhythm: regular rate and regular rhythm Gastrointestinal (Abdomen): normal bowel sounds, soft, nontender, no hepatosplenomegaly Musculoskeletal: No pedal edema Neurologic: PERRL, EOMI, accommodation nl, no face palsy, no dysarthria Psychiatric: A+Ox3, euthymic affect Results & Data Results & Data Vital Signs (Past 12 Hours) Vital Signs Temp Pulse Pulse Resp BP Pulse Ox O2 Del Method 08/06/24 10:59 36.5 C 80 18 117/77 98 Room Air 08/06/24 07:27 Room Air 08/06/24 07:16 36.7 C 82 20 116/74 95 Room Air 08/06/24 07:06 86 08/06/24 03:48 36.9 C 60 16 122/69 95 Room Air Laboratory Results Abnormal lab results 08/06/24 08/06/24 Range/Units 05:59 Unknown Sodium 128 L (136-145) mmol/L Chloride 93 L (98-107) mmol/L BUN/Creatinine Ratio 23.3 H (10-20) Glucose 107 H (70-99(Fasting)) mg/dl Urine Osmolality 393 L (500-800) mOsm/kg
--- NOTE | 2024-08-06 12:31 | Nephrology Progress Note ---
Date of Service August 06, 2024 Assessment & Plan (1) Hyponatremia: Plan: severe hyponatremia, with presenting sodium 123 08/01 at 1430. looks as though she'd [employer] been drinking too much water based on labs and w/ minimal solute intake. compounded by SNRI use. -corrected initially too quickly and stopped NS but resumed 08/04, - Sodium has dropped to 128 from 131 today >Restart NS at 80 mls/hr and contineu on Urea, Aim for 3 courses of meal, w/ protein shakes, Repeat Uosm and Nancy morning for final recs upon discharge -for now continue no fluid limit -control pain w/o nsaids -maintain eukalemia (2) Failure to thrive in adult: Plan: as per primary service; significant anemia hgb 8.2 today may be in part malnutrition Admission and Anticipated Discharge Date Admission Date: August 01, 2024 Subjective Patient seen and examined Appears comfortbable Reports chronic pain especially in left hip and ankle are well controlled Denied other complaints Review of Systems 2 Review of Systems: All systems reviewed & are unremarkable except as noted in HPI & below Results & Data Vital Signs (Past 12 Hours) Vital Signs Temp Pulse Pulse Resp BP Pulse Ox O2 Del Method 08/06/24 10:59 36.5 C 80 18 117/77 98 Room Air 08/06/24 07:27 Room Air 08/06/24 07:16 36.7 C 82 20 116/74 95 Room Air 08/06/24 07:06 86 08/06/24 03:48 36.9 C 60 16 122/69 95 Room Air Laboratory Results 08/05/24 05:37 08/06/24 05:59
[2024-08-06] MEDS: SODIUM CHLORIDE 0.9% 1,000 ML IV SCH (12:43)
[2024-08-07 07:32] LABS: Hematocrit (blood only) 26.3 % (37.0-47.0); Hemoglobin 8.3 g/dl (12.0-16.0); Mean Corpuscular Hemoglobin 26.8 pg (25.0-34.0); Mean Corpuscular Hgb Conc 31.6 g/dL (32.0-36.0); Mean Corpuscular Volume 84.8 fL (80.0-100.0); Mean Platelet Volume 10.8 fL (9.4-12.4); Platelet Count 203 K/uL (130-400); RDW Coefficient of Variation 16.8 % (11.5-14.5); RDW Standard Deviation 52.2 fL (36.4-46.3); White Blood Count 4.04 K/ul (4.8-10.8)
[2024-08-07 07:55] LABS: BUN Creatinine Ratio 41.9 (10-20); Calcium 8.3 mg/dl (8.6-10.3); Creatinine Clr Calc Pharmacy 57.2 ml/min; Est GFR (African American) 92.5 ml/min; Est GFR (Non-African American) 79.8 ml/min; Potassium 3.4 mmol/L (3.5-5.1)
--- NOTE | 2024-08-07 09:39 | Nephrology Progress Note ---
Date of Service August 07, 2024 Assessment & Plan Admission and Anticipated Discharge Date Admission Date: August 01, 2024 Subjective Assessment & Plan (1) Hyponatremia: Plan: hyponatremia, with presenting sodium 123 with initial urine osm of 80+. So was drinking too much water based on labs and w/ minimal solute intake. corrected initially too quickly and stopped NS but resumed 08/04 and will continue Her Na has been in the 120's for last 5 years since 2019. even now has very poor appetite and easily gets nausea. She needs to eat /drink more protein and drink no more than 1200 ml per day. No salt tab and no urea ( because of lack of tolerance). even here in hospital she is mostly not taking it. as long as her na is 127+ it is acceptable. In such situation not possible to just raise the sodium. with her poor appetite/nausea dont want to burden her more with urea. She needs to eat /drink more protein and drink no more than 1200 ml per day. (2) Failure to thrive in adult: Plan: as per primary service; significant anemia hgb 8.2 today may be in part malnutrition Subjective Denies sob, new/uncontrolled pain, has sig nausea and vomiting and more with eating anything PO. Review of Systems Review of Systems: All systems reviewed & are unremarkable except as noted in Subjective Physical Exam Constitutional: well developed (lying flat in bed on RA), + cachectic and + frail appearing; no acute distress ENMT: Mouth: + dry oral mucous membranes Respiratory: normal respiratory effort; no cough Auscultation: + diminished lung sounds Cardiovascular: Rate/Rhythm: regular rate and regular rhythm Extremities: no edema Musculoskeletal: Extremities: no edema Skin: no rashes, warm and dry Neurologic: fluent speech Results & Data Vital Signs (Past 12 Hours) Vital Signs Temp Pulse Pulse Resp BP Pulse Ox O2 Del Method 08/07/24 08:35 37.1 C 77 20 123/67 93 Room Air 08/07/24 04:00 37.0 C 94 H 20 122/72 93 Room Air 08/06/24 23:34 37.2 C 90 20 133/77 94 Room Air 08/06/24 22:41 78
[2024-08-07] MEDS: POTASSIUM CHLORIDE 20 MEQ/15 ML UDC PO STA (11:09)
--- NOTE | 2024-08-07 14:53 | Hospitalist Progress Note ---
Date of Service August 07, 2024 Assessment & Plan (1) Hypothyroidism: (2) Failure to thrive in adult: (3) Chronic back pain: Plan Hyponatremia Patient admits to poor oral intake and noncompliance with medications Urine Osmo 85 Serum osm 259 Hypotonic hyponatremia. Likely due to increased free water intake/poor solute diet likely compounded by SNRI in patient with h/o SIADH Patient has chronic hyponatremia Discussed with Protozoologist Dr Smith today. He recommends encouraging po intake/high protein diet/1200cc daily Fluid restriction and no further intervention if Na stays above 127 Replete hypokalemia today and monitor Acute on chronic severe malnutrition: Failure to thrive: Mostly stays in bed/chair now due to weakness/FTT per brother at bedside Brother stated she gets HH 2x a week and he has been assisting with all ADLs for sometime and it is getting too much to handle. Patient lives alone Nutrition recs noted PT/OT eval noted CM working on placement Depression Patient reports depression, poor appetite, sleep She reported she had attempted suicide/SI a long time ago Brother stated she has not followed with psychiatrist in a long time Psych eval noted Resumed home duloxetin Continue trazodone Hx hypothyroidism: Continue Synthroid Chronic back/hip pain: Currently on oxycodone and MS Contin Reviewed PDMP On 08/03/24, home MS contin was reduced to half dose of 30mg q8h due to report of drowsiness from previous night Will reduce to q12H today and monitor Aggressive bowel regimen Hx AMY: Continue ferrous sulfate Hb stable Iron level low at 13 Folate low at 2.48 Home ferrous sulfate increased to daily Continue folic acid started Full code DVT prophylaxis: Lovenox Medically stable for dc once placement is available I spent a total of 40 minutes coordinating, documenting and providing care for this patient excluding time spent in performance of separately billed services Admission and Anticipated Discharge Date Admission Date: August 01, 2024 Subjective Patient seen and examined No new complaints No BM yet. She stated she is unsure if she has been passing flatus. Denied feeling constipated Denied nausea, vomiting, abd pain Reports chronic pain especially in left hip and ankle are well controlled Denied other complaints Physical Exam Constitutional: + well hydrated and + thin; no acute dis tress Eyes: PERRL, conjunctivae normal, anicteric sclerae ENMT: external ear and nose normal, oropharynx normal Respiratory: normal respiratory effort, lungs clear to auscultation Cardiovascular: Rate/Rhythm: regular rate and regular rhythm Gastrointestinal (Abdomen): normal bowel sounds, soft, nontender, no hepatosplenomegaly Musculoskeletal: No pedal edema Neurologic: PERRL, EOMI, accommodation nl, no face palsy, no dysarthria Psychiatric: A+Ox3, euthymic affect Results & Data Results & Data Vital Signs (Past 12 Hours) Vital Signs Temp Pulse Pulse Resp BP Pulse Ox O2 Del Method 08/07/24 12:01 75 08/07/24 12:01 Room Air 08/07/24 11:16 36.8 C 87 20 117/76 93 Room Air 08/07/24 08:35 37.1 C 77 20 123/67 93 Room Air 08/07/24 04:00 37.0 C 94 H 20 122/72 93 Room Air Laboratory Results Abnormal lab results 08/07/24 Range/Units 06:59 WBC 4.04 L (4.8-10.8) K/ul RBC 3.10 L (4.20-5.40) M/uL Hgb 8.3 L (12.0-16.0) g/dl Hct 26.3 L (37.0-47.0) % MCHC 31.6 L (32.0-36.0) g/dL RDW Std Deviation 52.2 H (36.4-46.3) fL RDW Coeff of Main 16.8 H (11.5-14.5) % Sodium 129 L (136-145) mmol/L Potassium 3.4 L (3.5-5.1) mmol/L Chloride 95 L (98-107) mmol/L BUN 31 H (6-23) mg/dl BUN/Creatinine Ratio 41.9 H (10-20) Glucose 103 H (70-99(Fasting)) mg/dl Calcium 8.3 L (8.6-10.3) mg/dl
[2024-08-07] MEDS ORDERED: MoRPHine SULFATE CR 15 MG TABCR PO SCH (15:15)
[2024-08-07] MEDS: bisacodyL 10 MG SUPP PR STA (16:06)
[2024-08-07] MEDS: ACETAMINOPHEN 325 MG TAB PO PRN (19:57)
[2024-08-07] MEDS: oxyCODONE HCL IR 5 MG TAB (IMMEDIATE RELEASE) PO PRN (20:50)
[2024-08-08 06:25] LABS: Hematocrit (blood only) 27.9 % (37.0-47.0); Hemoglobin 8.8 g/dl (12.0-16.0); Mean Corpuscular Hemoglobin 26.7 pg (25.0-34.0); Mean Corpuscular Hgb Conc 31.5 g/dL (32.0-36.0); Mean Corpuscular Volume 84.8 fL (80.0-100.0); Mean Platelet Volume 10.9 fL (9.4-12.4); Platelet Count 188 K/uL (130-400); RDW Coefficient of Variation 17.4 % (11.5-14.5); RDW Standard Deviation 54.5 fL (36.4-46.3); Red Blood Count 3.29 M/uL (4.20-5.40)
[2024-08-08 06:40] LABS: Calcium 8.8 mg/dl (8.6-10.3); Creatinine Clr Calc Pharmacy 51.6 ml/min; Est GFR (African American) 81.7 ml/min; Est GFR (Non-African American) 70.5 ml/min; Magnesium 1.6 mg/dl (1.7-2.4); Phosphorus 2.3 mg/dl (2.5-4.9)
[2024-08-08] MEDS: POT PHOSPHATE MONOBASIC W/ SOD TAB PO SCH (09:38)
[2024-08-08] MEDS: MAGNESIUM OXIDE 400 MG TAB PO SCH (09:38)
[2024-08-08] MEDS: MoRPHine SULFATE CR 15 MG TABCR PO SCH (09:38)
--- NOTE | 2024-08-08 09:55 | Nephrology Progress Note ---
Date of Service August 08, 2024 Assessment & Plan Admission and Anticipated Discharge Date Admission Date: August 01, 2024 Subjective Assessment & Plan (1) Hyponatremia: Plan: hyponatremia, with presenting sodium 123 with initial urine osm of 80+. So was drinking too much water based on labs and w/ minimal solute intake. corrected initially too quickly and stopped NS but resumed 08/04 and will continue Her Na has been in the 120's for last 5 years since 2019. even now has very poor appetite and easily gets nausea. She needs to eat /drink more protein and drink no more than 1200 ml per day. No salt tab and no urea ( because of lack of tolerance). Even here in hospital she is mostly not taking it. as long as her na is 127+ it is acceptable. In such situation not possible to just raise the sodium. with her poor appetite/nausea dont want to burden her more with urea. She needs to eat /drink more protein and drink no more than 1200 ml per day. However her current fluid intake is very low and Na is going up because she is drinking so little. Na is now 131 without any ivf or urea. (2) Failure to thrive in adult: Plan: as per primary service; significant anemia hgb 8.2 today may be in part malnutrition Subjective Denies sob, new/uncontrolled pain, has sig nausea and vomiting and more with eating anything PO. Review of Systems Review of Systems: All systems reviewed & are unremarkable except as noted in Subjective Physical Exam Constitutional: well developed (lying flat in bed on RA), + cachectic and + frail appearing; no acute distress ENMT: Mouth: + dry oral mucous membranes Respiratory: normal respiratory effort; no cough Auscultation: + diminished l rupinder sounds Cardiovascular: Rate/Rhythm: regular rate and regular rhythm Extremities: no edema Musculoskeletal: Extremities: no edema Skin: no rashes, warm and dry Neurologic: fluent speech Results & Data Vital Signs (Past 12 Hours) Vital Signs Temp Pulse Resp BP Pulse Ox O2 Del Method 08/08/24 08:14 36.5 C 72 20 110/66 93 Room Air 08/07/24 23:44 36.7 C 74 20 122/70 95 Room Air
--- NOTE | 2024-08-08 14:28 | Hospitalist Progress Note ---
Date of Service August 08, 2024 Assessment & Plan (1) Hypothyroidism: (2) Failure to thrive in adult: (3) Chronic back pain: Plan Hyponatremia Patient admits to poor oral intake and noncompliance with medications Urine Osmo 85 Serum osm 259 Hypotonic hyponatremia. Likely due to increased free water intake/poor solute diet likely compounded by SNRI in patient with h/o SIADH Patient has chronic hyponatremia Nephrology recommends encouraging po intake/high protein diet/1200cc daily Fluid restriction and no further intervention if Na stays above 127 No salt tab/urea for now Acute on chronic severe malnutrition: Failure to thrive: Mostly stays in bed/chair now due to weakness/FTT per brother at bedside Brother stated she gets HH 2x a week and he has been assisting with all ADLs for sometime and it is getting too much to handle. Patient lives alone Nutrition recs noted Replete hypophosphatemia and hypomagnesemia Started on po magnesium PT/OT eval noted CM working on placement Depression Patient reports depression, poor appetite, sleep She reported she had attempted suicide/SI a long time ago Brother stated she has not followed with psychiatrist in a long time Psych eval noted Resumed home duloxetin Continue trazodone Hx hypothyroidism: Continue Synthroid Chronic back/hip pain: Currently on oxycodone and MS Contin Reviewed PDMP On 08/03/24, home MS contin was reduced to half dose of 30mg q8h due to report of drowsiness from previous night Will reduce to q12H today and monitor Aggressive bowel regimen Hx AMY: Continue ferrous sulfate Hb stable Iron level low at 13 Folate low at 2.48 Home ferrous sulfate increased to daily Continue folic acid started Full code DVT prophylaxis: Lovenox Medically stable for dc once placement is available I spent a total of 35 minutes coordinating, documenting and providing care for this patient excluding time spent in performance of separately billed services Admission and Anticipated Discharge Date Admission Date: August 01, 2024 Subjective Patient seen and examined No new complaints Reports BM yesterday Denied nausea, vomiting, abd pain Reports chronic pain especially in left hip and ankle are well controlled Physical Exam Constitutional: + well hydrated and + thin; no acute dis tress Eyes: PERRL, conjunctivae normal, anicteric sclerae ENMT: external ear and nose normal, oropharynx normal Respiratory: normal respiratory effort, lungs clear to auscultation Cardiovascular: Rate/Rhythm: regular rate and regular rhythm Gastrointestinal (Abdomen): normal bowel sounds, soft, nontender, no hepatosplenomegaly Musculoskeletal: No pedal edema Neurologic: PERRL, EOMI, accommodation nl, no face palsy, no dysarthria Psychiatric: A+Ox3, euthymic affect Results & Data Results & Data Vital Signs (Past 12 Hours) Vital Signs Temp Pulse Resp BP Pulse Ox O2 Del Method 08/08/24 08:14 36.5 C 72 20 110/66 93 Room Air Laboratory Results Abnormal lab results 08/08/24 Range/Units 05:18 WBC 3.90 L (4.8-10.8) K/ul RBC 3.29 L (4.20-5.40) M/uL Hgb 8.8 L (12.0-16.0) g/dl Hct 27.9 L (37.0-47.0) % MCHC 31.5 L (32.0-36.0) g/dL RDW Std Deviation 54.5 H (36.4-46.3) fL RDW Coeff of Main 17.4 H (11.5-14.5) % Sodium 131 L (136-145) mmol/L Chloride 96 L (98-107) mmol/L BUN/Creatinine Ratio 22.0 H (10-20) Glucose 147 H (70-99(Fasting)) mg/dl Phosphorus 2.3 L (2.5-4.9) mg/dl Magnesium 1.6 L (1.7-2.4) mg/dl
[2024-08-09 06:18] LABS: BUN Creatinine Ratio 13.3 (10-20); Calcium 8.3 mg/dl (8.6-10.3); Creatinine Clr Calc Pharmacy 57.1 ml/min; Est GFR (Non-African American) 78.5 ml/min; Magnesium 1.4 mg/dl (1.7-2.4); Phosphorus 3.1 mg/dl (2.5-4.9); Potassium 3.3 mmol/L (3.5-5.1)
[2024-08-09] MEDS: POTASSIUM CHLORIDE CRTAB 20 MEQ TABCR PO STA (09:08)
[2024-08-09] MEDS: MAGNESIUM SULFATE / D5W 1 GM/100 ML BAG IV SCH (09:11)
[2024-08-09] MEDS ORDERED: INFLUENZA VACC TS2024-25(65y+)/PF (IIV3) 0.5mL Syr IM ONE (10:01)
--- NOTE | 2024-08-09 10:41 | Nephrology Progress Note ---
Date of Service August 09, 2024 Assessment & Plan Admission and Anticipated Discharge Date Admission Date: August 01, 2024 Subjective Assessment & Plan (1) Hyponatremia: Plan: hyponatremia, with presenting sodium 123 with initial urine osm of 80+. So was drinking too much water based on labs and w/ minimal solute intake. corrected initially too quickly and stopped NS but resumed 08/04 and will continue Her Na has been in the 120's for last 5 years since 2019. even now has very poor appetite and easily gets nausea. She needs to eat /drink more protein and drink no more than 1200 ml per day. No salt tab and no urea ( because of lack of tolerance). Even here in hospital she is mostly not taking it. as long as her na is 127+ it is acceptable. In such situation not possible to just raise the sodium in isolation. with her poor appetite/nausea dont want to burden her more with urea. She needs to eat /drink more protein and drink no more than 1200 ml per day. However her current fluid intake is very low and Na is going up because she is drinking so little. Na is now 132 without any ivf or urea. But all lytes are low--mag, K, Na and even Phos. this is nutritional. (2) Failure to thrive in adult: Plan: as per primary service; significant anemia hgb 8.2 today may be in part malnutr ition Subjective Denies sob, new/uncontrolled pain, has sig nausea and vomiting and more with eating anything PO. Review of Systems Review of Systems: All systems reviewed & are unremarkable except as noted in Subjective Physical Exam Constitutional: well developed (lying flat in bed on RA), + cachectic and + frail appearing; no acute distress ENMT: Mouth: + dry oral mucous membranes Respiratory: normal respiratory effort; no cough Auscultation: + diminished lung sounds Cardiovascular: Rate/Rhythm: regular rate and regular rhythm Extremities: no edema Musculoskeletal: Extremities: no edema Skin: no rashes, warm and dry Neurologic: fluent speech Results & Data Vital Signs (Past 12 Hours) Vital Signs Temp Pulse Resp BP Pulse Ox O2 Del Method 08/09/24 09:50 Room Air 08/09/24 08:02 36.8 C 78 16 129/77 95 Room Air 08/09/24 00:26 36.8 C 83 20 146/72 H 94 Room Air 08/08/24 22:45 Room Air
[2024-08-09] MEDS: INFLUENZA VACC TS2024-25(65y+)/PF (IIV3) 0.5mL Syr IM ONE (11:02)
--- NOTE | 2024-08-09 14:36 | Hospitalist Progress Note ---
Date of Service August 09, 2024 Assessment & Plan (1) Hypothyroidism: (2) Failure to thrive in adult: (3) Chronic back pain: Plan Pt is a 73yoF with PMhx significant for hypothyroidism, SIADH, COPD, chronic back pain/hip pain, anemia, anxiety, depression, A-fib who presented to the ED on 07/28/2024 after she was sent in by her primary care provider with abnormal outpatient labs. Hyponatremia Patient admits to poor oral intake and noncompliance with medications Urine Osmo 85 Serum osm 259 Hypotonic hyponatremia. Likely due to increased free water intake/poor solute diet likely compounded by SNRI in patient with h/o SIADH Patient has chronic hyponatremia Nephrology recommends encouraging po intake/high protein diet/1200cc daily Fluid restriction and no further intervention if Na stays above 127 No salt tab/urea for now Continue to monitor Improving Acute on chronic severe malnutrition Failure to thrive Hypomagnesemia Hypophosphatemia Hypokalemia Mostly stays in bed/chair now due to weakness/FTT per brother at bedside Brother stated she gets HH 2x a week and he has been assisting with all ADLs for sometime and it is getting too much to handle. Patient lives alone Nutrition recs noted Replete hypophosphatemia and hypomagnesemia, hypokalemia prn PT/OT rosie noted CM working on placement Depression Patient reports depression, poor appetite, sleep She reported she had attempted suicide/SI a long time ago Brother stated she has not followed with psychiatrist in a long time Psych consulted and rosie noted Resumed home duloxetine Continue trazodone Hx hypothyroidism: Continue Synthroid Chronic back/hip pain: Currently on oxycodone and MS Contin Reviewed PDMP On 08/03/24, home MS contin was reduced to half dose of 30mg q8h due to report of drowsiness from previous night Will reduce to q12H today and monitor Aggressive bowel regimen Hx Iron Deficiency anemia Continue ferrous sulfate Hgb stable Iron level low at 13 Folate low at 2.48 Home ferrous sulfate increased to daily Continue folic acid started Continue to monitor Diet: regular, FR Full code DVT prophylaxis: Lovenox Dispo: awaiting placement Admission and Anticipated Discharge Date Admission Date: August 01, 2024 Subjective patient was seen laying in bed. Denied acute concerns. States that she has been eating, have completed meal was in front of her. Has been refusing PT services. Did work with physical therapy today. Review of Systems Review of Systems: All systems reviewed & are unremarkable except as noted in Subjective Physical Exam Physical Exam: General: Alert, oriented. No acute distress Psych: Appropriate mood and affect HEENT: NC/AT CV: RRR Resp: Breath sounds clear bilaterally, no increased effort of breathing. Abdomen:Soft, nontender Extremities: No edema in lower extremities bilaterally. Results & Data Results & Data Vital Signs (Past 12 Hours) Vital Signs Temp Pulse Resp BP BP Pulse Ox O2 Del Method 08/09/24 11:19 37.0 C 71 16 136/78 96 Room Air 08/09/24 09:50 Room Air 08/09/24 08:02 36.8 C 78 16 129/77 95 Room Air
--- NOTE | 2024-08-09 15:14 | Electrocardiogram Report ---
Test Reason : Blood Pressure : */* mmHG Vent. Rate : 101 BPM Atrial Rate : 101 BPM P-R Int : 176 ms QRS Dur : 76 ms QT Int : 306 ms P-R-T Axes : * 33 106 degrees QTcB Int : 396 ms Sinus tachycardia with frequent atrial ectopy Low voltage QRS Nonspecific T wave abnormality Abnormal ECG When compared with ECG of 01-Aug-2024 14:19, QRS axis Shifted right Criteria for Inferior infarct are no longer Present Nonspecific T wave abnormality now evident in Inferior leads Confirmed by Dante Love [id number] on 08/09/2024 3:14:07 PM Referred By: REFERRED SELF Confirmed By: Dante Love
[2024-08-09 15:29] VITALS: O2SAT 95
[2024-08-09] MEDS: POTASSIUM CHLORIDE CRTAB 20 MEQ TABCR PO SCH (20:59)
[2024-08-10 06:33] LABS: Hematocrit (blood only) 24.4 % (37.0-47.0); Hemoglobin 8.1 g/dl (12.0-16.0); Mean Corpuscular Hemoglobin 27.1 pg (25.0-34.0); Mean Corpuscular Hgb Conc 33.2 g/dL (32.0-36.0); Mean Corpuscular Volume 81.6 fL (80.0-100.0); Mean Platelet Volume 10.4 fL (9.4-12.4); Platelet Count 193 K/uL (130-400); RDW Coefficient of Variation 17.3 % (11.5-14.5); RDW Standard Deviation 51.8 fL (36.4-46.3); Red Blood Count 2.99 M/uL (4.20-5.40); White Blood Count 4.14 K/ul (4.8-10.8)
[2024-08-10 06:48] LABS: BUN Creatinine Ratio 7.9 (10-20); Calcium 8.3 mg/dl (8.6-10.3); Creatinine Clr Calc Pharmacy 57.1 ml/min; Magnesium 1.8 mg/dl (1.7-2.4); Phosphorus 2.9 mg/dl (2.5-4.9); Potassium 3.9 mmol/L (3.5-5.1)
[2024-08-10 07:43] VITALS: BP 108/66; PULSE 80; RESP 18; TEMP 98.1
--- NOTE | 2024-08-10 09:56 | Nephrology Progress Note ---
Date of Service August 10, 2024 Assessment & Plan Admission and Anticipated Discharge Date Admission Date: August 01, 2024 Subjective Assessment & Plan (1) Hyponatremia: Plan: hyponatremia, with presenting sodium 123 with initial urine osm of 80+. So was drinking too much water based on labs and w/ minimal solute intake. corrected initially too quickly and stopped NS but resumed 08/04 and will continue Her Na has been in the 120's for last 5 years since 2019. even now has very poor appetite and easily gets nausea. She needs to eat /drink more protein and drink no more than 1200 ml per day. No salt tab and no urea ( because of lack of tolerance). Even here in hospital she is mostly not taking it. as long as her na is 127+ it is acceptable. In such situation not possible to just raise the sodium in isolation. with her poor appetite/nausea dont want to burden her more with urea. She needs to eat /drink more protein and drink no more than 1200 ml per day. na down a bit--she is drinking liquids but not eating Solid food. Now causing imbalance and na dropped again. Na is now 130 without any ivf or urea. mag, K, and Phos is normal range today. Continue current dose of supplement. Nutritional deficiency (2) Failure to thrive in adult: Plan: as per primary service; significant anemia hgb 8.2 today may be in part malnutrition Subjective Denies sob, new/uncontrolled pain, has sig nausea and vomiting and more with eating anything PO. Review of Systems Review of Systems: All systems reviewed & are unremarkable except as noted in Subjective Physical Exam Constitutional: well developed (lying flat in bed on RA), + cachectic and + frail appearing; no acute distress ENMT: Mouth: + dry oral mucous membranes Respiratory: normal respiratory effort; no cough Auscultation: + diminished lung sounds Cardiovascular: Rate/Rhythm: regular rate and regular rhythm Extremities: no edema Musculoskeletal: Extremities: no edema Skin: no rashes, warm and dry Neurologic: fluent speech Results & Data Vital Signs (Past 12 Hours) Vital Signs Temp Pulse Resp BP Pulse Ox O2 Del Method 08/10/24 07:42 36.7 C 80 18 108/66 95 Room Air 08/09/24 23:42 36.9 C 82 20 143/70 H 95 Room Air 08/09/24 22:18 Room Air
[2024-08-10 12:49] LABS: Influenza A virus by PCR Negative (Neg); Influenza B virus by PCR Negative (Neg); RSV by PCR Negative (Neg); SARS CoV2 RNA(COVID-19) Ceph NEGATIVE (Negative)
--- NOTE | 2024-08-10 14:00 | Discharge Summary ---
Discharge Summary Date of Service August 10, 2024 Principal Dx & Hospital Course #1 = Principal Diagnosis (1) Hypothyroidism: (2) Failure to thrive in adult: (3) Chronic back pain: Plan Pt is a 73yoF with PMhx significant for hypothyroidism, SIADH, COPD, chronic back pain/hip pain, anemia, anxiety, depression, A-fib who presented to the ED on 07/28/2024 after she was sent in by her primary care provider with abnormal outpatient labs. Hyponatremia Patient admits to poor oral intake and noncompliance with medications Urine Osmo 85 Serum osm 259 Hypotonic hyponatremia. Likely due to increased free water intake/poor solute diet likely compounded by SNRI in patient with h/o SIADH Patient has chronic hyponatremia Nephrology recommends encouraging po intake/high protein diet/1200cc daily Fluid restriction and no further intervention if Na stays above 127 No salt tab/urea for now given poor po intake Encourage increased po intake Continue to monitor nephrology follow up after discharge Acute on chronic severe malnutrition Failure to thrive Hypomagnesemia Hypophosphatemia Hypokalemia Mostly stays in bed/chair now due to weakness/FTT per brother at bedside Brother stated she gets HH 2x a week and he has been assisting with all ADLs for sometime and it is getting too much to handle. Patient lives alone Nutrition recs noted Replete hypophosphatemia and hypomagnesemia, hypokalemia prn PT/OT rosie noted Pt discharged to SNF at [place] Depression Patient reports depression, poor appetite, sleep She reported she had attempted suicide/SI a long time ago Brother stated she has not followed with psychiatrist in a long time Psych consulted and rosie noted- outpt Psych followup. Resumed home duloxetine Continue trazodone Psych and pcp follow up after discharge Hx hypothyroidism: Continue Synthroid Chronic back/hip pain: Currently on oxycodone and MS Contin Reviewed PDMP On 08/03/24, home MS contin was reduced to half dose of 30mg q8h due to report of drowsiness from previous night Will reduce to q12H and monitor Aggressive bowel regimen PCP followup Hx Iron Deficiency anemia Hgb stable Iron level low at 13 Folate low at 2.48 Home ferrous sulfate increased to daily Continue folic acid started PCP follow up Notes For Next Care Provider Please continue to monitor electrolytes (mag, phos, K) after discharge and replete as needed Medication Changes From Visit Ferrous sulfate supplements daily KCl 20mEq daily B12 and folate supplements Hold home metoprolol until pcp followup, was held due to lower BPs with no acute events noted. Admission HPI Per Admitting Provider The patient is a 73-year-old female with a past medical history of hypothyroidism, SIADH, COPD, chronic back pain/hip pain, anemia, anxiety, depression, A-fib who presented to the ED on 07/28/2024 after she was sent in by her primary care provider with abnormal outpatient labs. On arrival to the ED, labs remarkable for sodium 123, potassium 3.1, magnesium 1.5, chloride 86. the patient's POA, Corey, her brother, is at the bedside and reports noncompliance with medications. Patient reports she had not been taking her medications correctly over the past month. Over the past 4 days, the patient's brother has been helping at home and her medications have been taken appropriately. Patient has been on duloxetine and takes Zofran intermittently which could also be contributing to her hyponatremia. Patient also reports a poor appetite and admits that she has not been eating much over the past week. The patient's brother reports concerns over the patient's failure to thrive. Reports the patient is mostly wheelchair-bound and does not have enough help at home. The patient denies any shortness of breath/chest pain/fevers/chills/nausea/vomiting/diarrhea. She does report feeling "off" but she is awake alert and oriented x 3 on exam. Initial EKG shows QTc 568 with T wave abnormalities, the patient denies any chest pain or shortness of breath on exam Repeat EKG pending The patient will be admitted to telemetry for further monitoring Admission Exam Per Admitting Provider Constitutional: + ill appearing, + thin, + frail appeari ng and + underweight; + not well nourished Eyes: PERRL, conjunctivae normal, anicteric sclerae ENMT: external ear and nose normal, oropharynx normal Neck: trachea midline, no thyromegaly Respiratory: normal respiratory effort, lungs clear to auscultation Cardiovascular: RRR, no murmur, no edema Chest (Breasts): Breast: + abnormal inspection of breast ( fungal rash under bilateral breasts) Gastrointestinal (Abdomen): normal bowel sounds, soft, nontender, no hepatosplenomegaly Musculoskeletal: no cyanosis or clubbing, extremities motor strength 5/5 ( generalized weakness) Extremities: extremities normal to inspection Neurologic: patellar DTR's 2+ bilat, sensation intact and PERRL, EOMI, accommodation nl, no face palsy, no dysarthria Psychiatric: A+Ox3, euthymic affect Discharge Exam General: Alert, oriented. No acute distress Psych: Appropriate mood and affect HEENT: NC/AT CV: RRR Resp: Breath sounds clear bilaterally, no increased effort of breathing. Abdomen:Soft, nontender Extremities: No edema in lower extremities bilaterally. Updated Medication List Medication Instructions Recorded Confirmed Type levothyroxine 88 mcg tablet 88 mcg PO DAILYBB 09/08/19 08/01/24 History simvastatin 10 mg tablet 10 mg PO HS 09/08/19 09/01/22 History morphine 60 mg tablet,extended 60 mg PO TID #9 tabs 09/22/19 08/01/24 Rx release oxycodone 5 mg tablet 5 mg PO BID PRN Pain 10/24/19 08/01/24 History metoprolol succinate 50 mg 50 mg PO DAILY 12/16/20 09/01/22 History tablet,extended release 24 hr ondansetron HCl 4 mg tablet 4 mg PO Q8 PRN Nausea 12/16/20 09/01/22 History trazodone 100 mg tablet 100 mg PO HS 08/26/22 08/01/24 History duloxetine 20 mg capsule,delayed 20 mg PO QAM 09/01/22 08/01/24 History release sennosides 8.6 mg-docusate sodium 1 - 2 tab-cap (1 - 2 x 8.6-50 mg) 07/11/24 Rx 50 mg tablet (Senokot-S) PO BID PRN constipation #60 tabs cholecalciferol (vitamin D3) 125 125 mcg PO DAILY 08/01/24 08/01/24 History mcg (5,000 unit) capsule melatonin 5 mg disintegrating 5 mg PO QPM 08/01/24 08/01/24 History tablet pantoprazole 20 mg tablet,delayed 20 mg PO BID 08/01/24 08/01/24 History release cyanocobalamin (vitamin B-12) 100 100 mcg PO QAM #30 tabs 08/10/24 Rx mcg tablet (Vitamin B-12) ferrous sulfate 325 mg (65 mg 325 mg PO QAM #30 tabs 08/10/24 Rx iron) tablet,delayed release folic acid 1 mg tablet 1 mg PO QAM #30 tabs 08/10/24 Rx potassium chloride 20 mEq 20 meq PO DAILY #30 tabs 08/10/24 Rx tablet,extended release(part/cryst) Hospital Stay Data Consultations 08/01/24 15:34 ED Decision to Admit Stat 08/01/24 21:20 Consult Nephrology Routine 08/02/24 11:48 Consult Psychiatry Routine Diagnostic Imagining Performed Chest X-Ray 08/01/24 16:59 XR chest 2V PA/lateral CLINICAL HISTORY: baseline TECHNIQUE: 2 views of the chest were obtained. Comparison: None available at the time of this dictation. FINDINGS: No lines and tubes are seen. Calcified aortic knob is seen. The lungs are clear. No evidence of pleural effusion or pneumothorax. IMPRESSION: No acute chest disease. ACT 112: Negative or not required by law. Electronically signed by: Abdullahi Govea M.D. 08/01/2024 6:31 PM KUB X-Ray 08/05/24 08:43 KUB CLINICAL HISTORY: Generalized abdominal pain. FINDINGS: An AP, portable, supine abdominal radiograph is compared to study dated 08/27/2022 and correlated with abdominal CT dated 07/11/2024. There is a nonobstructed abdominal bowel gas pattern. Moderate fecal retention is seen throughout the colon. No evidence of intraperitoneal free air is identified on this supine image. There are no abnormal abdominal calcifications. Phleboliths are seen in the pelvis. The skeletal structures are osteopenic. There is moderate to advanced lumbosacral spondylosis as well as scoliosis. 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 This is unchanged from prior studies. IMPRESSION: No acute abnormality is identified. Electronically signed by: Zack Alexander M.D. 08/05/2024 12:18 PM Discharge Instructions Given to Patient (Per Discharging Provider) Yajaira, You are being discharged to a half-way facility. 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 He notes a chronic history of this, and recommends that you eat and drink a lot of protein to help with this. He also recommends that you drink NO MORE than 1200 mL of liquids every day. Please keep close follow-up with your primary care provider after discharge concerning the metoprolol listed on your medication list. It was held while you are in the hospital as your blood pressures were on the lower side. No acute events were noted. However at follow-up with your primary care provider, they will decide whether to continue this for you. Please continue eating and getting up and moving to help with you regaining your strength as well. Please keep close follow up with your primary care provider after discharge. Please do not hesitate to come back to the emergency room if your symptoms w orsen or return. It was a pleasure taking care of you while you were here. Total Time Total Time Spent Total Time Spent (In Minutes): 65
--- NOTE | 2024-08-10 16:30 | Electrocardiogram Report ---
Test Reason : Blood Pressure : */* mmHG Vent. Rate : 76 BPM Atrial Rate : 76 BPM P-R Int : 166 ms QRS Dur : 62 ms QT Int : 400 ms P-R-T Axes : 7 -24 41 degrees QTcB Int : 450 ms Normal sinus rhythm Low voltage QRS possible Inferior infarct , age undetermined Abnormal ECG When compared with ECG of 09-Aug-2024 06:31, QT has lengthened Confirmed by Dante Love ([id number] on 08/10/2024 4:29:45 PM Referred By: REFERRED SELF Confirmed By: Dante Love
== END 2024-08-10 15:46 | DRG 640 ==
LOC: ED 13:29 → SUATTDRO 16:21 → 2S 16:21 → 2N 08-03 15:29